=== PATIENT | female | born 1955 | race Caucasian/White ===

== ENCOUNTER 2022-10-01 06:17 | Inpatient (IN) ==
[2022-10-01] MEDS ORDERED: ACETAMINOPHEN 1,000 MG/100 ML VIAL IV STA (07:10)
[2022-10-01] MEDS ORDERED: SODIUM CHLORIDE 0.9% 1000ML 1,000 ML IV ONE (07:10)
--- NOTE | 2022-10-01 07:10 | Emergency Department Note ---
Impression & Plan COVID-19, Lactic acidosis, Hypoxia ED Provider Note Name: MORE CÁRDENAS Age: 66 Sex: F Arrives Via: Walk-In Informant: Patient, Family ED Provider: Chase Lozano MD Chief Complaint: Illness Impression: As per impressions above Medical Decision Makin-year-old female arrives for evaluation of generalized illness with fevers, chills, weakness. Did have a recent gynecologic procedure however does not have any gynecological symptoms at this time. She is however febrile, tachycardic, hypoxic and generally ill-appearing. Mild dyspnea as well. She is placed on a nasal cannula oxygen with improvement. She was given IV fluids and IV Tylenol with improvement. Concern for early sepsis without empiric IV antibiotics were given. Blood cultures were obtained as well prior to these being given. COVID testing did end up returning positive. Chest x-ray shows either pulmonary edema versus viral findings. She was given initial 1 L bolus of fluid but will hold on further as to avoid overload. Blood pressure remained stable. Patient was given IV Decadron for treatment of her COVID with hypoxia. She was made aware of these findings. Given she responds well to nasal cannula and otherwise looks well I do not think this is consistent with PE at this time. Hospitalist consulted for further management. Patient has a soft nontender abdomen. I do not feel that imaging of the abdomen is necessary at this time. Prior Medical Record and Triage/Nursing Notes reviewed by Me External chart reviewed by me. Differentials:Pneumonia, sepsis, COVID, flu, UTI, bacteremia, intra-abdominal infection amongst multiple other pathologies considered Vital Signs: reviewed and remarkable for tachycardia, febrile, hypoxia Interventions: Normal saline bolus IV, Tylenol IV, ertapenem 2 g IV, Decadron 10 mg IV Labs:Reviewed and remarkable for lactate Imagin view chest x-ray interpretation by me. Bilateral inflammatory changes versus pulmonary edema. EKG:Per My Interpretation: Indication illness: Sinus tach 131 bpm, qtc 451. No Ectopy. No Ischemia, there is nonspecific intra ventricular block. Compared to EKG 08/10/22 intraventricular block appears new Cardiac/Tele Monitoring: Cardiac Monitoring: An Order was placed for continuous cardiac monitoring. The monitor shows a rate of 120 with a sinus tach rhythm. Consults:Dr Monet ELIZALDE Hospitalist Plan: Disposition:Hospitalization. Condition: Good History of Present Illness:66-year-old female arrives for evaluation of illness. Patient has been dealing with some vaginal issues including recent biopsy showing she has cancer due to continued pain was started on lidocaine jelly which she started last night. She also notes she has been dealing with UTI for the last 2 weeks having now been on her third antibiotic. This morning increasing fevers, chills, body aches, shortness of breath, fatigue. Notes she is too weak to get up and walk. Denies any falls, trauma, injuries. Notes urinary frequency no significant burning. Denies any flank pain or abdominal pain, nausea, leg swelling, rashes or other concerning signs or symptoms. She h as not been having any runny nose or productive cough. She does have a history of COPD as well as previous pneumonia about 2 months ago. Prior to arrival without improvement. Past History:See Below Home Medications:See Below Allergies:See Below Vitals:Blood Pressure: 176/63, Pulse 128, RR 26, T 37.9C, O2 88% on RA Physical Exam: GENERAL: Patient is tired appearing and in mild distress. EYES: No scleral icterus, unremarkable pupils. ENT: Mucous membranes dry, no nasal congestion. NECK: No masses appreciated, nomeningismus, trachea is midline. RESPIRATORY: Moderate dyspnea. Clear to auscultation and equal bilaterally. No wheeze, no rhonchi. CARDIOVASCULAR: Tachycardic.No murmurs, rubs, gallops appreciated. GASTROINTESTINAL: Abdomen soft, non-tender, no peritonitis.Bowel sounds positive.No masses appreciated. EXTREMITIES: Normal motion all extremities, no cyanosis, no edema. NEUROLOGIC: Alert and oriented, no focal deficits appreciated SKIN: No rash, no jaundice, no diaphoresis. PSYCH: Appropriate GCS: 15 ED Course: Times/Reassessments: Improved with fluids and nasal cannula O2 Chase Lozano MD Past Med/Surg History Medical History Arthritis Asthma Chronic back pain COPD (chronic obstructive pulmonary disease) GERD without esophagitis Hyperlipidemia Insomnia Migraine headache without aura NAFLD (nonalcoholic fatty liver disease) Type 2 diabetes mellitus Surgical History H/O: x3 S/P total abdominal hysterectomy NELIDA-USO S/P tubal ligation Family History Mother Myocardial infarction Diabetes Sister Myocardial infarction x 2 Diabetes Brother Throat cancer Denies family history of Ovarian cancer Prostate cancer Breast cancer Colorectal cancer Uterine cancer Social History Smoking Status: Never smoker Tobacco Type: Cigarettes Second Hand Exposure: No; Do You Dip or Chew Tobacco: No; Hx Alcohol Use: No Hx Substance Use: No Preferred Language: Ethiopian Communication Ability: Effective Visual Impairment: No Limitations Hearing Ability: Normal Dipper And Baker Required: No Beliefs That Will Affect Care: None marital status: / Current Living Situation: Family Current Living Situation Comment: lives with son current occupational status: disabled Other Information That Helps Us Care for You: No Feels Safe at Home: Yes Safety Concerns: Feels Safe At This Time Diet Comment: regular caffeine: Yes during the past year weight has: decreased > 10 lbs Dental Care, Regularly: No Physical Activity Frequency: Other Physical Activity Frequency Comment: limited to physical condition Seatbelt Use: always Sunscreen Use: No Assistive Devices: Glasses and Other Assistive Devices Comment: patient uses scooter for long distance walking Allergies Allergies Allergy/AdvReac Type Severity Reaction Status Date / Time Penicillins Allergy Severe SHORT OF Verified 10/01/22 07:47 BREATH/HIVES shellfish derived Allergy Severe SHORT OF Verified 10/01/22 07:47 BREATH/EYES SWELL/ITCHY sumatriptan [From Imitrex] Allergy Severe SHORT OF Verified 10/01/22 07:47 BREATH/HIVES erythromycin base Allergy Intermediate ITCHY HIVES Verified 10/01/22 07:47 liraglutide [From Victoza] Allergy Intermediate RASH/STOMACH Verified 10/01/22 07:47 PAIN rofecoxib [From Vioxx] Allergy Intermediate ITCHY HIVES Verified 10/01/22 07:47 Tetracyclines Allergy Intermediate ITCHY HIVES Verified 10/01/22 07:47 iodine Allergy Unknown Verified 10/01/22 07:47 topiramate [From Topamax] AdvReac Severe SUICIDAL Verified 10/01/22 07:47 THOUGHTS/DEPRESSION meloxicam AdvReac Intermediate GI Verified 10/01/22 07:47 UPSET/DIARRHEA metformin AdvReac Intermediate STOMACH Verified 10/01/22 07:47 PAIN/DIARRHEA Home Meds Home Medications Medication Instructions Recorded Confirmed ammonium lactate 12 % topical cream 1 applic topical DAILY 08/10/22 10/01/22 aspirin 81 mg tablet,delayed 81 mg PO DAILY 08/10/22 10/01/22 release cyanocobalamin (vitamin B-12) 1,000 mcg PO DAILY 08/10/22 10/01/22 1,000 mcg tablet (Vitamin B-12) epinephrine 0.3 mg/0.3 mL 0.3 mg IM DIRECTED PRN Allergic 08/10/22 10/01/22 injection, auto-injector (EpiPen) Reaction lansoprazole 30 mg capsule,delayed 30 mg PO DAILY 08/10/22 10/01/22 release (Prevacid) simvastatin 20 mg tablet 20 mg PO HS 08/10/22 10/01/22 triamcinolone acetonide 0.1 % 1 applic topical BID PRN Skin 08/10/22 10/01/22 topical cream Irritation Previous Rx's Medication Instructions Recorded benzonatate 100 mg capsule 100 mg PO TID PRN Cough #60 caps 08/27/22 cetirizine 10 mg tablet (Zyrtec) 10 mg PO DAILY #90 tabs 08/27/22 famotidine 40 mg tablet 40 mg PO BID #60 tabs 08/27/22 glucose 4 gram chewable tablet 4 g PO Q15M PRN hypoglycemia #30 08/27/22 tabs montelukast 10 mg tablet 10 mg PO HS #90 tabs 08/27/22 (Singulair) nortriptyline 50 mg capsule 100 mg PO HS #90 caps 08/27/22 insulin glargine 100 unit/mL (3 50 unit (0.5 mL) subcut BID #15 mL 08/30/22 mL) subcutaneous pen (Lantus Solostar U-100 Insulin) albuterol sulfate 90 mcg/actuation 2 puff inhalation DIRECTED PRN 09/18/22 aerosol inhaler Shortness Of Breath Or Wheezing #8.5 grams fluticasone fur. 200 mcg-umeclid 1 inh inhalation DAILY #3 Inhalers 09/18/22 62.5 mcg-vilant 25 mcg inhalat.powder (Trelegy Ellipta) guaifenesin 600 mg tablet, 600 mg PO BID PRN congestion #60 09/18/22 extended release 12 hr (Mucinex) tabs zolpidem 5 mg tablet 5 mg PO ONCE PRN sleep #2 tabs 09/18/22 nitrofurantoin 100 mg PO Q12H 7 days #14 caps 09/20/22 monohydrate/macrocrystals 100 mg capsule (Macrobid) tizanidine 4 mg tablet 4 mg PO TID PRN muscle spasticity 09/20/22 #90 tabs lidocaine HCl 2 % mucosal jelly in 1 applic topical BID PRN pain #125 09/25/22 applicator mL dulaglutide 1.5 mg/0.5 mL 1.5 mg (0.5 mL) subcut WK #2 mL 09/26/22 subcutaneous pen injector (Trulicity) insulin aspart U-100 100 unit/mL 16 unit (0.16 mL) subcut TID #15 mL 09/26/22 (3 mL) subcutaneous pen (Novolog FlexPen U-100 Insulin aspart) Results & Data (ED) Vital Signs Vital Signs - 24 hr 10/01/22 06:24 10/01/22 06:38 10/01/22 06:48 Temperature 37.9 C H Temperature Source Temporal Artery Scan Pulse Rate 127 H 128 H Pulse Rate [Apical] Pulse Rate from SpO2 Sensor Respiratory Rate 22 Respiratory Effort / Characteristics Non-Labored Respiratory Depth Normal Blood Pressure 154/111 H Blood Pressure [Right Arm] Blood Pressure Mean 125 Blood Pressure Mean [Right Arm] Pulse Oximetry 94 Oxygen Delivery Method Room Air Room Air Oxygen Flow Rate Sepsis Recent Fever Within 48 Hours Yes Sepsis New/Unexplained Change in Mental Status N/A Sepsis Action Taken by Nursing Previously Notified 10/01/22 06:50 10/01/22 06:53 10/01/22 06:54 Temperature Temperature Source Pulse Rate Pulse Rate [Apical] 128 H Pulse Rate from SpO2 Sensor Respiratory Rate 26 H Respiratory Effort / Characteristics Non-Labored Spontaneous Respiratory Depth Blood Pressure Blood Pressure [Right Arm] 176/63 H Blood Pressure Mean Blood Pressure Mean [Right Arm] 100 Pulse Oximetry 88 L 93 Oxygen Delivery Method Room Air Nasal Cannula Oxygen Flow Rate 2 Sepsis Recent Fever Within 48 Hours Sepsis New/Unexplained Change in Mental Status Sepsis Action Taken by Nursing 10/01/22 06:38 10/01/22 06:52 10/01/22 06:52 Temperature Temperature Source Pulse Rate 128 H 127 H Pulse Rate [Apical] Pulse Rate from SpO2 Sensor 127 H Respiratory Rate 31 H 26 H Respiratory Effort / Characteristics Respiratory Depth Blood Pressure 176/63 H Blood Pressure [Right Arm] Blood Pressure Mean 100 Blood Pressure Mean [Right Arm] Pulse Oximetry 89 L Oxygen Delivery Method Oxygen Flow Rate Sepsis Recent Fever Within 48 Hours Sepsis New/Unexplained Change in Mental Status Sepsis Action Taken by Nursing 10/01/22 07:00 10/01/22 07:00 10/01/22 07:30 Temperature Temperature Source Pulse Rate 127 H 127 H Pulse Rate [Apical] Pulse Rate from SpO2 Sensor 130 H 128 H Respiratory Rate 17 27 H Respiratory Effort / Characteristics Respiratory Depth Blood Pressure Blood Pressure [Right Arm] Blood Pressure Mean 166 Blood Pressure Mean [Right Arm] Pulse Oximetry 95 93 Oxygen Delivery Method Oxygen Flow Rate Sepsis Recent Fever Within 48 Hours Sepsis New/Unexplained Change in Mental Status Sepsis Action Taken by Nursing 10/01/22 08:00 10/01/22 08:08 10/01/22 08:09 Temperature Temperature Source Pulse Rate 126 H 124 H Pulse Rate [Apical] Pulse Rate from SpO2 Sensor 129 H 124 H Respiratory Rate 25 H 16 Respiratory Effort / Characteristics Respiratory Depth Blood Pressure 147/82 H Blood Pressure [Right Arm] Blood Pressure Mean 103 Blood Pressure Mean [Right Arm] Pulse Oximetry 89 L 93 Oxygen Delivery Method Oxygen Flow Rate Sepsis Recent Fever Within 48 Hours Sepsis New/Unexplained Change in Mental Status Sepsis Action Taken by Nursing 10/01/22 08:09 10/01/22 08:30 Temperature Temperature Source Pulse Rate 124 H 120 H Pulse Rate [Apical] Pulse Rate from SpO2 Sensor 125 H 122 H Respiratory Rate 20 25 H Respiratory Effort / Characteristics Respiratory Depth Blood Pressure Blood Pressure [Right Arm] Blood Pressure Mean Blood Pressure Mean [Right Arm] Pulse Oximetry 93 94 Oxygen Delivery Method Oxygen Flow Rate Sepsis Recent Fever Within 48 Hours Sepsis New/Unexplained Change in Mental Status Sepsis Action Taken by Nursing Laboratory Data 10/01/22 06:42 10/01/22 06:42 Lab Results 10/01/22 10/01/22 10/01/22 Range/Units 06:42 06:42 06:42 WBC 12.84 H (4.8-10.8) K/ul RBC 4.33 (4.20-5.40) M/uL Hgb 12.1 (12.0-16.0) g/dl Hct 37.4 (37.0-47.0) % MCV 86.4 (80.0-100.0) fL MCH 27.9 (25.0-34.0) pg MCHC 32.4 (32.0-36.0) g/dL RDW Std Deviation 46.1 (36.4-46.3) fL RDW Coeff of Brandon 14.5 (11.5-14.5) % Plt Count 324 (130-400) K/uL MPV 10.4 (9.4-12.4) fL Immature Gran % (Auto) 0.3 % Neut % (Auto) 94.1 % Lymph % (Auto) 3.0 % [place] % (Auto) 1.4 % Eos % (Auto) 0.9 % Baso % (Auto) 0.3 % Neut # (Auto) 12.09 H (1.40-6.50) K/uL Lymph # (Auto) 0.38 L (1.2-3.4) K/uL [place] # (Auto) 0.18 (0.11-0.59) K/uL Eos # (Auto) 0.11 (0-0.50) K/uL Baso # (Auto) 0.04 (0-0.2) K/uL Immature Gran # (Auto) 0.04 (0.01-0.20) K/uL Sodium 135 L (136-145) mmol/L Potassium 4.4 (3.5-5.1) mmol/L Chloride 104 (98-107) mmol/L Carbon Dioxide 22 (21-32) mmol/L Anion Gap 9 (3-11) BUN 10 (6-23) mg/dl Creatinine 0.80 (0.6-1.2) mg/dl Est Cr Clr Drug Dosing 81.3 ml/min Est GFR ( Amer) 89.0 ml/min Est GFR (Non-Af Amer) 76.8 ml/min BUN/Creatinine Ratio 12.5 (10-20) Glucose 275 H (70-99(Fasting)) mg/dl Lactate 2.5 H* (0.4-2.0) mmol/L Calcium 8.7 (8.5-10.1) mg/dl Magnesium 1.7 (1.7-2.4) mg/dl Total Bilirubin 0.6 (0.2-1.0) mg/dl Direct Bilirubin 0.2 (0-0.2) mg/dl AST 55 H (13-39) U/L ALT 42 (7-52) U/L Alkaline Phosphatase 283 H (34-104) U/L Troponin I High Sens 9.7 (0-14) pg/ml Total Protein 7.6 (6.0-8.3) gm/dl Albumin 3.6 (3.4-5.0) gm/dl Procalcitonin (0-0.5) ng/ml Urine Color Urine Appearance (Clear) Urine pH (4.5-7.5) Ur Specific [place] (1.000-1.030) Urine Protein (Negative) Urine Glucose (UA) (Negative) Urine Ketones (Negative) Urine Blood (Negative) Urine Nitrite (Negative) Urine Bilirubin (Negative) Urine Urobilinogen (Negative) Ur Leukocyte Esterase (Negative) Urine WBC (Auto) (0-5) /hpf Urine RBC (Auto) (0-4) /hpf U Hyaline Cast (Auto) (0-5) /lpf U Epithel Cells (Auto) (0-5) /lpf Urine Bacteria (Auto) (Negative) SARS-CoV-2 (PCR) (Negative) Influenza Type A (PCR) (Neg) Influenza Type B (PCR) (Neg) RSV (RT-PCR) (Neg) 10/01/22 10/01/22 10/01/22 Range/Units 06:42 06:53 07:57 WBC (4.8-10.8) K/ul RBC (4.20-5.40) M/uL Hgb (12.0-16.0) g/dl Hct (37.0-47.0) % MCV (80.0-100.0) fL MCH (25.0-34.0) pg MCHC (32.0-36.0) g/dL RDW Std Deviation (36.4-46.3) fL RDW Coeff of Brandon (11.5-14.5) % Plt Count (130-400) K/uL MPV (9.4-12.4) fL Immature Gran % (Auto) % Neut % (Auto) % Lymph % (Auto) % [place] % (Auto) % Eos % (Auto) % Baso % (Auto) % Neut # (Auto) (1.40-6.50) K/uL Lymph # (Auto) (1.2-3.4) K/uL [place] # (Auto) (0.11-0.59) K/uL Eos # (Auto) (0-0.50) K/uL Baso # (Auto) (0-0.2) K/uL Immature Gran # (Auto) (0.01-0.20) K/uL Sodium (136-145) mmol/L Potassium (3.5-5.1) mmol/L Chloride (98-107) mmol/L Carbon Dioxide (21-32) mmol/L Anion Gap (3-11) BUN (6-23) mg/dl Creatinine (0.6-1.2) mg/dl Est Cr Clr Drug Dosing ml/min Est GFR ( Amer) ml/min Est GFR (Non-Af Amer) ml/min BUN/Creatinine Ratio (10-20) Glucose (70-99(Fasting)) mg/dl Lactate (0.4-2.0) mmol/L Calcium (8.5-10.1) mg/dl Magnesium (1.7-2.4) mg/dl Total Bilirubin (0.2-1.0) mg/dl Direct Bilirubin (0-0.2) mg/dl AST (13-39) U/L ALT (7-52) U/L Alkaline Phosphatase (34-104) U/L Troponin I High Sens (0-14) pg/ml Total Protein (6.0-8.3) gm/dl Albumin (3.4-5.0) gm/dl Procalcitonin 0.24 (0-0.5) ng/ml Urine Color Yellow Urine Appearance Clear (Clear) Urine pH 8.5 H (4.5-7.5) Ur Specific [place] 1.017 (1.000-1.030) Urine Protein Negative (Negative) Urine Glucose (UA) 2+ H (Negative) Urine Ketones 1+ H (Negative) Urine Blood Negative (Negative) Urine Nitrite Negative (Negative) Urine Bilirubin Negative (Negative) Urine Urobilinogen Negative (Negative) Ur Leukocyte Esterase Trace H (Negative) Urine WBC (Auto) 5-10 H (0-5) /hpf Urine RBC (Auto) 0-4 (0-4) /hpf U Hyaline Cast (Auto) 0 (0-5) /lpf U Epithel Cells (Auto) >30 H (0-5) /lpf Urine Bacteria (Auto) 1+ H (Negative) SARS-CoV-2 (PCR) POSITIVE A* (Negative) Influenza Type A (PCR) Negative (Neg) Influenza Type B (PCR) Negative (Neg) RSV (RT-PCR) Negative (Neg) Administered Medications Albuterol (Albut/Ipratrop 3mg/0.5mg Neb 3 Ml Vial) 3 ml NEB Q4R NATALIA; Protocol Stop: 10/31/22 11:44 Last Admin: 10/01/22 12:31 Dose: 3 ml Documented By: NARINDER Aspirin (Aspirin 81 Mg Ectab) 81 mg PO DAILY [facility] Stop: 10/31/22 11:44 Last Admin: 10/01/22 12:51 Dose: 81 mg Documented By: WILMA Cetirizine HCl (Cetirizine Hcl 10 Mg Tablet) 10 mg PO DAILY [facility] Stop: 10/31/22 11:44 Last Admin: 10/01/22 12:51 Dose: 10 mg Documented By: WILMA Cyanocobalamin (Cyanocobalamin (B-12) 500 Mcg Tablet) 1,000 mcg PO DAILY [facility] Stop: 10/31/22 11:44 Last Admin: 10/01/22 12:51 Dose: 1,000 mcg Documented By: WILMA Famotidine (Famotidine 40 Mg Tablet) 40 mg PO BID [facility] Stop: 10/31/22 11:44 Last Admin: 10/01/22 12:51 Dose: 40 mg Documented By: WILMA Fluticasone Furoate (Fluticasone Furoate 200mcg 14 Puffs/Inhaler) 1 puffs INH DAILY [facility] Stop: 10/31/22 11:59 Last Admin: 10/01/22 12:50 Dose: 1 puffs Documented By: WILMA Guaifenesin (Guaifenesin 600 Mg Tabcr) 600 mg PO BID [facility] Stop: 10/31/22 11:44 Last Admin: 10/01/22 12:51 Dose: 600 mg Documented By: WILMA Magnesium Sulfate/Dextrose (Magnesium Sulfate / D5w) 1 gm in 100 mls @ 50 mls/hr IV ONE ONE Stop: 10/01/22 15:24 Last Admin: 10/01/22 13:43 Dose: 50 mls/hr Documented By: WILMA Insulin Aspart (Insulin Aspart Per Unit) 0 units SC ACHS NATALIA Stop: 10/31/22 12:19 Last Admin: 10/01/22 13:06 Dose: 10 units Documented By: WILMA Co-signed By: DMB Pantoprazole Sodium (Pantoprazole 40 Mg Tab) 40 mg PO DAILY NATALIA Stop: 10/31/22 11:44 Last Admin: 10/01/22 12:51 Dose: 40 mg Documented By: WILMA Umeclidinium/Vilanterol (Umeclidinium/Vilanterol 62.5/25mcg 7 Puffs/Inhaler) 1 puffs INH DAILY NATALIA Stop: 10/31/22 11:59 Last Admin: 10/01/22 12:50 Dose: 1 puffs Documented By: WILMA Discontinued Medications Dexamethasone Sodium Phosphate (DexamethasonePf 10 Mg/Ml Vial) 10 mg IV NOW ONE Stop: 10/01/22 07:56 Last Admin: 10/01/22 08:04 Dose: 10 mg Documented By: HS Sodium Chloride (Nss 1000ml) 1,000 mls @ 999 mls/hr IV .Q1H1M ONE Stop: 10/01/22 08:10 Last Infusion: 10/01/22 08:16 Dose: 0 mls/hr Documented By: Admin: 10/01/22 07:15 Dose: 999 mls/hr Documented By: HS Acetaminophen (Ofirmev) 1,000 mg in 100 mls @ 400 mls/hr IV NOW STA Stop: 10/01/22 07:24 Last Infusion: 10/01/22 07:43 Dose: 0 mls/hr Documented By: Admin: 10/01/22 07:15 Dose: 400 mls/hr Documented By: HS Ertapenem (Invanz) 10 mls @ 2 mls/min IV NOW ONE Stop: 10/01/22 07:47 Last Admin: 10/01/22 08:04 Dose: 2 mls/min Documented By: HS Remdesivir 200 mg/ Sodium (Chloride) 250 mls @ 125 mls/hr IV ONE ONE; Protocol Stop: 10/01/22 14:14 Last Admin: 10/01/22 12:51 Dose: Not Given Documented By: WILMA Sodium Chloride (Nss 1000ml) 250 mls @ 999 mls/hr IV .Q16M ONE Stop: 10/01/22 13:09 Last Infusion: 10/01/22 13:50 Dose: 0 mls/hr Documented By: Admin: 10/01/22 13:26 Dose: 999 mls/hr Documented By: WILMA Insulin Glargine (Lantus Per Unit Charge) 50 units SQ NOW ONE Stop: 10/01/22 12:31 Last Admin: 10/01/22 13:06 Dose: 50 units Documented By: WILMA Co-signed By: ROXANNA Imaging Data Radiologist's Impression: Chest X-Ray 10/01/22 06:39 XR chest 1V portable CLINICAL HISTORY: Sepsis TECHNIQUE: Single frontal radiograph of the chest was obtained. Comparison: Comparison is made to chest radiograph 08/10/2022 FINDINGS: Exam is limited by patient rotation and underpenetration. Cardiomegaly is noted. Prominence and cephalization of the vasculature is seen. No evidence of pleural effusion or pneumothorax. IMPRESSION: Cardiomegaly and mild pulmonary edema. ACT 112: Negative or not required by law. Electronically signed by: Antonio Carranza M.D. 10/01/2022 7:22 AM Discharge Plan Visit Data Chief Complaint: Chest Pain Stated Complaint: FEVER,LIGHTHEADED,SOB,CHEST TIGHTNESS,NEW MEDS ED Provider: Chase Lozano Discharge Problem: COVID-19, Lactic acidosis, Hypoxia Patient Disposition: Admitted As Inpatient Discharge Instructions Interventions: ED Discharge Assessment Last Done: 10/01/22 11:03
[2022-10-01 07:18] LABS: Hematocrit (blood only) 37.4 % (37.0-47.0); Hemoglobin 12.1 g/dl (12.0-16.0); Mean Corpuscular Hemoglobin 27.9 pg (25.0-34.0); Mean Corpuscular Hgb Conc 32.4 g/dL (32.0-36.0); Mean Corpuscular Volume 86.4 fL (80.0-100.0); Mean Platelet Volume 10.4 fL (9.4-12.4); Platelet Count 324 K/uL (130-400); RDW Coefficient of Variation 14.5 % (11.5-14.5); RDW Standard Deviation 46.1 fL (36.4-46.3); Red Blood Count 4.33 M/uL (4.20-5.40); White Blood Count 12.84 K/ul (4.8-10.8)
--- NOTE | 2022-10-01 07:23 | XRay Report ---
XR chest 1V portable CLINICAL HISTORY: Sepsis TECHNIQUE: Single frontal radiograph of the chest was obtained. Comparison: Comparison is made to chest radiograph 08/10/2022 FINDINGS: Exam is limited by patient rotation and underpenetration. Cardiomegaly is noted. Prominence and cepha lization of the vasculature is seen. No evidence of pleural effusion or pneumothorax. IMPRESSION: Cardiomegaly and mild pulmonary edema. ACT 112: Negative or not required by law. Electronically signed by: Antonio Carranza M.D. 10/01/2022 7:22 AM
[2022-10-01 07:27] LABS: Albumin Level 3.6 gm/dl (3.4-5.0); BUN Creatinine Ratio 12.5 (10-20); Bilirubin Direct 0.2 mg/dl (0-0.2); Bilirubin,Total 0.6 mg/dl (0.2-1.0); Calcium 8.7 mg/dl (8.5-10.1); Creatinine Clr Calc Pharmacy 81.3 ml/min; Est GFR (Non-African American) 76.8 ml/min; Magnesium 1.7 mg/dl (1.7-2.4); Potassium 4.4 mmol/L (3.5-5.1); Total Protein 7.6 gm/dl (6.0-8.3)
[2022-10-01 07:33] LABS: Troponin I High Sensitivity 9.7 pg/ml (0-14)
[2022-10-01 07:42] LABS: Basophils # (auto) 0.04 K/uL (0-0.2); Basophils % (auto) 0.3 %; Eosinophils # (auto) 0.11 K/uL (0-0.50); Eosinophils % (auto) 0.9 %; Immature Granulocytes # (auto) 0.04 K/uL (0.01-0.20); Immature Granulocytes % (auto) 0.3 %; Lymphocytes # (auto) 0.38 K/uL (1.2-3.4); Monocytes # (auto) 0.18 K/uL (0.11-0.59); Monocytes % (auto) 1.4 %; Neutrophils # (auto) 12.09 K/uL (1.40-6.50); Neutrophils % (auto) 94.1 %
[2022-10-01] MEDS ORDERED: ERTAPENEM SODIUM 10 ML IV ONE (07:43)
[2022-10-01 07:50] LABS: Influenza A virus by PCR Negative (Neg); Influenza B virus by PCR Negative (Neg); RSV by PCR Negative (Neg)
[2022-10-01 07:55] LABS: SARS CoV2 RNA(COVID-19) Ceph POSITIVE (Negative)
[2022-10-01] MEDS ORDERED: dexAMETHasone**PF** 10 MG/ML VIAL IV ONE (07:55)
[2022-10-01 08:13] LABS: Appearance Urine Clear (Clear); Bacteria Urine Automated 1+ (Negative); Bilirubin Urine Negative (Negative); Blood Urine Negative (Negative); Cast Urine Automated 0 /lpf (0-5); Color Urine Yellow; Epithelial Cell Urine Auto >30 /lpf (0-5); Glucose Urine UA 2+ (Negative); Ketones Urine 1+ (Negative); Leukocyte Esterase Urine Trace (Negative); Nitrite Urine Negative (Negative); Protein Urine Negative (Negative); RBC Urine Automated 0-4 /hpf (0-4); Specific Gravity Urine 1.017 (1.000-1.030); Urobilinogen Urine Negative (Negative); pH Urine 8.5 (4.5-7.5)
--- NOTE | 2022-10-01 08:16 | History & Physical Report ---
Date of Service October 01, 2022 Assessment & Plan (1) COVID-19: Plan: Increased weakness, fevers, shortness of breath and fatigue, positive for COVID (prior + last January, is vaccinated) Hypoxic w/ Spo2 88% on RA on arrival, currently 93% on 2L. Lactic elevation likely 2nd to hypoxia (denied sx of prior UTI, however UA pending and did get dose of Ertapenem) Temp 37.9C Blood cultures pending Already received 1L NSS bolus will hold off further IVF/pending repeat lactic Maintain isolation precautions Decadron 10mg IV x 1 now, continue 6mg IV daily +Remdesivir 1st dose now, continue course while inpatient Duonebs prn Incentive spirometer, flutter valve, mucinex, sputum Supplemental O2 to maintain sats DVT proph: lovenox SQ BID on PPI/H2 for GI proph PT/OT consulted given weakness (has been getting help at home per patient to allow son to be able to take care of her). CM to follow (2) Sepsis: Plan: likely 2nd to above blood cultures/UA/cx pending (3) Recurrent UTI (urinary tract infection): Plan: urine pending, recently completed macrobid for ecoli uti, which was sensitive (4) Shortness of breath: Plan: improved since supplemental O2 and decadron continue inhalers/supplemnetal o2/tx for covid (5) COPD (chronic obstructive pulmonary disease): Plan: continue usual inhalers no cough/sputum production to warrant abx currently but will monitor recently seen by Dr [place], CT chest ordered -- can hold off for now/reach out if patient worsens continue allergy medications as well, mucinex, etc (6) Type 2 diabetes mellitus: Plan: continue usual glargine BID for now, BSG AC/HS, and SSI. Last A1c 9.3. Glu 275 DM diet pharmacy for glycemic management given decadron as above monitor BSGs (7) GERD without esophagitis: Plan: continue PPI/H2 no increased symptoms reported (8) Squamous cell carcinoma: Plan: recent dx by RESPIRATORY TECHNICIAN, awaiting manager video/onc follow up stable Plan DVT prophylaxis-Lovenox SQ History of Present Illness Primary Care Provider: ALFONSO Castro 66yo female presented with recent vaginal issues/UTI and this morning with increasing fevers, chills, body aches, shortness of breath, fatigue. Too weak to get up/walk. 88% RA Patient seen in room with son at bedside. Moved from [place] at end of July, states she had COVID back at the end of last January, is vaccinated. Hx COPD/asthma and has been on her usual inhalers. Denies cough/sputum production but does endorse shortness of breath, which is improved since she got here and received steroids. Initially hypoxic with SpO2 88%, 93% on 2L currently and stable. Recent UTI and sx cloudy/foul smelling urine and since abx (which have been completed) she is asymptomatic from that. She is awaiting f/u manager video/onc for her squamous cell carcinoma just discovered. She has been febrile and weak, poor PO intake/appetite but no abdominal pain or nausea. Little bit of a headache but no migraine (hx of such). No falls/loss of conciousness. Discussed admission for steroids/remdesivir, if breathing worsens can reach out to pulmonary as recently seen. ER Course: Given Decadron 10mg IV x 1 now, Ertapenem, IV Tylenol, 1L NSS bolus. Allergies Allergy/AdvReac Type Severity Reaction Status Date / Time Penicillins Allergy Severe SHORT OF Verified 10/01/22 07:47 BREATH/HIVES shellfish derived Allergy Severe SHORT OF Verified 10/01/22 07:47 BREATH/EYES SWELL/ITCHY sumatriptan [From Imitrex] Allergy Severe SHORT OF Verified 10/01/22 07:47 BREATH/HIVES erythromycin base Allergy Intermediate ITCHY HIVES Verified 10/01/22 07:47 liraglutide [From Victoza] Allergy Intermediate RASH/STOMACH Verified 10/01/22 07:47 PAIN rofecoxib [From Vioxx] Allergy Intermediate ITCHY HIVES Verified 10/01/22 07:47 Tetracyclines Allergy Intermediate ITCHY HIVES Verified 10/01/22 07:47 iodine Allergy Unknown Verified 10/01/22 07:47 topiramate [From Topamax] AdvReac Severe SUICIDAL Verified 10/01/22 07:47 THOUGHTS/DEPRESSION meloxicam AdvReac Intermediate GI Verified 10/01/22 07:47 UPSET/DIARRHEA metformin AdvReac Intermediate STOMACH Verified 10/01/22 07:47 PAIN/DIARRHEA Home Medications Medication Instructions Recorded Confirmed Type ammonium lactate 12 % topical cream 1 applic topical DAILY 08/10/22 10/01/22 History aspirin 81 mg tablet,delayed 81 mg PO DAILY 08/10/22 10/01/22 History release cyanocobalamin (vitamin B-12) 1,000 mcg PO DAILY 08/10/22 10/01/22 History 1,000 mcg tablet (Vitamin B-12) epinephrine 0.3 mg/0.3 mL 0.3 mg IM DIRECTED PRN Allergic 08/10/22 10/01/22 History injection, auto-injector (EpiPen) Reaction lansoprazole 30 mg capsule,delayed 30 mg PO DAILY 08/10/22 10/01/22 History release (Prevacid) simvastatin 20 mg tablet 20 mg PO HS 08/10/22 10/01/22 History triamcinolone acetonide 0.1 % 1 applic topical BID PRN Skin 08/10/22 10/01/22 History topical cream Irritation benzonatate 100 mg capsule 100 mg PO TID PRN Cough #60 caps 08/27/22 10/01/22 Rx cetirizine 10 mg tablet (Zyrtec) 10 mg PO DAILY #90 tabs 08/27/22 10/01/22 Rx famotidine 40 mg tablet 40 mg PO BID #60 tabs 08/27/22 10/01/22 Rx glucose 4 gram chewable tablet 4 g PO Q15M PRN hypoglycemia #30 08/27/22 10/01/22 Rx tabs montelukast 10 mg tablet 10 mg PO HS #90 tabs 08/27/22 10/01/22 Rx (Singulair) nortriptyline 50 mg capsule 100 mg PO HS #90 caps 08/27/22 10/01/22 Rx insulin glargine 100 unit/mL (3 50 unit (0.5 mL) subcut BID #15 mL 08/30/22 10/01/22 Rx mL) subcutaneous pen (Lantus Solostar U-100 Insulin) albuterol sulfate 90 mcg/actuation 2 puff inhalation DIRECTED PRN 09/18/22 10/01/22 Rx aerosol inhaler Shortness Of Breath Or Wheezing #8.5 grams fluticasone fur. 200 mcg-umeclid 1 inh inhalation DAILY #3 Inhalers 09/18/22 10/01/22 Rx 62.5 mcg-vilant 25 mcg inhalat.powder (Trelegy Ellipta) guaifenesin 600 mg tablet, 600 mg PO BID PRN congestion #60 09/18/22 10/01/22 Rx extended release 12 hr (Mucinex) tabs zolpidem 5 mg tablet 5 mg PO ONCE PRN sleep #2 tabs 09/18/22 10/01/22 Rx nitrofurantoin 100 mg PO Q12H 7 days #14 caps 09/20/22 10/01/22 Rx monohydrate/macrocrystals 100 mg capsule (Macrobid) tizanidine 4 mg tablet 4 mg PO TID PRN muscle spasticity 09/20/22 10/01/22 Rx #90 tabs lidocaine HCl 2 % mucosal jelly in 1 applic topical BID PRN pain #125 09/25/22 10/01/22 Rx applicator mL dulaglutide 1.5 mg/0.5 mL 1.5 mg (0.5 mL) subcut WK #2 mL 09/26/22 10/01/22 Rx subcutaneous pen injector (Trulicity) insulin aspart U-100 100 unit/mL 16 unit (0.16 mL) subcut TID #15 mL 09/26/22 10/01/22 Rx (3 mL) subcutaneous pen (Novolog FlexPen U-100 Insulin aspart) Past Med/Surg History Medical History Arthritis Asthma Chronic back pain COPD (chronic obstructive pulmonary disease) GERD without esophagitis Hyperlipidemia Insomnia Migraine headache without aura NAFLD (nonalcoholic fatty liver disease) Type 2 diabetes mellitus Surgical History H/O: x3 S/P total abdominal hysterectomy NELIDA-USO S/P tubal ligation Family History Mother Myocardial infarction Diabetes Sister Myocardial infarction x 2 Diabetes Brother Throat cancer Denies family history of Ovarian cancer Prostate cancer Breast cancer Colorectal cancer Uterine cancer Social History Smoking Status: Never smoker Tobacco Type: Cigarettes Second Hand Exposure: No; Do You Dip or Chew Tobacco: No; Hx Alcohol Use: No Hx Substance Use: No Preferred Language: French Communication Ability: Effective Visual Impairment: No Limitations Hearing Ability: Normal Spot Washer Required: No Beliefs That Will Affect Care: None marital status: / Current Living Situation: Family Current Living Situation Comment: lives with son current occupational status: disabled Other Information That Helps Us Care for You: No Feels Safe at Home: Yes Safety Concerns: Feels Safe At This Time Diet Comment: regular caffeine: Yes during the past year weight has: decreased > 10 lbs Dental Care, Regularly: No Physical Activity Frequency: Other Physical Activity Frequency Comment: limited to physical condition Seatbelt Use: always Sunscreen Use: No Assistive Devices: Glasses and Other Assistive Devices Comment: patient uses scooter for long distance walking Review of Systems Review of Systems: All systems reviewed & are unremarkable except as noted in HPI & below Physical Exam Physical Exam: General: WD female sitting in bed, son at bedside, NAD, but appears fatigued HEENT: head normocephalic, atraumatic, mmm, trachea midline without deviation Resp: bilateral crackles, no wheezing/rales, no cough, no tachypnea, on 2L NC CV: slightly tachycardic (rates 110s),regular, no significant m/r/g, no significant LE edema, calves nontender GI: +BS, soft/NT : no garcia, no CVA tenderness MSK/Neuro: no focal deficits, no slurred speech/facial droop Psych: alert, oriented to person/place/time, pleasant and cooperative Results & Data Results & Data ([facility]) Vital Signs (Past 12 Hours) Vital Signs Temp Pulse Pulse Resp BP BP Pulse Ox 10/01/22 06:53 93 10/01/22 06:50 128 H 26 H 176/63 H 88 L 10/01/22 06:48 10/01/22 06:38 128 H 10/01/22 06:24 37.9 C H 127 H 22 154/111 H 94 O2 Del Method O2 Flow Rate 10/01/22 06:53 Nasal Cannula 2 10/01/22 06:50 Room Air 10/01/22 06:48 Room Air 10/01/22 06:38 10/01/22 06:24 Room Air Laboratory Results 10/01/22 10/01/22 10/01/22 Range/Units 07:57 06:53 06:42 WBC (4.8-10.8) K/ul RBC (4.20-5.40) M/uL Hgb (12.0-16.0) g/dl Hct (37.0-47.0) % MCV (80.0-100.0) fL MCH (25.0-34.0) pg MCHC (32.0-36.0) g/dL RDW Std Deviation (36.4-46.3) fL RDW Coeff of [place] (11.5-14.5) % Plt Count (130-400) K/uL MPV (9.4-12.4) fL Immature Gran % (Auto) % Neut % (Auto) % Lymph % (Auto) % [place] % (Auto) % Eos % (Auto) % Baso % (Auto) % Neut # (Auto) (1.40-6.50) K/uL Lymph # (Auto) (1.2-3.4) K/uL [place] # (Auto) (0.11-0.59) K/uL Eos # (Auto) (0-0.50) K/uL Baso # (Auto) (0-0.2) K/uL Immature Gran # (Auto) (0.01-0.20) K/uL Sodium (136-145) mmol/L Potassium (3.5-5.1) mmol/L Chloride (98-107) mmol/L Carbon Dioxide (21-32) mmol/L Anion Gap (3-11) BUN (6-23) mg/dl Creatinine (0.6-1.2) mg/dl Est Cr Clr Drug Dosing ml/min Est GFR ( Amer) ml/min Est GFR (Non-Af Amer) ml/min BUN/Creatinine Ratio (10-20) Glucose (70-99(Fasting)) mg/dl Lactate (0.4-2.0) mmol/L Calcium (8.5-10.1) mg/dl Magnesium (1.7-2.4) mg/dl Total Bilirubin (0.2-1.0) mg/dl Direct Bilirubin (0-0.2) mg/dl AST (13-39) U/L ALT (7-52) U/L Alkaline Phosphatase (34-104) U/L Troponin I High Sens (0-14) pg/ml Total Protein (6.0-8.3) gm/dl Albumin (3.4-5.0) gm/dl Procalcitonin 0.24 (0-0.5) ng/ml Urine Color Yellow Urine Appearance Clear (Clear) Urine pH 8.5 H (4.5-7.5) Ur Specific [place] 1.017 (1.000-1.030) Urine Protein Negative (Negative) Urine Glucose (UA) 2+ H (Negative) Urine Ketones 1+ H (Negative) Urine Blood Negative (Negative) Urine Nitrite Negative (Negative) Urine Bilirubin Negative (Negative) Urine Urobilinogen Negative (Negative) Ur Leukocyte Esterase Trace H (Negative) Urine WBC (Auto) 5-10 H (0-5) /hpf Urine RBC (Auto) 0-4 (0-4) /hpf U Hyaline Cast (Auto) 0 (0-5) /lpf U Epithel Cells (Auto) >30 H (0-5) /lpf Urine Bacteria (Auto) 1+ H (Negative) SARS-CoV-2 (PCR) POSITIVE A* (Negative) Influenza Type A (PCR) Negative (Neg) Influenza Type B (PCR) Negative (Neg) RSV (RT-PCR) Negative (Neg) 10/01/22 10/01/22 10/01/22 Range/Units 06:42 06:42 06:42 WBC 12.84 H (4.8-10.8) K/ul RBC 4.33 (4.20-5.40) M/uL Hgb 12.1 (12.0-16.0) g/dl Hct 37.4 (37.0-47.0) % MCV 86.4 (80.0-100.0) fL MCH 27.9 (25.0-34.0) pg MCHC 32.4 (32.0-36.0) g/dL RDW Std Deviation 46.1 (36.4-46.3) fL RDW Coeff of [place] 14.5 (11.5-14.5) % Plt Count 324 (130-400) K/uL MPV 10.4 (9.4-12.4) fL Immature Gran % (Auto) 0.3 % Neut % (Auto) 94.1 % Lymph % (Auto) 3.0 % [place] % (Auto) 1.4 % Eos % (Auto) 0.9 % Baso % (Auto) 0.3 % Neut # (Auto) 12.09 H (1.40-6.50) K/uL Lymph # (Auto) 0.38 L (1.2-3.4) K/uL [place] # (Auto) 0.18 (0.11-0.59) K/uL Eos # (Auto) 0.11 (0-0.50) K/uL Baso # (Auto) 0.04 (0-0.2) K/uL Immature Gran # (Auto) 0.04 (0.01-0.20) K/uL Sodium 135 L (136-145) mmol/L Potassium 4.4 (3.5-5.1) mmol/L Chloride 104 (98-107) mmol/L Carbon Dioxide 22 (21-32) mmol/L Anion Gap 9 (3-11) BUN 10 (6-23) mg/dl Creatinine 0.80 (0.6-1.2) mg/dl Est Cr Clr Drug Dosing 81.3 ml/min Est GFR ( Amer) 89.0 ml/min Est GFR (Non-Af Amer) 76.8 ml/min BUN/Creatinine Ratio 12.5 (10-20) Glucose 275 H (70-99(Fasting)) mg/dl Lactate 2.5 H* (0.4-2.0) mmol/L Calcium 8.7 (8.5-10.1) mg/dl Magnesium 1.7 (1.7-2.4) mg/dl Total Bilirubin 0.6 (0.2-1.0) mg/dl Direct Bilirubin 0.2 (0-0.2) mg/dl AST 55 H (13-39) U/L ALT 42 (7-52) U/L Alkaline Phosphatase 283 H (34-104) U/L Troponin I High Sens 9.7 (0-14) pg/ml Total Protein 7.6 (6.0-8.3) gm/dl Albumin 3.6 (3.4-5.0) gm/dl Procalcitonin (0-0.5) ng/ml Urine Color Urine Appearance (Clear) Urine pH (4.5-7.5) Ur Specific [place] (1.000-1.030) Urine Protein (Negative) Urine Glucose (UA) (Negative) Urine Ketones (Negative) Urine Blood (Negative) Urine Nitrite (Negative) Urine Bilirubin (Negative) Urine Urobilinogen (Negative) Ur Leukocyte Esterase (Negative) Urine WBC (Auto) (0-5) /hpf Urine RBC (Auto) (0-4) /hpf U Hyaline Cast (Auto) (0-5) /lpf U Epithel Cells (Auto) (0-5) /lpf Urine Bacteria (Auto) (Negative) SARS-CoV-2 (PCR) (Negative) Influenza Type A (PCR) (Neg) Influenza Type B (PCR) (Neg) RSV (RT-PCR) (Neg) Diagnostic Findings Chest X-Ray 10/01/22 06:39 XR chest 1V portable CLINICAL HISTORY: Sepsis TECHNIQUE: Single frontal radiograph of the chest was obtained. Comparison: Comparison is made to chest radiograph 08/10/2022 FINDINGS: Exam is limited by patient rotation and underpenetration. Cardiomegaly is noted. Prominence and cephalization of the vasculature is seen. No evidence of pleural effusion or pneumothorax. IMPRESSION: Cardiomegaly and mild pulmonary edema. ACT 112: Negative or not required by law. Electronically signed by: Antonio Carranza M.D. 10/01/2022 7:22 AM ECG Additional Comments: EKG w/ sinus tachycardia, rates 131bpm Supervising Physician Co-Signing Physician Notes PA Supervision Note: I personally saw and examined the patient. I verified all young points and agree with MILTON Alfaro with the following exceptions and/or additions: S-patient admitted with fever, hypoxia, found to be positive for COVID-19. Had recent vaginal biopsy. Also finished recent course of Macrobid for E. coli UTI. After fever resolved, hypoxia did improve and she was weaned to room air by the time I saw her in the afternoon of admission. Her blood cultures 4/4 bottles are also now positive for Streptococcus species. History and ROS reviewed otherwise O- Vitals reviewed Gen: AAOx3, NAD HEENT: Anicteric sclerae, EOMI CV: RRR no mgr nl S1S2 Pulm: CTAB no wcr Abd: +BS soft NT ND no masses or hernias Ext: No edema, 2+ DP pulses Skin: No rashes, warm/dry Neuro: Full strength throughout Laboratory values to include CBC, CMP, lactate, blood cultures, urinalysis all reviewed Chest x-ray image personally reviewed by me [id number] female here with sepsis, COVID-19, and now septicemia with Streptococcus species. Already much improved and his fever improved Lactate trending downward and may be in part due to hypoxia rather than sepsis Patient declining to be treated with Remdesivir-discontinued. She is okay with continuing dexamethasone for hypoxia related to COVID-19 Supplemental O2 as needed Start vancomycin for gram-positive bacteremia, Streptococcus species on PCR- source possibly could be from recent vaginal biopsy? Oral source? Repeat blood cultures in the morning, check echocardiogram PG Care Time/CCT Total # of Minutes Spent Total Time Spent with Patient: Total time spent is greater than 50% in coordination of care (as documented) at patient's floor/unit and/or counseling patient: Coding Level of Care Code 06649 INT INP/OBS CARE 3/75MIN Diagnoses COVID-19 U07.1 Sepsis A41.9 Recurrent UTI (urinary tract infection) N39.0 Shortness of breath R06.02 COPD (chronic obstructive pulmonary disease) J44.9 Type 2 diabetes mellitus E11.9 GERD without esophagitis K21.9 Squamous cell carcinoma
--- NOTE | 2022-10-01 10:17 | Electrocardiogram Report ---
Test Reason : Blood Pressure : / mmHG Vent. Rate : 131 BPM Atrial Rate : 131 BPM P-R Int : 128 ms QRS Dur : 090 ms QT Int : 306 ms P-R-T Axes : 000 142 147 degrees QTc Int : 451 ms Sinus tachycardia Left posterior fascicular block Poor R wave progression, consider anterior NM vs. lead placement vs. LVH Abnormal ECG When compared with ECG of 10-AUG-2022 00:45, Left posterior fascicular block is now Present Confirmed by Lorne Toth ([id number]) on 10/01/2022 10:17:32 AM Referred By: REFERRED SELF Confirmed By:Lorne Toth
[2022-10-01] MEDS ORDERED: GLUCOSE 40% GEL 15 GM TUBE PO PRN (11:45)
[2022-10-01] MEDS ORDERED: POLYETHYLENE (MIRALAX) 17 GM PACK PO PRN (11:45)
[2022-10-01] MEDS ORDERED: CARBOHYDRATES FOR HYPOGLYCEMIA PO PRN (11:45)
[2022-10-01] MEDS ORDERED: ACETAMINOPHEN 325 MG TAB PO PRN (11:45)
[2022-10-01] MEDS ORDERED: TRIAMCINOLONE ACET 0.1% CR 15 GM TUBE TOP PRN (11:45)
[2022-10-01] MEDS ORDERED: BENZONATATE 100 MG CAPSULE PO PRN (11:45)
[2022-10-01] MEDS ORDERED: ONDANSETRON INJ 2 MG/ML 2 ML VIAL IV PRN (11:45)
[2022-10-01] MEDS ORDERED: DEXTROSE 50% 50 ML SYRINGE IV PRN (11:45)
[2022-10-01] MEDS ORDERED: GLUCAGON FOR INJ 1 MG VIAL SQ PRN (11:45)
[2022-10-01] MEDS ORDERED: NON-FORMULARY MEDICATION (Fluticasone-Umeclidin-Vilanter [Trelegy Ellipta] 200-62.5-25 mcg INH SCH (11:45)
[2022-10-01] MEDS ORDERED: PHARMACY GLYCEMIC MGMT CONSULT PRN (11:45)
[2022-10-01] MEDS ORDERED: GLUCOSE 10 TAB/TUBE PO PRN (11:45)
[2022-10-01] MEDS ORDERED: LIDOCAINE 2% JELLY 5 ML TUBE EXT PRN (11:54)
[2022-10-01] MEDS ORDERED: REMDESIVIR 200 MG in SODIUM CHLORIDE 0.9% 210 ML IV ONE (12:15)
[2022-10-01] MEDS ORDERED: LANTUS PER UNIT CHARGE SQ ONE ×3 (12:30→21:00)
[2022-10-01] MEDS: ALBUT/IPRATROP 3MG/0.5MG NEB 3 ML VIAL NEB SCH ×4 (12:31→22:58)
[2022-10-01] MEDS: FLUTICASONE FUROATE 200MCG 14 PUFFS/INHALER INH SCH (12:50)
[2022-10-01] MEDS: UMECLIDINIUM/VILANTEROL 62.5/25MCG 7 PUFFS/INHALER INH SCH (12:50)
[2022-10-01] MEDS: CYANOCOBALAMIN (B-12) 500 MCG TABLET PO SCH (12:51)
[2022-10-01] MEDS: guaiFENesin 600 MG TABCR PO SCH ×2 (12:51→20:14)
[2022-10-01] MEDS: CETIRIZINE HCL 10 MG TABLET PO SCH (12:51)
[2022-10-01] MEDS: PANTOprazole 40 MG TAB PO SCH ×2 (12:51→20:14)
[2022-10-01] MEDS: ASPIRIN 81 MG ECTAB PO SCH (12:51)
[2022-10-01] MEDS: FAMOTIDINE 40 MG TABLET PO SCH ×2 (12:51→20:14)
[2022-10-01] MEDS ORDERED: SODIUM CHLORIDE 0.9% 1000ML 250 ML IV ONE (12:54)
[2022-10-01] MEDS: INSULIN ASPART PER UNIT SC SCH ×3 (13:06→20:26)
[2022-10-01] MEDS ORDERED: MAGNESIUM SULFATE / D5W 1 GM/100 ML BAG IV ONE (13:25)
--- NOTE | 2022-10-01 13:58 | Pharmacy Report ---
Pharmacy Glycemic Short Note 2 - Date of Service October 01, 2022 - Glycemic Short BSG Results (Last 24 hours): 10/01/22 10/01/22 06:42 11:57 Glucose 275 H POC Glucose 238 H OUTPATIENT ANTIDIABETIC REGIMEN: * insulin glargine 50 units BID; insulin aspart 16 units TID * A1c 9.3% 08/27/22 ASSESSMENT: * Patient admitted with COVID-19, received 10 mg of dexamethasone this morning in ED, 6 mg IV dexamethasone to continue daily * Lunch BSG mildly elevated at 238 mg/dL- will start with weight based stress of 3 novolog parameters (similar to outpatient dosing rec), as prandial BSGs most affected by steroid * Son reported patient has not taken insulin today- will give AM dose of lantus now 50 units x1; this is equivalent to full dose stress of 3 and set scale for PM up to 30 units (would be overall ~20% reduction from home dose) d/t Unknown compliance and A1c of 9.3%. Will be conservative for now and adjust based on BSG trend PLAN FOR INPATIENT GLYCEMIC CONTROL: * Hold outpatient oral diabetes medications * Basal insulin * Lantus 50 units x 1, scale for 0/20/30 units PM * Bolus insulin * NovoLog per scale ACHS or Q6hrs while NPO * Goal Range: Low 120 mg/dL - High 160 mg/dL * Correction Factor: 15 mg/dL/unit * Nutritional / Prandial insulin per carb ratio of 1 unit per 5 grams CHO consumed
[2022-10-01 16:58] LABS: A calco-baum cmplx NotReported Not Detected (NotDetected); Bact fragilis Not Reported Not Detected (NotDetected); C auris Not Reported Not Detected (NotDetected); Calbicans Not Reported Not Detected (NotDetected); Candida glabrata Not Reported Not Detected (NotDetected); Candida krusei Not Reported Not Detected (NotDetected); Cneoformans/gatti Not Reported Not Detected (NotDetected); Cparapsilosis Not Reported Not Detected (NotDetected); Ctropicalis Not Reported Not Detected (NotDetected); E cloacae compx Not Reported Not Detected (NotDetected); Efaecalis Not Reported Not Detected (NotDetected); Efaecium Not Reported Not Detected (NotDetected); Enterobacterales Not Reported Not Detected (NotDetected); Escherichia coli Not Reported Not Detected (NotDetected); H influenzae Not Reported Not Detected (NotDetected); K aerogenes Not Reported Not Detected (NotDetected); Koxytoca Not Reported Not Detected (NotDetected); Kpneumoniae grp Not Reported Not Detected (NotDetected); Lmonocyt Not Reported Not Detected (NotDetected); N meningitidis Not Reported Not Detected (NotDetected); P aeruginosa Not Reported Not Detected (NotDetected); Proteus spp Not Reported Not Detected (NotDetected); Salmonella spp Not Reported Not Detected (NotDetected); Smarcescens Not Reported Not Detected (NotDetected); Staph lugdunensis Not Reported Not Detected (NotDetected); Staph spp. Not Reported Not Detected (NotDetected); Staphaureus Not Reported Not Detected (NotDetected); Staphepi Not Reported Not Detected (NotDetected); Stenmaltophilia Not Reported Not Detected (NotDetected); Strep agal(GrpB) Not Reported Not Detected (NotDetected); Strep pneum Not Reported Not Detected (NotDetected); Strep pyog (GrpA) Not Reported Not Detected (NotDetected); Strep spp Not Reported DETECTED (NotDetected)
[2022-10-01 17:27] LABS: Streptococcus spp DETECTED (NotDetected)
[2022-10-01] MEDS ORDERED: VANCOMYCIN CONSULT ACTIVE PRN (17:33)
[2022-10-01] MEDS ORDERED: VANCOMYCIN HCL 2,250 MG in SODIUM CHLORIDE 0.9% 500 ML IV ONE (18:00)
[2022-10-01] MEDS: MONTELUKAST SODIUM 10 MG TABLET PO SCH (20:14)
[2022-10-01] MEDS: NORTRIPTYLINE HCL 25 MG CAP PO SCH (20:15)
[2022-10-01] MEDS: ENOXAPARIN INJ 40 MG/0.4 ML SYR SQ SCH (20:16)
[2022-10-02] MEDS: INSULIN ASPART PER UNIT SC SCH ×6 (00:24→21:19)
[2022-10-02] MEDS: ALBUT/IPRATROP 3MG/0.5MG NEB 3 ML VIAL NEB SCH ×2 (04:17→07:10)
[2022-10-02] MEDS: VANCOMYCIN HCL 1,250 MG in SODIUM CHLORIDE 0.9% 250 ML IV SCH ×2 (04:34→17:13)
[2022-10-02 06:50] LABS: Albumin Globulin Ratio 0.9 (0.9-2); Albumin Level 3.4 gm/dl (3.4-5.0); BUN Creatinine Ratio 17.9 (10-20); Bilirubin,Total 0.4 mg/dl (0.2-1.0); Calcium 8.9 mg/dl (8.5-10.1); Creatinine Clr Calc Pharmacy 76.6 ml/min; Est GFR (African American) 83.9 ml/min; Est GFR (Non-African American) 72.4 ml/min; Globulin 3.9 gm/dl (2.5-4.0); Magnesium 2.1 mg/dl (1.7-2.4); Potassium 4.2 mmol/L (3.5-5.1); Total Protein 7.3 gm/dl (6.0-8.3)
[2022-10-02 06:52] LABS: Hematocrit (blood only) 36.2 % (37.0-47.0); Hemoglobin 11.6 g/dl (12.0-16.0); Mean Corpuscular Hemoglobin 28.1 pg (25.0-34.0); Mean Corpuscular Volume 87.7 fL (80.0-100.0); Mean Platelet Volume 10.3 fL (9.4-12.4); Platelet Count 305 K/uL (130-400); RDW Coefficient of Variation 15.1 % (11.5-14.5); RDW Standard Deviation 48.6 fL (36.4-46.3); Red Blood Count 4.13 M/uL (4.20-5.40); White Blood Count 22.12 K/ul (4.8-10.8)
[2022-10-02 07:17] LABS: Basophils # (auto) 0.04 K/uL (0-0.2); Basophils % (auto) 0.2 %; Immature Granulocytes # (auto) 0.19 K/uL (0.01-0.20); Immature Granulocytes % (auto) 0.9 %; Lymphocytes # (auto) 0.68 K/uL (1.2-3.4); Lymphocytes % (auto) 3.1 %; Monocytes # (auto) 0.74 K/uL (0.11-0.59); Monocytes % (auto) 3.3 %; Neutrophils # (auto) 20.47 K/uL (1.40-6.50); Neutrophils % (auto) 92.5 %
[2022-10-02] MEDS ORDERED: LANTUS PER UNIT CHARGE SQ ONE (07:30)
[2022-10-02] MEDS: tiZANidine HCL 4 MG TABLET PO PRN ×2 (07:56→21:20)
[2022-10-02] MEDS: CETIRIZINE HCL 10 MG TABLET PO SCH (08:00)
[2022-10-02] MEDS: ASPIRIN 81 MG ECTAB PO SCH (08:00)
[2022-10-02] MEDS: FAMOTIDINE 40 MG TABLET PO SCH ×2 (08:00→20:59)
[2022-10-02] MEDS: ENOXAPARIN INJ 40 MG/0.4 ML SYR SQ SCH ×2 (08:00→20:57)
[2022-10-02] MEDS: guaiFENesin 600 MG TABCR PO SCH ×2 (08:00→20:58)
[2022-10-02] MEDS: AMMONIUM LACTATE 12% LOTION 225 GM BTL EXT SCH (08:01)
[2022-10-02] MEDS: UMECLIDINIUM/VILANTEROL 62.5/25MCG 7 PUFFS/INHALER INH SCH (08:01)
[2022-10-02] MEDS: FLUTICASONE FUROATE 200MCG 14 PUFFS/INHALER INH SCH (08:01)
[2022-10-02] MEDS: PANTOprazole 40 MG TAB PO SCH (08:01)
[2022-10-02] MEDS: CYANOCOBALAMIN (B-12) 500 MCG TABLET PO SCH (08:01)
[2022-10-02] MEDS ORDERED: dexAMETHasone 6 MG in SYRINGE 0 ML IV SCH (09:00)
[2022-10-02] MEDS ORDERED: ALBUT/IPRATROP 3MG/0.5MG NEB 3 ML VIAL NEB PRN (10:04)
--- NOTE | 2022-10-02 10:27 | Hospitalist Progress Note ---
Date of Service October 02, 2022 Assessment & Plan (1) Streptococcal septicemia: Plan: Presented with generalized weakness, fevers, dyspnea and hypoxia with pulse ox in the mid 80s. Had recent urinary tract infection which was treated appropriately with Macrobid. No urinary symptoms, abdominal pains or CVA tenderness. 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 Pharmacy has developed/research protocol for doing this. Close monitoring of vital signs and treatment of anaphylaxis if ensues with epinephrine, Benadryl. -Ceftriaxone 2000 mg IV daily to be continued for a minimum of 2 weeks -Consult infectious disease-appreciated -Start desmoplast spray to the vaginal lesion which will help with topical anesthesia for pain but also help protect open wound from bacterial invasion -Repeat blood cultures this morning -If blood cultures on repeat remain sterile at 48 hours, could place ultrasound- guided peripheral IV versus PICC line and transition to home with IV antibiotics at the [facility] (2) COVID-19: Plan: Increased weakness, fevers, shortness of breath and fatigue, positive for COVID (prior + last January, is vaccinated) Hypoxic w/ Spo2 88% on RA on arrival, given 1 dose of IV Decadron in the ER and was weaned completely off oxygen within 6 to 7 hours Lactic elevation likely 2nd to hypoxia -Patient declined to have Remdesivir -Received 2 doses of Decadron but given bacteremia and quick improvement in hypoxia-we will now discontinue dexamethasone -Maintain isolation precautions -Duonebs prn -Incentive spirometer, flutter valve, mucinex -Supplemental O2 to maintain sats (3) Recurrent UTI (urinary tract infection): Plan: recently completed macrobid for ecoli uti, which was sensitive Repeat urinalysis here without evidence of infection (4) COPD (chronic obstructive pulmonary disease): Plan: continue usual inhalers no cough/sputum production to warrant abx currently but will monitor recently seen by Dr Mesa, CT chest ordered -- can hold off for now/reach out if patient worsens continue allergy medications as well, mucinex, etc (5) Type 2 diabetes mellitus: Plan: Last A1c 9.3. With significant hyperglycemia due to steroids DM diet pharmacy for glycemic management Continue basal and bolus insulin and tighten down NovoLog (6) GERD without esophagitis: Plan: continue PPI/H2 no increased symptoms reported (7) Squamous cell carcinoma: Plan: recent dx by [facility], awaiting tax senior associate/onc follow up stable with minor bleeding-spray to be used as above (8) NAFLD (nonalcoholic fatty liver disease): Plan: With mild elevations of alkaline phosphatase and AST Follow as an outpatient (9) Hyperlipidemia: Plan: Restart home statin (10) Migraine headache without aura: Plan: Continue nortriptyline at nighttime Plan DVT prophylaxis-Lovenox SQ Disposition-transfer to ICU for ceftriaxone graded challenge Admission and Anticipated Discharge Date Admission Date: October 01, 2022 Subjective Patient reports that she feels fine today. Denies any cough or shortness of breath. No chest pains. No sinus congestion or sinus pain or headache. No sore throat. No abdominal pains or nausea, no diarrhea. No skin rashes or joint pains other than her usual arthritis pains. She does have daily spotting of blood from her vulvar cancer lesion. Telemetry with normal sinus rhythm with rates in the 90s I discussed her care with infectious disease as well as the [employer] 7 deployment lead. I discussed her care with her son at the bedside Review of Systems Review of Systems: All systems reviewed & are unremarkable except as noted in HPI & below Physical Exam Constitutional: WD/WN, vitals as above Eyes: + anicteric sclerae Respiratory: normal respiratory effort; no cough Auscultation: lungs clear to auscultation bilaterally Cardiovascular: RRR, no murmur, no edema Gastrointestinal (Abdomen): normal bowel sounds, soft, nontender, no hepatosplenomegaly Musculoskeletal: Extremities: extremities normal to inspection and strength 5/5 throughout Skin: no rashes, warm and dry Neurologic: PERRL, EOMI, accommodation nl, no face palsy, no dysarthria Psychiatric: A+Ox3, euthymic affect Genitourinary: + abnormal external appearance (Scant oozing of blood from lesion in labia minora) Results & Data Results & Data ([facility]) Vital Signs (Past 12 Hours) Vital Signs Temp Pulse Pulse Pulse Resp BP Pulse Ox 10/02/22 07:52 36.8 C 101 H 19 128/72 95 10/02/22 07:52 10/02/22 07:29 95 H 10/02/22 07:10 93 H 16 94 10/02/22 03:16 36.9 C 93 H 18 108/66 94 10/01/22 23:08 36.5 C 108 H 20 138/73 94 10/01/22 22:58 76 96 H 18 94 O2 Del Method 10/02/22 07:52 Room Air 10/02/22 07:52 Room Air 10/02/22 07:29 10/02/22 07:10 Room Air 10/02/22 03:16 Room Air 10/01/22 23:08 Room Air 10/01/22 22:58 Room Air Laboratory Results CBC, CMP, magnesium level all reviewed Repeat blood cultures-no growth to date Blood cultures from admission-11/05 bottles growing group G beta Streptococcus PG Care Time/CCT Total # of Minutes Spent Total Time Spent with Patient: Total time spent is greater than 50% in coordination of care (as documented) at patient's floor/unit and/or counseling patient: Coding Level of Care Code 15187 SUB INP/OBS CARE 350MIN Diagnoses Streptococcal septicemia A40.9 COVID-19 U07.1 Recurrent UTI (urinary tract infection) N39.0 COPD (chronic obstructive pulmonary disease) J44.9 Type 2 diabetes mellitus E11.9 GERD without esophagitis K21.9 Squamous cell carcinoma NAFLD (nonalcoholic fatty liver disease) K76.0 Hyperlipidemia E78.5 Migraine headache without aura G43.009
[2022-10-02] MEDS ORDERED: REMDESIVIR 100 MG in SODIUM CHLORIDE 0.9% 230 ML IV SCH (12:00)
--- NOTE | 2022-10-02 13:58 | XCELERA ---
[id number]
--- NOTE | 2022-10-02 14:43 | Pharmacy Report ---
Pharmacy Vanc AUC Short Note - Date of Service October 02, 2022 - Assessment & Plan Assessment * Ms De Los Santos is a 66 year old F receiving Vancomycin for treatment of bacteremia. * Pertinent microbiologic data includes: blood cultures growing Group G Beta strep in 4/4 bottles * Pt has a PCN allergy. She recently completed a course of Macrobid for UTI. Other significant PMH includes COPD, DM, squamous cell carcinoma. * ID consult pending Plan Vancomycin * AUC/CIRO is the preferred PK/PD target for vancomycin * AUC guided dosing is effective and associated with decreased risk of nephrotoxicity compared to traditional trough targets * Vancomycin 2250mg IV x1 dose given last evening, then * Vancomycin 1250mg IV q12h * Random level ordered for tomorrow morning. Anticipate that her dose will need to be reduced as we approach steady-state. Pharmacy will continue to follow and will adjust dose/frequency as necessary. Thank you.
--- NOTE | 2022-10-02 15:10 | Infectious Disease Consult ---
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 ID Consulted for bacteremia. Per EMR, Moved from [place] at end of July, states she had COVID back at the end of last January, is vaccinated.Recent UTI and sx cloudy/foul smelling urine and since abx (which have been completed) she is asymptomatic from that. She is awaiting f/u equities analyst/onc for her squamous cell carcinoma just biopsied Review of prior cultures 09/20 and 08/10 Ucx Ecoli (R to levofloxacin, Ampicillin, Unasyn) Initial labs showed WBC 12, UA 5-10 wbcs. Tested positive for COVID and started on Decadron 10mg IV x 1 then continued 6mg IV daily, Remdesivir. CXR no significant findings except for congestion. She was given a dose of Ertapenem 10/01 Blood cultures shos Group G strep MICRO 10/02 Cultures in lab 10/01 Cultures / BHS, Group G Discussion: Patient with group G strep likely secondary to surgical site biopsy infection. She is on Vancomycin, and has PCN allergy during midteens that caused SOB/hives not hospitalized. I spoke with Dr. Healy and ID pharmacy, Tomorrow am will start Ceftriaxone graded challenge. CXR does not show imaging c/w COVID but patient was mildly hypoxic on admission Suspect we need further imaging of vulvar area with CT Pelvis (2) Squamous cell carcinoma: Plan -C/W vancomycin today -Tomorrow am plan on Ceftriaxone -C/W remdesivir and dexamethasone -Consider imaging of pelvis and Gynecology -Repeat blood cx in lab Thank you for the consultation, ID will follow Socorro Bocanegra MD Infectious Diseases [facility] Consultation Information This patient recommendation is based on a telemedicine consult request which was completed asynchronously through chart review and information provided by the primary physician. The patient was not seen or examined today. The evaluation is consultative in nature and all patient care and treatment decisions can either be accepted or rejected by the patient's primary hospital-based treating physician using their own independent medical judgment for their patient. Senior Accounting Analyst contact information: Please call [facility] . 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 ID Consulted for bacteremia. Per EMR, Moved from [place] at end of July, states she had COVID back at the end of last January, is vaccinated.Recent UTI and sx cloudy/foul smelling urine and since abx (which have been completed) she is asymptomatic from that. She is awaiting f/u equities analyst/onc for her squamous cell carcinoma just biopsied Review of prior cultures 09/20 and 08/10 Ucx Ecoli (R to levofloxacin, Ampicillin, Unasyn) Initial labs showed WBC 12, UA 5-10 wbcs. Tested positive for COVID and started on Decadron 10mg IV x 1 then continued 6mg IV daily, Remdesivir. CXR no significant findings except for congestion. She was given a dose of Ertapenem 10/01 Blood cultures shos Group G strep Allergies Allergy/AdvReac Type Severity Reaction Status Date / Time Penicillins Allergy Severe SHORT OF Verified 10/01/22 07:47 BREATH/HIVES shellfish derived Allergy Severe SHORT OF Verified 10/01/22 07:47 BREATH/EYES SWELL/ITCHY sumatriptan [From Imitrex] Allergy Severe SHORT OF Verified 10/01/22 07:47 BREATH/HIVES erythromycin base Allergy Intermediate ITCHY HIVES Verified 10/01/22 07:47 liraglutide [From Victoza] Allergy Intermediate RASH/STOMACH Verified 10/01/22 07:47 PAIN rofecoxib [From Vioxx] Allergy Intermediate ITCHY HIVES Verified 10/01/22 07:47 Tetracyclines Allergy Intermediate ITCHY HIVES Verified 10/01/22 07:47 iodine Allergy Unknown Verified 10/01/22 07:47 topiramate [From Topamax] AdvReac Severe SUICIDAL Verified 10/01/22 07:47 THOUGHTS/DEPRESSION meloxicam AdvReac Intermediate GI Verified 10/01/22 07:47 UPSET/DIARRHEA metformin AdvReac Intermediate STOMACH Verified 10/01/22 07:47 PAIN/DIARRHEA Home Medications Medication Instructions Recorded Confirmed Type ammonium lactate 12 % topical cream 1 applic topical DAILY 08/10/22 10/01/22 History aspirin 81 mg tablet,delayed 81 mg PO DAILY 08/10/22 10/01/22 History release cyanocobalamin (vitamin B-12) 1,000 mcg PO DAILY 08/10/22 10/01/22 History 1,000 mcg tablet (Vitamin B-12) epinephrine 0.3 mg/0.3 mL 0.3 mg IM DIRECTED PRN Allergic 08/10/22 10/01/22 History injection, auto-injector (EpiPen) Reaction lansoprazole 30 mg capsule,delayed 30 mg PO DAILY 08/10/22 10/01/22 History release (Prevacid) simvastatin 20 mg tablet 20 mg PO HS 08/10/22 10/01/22 History triamcinolone acetonide 0.1 % 1 applic topical BID PRN Skin 08/10/22 10/01/22 History topical cream Irritation benzonatate 100 mg capsule 100 mg PO TID PRN Cough #60 caps 08/27/22 10/01/22 Rx cetirizine 10 mg tablet (Zyrtec) 10 mg PO DAILY #90 tabs 08/27/22 10/01/22 Rx famotidine 40 mg tablet 40 mg PO BID #60 tabs 08/27/22 10/01/22 Rx glucose 4 gram chewable tablet 4 g PO Q15M PRN hypoglycemia #30 08/27/22 10/01/22 Rx tabs montelukast 10 mg tablet 10 mg PO HS #90 tabs 08/27/22 10/01/22 Rx (Singulair) nortriptyline 50 mg capsule 100 mg PO HS #90 caps 08/27/22 10/01/22 Rx insulin glargine 100 unit/mL (3 50 unit (0.5 mL) subcut BID #15 mL 08/30/22 10/01/22 Rx mL) subcutaneous pen (Lantus Solostar U-100 Insulin) fluticasone fur. 200 mcg-umeclid 1 inh inhalation DAILY #3 Inhalers 09/18/22 10/01/22 Rx 62.5 mcg-vilant 25 mcg inhalat.powder (Trelegy Ellipta) guaifenesin 600 mg tablet, 600 mg PO BID PRN congestion #60 09/18/22 10/01/22 Rx extended release 12 hr (Mucinex) tabs zolpidem 5 mg tablet 5 mg PO ONCE PRN sleep #2 tabs 09/18/22 10/01/22 Rx nitrofurantoin 100 mg PO Q12H 7 days #14 caps 09/20/22 10/01/22 Rx monohydrate/macrocrystals 100 mg capsule (Macrobid) tizanidine 4 mg tablet 4 mg PO TID PRN muscle spasticity 09/20/22 10/01/22 Rx #90 tabs lidocaine HCl 2 % mucosal jelly in 1 applic topical BID PRN pain #125 09/25/22 10/01/22 Rx applicator mL dulaglutide 1.5 mg/0.5 mL 1.5 mg (0.5 mL) subcut WK #2 mL 09/26/22 10/01/22 Rx subcutaneous pen injector (Trulicity) insulin aspart U-100 100 unit/mL 16 unit (0.16 mL) subcut TID #15 mL 09/26/22 10/01/22 Rx (3 mL) subcutaneous pen (Novolog FlexPen U-100 Insulin aspart) Patient History Medical History Arthritis Asthma Chronic back pain COPD (chronic obstructive pulmonary disease) GERD without esophagitis Hyperlipidemia Insomnia Migraine headache without aura NAFLD (nonalcoholic fatty liver disease) Type 2 diabetes mellitus Surgical History H/O: x3 S/P total abdominal hysterectomy NELIDA-USO S/P tubal ligation Family History Mother Myocardial infarction Diabetes Sister Myocardial infarction x 2 Diabetes Brother Throat cancer Denies family history of Ovarian cancer Prostate cancer Breast cancer Colorectal cancer Uterine cancer Social History Smoking Status: Never smoker Tobacco Type: Cigarettes Second Hand Exposure: No; Do You Dip or Chew Tobacco: No; Hx Alcohol Use: No Hx Substance Use: No Preferred Language: Bulgarian Communication Ability: Effective Visual Impairment: No Limitations Hearing Ability: Normal Obstetrics Technician Required: No Beliefs That Will Affect Care: None marital status: / Current Living Situation: Family Current Living Situation Comment: lives with son current occupational status: disabled Other Information That Helps Us Care for You: No Feels Safe at Home: Yes Safety Concerns: Feels Safe At This Time Diet Comment: regular caffeine: Yes during the past year weight has: decreased > 10 lbs Dental Care, Regularly: No Physical Activity Frequency: Other Physical Activity Frequency Comment: limited to physical condition Seatbelt Use: always Sunscreen Use: No Assistive Devices: Glasses and Other Assistive Devices Comment: patient uses scooter for long distance walking Results & Data ([facility]) Vital Signs (Past 12 Hours) Vital Signs Temp Pulse Pulse Pulse Resp BP Pulse Ox 10/02/22 11:48 36.8 C 98 H 19 136/73 95 10/02/22 07:52 36.8 C 101 H 19 128/72 95 10/02/22 07:52 10/02/22 07:29 95 H 10/02/22 07:10 93 H 16 94 10/02/22 03:16 36.9 C 93 H 18 108/66 94 O2 Del Method 10/02/22 11:48 Room Air 10/02/22 07:52 Room Air 10/02/22 07:52 Room Air 10/02/22 07:29 10/02/22 07:10 Room Air 10/02/22 03:16 Room Air Laboratory Results Laboratory Results - last 48 hr 10/01/22 10/01/22 10/01/22 06:42 06:42 06:42 WBC 12.84 H RBC 4.33 Hgb 12.1 Hct 37.4 MCV 86.4 MCH 27.9 MCHC 32.4 RDW Std Deviation 46.1 RDW Coeff of [place] 14.5 Plt Count 324 MPV 10.4 Immature Gran % (Auto) 0.3 Neut % (Auto) 94.1 Lymph % (Auto) 3.0 [place] % (Auto) 1.4 Eos % (Auto) 0.9 Baso % (Auto) 0.3 Neut # (Auto) 12.09 H Lymph # (Auto) 0.38 L [place] # (Auto) 0.18 Eos # (Auto) 0.11 Baso # (Auto) 0.04 Immature Gran # (Auto) 0.04 Sodium 135 L Potassium 4.4 Chloride 104 Carbon Dioxide 22 Anion Gap 9 BUN 10 Creatinine 0.80 Est Cr Clr Drug Dosing 81.3 Est GFR ( Amer) 89.0 Est GFR (Non-Af Amer) 76.8 BUN/Creatinine Ratio 12.5 Glucose 275 H POC Glucose Lactate 2.5 H* Calcium 8.7 Magnesium 1.7 Total Bilirubin 0.6 Direct Bilirubin 0.2 AST 55 H ALT 42 Alkaline Phosphatase 283 H Troponin I High Sens 9.7 C-Reactive Protein Total Protein 7.6 Albumin 3.6 Globulin Albumin/Globulin Ratio Procalcitonin Urine Color Urine Appearance Urine pH Ur Specific [place] Urine Protein Urine Glucose (UA) Urine Ketones Urine Blood Urine Nitrite Urine Bilirubin Urine Urobilinogen Ur Leukocyte Esterase Urine WBC (Auto) Urine RBC (Auto) U Hyaline Cast (Auto) U Epithel Cells (Auto) Urine Bacteria (Auto) SARS-CoV-2 (PCR) Influenza Type A (PCR) Influenza Type B (PCR) RSV (RT-PCR) Streptococcus sp PCR Bld Cult ID Panel PCR 10/01/22 10/01/22 10/01/22 06:42 06:42 06:53 WBC RBC Hgb Hct MCV MCH MCHC RDW Std Deviation RDW Coeff of [place] Plt Count MPV Immature Gran % (Auto) Neut % (Auto) Lymph % (Auto) [place] % (Auto) Eos % (Auto) Baso % (Auto) Neut # (Auto) Lymph # (Auto) [place] # (Auto) Eos # (Auto) Baso # (Auto) Immature Gran # (Auto) Sodium Potassium Chloride Carbon Dioxide Anion Gap BUN Creatinine Est Cr Clr Drug Dosing Est GFR ( Amer) Est GFR (Non-Af Amer) BUN/Creatinine Ratio Glucose POC Glucose Lactate Calcium Magnesium Total Bilirubin Direct Bilirubin AST ALT Alkaline Phosphatase Troponin I High Sens C-Reactive Protein Total Protein Albumin Globulin Albumin/Globulin Ratio Procalcitonin 0.24 Urine Color Urine Appearance Urine pH Ur Specific [place] Urine Protein Urine Glucose (UA) Urine Ketones Urine Blood Urine Nitrite Urine Bilirubin Urine Urobilinogen Ur Leukocyte Esterase Urine WBC (Auto) Urine RBC (Auto) U Hyaline Cast (Auto) U Epithel Cells (Auto) Urine Bacteria (Auto) SARS-CoV-2 (PCR) POSITIVE A* Influenza Type A (PCR) Negative Influenza Type B (PCR) Negative RSV (RT-PCR) Negative Streptococcus sp PCR DETECTED A Bld Cult ID Panel PCR See PCR Comment 10/01/22 10/01/22 10/01/22 07:57 09:29 09:29 WBC RBC Hgb Hct MCV MCH MCHC RDW Std Deviation RDW Coeff of [place] Plt Count MPV Immature Gran % (Auto) Neut % (Auto) Lymph % (Auto) [place] % (Auto) Eos % (Auto) Baso % (Auto) Neut # (Auto) Lymph # (Auto) [place] # (Auto) Eos # (Auto) Baso # (Auto) Immature Gran # (Auto) Sodium Potassium Chloride Carbon Dioxide Anion Gap BUN Creatinine Est Cr Clr Drug Dosing Est GFR ( Amer) Est GFR (Non-Af Amer) BUN/Creatinine Ratio Glucose POC Glucose Lactate 2.1 H* Calcium Magnesium Total Bilirubin Direct Bilirubin AST ALT Alkaline Phosphatase Troponin I High Sens C-Reactive Protein 2.29 H Total Protein Albumin Globulin Albumin/Globulin Ratio Procalcitonin Urine Color Yellow Urine Appearance Clear Urine pH 8.5 H Ur Specific [place] 1.017 Urine Protein Negative Urine Glucose (UA) 2+ H Urine Ketones 1+ H Urine Blood Negative Urine Nitrite Negative Urine Bilirubin Negative Urine Urobilinogen Negative Ur Leukocyte Esterase Trace H Urine WBC (Auto) 5-10 H Urine RBC (Auto) 0-4 U Hyaline Cast (Auto) 0 U Epithel Cells (Auto) >30 H Urine Bacteria (Auto) 1+ H SARS-CoV-2 (PCR) Influenza Type A (PCR) Influenza Type B (PCR) RSV (RT-PCR) Streptococcus sp PCR Bld Cult ID Panel PCR 10/01/22 10/01/22 10/01/22 11:57 16:40 16:41 WBC RBC Hgb Hct MCV MCH MCHC RDW Std Deviation RDW Coeff of [place] Plt Count MPV Immature Gran % (Auto) Neut % (Auto) Lymph % (Auto) [place] % (Auto) Eos % (Auto) Baso % (Auto) Neut # (Auto) Lymph # (Auto) [place] # (Auto) Eos # (Auto) Baso # (Auto) Immature Gran # (Auto) Sodium Potassium Chloride Carbon Dioxide Anion Gap BUN Creatinine Est Cr Clr Drug Dosing Est GFR ( Amer) Est GFR (Non-Af Amer) BUN/Creatinine Ratio Glucose POC Glucose 238 H 316 H* 311 H* Lactate Calcium Magnesium Total Bilirubin Direct Bilirubin AST ALT Alkaline Phosphatase Troponin I High Sens C-Reactive Protein Total Protein Albumin Globulin Albumin/Globulin Ratio Procalcitonin Urine Color Urine Appearance Urine pH Ur Specific [place] Urine Protein Urine Glucose (UA) Urine Ketones Urine Blood Urine Nitrite Urine Bilirubin Urine Urobilinogen Ur Leukocyte Esterase Urine WBC (Auto) Urine RBC (Auto) U Hyaline Cast (Auto) U Epithel Cells (Auto) Urine Bacteria (Auto) SARS-CoV-2 (PCR) Influenza Type A (PCR) Influenza Type B (PCR) RSV (RT-PCR) Streptococcus sp PCR Bld Cult ID Panel PCR 10/01/22 10/02/22 10/02/22 20:13 00:02 04:35 WBC RBC Hgb Hct MCV MCH MCHC RDW Std Deviation RDW Coeff of [place] Plt Count MPV Immature Gran % (Auto) Neut % (Auto) Lymph % (Auto) [place] % (Auto) Eos % (Auto) Baso % (Auto) Neut # (Auto) Lymph # (Auto) [place] # (Auto) Eos # (Auto) Baso # (Auto) Immature Gran # (Auto) Sodium Potassium Chloride Carbon Dioxide Anion Gap BUN Creatinine Est Cr Clr Drug Dosing Est GFR ( Amer) Est GFR (Non-Af Amer) BUN/Creatinine Ratio Glucose POC Glucose 340 H* 273 H 240 H Lactate Calcium Magnesium Total Bilirubin Direct Bilirubin AST ALT Alkaline Phosphatase Troponin I High Sens C-Reactive Protein Total Protein Albumin Globulin Albumin/Globulin Ratio Procalcitonin Urine Color Urine Appearance Urine pH Ur Specific [place] Urine Protein Urine Glucose (UA) Urine Ketones Urine Blood Urine Nitrite Urine Bilirubin Urine Urobilinogen Ur Leukocyte Esterase Urine WBC (Auto) Urine RBC (Auto) U Hyaline Cast (Auto) U Epithel Cells (Auto) Urine Bacteria (Auto) SARS-CoV-2 (PCR) Influenza Type A (PCR) Influenza Type B (PCR) RSV (RT-PCR) Streptococcus sp PCR Bld Cult ID Panel PCR 10/02/22 10/02/22 10/02/22 05:43 05:43 07:43 WBC 22.12 H D RBC 4.13 L Hgb 11.6 L Hct 36.2 L MCV 87.7 MCH 28.1 MCHC 32.0 RDW Std Deviation 48.6 H RDW Coeff of [place] 15.1 H Plt Count 305 MPV 10.3 Immature Gran % (Auto) 0.9 Neut % (Auto) 92.5 Lymph % (Auto) 3.1 [place] % (Auto) 3.3 Eos % (Auto) 0.0 Baso % (Auto) 0.2 Neut # (Auto) 20.47 H Lymph # (Auto) 0.68 L [place] # (Auto) 0.74 H Eos # (Auto) 0.00 Baso # (Auto) 0.04 Immature Gran # (Auto) 0.19 Sodium 135 L Potassium 4.2 Chloride 107 Carbon Dioxide 23 Anion Gap 5 BUN 15 Creatinine 0.84 Est Cr Clr Drug Dosing 76.6 Est GFR ( Amer) 83.9 Est GFR (Non-Af Amer) 72.4 BUN/Creatinine Ratio 17.9 Glucose 259 H POC Glucose 262 H Lactate Calcium 8.9 Magnesium 2.1 Total Bilirubin 0.4 Direct Bilirubin AST 44 H ALT 40 Alkaline Phosphatase 200 H Troponin I High Sens C-Reactive Protein Total Protein 7.3 Albumin 3.4 Globulin 3.9 Albumin/Globulin Ratio 0.9 Procalcitonin Urine Color Urine Appearance Urine pH Ur Specific [place] Urine Protein Urine Glucose (UA) Urine Ketones Urine Blood Urine Nitrite Urine Bilirubin Urine Urobilinogen Ur Leukocyte Esterase Urine WBC (Auto) Urine RBC (Auto) U Hyaline Cast (Auto) U Epithel Cells (Auto) Urine Bacteria (Auto) SARS-CoV-2 (PCR) Influenza Type A (PCR) Influenza Type B (PCR) RSV (RT-PCR) Streptococcus sp PCR Bld Cult ID Panel PCR 10/02/22 11:05 WBC RBC Hgb Hct MCV MCH MCHC RDW Std Deviation RDW Coeff of [place] Plt Count MPV Immature Gran % (Auto) Neut % (Auto) Lymph % (Auto) [place] % (Auto) Eos % (Auto) Baso % (Auto) Neut # (Auto) Lymph # (Auto) [place] # (Auto) Eos # (Auto) Baso # (Auto) Immature Gran # (Auto) Sodium Potassium Chloride Carbon Dioxide Anion Gap BUN Creatinine Est Cr Clr Drug Dosing Est GFR ( Amer) Est GFR (Non-Af Amer) BUN/Creatinine Ratio Glucose POC Glucose 241 H Lactate Calcium Magnesium Total Bilirubin Direct Bilirubin AST ALT Alkaline Phosphatase Troponin I High Sens C-Reactive Protein Total Protein Albumin Globulin Albumin/Globulin Ratio Procalcitonin Urine Color Urine Appearance Urine pH Ur Specific [place] Urine Protein Urine Glucose (UA) Urine Ketones Urine Blood Urine Nitrite Urine Bilirubin Urine Urobilinogen Ur Leukocyte Esterase Urine WBC (Auto) Urine RBC (Auto) U Hyaline Cast (Auto) U Epithel Cells (Auto) Urine Bacteria (Auto) SARS-CoV-2 (PCR) Influenza Type A (PCR) Influenza Type B (PCR) RSV (RT-PCR) Streptococcus sp PCR Bld Cult ID Panel PCR Microbiology 10/01/22 06:42 Blood Aerobic Blood Culture - Final Group G Beta Strep 10/01/22 06:42 Blood Anaerobic Blood Culture - Final Group G Beta Strep 10/01/22 06:42 Blood Aerobic Blood Culture - Preliminary Group G Beta Strep 10/01/22 06:42 Blood Anaerobic Blood Culture - Preliminary Group G Beta Strep 10/01/22 07:57 Urine,Clean Catch Urine Culture - Final Three types of organisms present, all high counts. Repeat collection recommended. No further identifications or sensitivities to follow.
[2022-10-02] MEDS ORDERED: EPINEPHrine ADULT AUTO-INJECT 0.3 MG SYR IM PRN (18:54)
[2022-10-02] MEDS: BENZOCAINE 20% AER SPR 82.5 GM CAN EXT SCH (19:00)
[2022-10-02] MEDS: SIMVASTATIN 20 MG TAB PO SCH (20:41)
--- NOTE | 2022-10-02 20:44 | Critical Care Consultation ---
Date of Consultation October 02, 2022 Assessment & Plan (1) Sepsis: 66-year-old female with recurrent UTIs and recent diagnosis of vulvar SCC admitted with fevers and body aches and found to have blood cultures positive for group G strep. -WBC now 22 up from 12, lactate initially elevated but now cleared. Pro-Constantine unremarkable. Mild elevation in CRP -Currently undergoing treatment with vancomycin -ID consulted, recommended addition of ceftriaxone. -Admitted to ICU for ceftriaxone graded challenge given penicillin allergy -Repeat blood cultures pending -Echo without vegetation -Urine culture negative, suspected source likely surgical site biopsy infection? -Consider CT pelvis (2) Recurrent UTI (urinary tract infection): See sepsis above (3) Squamous cell carcinoma: Recently diagnosed with outpatient gynecology for new vulvar mass. Has not started treatment. Patient does have history of hysterectomy. Continue with benzocaine cream. Follow-up outpatient (4) Hypoxia: Resolved. Patient now on room air. We will continue to monitor with pulse ox and continue treatment for COVID-19 and COPD. Chest x-ray did appear to be more in line with cardiopulmonary picture versus pneumonia. Continue with pulmonary toileting. Of note, patient did have mild left ventricular hypertrophy and mild mitral regurg on echo. (5) COVID-19: Improved. Continue remdesivir, dexamethasone. (6) Lactic acidosis: Resolved. Was likely due to hypoxia/sepsis. (7) COPD (chronic obstructive pulmonary disease): Currently asymptomatic. Continue with Zyrtec. Nebs as needed. (8) Type 2 diabetes mellitus: Uncontrolled with last hemoglobin A1c 9.3. Continue with sliding scale. ICU hyperglycemic protocol (9) Hyperlipidemia: Continue with ASA, statin (10) GERD without esophagitis: Continue PPI History of Present Illness Attending Physician: Bernice Healy MD History of Present Illness Patient is a 66-year-old female with past medical history GERD, HLD, COPD, DM type II who was admitted to the hospital and undergoing treatment for COVID-19 pneumonia, and sepsis from recurrent UTIs. Patient was also recently diagnosed with squamous cell carcinoma by her care director rn for which she was supposed to have an appointment on Friday. She has a recurrent UTI for which she has been treated for the past 2 weeks and currently on her third antibiotic prior to admission. Blood cultures now positive for group B strep and she is currently undergoing treatment with vancomycin. She had an echo without vegetation. ID consulted as she has multiple drug allergies and recommended desensitization with ceftriaxone in the ICU for which she is now transferred and plan to undergo in the morning. On arrival to the ICU the patient is alert and oriented and hemodynamically stable. She was initially hypoxic on her admission and diagnosed with COVID-19 for which she has taken remdesivir and dexamethasone. She is currently on room air and asymptomatic. She is still short of breath with activity but this has significantly improved. She does report some fevers at home. She reports a nonproductive cough without hemoptysis. She denies any headache, dizziness, syncopal episodes, chest pain or palpitations, abdominal pain, general pain, nausea vomiting or diarrhea. She did report mild bilateral lower extremity teena a recently when she was moving but says this resolved with elevating her feet. Allergies Allergy/AdvReac Type Severity Reaction Status Date / Time Penicillins Allergy Severe SHORT OF Verified 10/01/22 07:47 BREATH/HIVES shellfish derived Allergy Severe SHORT OF Verified 10/01/22 07:47 BREATH/EYES SWELL/ITCHY sumatriptan [From Imitrex] Allergy Severe SHORT OF Verified 10/01/22 07:47 BREATH/HIVES erythromycin base Allergy Intermediate ITCHY HIVES Verified 10/01/22 07:47 liraglutide [From Victoza] Allergy Intermediate RASH/STOMACH Verified 10/01/22 07:47 PAIN rofecoxib [From Vioxx] Allergy Intermediate ITCHY HIVES Verified 10/01/22 07:47 Tetracyclines Allergy Intermediate ITCHY HIVES Verified 10/01/22 07:47 iodine Allergy Unknown Verified 10/01/22 07:47 topiramate [From Topamax] AdvReac Severe SUICIDAL Verified 10/01/22 07:47 THOUGHTS/DEPRESSION meloxicam AdvReac Intermediate GI Verified 10/01/22 07:47 UPSET/DIARRHEA metformin AdvReac Intermediate STOMACH Verified 10/01/22 07:47 PAIN/DIARRHEA Home Medications Medication Instructions Recorded Confirmed Type ammonium lactate 12 % topical cream 1 applic topical DAILY 08/10/22 10/01/22 History aspirin 81 mg tablet,delayed 81 mg PO DAILY 08/10/22 10/01/22 History release cyanocobalamin (vitamin B-12) 1,000 mcg PO DAILY 08/10/22 10/01/22 History 1,000 mcg tablet (Vitamin B-12) epinephrine 0.3 mg/0.3 mL 0.3 mg IM DIRECTED PRN Allergic 08/10/22 10/01/22 History injection, auto-injector (EpiPen) Reaction lansoprazole 30 mg capsule,delayed 30 mg PO DAILY 08/10/22 10/01/22 History release (Prevacid) simvastatin 20 mg tablet 20 mg PO HS 08/10/22 10/01/22 History triamcinolone acetonide 0.1 % 1 applic topical BID PRN Skin 08/10/22 10/01/22 History topical cream Irritation benzonatate 100 mg capsule 100 mg PO TID PRN Cough #60 caps 08/27/22 10/01/22 Rx cetirizine 10 mg tablet (Zyrtec) 10 mg PO DAILY #90 tabs 08/27/22 10/01/22 Rx famotidine 40 mg tablet 40 mg PO BID #60 tabs 08/27/22 10/01/22 Rx glucose 4 gram chewable tablet 4 g PO Q15M PRN hypoglycemia #30 08/27/22 10/01/22 Rx tabs montelukast 10 mg tablet 10 mg PO HS #90 tabs 08/27/22 10/01/22 Rx (Singulair) nortriptyline 50 mg capsule 100 mg PO HS #90 caps 08/27/22 10/01/22 Rx insulin glargine 100 unit/mL (3 50 unit (0.5 mL) subcut BID #15 mL 08/30/22 10/01/22 Rx mL) subcutaneous pen (Lantus Solostar U-100 Insulin) fluticasone fur. 200 mcg-umeclid 1 inh inhalation DAILY #3 Inhalers 09/18/22 10/01/22 Rx 62.5 mcg-vilant 25 mcg inhalat.powder (Trelegy Ellipta) guaifenesin 600 mg tablet, 600 mg PO BID PRN congestion #60 09/18/22 10/01/22 Rx extended release 12 hr (Mucinex) tabs zolpidem 5 mg tablet 5 mg PO ONCE PRN sleep #2 tabs 09/18/22 10/01/22 Rx nitrofurantoin 100 mg PO Q12H 7 days #14 caps 09/20/22 10/01/22 Rx monohydrate/macrocrystals 100 mg capsule (Macrobid) tizanidine 4 mg tablet 4 mg PO TID PRN muscle spasticity 09/20/22 10/01/22 Rx #90 tabs lidocaine HCl 2 % mucosal jelly in 1 applic topical BID PRN pain #125 09/25/22 10/01/22 Rx applicator mL dulaglutide 1.5 mg/0.5 mL 1.5 mg (0.5 mL) subcut WK #2 mL 09/26/22 10/01/22 Rx subcutaneous pen injector (Trulicity) insulin aspart U-100 100 unit/mL 16 unit (0.16 mL) subcut TID #15 mL 09/26/22 10/01/22 Rx (3 mL) subcutaneous pen (Novolog FlexPen U-100 Insulin aspart) albuterol 90 mcg/actuation aerosol 180 mcg inhalation Q6H PRN 10/02/22 10/02/22 History inhaler wheezing or cough Patient History Medical History Arthritis Asthma Chronic back pain COPD (chronic obstructive pulmonary disease) GERD without esophagitis Hyperlipidemia Insomnia Migraine headache without aura NAFLD (nonalcoholic fatty liver disease) Type 2 diabetes mellitus Surgical History H/O: x3 S/P total abdominal hysterectomy NELIDA-USO S/P tubal ligation Family History Mother Myocardial infarction Diabetes Sister Myocardial infarction x 2 Diabetes Brother Throat cancer Denies family history of Ovarian cancer Prostate cancer Breast cancer Colorectal cancer Uterine cancer Social History Smoking Status: Never smoker Tobacco Type: Cigarettes Second Hand Exposure: No; Do You Dip or Chew Tobacco: No; Hx Alcohol Use: No Hx Substance Use: No Preferred Language: Danish Communication Ability: Effective Visual Impairment: No Limitations Hearing Ability: Normal 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 Beliefs That Will Affect Care: None marital status: / Current Living Situation: Family Current Living Situation Comment: lives with son current occupational status: disabled Other Information That Helps Us Care for You: No Feels Safe at Home: Yes Safety Concerns: Feels Safe At This Time Diet Comment: regular caffeine: Yes during the past year weight has: decreased > 10 lbs Dental Care, Regularly: No Physical Activity Frequency: Other Physical Activity Frequency Comment: limited to physical condition Seatbelt Use: always Sunscreen Use: No Assistive Devices: Glasses and Other Assistive Devices Comment: patient uses scooter for long distance walking Review of Systems Review of Systems: All systems reviewed & are unremarkable except as noted in HPI & below Physical Exam Constitutional: WD/WN, vitals as above cooperative and comfortable Eyes: PERRL, conjunctivae normal, anicteric sclerae ENMT: external ear and nose normal, oropharynx normal Neck: trachea midline, no thyromegaly Respiratory: normal respiratory effort, lungs clear to auscultation Cardiovascular: RRR, no murmur, no edema Heart Sounds: normal S1 and normal S2 Vessels: no JVD Extremities: no edema Gastrointestinal (Abdomen): normal bowel sounds, soft, nontender, no hepa tosplenomegaly Musculoskeletal: no cyanosis or clubbing, extremities motor strength 5/5 Skin: no rashes, warm and dry Neurologic: PERRL, EOMI, accommodation nl, no face palsy, no dysarthria Psychiatric: A+Ox3, euthymic affect Results & Data Results & Data ([facility]) Vital Signs (Past 12 Hours) Vital Signs Temp Pulse Pulse Resp BP BP Pulse Ox 10/02/22 20:00 10/02/22 18:45 98 H 10/02/22 18:49 36.9 C 101 H 24 173/87 H 96 10/02/22 16:00 94 H 10/02/22 11:48 36.8 C 98 H 19 136/73 95 O2 Del Method 10/02/22 20:00 Room Air 10/02/22 18:45 10/02/22 18:49 Room Air 10/02/22 16:00 10/02/22 11:48 Room Air Coding Level of Care Code 60235 IN/OBS CONSULT LVL 2,35M Diagnoses Sepsis A41.9 Recurrent UTI (urinary tract infection) N39.0 Squamous cell carcinoma Hypoxia R09.02 COVID-19 U07.1 Lactic acidosis E87.20 COPD (chronic obstructive pulmonary disease) J44.9 Type 2 diabetes mellitus E11.9 Hyperlipidemia E78.5 GERD without esophagitis K21.9 Time Spent (min) 35
[2022-10-02] MEDS: MONTELUKAST SODIUM 10 MG TABLET PO SCH (20:58)
[2022-10-02] MEDS: NORTRIPTYLINE HCL 25 MG CAP PO SCH (20:58)
[2022-10-03] MEDS: VANCOMYCIN HCL 1,250 MG in SODIUM CHLORIDE 0.9% 250 ML IV SCH ×2 (04:31→16:49)
[2022-10-03 06:19] LABS: Basophils # (auto) 0.02 K/uL (0-0.2); Basophils % (auto) 0.1 %; Hematocrit (blood only) 32.7 % (37.0-47.0); Hemoglobin 10.7 g/dl (12.0-16.0); Immature Granulocytes # (auto) 0.14 K/uL (0.01-0.20); Immature Granulocytes % (auto) 0.7 %; Lymphocytes # (auto) 1.65 K/uL (1.2-3.4); Lymphocytes % (auto) 7.8 %; Mean Corpuscular Hemoglobin 28.1 pg (25.0-34.0); Mean Corpuscular Hgb Conc 32.7 g/dL (32.0-36.0); Mean Corpuscular Volume 85.8 fL (80.0-100.0); Mean Platelet Volume 10.2 fL (9.4-12.4); Monocytes # (auto) 1.35 K/uL (0.11-0.59); Monocytes % (auto) 6.4 %; Neutrophils # (auto) 17.86 K/uL (1.40-6.50); Platelet Count 296 K/uL (130-400); RDW Coefficient of Variation 15.3 % (11.5-14.5); RDW Standard Deviation 48.2 fL (36.4-46.3); Red Blood Count 3.81 M/uL (4.20-5.40); White Blood Count 21.02 K/ul (4.8-10.8)
[2022-10-03 06:37] LABS: BUN Creatinine Ratio 28.4 (10-20); Calcium 8.1 mg/dl (8.5-10.1); Est GFR (African American) 106.2 ml/min; Est GFR (Non-African American) 91.6 ml/min; Magnesium 1.9 mg/dl (1.7-2.4); Phosphorus 2.6 mg/dl (2.5-4.9); Potassium 4.3 mmol/L (3.5-5.1)
[2022-10-03] MEDS ORDERED: diphenhydrAMINE 50 MG/ML VIAL IV PRN (07:00)
[2022-10-03] MEDS ORDERED: EPINEPHrine INJ 1 MG/ML AMP IM PRN (07:00)
[2022-10-03] MEDS ORDERED: CEFTRIAXONE SODIUM IV SCH ×2 (07:00→07:30)
[2022-10-03] MEDS ORDERED: diphenhydrAMINE Capsule 25 MG CAP PO PRN (07:00)
[2022-10-03] MEDS ORDERED: ALBUTEROL HFA 8 GM INHALER INH PRN (07:00)
[2022-10-03] MEDS ORDERED: HYDROCORTISONE SOD SUCCINATE 100 MG/2 ML VIAL IV PRN (07:00)
[2022-10-03] MEDS: cefTRIAXone SODIUM 2,000 MG in DEXTROSE 5% 50 ML IV SCH (08:05)
--- NOTE | 2022-10-03 08:36 | Infectious Disease Progress Nt ---
Date of Service October 03, 2022 Assessment & Plan (1) COVID-19: Plan: #Strep bacteremia, [facility] Group G, 10/01 #COVID-19 on mild hypoxia, improved #Vulvar biopsy, pathology SCC #Penicillin allergy 66 yo F with h/o frequent UTIs, COPD/asthma h/o penicillin allergy, recent diagnosis of vulvar SCC diagnosed on biopsy, admitted with increasing fevers and body aches. ID Consulted for bacteremia. Per EMR, Moved from [place] at end of July, states she had COVID back at the end of last January, is vaccinated.Recent UTI and sx cloudy/foul smelling urine and since abx (which have been completed) she is asymptomatic from that. She is awaiting f/u radiopharmacist/onc for her squamous cell carcinoma just biopsied Review of prior cultures 09/20 and 08/10 Ucx Ecoli (R to levofloxacin, Ampicillin, Unasyn) Initial labs showed WBC 12, UA 5-10 wbcs. Tested positive for COVID and started on Decadron 10mg IV x 1 then continued 6mg IV daily, Remdesivir. CXR no significant findings except for congestion. She was given a dose of Ertapenem 10/01 Blood cultures shos Group G strep MICRO 10/02 Cultures in lab 10/01 Cultures 11/05 [facility], Group G Discussion: Patient with group G strep likely secondary to surgical site biopsy infection. She is on Vancomycin, and has PCN allergy during midteens that caused SOB/hives not hospitalized. I spoke with Dr. Healy and ID pharmacy,She is starting her Ceftriaxone graded challenge in the ICU. CXR does not show imaging c/w COVID but patient was mildly hypoxic on admission, this has resolved. Suspect we need further imaging of vulvar area with CT Pelvis. I am concerned about her WBC which may be secondary to corticosteroids vs vulvar infection (possible abscess) (2) Squamous cell carcinoma: Plan -C/W vancomycin today, if she tolerates Ceftriaxone will plan to dc Vancomycin -This am Ceftriaxone challenge -WBC still elevated to 21, steroids vs pelvic infection source -Consider imaging of pelvis with CT -Repeat blood cx in lab from 10/02 ID Following with you I discussed with Dr. Monet Bocanegra MD Infectious Diseases [facility] Admission and Anticipated Discharge Date Admission Date: October 01, 2022 Subjective This patient recommendation is based on a telemedicine consult request which was completed asynchronously through chart review and information provided by the primary physician. The patient was not seen or examined today. The evaluation is consultative in nature and all patient care and treatment decisions can either be accepted or rejected by the patient's primary hospital-based treating physician using their own independent medical judgment for their patient. Time Spent Reviewing Chart: 31+ minutes 24 hours: TF to ICU to start Ceftriaxone WBC 21 Vitals stable, on Room air and afebrile overnight Results & Data ([facility]) Vital Signs (Past 12 Hours) Vital Signs Temp Pulse Pulse Resp BP Pulse Ox O2 Del Method 10/03/22 02:51 105/56 L 10/03/22 02:51 90 18 94 10/03/22 02:00 87 17 93 10/03/22 02:00 129/58 L 10/03/22 00:00 37.0 C 10/03/22 02:59 87 18 95 Room Air 10/03/22 01:00 92 H 27 H 94 10/03/22 01:00 143/68 H 10/03/22 00:00 95 H 16 94 10/03/22 00:00 138/66 10/02/22 23:01 97 H 23 95 10/02/22 23:01 143/66 H 10/02/22 23:00 97 H 20 95 10/02/22 22:00 97 H 20 95 10/02/22 22:00 169/71 H 10/02/22 23:23 96 H 10/02/22 21:05 100 H 19 92 10/02/22 21:05 161/76 H 10/02/22 21:00 102 H 32 H 95 Laboratory Results Short CBC 10/03/22 Range/Units 05:46 WBC 21.02 H (4.8-10.8) K/ul Hgb 10.7 L (12.0-16.0) g/dl Hct 32.7 L (37.0-47.0) % Plt Count 296 (130-400) K/uL BMP 10/03/22 05:46 Sodium 135 L Potassium 4.3 Chloride 107 Carbon Dioxide 24 BUN 19 Creatinine 0.67 Glucose 153 H Calcium 8.1 L Microbiology 10/01/22 06:42 Blood Aerobic Blood Culture - Final Group G Beta Strep 10/01/22 06:42 Blood Anaerobic Blood Culture - Final Group G Beta Strep 10/02/22 05:45 Blood Aerobic Blood Culture - Preliminary No growth in Aerobic bottle after 24 hours. 10/02/22 05:45 Blood Anaerobic Blood Culture - Preliminary No growth in Anaerobic bottle after 24 hours. 10/02/22 05:43 Blood Aerobic Blood Culture - Preliminary No growth in Aerobic bottle after 24 hours. 10/02/22 05:43 Blood Anaerobic Blood Culture - Preliminary No growth in Anaerobic bottle after 24 hours. 10/01/22 06:42 Blood Aerobic Blood Culture - Final Group G Beta Strep 10/01/22 06:42 Blood Anaerobic Blood Culture - Final Group G Beta Strep 10/01/22 07:57 Urine,Clean Catch Urine Culture - Final Three types of organisms present, all high counts. Repeat collection recommended. No further identifications or sensitivities to follow. Medications Administered Current Inpatient Medications Acetaminophen (Acetaminophen 325 Mg Tab) 650 mg PO Q4H PRN PRN Reason: Pain or Fever Stop: 10/31/22 11:44 Albuterol (Albut/Ipratrop 3mg/0.5mg Neb 3 Ml Vial) 3 ml NEB Q4R PRN; Protocol PRN Reason: Wheezing Stop: 10/31/22 11:44 Last Admin: 10/03/22 02:55 Dose: 3 ml Albuterol (Albuterol Hfa 8 Gm Inhaler) 2 puffs INH Q20M PRN PRN Reason: Wheezing/SOB Stop: 10/03/22 18:00 Aspirin (Aspirin 81 Mg Ectab) 81 mg PO DAILY [facility] Stop: 10/31/22 11:44 Last Admin: 10/02/22 08:00 Dose: 81 mg Benzocaine (Benzocaine 20% Aer Spr 82.5 Gm Can) 1 appln EXT BID [facility] Stop: 11/01/22 18:53 Last Admin: 10/02/22 19:00 Dose: 1 appln Benzonatate (Benzonatate 100 Mg Capsule) 100 mg PO TID PRN PRN Reason: Cough Stop: 10/31/22 11:44 Cetirizine HCl (Cetirizine Hcl 10 Mg Tablet) 10 mg PO DAILY [facility] Stop: 10/31/22 11:44 Last Admin: 10/02/22 08:00 Dose: 10 mg Cyanocobalamin (Cyanocobalamin (B-12) 500 Mcg Tablet) 1,000 mcg PO DAILY [facility] Stop: 10/31/22 11:44 Last Admin: 10/02/22 08:01 Dose: 1,000 mcg Dextrose (Dextrose 50% 50 Ml Syringe) 25 - 50 ml IV UD PRN; Protocol PRN Reason: Hypoglycemia Protocol Stop: 10/31/22 11:44 Diphenhydramine HCl (Diphenhydramine Capsule 25 Mg Cap) 50 mg PO Q2H PRN PRN Reason: Mild Allergic Reaction Stop: 10/03/22 18:00 Diphenhydramine HCl (Diphenhydramine 50 Mg/Ml Vial) 50 mg IV Q2H PRN PRN Reason: Mod-Severe Allergic Reaction Stop: 10/03/22 18:00 Enoxaparin Sodium (Enoxaparin Inj 40 Mg/0.4 Ml Syr) 40 mg SQ Q12H [facility]ALIA Stop: 10/31/22 20:59 Last Admin: 10/02/22 20:57 Dose: 40 mg Epinephrine HCl (Epinephrine Inj 1 Mg/Ml Amp) 0.3 mg IM Q10M PRN PRN Reason: Severe Allergic Reaction Stop: 10/03/22 18:00 Famotidine (Famotidine 40 Mg Tablet) 40 mg PO BID [facility] Stop: 10/31/22 11:44 Last Admin: 10/02/22 20:59 Dose: 40 mg Fluticasone Furoate (Fluticasone Furoate 200mcg 14 Puffs/Inhaler) 1 puffs INH DAILY [facility] Stop: 10/31/22 11:59 Last Admin: 10/02/22 08:01 Dose: 1 puffs Glucagon (Glucagon For Inj 1 Mg Vial) 1 mg SQ UD PRN; Protocol PRN Reason: Hypoglycemia Protocol Stop: 10/31/22 11:44 Glucose (Glucose 10 Tab/Tube) 4 - 8 tab PO UD PRN; Protocol PRN Reason: Hypoglycemia Treatment Stop: 10/31/22 11:44 Glucose (Glucose 40% Gel 15 Gm Tube) 15 - 30 gm PO UD PRN; Protocol PRN Reason: Hypoglycemia Protocol Stop: 10/31/22 11:44 Guaifenesin (Guaifenesin 600 Mg Tabcr) 600 mg PO BID NATALIA Stop: 10/31/22 11:44 Last Admin: 10/02/22 20:58 Dose: 600 mg Hydrocortisone Sodium Succinate (Hydrocortisone Sod Succinate 100 Mg/2 Ml Vial) 100 mg IV DAILY PRN PRN Reason: Severe Allergic Reaction Stop: 10/03/22 18:00 Vancomycin HCl 1,250 mg/ (Sodium Chloride) 275 mls @ 200 mls/hr IV Q12H [facility]; Protocol Stop: 10/16/22 03:59 Last Infusion: 10/03/22 05:54 Dose: Infused Ceftriaxone Sodium 2,000 mg/ (Dextrose) 70 mls @ 140 mls/hr IV Q24H [facility] Stop: 10/17/22 07:59 Last Admin: 10/03/22 08:05 Dose: 140 mls/hr Ceftriaxone Sodium 20 mg/ (Syringe) 10 mls @ 120 mls/hr IV Q24H [facility] Stop: 10/03/22 18:00 Last Infusion: 10/03/22 07:43 Dose: Infused Ceftriaxone Sodium 200 mg/ (Syringe) 10 mls @ 120 mls/hr IV Q24H [facility] [place] Stop: 10/03/22 18:00 Last Infusion: 10/03/22 07:53 Dose: Infused Insulin Aspart (Insulin Aspart Per Unit) 0 units SC ACHS [facility] [place] Stop: 10/31/22 12:19 Last Admin: 10/02/22 21:19 Dose: 10 units Insulin Glargine (Lantus Per Unit Charge) 50 units SQ QAM [facility] Stop: 11/02/22 08:59 Lactic Acid (Ammonium Lactate 12% Lotion 225 Gm Btl) 1 gm EXT DAILY [facility] Stop: 11/01/22 08:59 Last Admin: 10/02/22 08:01 Dose: 1 gm Miscellaneous (Carbohydrates For Hypoglycemia ) 15 - 30 gm PO UD PRN PRN Reason: Hypoglycemia Protocol Stop: 10/31/22 11:44 Miscellaneous Information (Pharmacy Glycemic Mgmt Consult) 1 each N/A UD PRN; Protocol PRN Reason: Consult Stop: 10/31/22 11:44 Miscellaneous Information (Vancomycin Consult Active) 1 each N/A UD PRN PRN Reason: Consult Stop: 10/31/22 17:32 Montelukast Sodium (Montelukast Sodium 10 Mg Tablet) 10 mg PO HS [facility] Stop: 10/31/22 20:59 Last Admin: 10/02/22 20:58 Dose: 10 mg Nortriptyline HCl (Nortriptyline Hcl 25 Mg Cap) 100 mg PO HS [facility] [place] Stop: 10/31/22 20:59 Last Admin: 10/02/22 20:58 Dose: 100 mg Ondansetron HCl (Ondansetron Inj 2 Mg/Ml 2 Ml Vial) 4 mg IV Q6H PRN PRN Reason: Nausea Stop: 10/31/22 11:44 Pantoprazole Sodium (Pantoprazole 40 Mg Tab) 40 mg PO DAILY [facility] Stop: 10/31/22 11:44 Last Admin: 10/02/22 08:01 Dose: 40 mg Polyethylene Glycol (Polyethylene (Miralax) 17 Gm Pack) 17 gm PO DAILY PRN PRN Reason: Constipation Stop: 10/31/22 11:44 Simvastatin (Simvastatin 20 Mg Tab) 20 mg PO HS [facility] [place] Stop: 11/01/22 20:59 Last Admin: 10/02/22 20:41 Dose: 20 mg Tizanidine HCl (Tizanidine Hcl 4 Mg Tablet) 4 mg PO TID PRN PRN Reason: muscle spasticity Stop: 10/31/22 11:44 Last Admin: 10/02/22 21:20 Dose: 4 mg Triamcinolone Acetonide (Triamcinolone Acet 0.1% Cr 15 Gm Tube) 1 appln TOP BID PRN PRN Reason: Skin Irritation Stop: 10/31/22 11:44 Umeclidinium/Vilanterol (Umeclidinium/Vilanterol 62.5/25mcg 7 Puffs/Inhaler) 1 puffs INH DAILY [facility] Stop: 10/31/22 11:59 Last Admin: 10/02/22 08:01 Dose: 1 puffs
[2022-10-03] MEDS ORDERED: LANTUS PER UNIT CHARGE SQ SCH ×2 (09:00→21:00)
[2022-10-03] MEDS: INSULIN ASPART PER UNIT SC SCH ×4 (09:01→20:11)
[2022-10-03] MEDS: FAMOTIDINE 40 MG TABLET PO SCH ×2 (09:02→20:26)
[2022-10-03] MEDS: CETIRIZINE HCL 10 MG TABLET PO SCH (09:02)
[2022-10-03] MEDS: PANTOprazole 40 MG TAB PO SCH (09:02)
[2022-10-03] MEDS: guaiFENesin 600 MG TABCR PO SCH ×2 (09:02→20:17)
[2022-10-03] MEDS: CYANOCOBALAMIN (B-12) 500 MCG TABLET PO SCH (09:02)
[2022-10-03] MEDS: AMMONIUM LACTATE 12% LOTION 225 GM BTL EXT SCH (09:03)
[2022-10-03] MEDS: UMECLIDINIUM/VILANTEROL 62.5/25MCG 7 PUFFS/INHALER INH SCH (09:03)
[2022-10-03] MEDS: FLUTICASONE FUROATE 200MCG 14 PUFFS/INHALER INH SCH (09:03)
[2022-10-03] MEDS: ENOXAPARIN INJ 40 MG/0.4 ML SYR SQ SCH ×2 (09:03→20:12)
[2022-10-03] MEDS: BENZOCAINE 20% AER SPR 82.5 GM CAN EXT SCH ×2 (09:03→20:12)
--- NOTE | 2022-10-03 09:20 | Critical Care Progress Note ---
Date of Service October 03, 2022 Assessment & Plan (1) Sepsis: Plan: 66-year-old female with recurrent UTIs and recent diagnosis of vulvar SCC admitted with fevers and body aches and found to have blood cultures positive for group G strep. -WBC now 22 up from 12, lactate initially elevated but now cleared. Pro-Constantine unremarkable. Mild elevation in CRP -Currently undergoing treatment with vancomycin -ID consulted, recommended addition of ceftriaxone. -Admitted to ICU for ceftriaxone graded challenge given penicillin allergy -Repeat blood cultures pending -Echo without vegetation -Urine culture negative, suspected source likely surgical site biopsy infection? -Consider CT pelvis (2) Recurrent UTI (urinary tract infection): Plan: See sepsis above (3) Squamous cell carcinoma: Plan: Recently diagnosed with outpatient gynecology for new vulvar mass. Has not started treatment. Patient does have history of hysterectomy. Continue with benzocaine cream. Follow-up outpatient (4) Hypoxia: Plan: Resolved. Patient now on room air. We will continue to monitor with pulse ox and continue treatment for COVID-19 and COPD. Chest x-ray did appear to be more in line with cardiopulmonary picture versus pneumonia. Continue with pulmonary toileting. Of note, patient did have mild left ventricular hypertrophy and mild mitral regurg on echo. (5) COVID-19: Plan: Improved. Continue remdesivir, dexamethasone. (6) Lactic acidosis: Plan: Resolved. Was likely due to hypoxia/sepsis. (7) COPD (chronic obstructive pulmonary disease): Plan: Currently asymptomatic. Continue with Zyrtec. Nebs as needed. (8) Type 2 diabetes mellitus: Plan: Uncontrolled with last hemoglobin A1c 9.3. Continue with sliding scale. ICU hyperglycemic protocol (9) Hyperlipidemia: Plan: Continue with ASA, statin (10) GERD without esophagitis: Plan: Continue PPI Admission and Anticipated Discharge Date Admission Date: October 01, 2022 Results & Data Results & Data ([facility]) Vital Signs (Past 12 Hours) Vital Signs Temp Pulse Pulse Resp BP Pulse Ox O2 Del Method 10/03/22 02:51 105/56 L 10/03/22 02:51 90 18 94 10/03/22 02:00 87 17 93 10/03/22 02:00 129/58 L 10/03/22 00:00 37.0 C 10/03/22 02:59 87 18 95 Room Air 03/02/23 01:00 92 H 27 H 94 03/02/23 01:00 143/68 H 10/03/22 00:00 95 H 16 94 10/03/22 00:00 138/66 10/02/22 23:01 97 H 23 95 10/02/22 23:01 143/66 H 10/02/22 23:00 97 H 20 95 10/02/22 22:00 97 H 20 95 10/02/22 22:00 169/71 H 10/02/22 23:23 96 H Coding Diagnoses Sepsis A41.9 Recurrent UTI (urinary tract infection) N39.0 Squamous cell carcinoma Hypoxia R09.02 COVID-19 U07.1 Lactic acidosis E87.20 COPD (chronic obstructive pulmonary disease) J44.9 Type 2 diabetes mellitus E11.9 Hyperlipidemia E78.5 GERD without esophagitis K21.9
[2022-10-03] MEDS: ASPIRIN 81 MG ECTAB PO SCH (11:50)
--- NOTE | 2022-10-03 12:09 | CT Scan Report ---
CT pelvis wo con HISTORY: 66 years-old Female Strep bacteremia,vulvar cancer,look for abscess acute pelvic pain in a patient with history of vulvar carcinoma COMPARISON: None TECHNIQUE: Multiple axial CT images of the bony pelvis were obtained without the use of IV contrast. A dose lowering technique was used consistent with the principals of SAMIRA. FINDINGS: Atherosclerosis of the aorta and iliac arteries. The imaged inferior portions of the kidneys and righ t hepatic lobe appear unremarkable. Mild urinary bladder wall thickening with partial distention. Air within the bladder lumen. Hysterectomy. No adnexal mass lesion. No discrete vaginal or cervical mass identified. No lymphadenopathy identified. No bowel obstruction or bowel wall thickening. Colonic diverticulosis. Moderate colonic fecal retenti on. Normal appendix. No significant inflammatory changes or fluid collection to suggest abscess. No a cute fracture identified. No suspicious bone lesions. IMPRESSION: 1. No acute intrapelvic abnormality. 2. No acute inflammatory changes or fluid collection to suggest abscess. 3. Air within the urinary bladder may be secondary to instrumentation versus infection. Correlate wit h urinalysis. ACT 112: Negative or not required by law. The above report was generated using voice recognition software. It may contain grammatical, syntax o r spelling errors. Electronically signed by: Richardson Gray M.D. 10/03/2022 12:08 PM
--- NOTE | 2022-10-03 12:55 | Pharmacy Report ---
Pharmacy PK ABX Note - Date of Service October 03, 2022 - Assessment and Plan Assessment 66 year old F receiving vancomycin for treatment of grp C strep bacteremia. Pertinent microbiologic data includes: 11/05 BC from 10/01 w/ grp C strep. Repeat cultures from 10/02 currently negative. Urine culture 3+ organisms. Patient undergoing ceftriaxone trial d/t allergy. Plan on continuing vancomycin today and stopping tomorrow if tolerating ceftriaxone. Day # 3 of antimicrobial therapy. Plan Vancomycin * Loading dose: 2250 mg IV x 1 * Maintenance dose: 1250 mg IV every 12 hours * Regimen is predicted to achieve target AUC/CIRO of 400-600 mg/L.hr * Random level 18.3 today- continue current regimen * Anticipate d/c, will order additional levels in 2-3 days if continued Pharmacy will continue to follow and will adjust dose/frequency as necessary. Thank you. Pharmacy has transitioned to AUC monitoring for vancomycin. AUC/CIRO is the preferred PK/PD target and is associated with decreased risk of nephrotoxicity compared to traditional trough targets.
--- NOTE | 2022-10-03 13:03 | Pharmacy Report ---
Pharmacy Glycemic Short Note 2 - Date of Service October 03, 2022 - Glycemic Short BSG Results (Last 24 hours): 10/02/22 10/02/22 10/02/22 16:33 16:34 21:12 Glucose POC Glucose 349 H* 374 H* 239 H 10/03/22 10/03/22 10/03/22 05:46 07:18 10:56 Glucose 153 H POC Glucose 147 H 225 H OUTPATIENT ANTIDIABETIC REGIMEN: * insulin glargine 50 units BID; insulin aspart 16 units TID * A1c 9.3% 08/27/22 ASSESSMENT: 10/03 * Patient transferred to ICU for graded ceftriaxone challenge. Patient bacteremic currently on vancomycin. * Dexamethasone 6 mg IV was discontinued, last dose 10/02. Will keep novolog parameters the same to day in anticipation of this wearing off * Fasting improved this AM- 147 mg/dL with 70 units of lantus on board, will split 50 units this morning and scale up to 40 units this PM 10/01 * Patient admitted with COVID-19, received 10 mg of dexamethasone this morning in ED, 6 mg IV dexamethasone to continue daily * Lunch BSG mildly elevated at 238 mg/dL- will start with weight based stress of 3 novolog parameters (similar to outpatient dosing rec), as prandial BSGs most affected by steroid * Son reported patient has not taken insulin today- will give AM dose of lantus now 50 units x1; this is equivalent to full dose stress of 3 and set scale for PM up to 30 units (would be overall ~20% reduction from home dose) d/t Unknown compliance and A1c of 9.3%. Will be conservative for now and adjust based on BSG trend PLAN FOR INPATIENT GLYCEMIC CONTROL: * Hold outpatient oral diabetes medications * Basal insulin * Lantus 50 units x 1, scale for 20/30/40 units PM * Bolus insulin * NovoLog per scale ACHS or Q6hrs while NPO * Goal Range: Low 120 mg/dL - High 160 mg/dL * Correction Factor: 10 mg/dL/unit * Nutritional / Prandial insulin per carb ratio of 1 unit per 3 grams CHO consumed
--- NOTE | 2022-10-03 17:34 | Hospitalist Progress Note ---
Date of Service October 03, 2022 Assessment & Plan (1) Streptococcal septicemia: Plan: Presented with generalized weakness, fevers, dyspnea and hypoxia with pulse ox in the mid 80s. Had recent urinary tract infection which was treated appropriately with Macrobid. No urinary symptoms, abdominal pains or CVA tenderness. Was COVID-positive on arrival, however blood cultures all turned positive for group G beta Streptococcus within 12 hours of admission Most likely fevers and sepsis are from the bacteremia rather than COVID-19 Source of group G beta Streptococcus likely Genitourinary growing open wound from vulvar mass/squamous cell carcinoma with bleeding Does not seem to have sinusitis, pharyngitis, pneumonia, or joint infections otherwise Checked CT pelvis on 10/03-no evidence of abscess or infection Echocardiogram-no valvular vegetation-discussed with ID-no need for DIMPLE if repeat blood cultures remain negative Leukocytosis persists but is most likely secondary to previous corticosteroid use which has now been stopped -Tolerated ceftriaxone challenge-continue ceftriaxone 2 g IV every 24 hours x2- week course -Discontinue vancomycin now -Consult infectious disease-appreciated -Started desmoplast spray to the vaginal lesion which will help with topical anesthesia for pain but also help protect open wound from bacterial invasion -Repeat blood cultures -remain no growth to date -If blood cultures on repeat remain sterile at 48 hours, could place ultrasound- guided peripheral IV and transition to home with IV antibiotics at the [facility] -Follow CBC, CMP in the morning (2) COVID-19: Plan: Increased weakness, fevers, shortness of breath and fatigue, positive for COVID (prior + last January, is vaccinated) Hypoxic w/ Spo2 88% on RA on arrival, given 1 dose of IV Decadron in the ER and was weaned completely off oxygen within 6 to 7 hours-remains off supplemental oxygen No respiratory symptoms at all now Lactic elevation likely 2nd to hypoxia and sepsis -Patient declined to have Remdesivir -Received 2 doses of Decadron but given bacteremia and quick improvement in hypoxia- discontinued dexamethasone -Maintain isolation precautions -Duonebs prn -Incentive spirometer, flutter valve, mucinex (3) Recurrent UTI (urinary tract infection): Plan: recently completed macrobid for ecoli uti, which was sensitive Repeat urinalysis here without evidence of infection (4) COPD (chronic obstructive pulmonary disease): Plan: continue usual inhalers no cough/sputum production to warrant abx currently but will monitor recently seen by Dr Mesa, CT chest ordered as an outpatient--can have as an outpatient after he recovers from COVID continue allergy medications as well, mucinex, etc (5) Type 2 diabetes mellitus: Plan: Last A1c 9.3. With significant hyperglycemia due to steroids now improving DM diet pharmacy for glycemic management Continue basal and bolus insulin and NovoLog (6) GERD without esophagitis: Plan: continue PPI/H2 no increased symptoms reported (7) Squamous cell carcinoma: Plan: recent dx by TRANSLATION DIRECTOR, awaiting hadoop admin/onc follow up next week stable with minor bleeding-spray to be used as above (8) NAFLD (nonalcoholic fatty liver disease): Plan: With mild elevations of alkaline phosphatase and AST Follow as an outpatient (9) Hyperlipidemia: Plan: Continue home statin (10) Migraine headache without aura: Plan: Continue nortriptyline at nighttime Plan DVT prophylaxis-Lovenox SQ Disposition-downgrade out of ICU to med-telemetry. Plan for discharge to home tomorrow if continues to be doing well. Will need MTU set up for IV ceftriaxone Admission and Anticipated Discharge Date Admission Date: October 01, 2022 Subjective Patient feels great. Reports she has not felt this good in a long time. Denies chest pains or shortness of breath, no cough. No abdominal pains or diarrhea. No fevers. I discussed her care with infectious disease. Telemetry with normal sinus rhythm and normal rates Review of Systems Review of Systems: All systems reviewed & are unremarkable except as noted in HPI & below Physical Exam Constitutional: WD/WN, vitals as above Eyes: + anicteric sclerae Respiratory: normal respiratory effort; no cough Auscultation: lungs clear to auscultation bilaterally Cardiovascular: RRR, no murmur, no edema Gastrointestinal (Abdomen): normal bowel sounds, soft, nontender, no hepatosplenomegaly Musculoskeletal: Extremities: extremities normal to inspection Skin: no rashes, warm and dry Psychiatric: A+Ox3, euthymic affect Results & Data Results & Data ([facility]) Vital Signs (Past 12 Hours) Vital Signs Temp Pulse Pulse Resp BP BP Pulse Ox 10/03/22 12:00 102 H 20 93 10/03/22 11:47 104 H 20 92 10/03/22 11:47 165/74 H 10/03/22 11:01 98 H 22 95 10/03/22 11:01 163/102 H 10/03/22 11:00 99 H 20 94 10/03/22 10:30 138/67 10/03/22 10:30 104 H 25 H 94 10/03/22 10:01 112/56 L 10/03/22 10:01 106 H 18 42 L 10/03/22 10:00 102 H 20 93 10/03/22 09:30 148/68 H 10/03/22 09:30 100 H 24 91 10/03/22 09:16 170/101 H 10/03/22 09:16 100 H 22 96 10/03/22 09:15 99 H 21 92 10/03/22 09:00 98 H 22 92 10/03/22 09:00 147/81 H 10/03/22 08:45 98 H 18 94 10/03/22 08:45 143/65 H 10/03/22 08:30 99 H 23 94 10/03/22 08:30 136/75 10/03/22 08:15 95 H 14 92 10/03/22 08:15 145/64 H 10/03/22 08:00 94 H 17 93 10/03/22 08:00 141/77 H 10/03/22 07:45 92 H 18 93 10/03/22 07:45 145/66 H 10/03/22 07:39 151/75 H 10/03/22 07:39 92 H 22 93 10/03/22 07:30 94 H 18 93 10/03/22 07:15 90 22 94 10/03/22 07:00 95 H 19 93 10/03/22 07:00 136/77 10/03/22 09:00 36.8 C 10/03/22 08:00 37.0 C 10/03/22 07:00 10/03/22 07:00 37.0 C 98 H 20 136/77 96 10/03/22 07:00 98 H O2 Del Method 10/03/22 12:00 10/03/22 11:47 10/03/22 11:47 10/03/22 11:01 10/03/22 11:01 10/03/22 11:00 10/03/22 10:30 10/03/22 10:30 10/03/22 10:01 10/03/22 10:01 10/03/22 10:00 10/03/22 09:30 10/03/22 09:30 10/03/22 09:16 10/03/22 09:16 10/03/22 09:15 10/03/22 09:00 10/03/22 09:00 10/03/22 08:45 10/03/22 08:45 10/03/22 08:30 10/03/22 08:30 10/03/22 08:15 10/03/22 08:15 10/03/22 08:00 10/03/22 08:00 10/03/22 07:45 10/03/22 07:45 10/03/22 07:39 10/03/22 07:39 10/03/22 07:30 10/03/22 07:15 10/03/22 07:00 10/03/22 07:00 10/03/22 09:00 10/03/22 08:00 10/03/22 07:00 Room Air 10/03/22 07:00 Room Air 10/03/22 07:00 Laboratory Results CBC, BMP reviewed, blood cultures from 10/02 remain no growth to date PG Care Time/CCT Total # of Minutes Spent Total Time Spent with Patient: Total time spent is greater than 50% in coordination of care (as documented) at patient's floor/unit and/or counseling patient: Coding Level of Care Code 34072 SUB INP/OBS CARE 2MIN Diagnoses Streptococcal septicemia A40.9 COVID-19 U07.1 Recurrent UTI (urinary tract infection) N39.0 COPD (chronic obstructive pulmonary disease) J44.9 Type 2 diabetes mellitus E11.9 GERD without esophagitis K21.9 Squamous cell carcinoma NAFLD (nonalcoholic fatty liver disease) K76.0 Hyperlipidemia E78.5 Migraine headache without aura G43.009
[2022-10-03] MEDS: MONTELUKAST SODIUM 10 MG TABLET PO SCH (20:14)
[2022-10-03] MEDS: NORTRIPTYLINE HCL 25 MG CAP PO SCH (20:14)
[2022-10-03] MEDS: SIMVASTATIN 20 MG TAB PO SCH (20:14)
[2022-10-03] MEDS: tiZANidine HCL 4 MG TABLET PO PRN (20:26)
[2022-10-04 06:36] LABS: Basophils # (auto) 0.02 K/uL (0-0.2); Basophils % (auto) 0.2 %; Eosinophils # (auto) 0.08 K/uL (0-0.50); Eosinophils % (auto) 0.7 %; Hematocrit (blood only) 33.9 % (37.0-47.0); Immature Granulocytes # (auto) 0.07 K/uL (0.01-0.20); Immature Granulocytes % (auto) 0.6 %; Lymphocytes # (auto) 3.01 K/uL (1.2-3.4); Lymphocytes % (auto) 24.8 %; Mean Corpuscular Hemoglobin 28.3 pg (25.0-34.0); Mean Corpuscular Hgb Conc 32.4 g/dL (32.0-36.0); Mean Corpuscular Volume 87.1 fL (80.0-100.0); Monocytes # (auto) 1.04 K/uL (0.11-0.59); Monocytes % (auto) 8.6 %; Neutrophils # (auto) 7.92 K/uL (1.40-6.50); Neutrophils % (auto) 65.1 %; Platelet Count 307 K/uL (130-400); RDW Coefficient of Variation 15.1 % (11.5-14.5); RDW Standard Deviation 48.2 fL (36.4-46.3); Red Blood Count 3.89 M/uL (4.20-5.40); White Blood Count 12.14 K/ul (4.8-10.8)
[2022-10-04 07:12] LABS: Albumin Globulin Ratio 0.9 (0.9-2); Albumin Level 3.1 gm/dl (3.4-5.0); BUN Creatinine Ratio 23.8 (10-20); Bilirubin,Total 0.4 mg/dl (0.2-1.0); Calcium 8.1 mg/dl (8.5-10.1); Creatinine Clr Calc Pharmacy 80.4 ml/min; Est GFR (Non-African American) 76.8 ml/min; Globulin 3.5 gm/dl (2.5-4.0); Potassium 3.6 mmol/L (3.5-5.1); Total Protein 6.6 gm/dl (6.0-8.3)
[2022-10-04] MEDS: FAMOTIDINE 40 MG TABLET PO SCH (08:16)
[2022-10-04] MEDS: ASPIRIN 81 MG ECTAB PO SCH (08:16)
[2022-10-04] MEDS: CYANOCOBALAMIN (B-12) 500 MCG TABLET PO SCH (08:16)
[2022-10-04] MEDS: PANTOprazole 40 MG TAB PO SCH (08:16)
[2022-10-04] MEDS: BENZOCAINE 20% AER SPR 82.5 GM CAN EXT SCH (08:16)
[2022-10-04] MEDS: guaiFENesin 600 MG TABCR PO SCH (08:16)
[2022-10-04] MEDS: FLUTICASONE FUROATE 200MCG 14 PUFFS/INHALER INH SCH (08:16)
[2022-10-04] MEDS: CETIRIZINE HCL 10 MG TABLET PO SCH (08:16)
[2022-10-04] MEDS: UMECLIDINIUM/VILANTEROL 62.5/25MCG 7 PUFFS/INHALER INH SCH (08:17)
[2022-10-04] MEDS: INSULIN ASPART PER UNIT SC SCH ×2 (08:17→11:47)
[2022-10-04] MEDS: AMMONIUM LACTATE 12% LOTION 225 GM BTL EXT SCH (08:22)
--- NOTE | 2022-10-04 08:24 | Infectious Disease Progress Nt ---
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 ID Consulted for bacteremia. Per EMR, Moved from [place] at end of July, states she had COVID back at the end of last January, is vaccinated.Recent UTI and sx cloudy/foul smelling urine and since abx (which have been completed) she is asymptomatic from that. She is awaiting f/u photograph developer/onc for her squamous cell carcinoma just biopsied Review of prior cultures 09/20 and 08/10 Ucx Ecoli (R to levofloxacin, Ampicillin, Unasyn) Initial labs showed WBC 12, UA 5-10 wbcs. Tested positive for COVID and started on Decadron 10mg IV x 1 then continued 6mg IV daily, Remdesivir. CXR no significant findings except for congestion. She was given a dose of Ertapenem 10/01 Blood cultures shos Group G strep. Patient TF to ICU for Ceftriaxone graded challenge which she tolerated well. CT Pelvis on 10/03 no significant findings (this is non-contrast) Dexamethasone discontinued. MICRO 10/02 Blood Cultures NGTD 10/01 Cultures / BHS, Group G Discussion: Patient with group G strep likely secondary to surgical site biopsy infection in setting of h/o PCN. Now s/p Ceftriaxone challenge tolerated well. 2DE negative for vegatation and she cleared cultures relatively quickly. I suspect her source was her prior biopsy site and would have her follow up with Gynecology. CXR does not show imaging c/w COVID but patient was mildly hypoxic on admission, this has resolved. (2) Squamous cell carcinoma: Plan -Ceftriaxone 2G IV daily -Repeat blood cx in lab from 10/02 are no growth at 48 hours -Recommend Midline placement and plan for home Ceftriaxone 2G IV daily through 10/15/22. I recommend she needs IV because the source is not entirely clear likely her wound. -Weekly CBCD, CMP to her primary physician -Follow up with Gynecology for SCC and wound site Discussed wtih Dr. Healy Please call with any questions ro concerns. Socorro Bocanegra MD Infectious Diseases [facility] Admission and Anticipated Discharge Date Admission Date: October 01, 2022 Subjective This patient recommendation is based on a telemedicine consult request which was completed asynchronously through chart review and information provided by the primary physician. The patient was not seen or examined today. The evaluation is consultative in nature and all patient care and treatment decisions can either be accepted or rejected by the patient's primary hospital-based treating physician using their own independent medical judgment for their patient. Time Spent Reviewing Chart: 21 - 30 minutes 24 hours: JODY CT Pelvis n/c no sig findings Marked improvement in WBC to 12 Tolerating Ceftriaxone 10/02 Blood cultures NGTD Results & Data ([facility]) Vital Signs (Past 12 Hours) Vital Signs Pulse Resp 10/03/22 22:30 96 H 19 10/03/22 22:00 97 H 16 10/03/22 21:30 96 H 18 10/03/22 21:00 97 H 24 10/03/22 20:30 105 H 21 Laboratory Results Short CBC 10/04/22 Range/Units 05:30 WBC 12.14 H (4.8-10.8) K/ul Hgb 11.0 L (12.0-16.0) g/dl Hct 33.9 L (37.0-47.0) % Plt Count 307 (130-400) K/uL BMP 10/04/22 05:30 Sodium 138 Potassium 3.6 Chloride 106 Carbon Dioxide 27 BUN 19 Creatinine 0.80 Glucose 102 H Calcium 8.1 L Liver Function 10/04/22 Range/Units 05:30 Total Bilirubin 0.4 (0.2-1.0) mg/dl AST 23 (13-39) U/L ALT 24 (7-52) U/L Alkaline Phosphatase 154 H (34-104) U/L Albumin 3.1 L (3.4-5.0) gm/dl Microbiology 10/02/22 05:45 Blood Aerobic Blood Culture - Preliminary No growth in Aerobic bottle after 48 hours. 10/02/22 05:45 Blood Anaerobic Blood Culture - Preliminary No growth in Anaerobic bottle after 48 hours. 10/02/22 05:43 Blood Aerobic Blood Culture - Preliminary No growth in Aerobic bottle after 48 hours. 10/02/22 05:43 Blood Anaerobic Blood Culture - Preliminary No growth in Anaerobic bottle after 48 hours. 10/01/22 06:42 Blood Aerobic Blood Culture - Final Group G Beta Strep 10/01/22 06:42 Blood Anaerobic Blood Culture - Final Group G Beta Strep 10/01/22 06:42 Blood Aerobic Blood Culture - Final Group G Beta Strep 10/01/22 06:42 Blood Anaerobic Blood Culture - Final Group G Beta Strep 10/01/22 07:57 Urine,Clean Catch Urine Culture - Final Three types of organisms present, all high counts. Repeat collection recommended. No further identifications or sensitivities to follow. Medications Administered Current Inpatient Medications Acetaminophen (Acetaminophen 325 Mg Tab) 650 mg PO Q4H PRN PRN Reason: Pain or Fever Stop: 10/31/22 11:44 Albuterol (Albut/Ipratrop 3mg/0.5mg Neb 3 Ml Vial) 3 ml NEB Q4R PRN; Protocol PRN Reason: Wheezing Stop: 10/31/22 11:44 Last Admin: 10/03/22 02:55 Dose: 3 ml Aspirin (Aspirin 81 Mg Ectab) 81 mg PO DAILY NATALIA Stop: 10/31/22 11:44 Last Admin: 10/04/22 08:16 Dose: 81 mg Benzocaine (Benzocaine 20% Aer Spr 82.5 Gm Can) 1 appln EXT BID NATALIA Stop: 11/01/22 18:53 Last Admin: 10/04/22 08:16 Dose: 1 appln Benzonatate (Benzonatate 100 Mg Capsule) 100 mg PO TID PRN PRN Reason: Cough Stop: 10/31/22 11:44 Cetirizine HCl (Cetirizine Hcl 10 Mg Tablet) 10 mg PO DAILY NATALIA Stop: 10/31/22 11:44 Last Admin: 10/04/22 08:16 Dose: 10 mg Cyanocobalamin (Cyanocobalamin (B-12) 500 Mcg Tablet) 1,000 mcg PO DAILY NATALIA Stop: 10/31/22 11:44 Last Admin: 10/04/22 08:16 Dose: 1,000 mcg Dextrose (Dextrose 50% 50 Ml Syringe) 25 - 50 ml IV UD PRN; Protocol PRN Reason: Hypoglycemia Protocol Stop: 10/31/22 11:44 Enoxaparin Sodium (Enoxaparin Inj 40 Mg/0.4 Ml Syr) 40 mg SQ Q12H NATALIA Stop: 10/31/22 20:59 Last Admin: 10/03/22 20:12 Dose: 40 mg Famotidine (Famotidine 40 Mg Tablet) 40 mg PO BID NATALIA Stop: 10/31/22 11:44 Last Admin: 10/04/22 08:16 Dose: 40 mg Fluticasone Furoate (Fluticasone Furoate 200mcg 14 Puffs/Inhaler) 1 puffs INH DAILY NATALIA Stop: 10/31/22 11:59 Last Admin: 10/04/22 08:16 Dose: 1 puffs Glucagon (Glucagon For Inj 1 Mg Vial) 1 mg SQ UD PRN; Protocol PRN Reason: Hypoglycemia Protocol Stop: 10/31/22 11:44 Glucose (Glucose 10 Tab/Tube) 4 - 8 tab PO UD PRN; Protocol PRN Reason: Hypoglycemia Treatment Stop: 10/31/22 11:44 Glucose (Glucose 40% Gel 15 Gm Tube) 15 - 30 gm PO UD PRN; Protocol PRN Reason: Hypoglycemia Protocol Stop: 10/31/22 11:44 Guaifenesin (Guaifenesin 600 Mg Tabcr) 600 mg PO BID NATALIA Stop: 10/31/22 11:44 Last Admin: 10/04/22 08:16 Dose: Not Given Ceftriaxone Sodium 2,000 mg/ (Dextrose) 70 mls @ 140 mls/hr IV Q24H NATALIA Stop: 10/17/22 07:59 Last Infusion: 10/03/22 08:44 Dose: Infused Insulin Aspart (Insulin Aspart Per Unit) 0 units SC ACHS NATALIA Stop: 10/31/22 12:19 Last Admin: 10/04/22 08:17 Dose: Not Given Lactic Acid (Ammonium Lactate 12% Lotion 225 Gm Btl) 1 gm EXT DAILY NATALIA Stop: 11/01/22 08:59 Last Admin: 10/04/22 08:22 Dose: 1 gm Miscellaneous (Carbohydrates For Hypoglycemia ) 15 - 30 gm PO UD PRN PRN Reason: Hypoglycemia Protocol Stop: 10/31/22 11:44 Miscellaneous Information (Pharmacy Glycemic Mgmt Consult) 1 each N/A UD PRN; Protocol PRN Reason: Consult Stop: 10/31/22 11:44 Montelukast Sodium (Montelukast Sodium 10 Mg Tablet) 10 mg PO HS NATALIA Stop: 10/31/22 20:59 Last Admin: 10/03/22 20:14 Dose: 10 mg Nortriptyline HCl (Nortriptyline Hcl 25 Mg Cap) 100 mg PO HS NATALIA Stop: 10/31/22 20:59 Last Admin: 10/03/22 20:14 Dose: 100 mg Ondansetron HCl (Ondansetron Inj 2 Mg/Ml 2 Ml Vial) 4 mg IV Q6H PRN PRN Reason: Nausea Stop: 10/31/22 11:44 Pantoprazole Sodium (Pantoprazole 40 Mg Tab) 40 mg PO DAILY NATALIA Stop: 10/31/22 11:44 Last Admin: 10/04/22 08:16 Dose: 40 mg Polyethylene Glycol (Polyethylene (Miralax) 17 Gm Pack) 17 gm PO DAILY PRN PRN Reason: Constipation Stop: 10/31/22 11:44 Simvastatin (Simvastatin 20 Mg Tab) 20 mg PO HS [facility] Stop: 11/01/22 20:59 Last Admin: 10/03/22 20:14 Dose: 20 mg Tizanidine HCl (Tizanidine Hcl 4 Mg Tablet) 4 mg PO TID PRN PRN Reason: muscle spasticity Stop: 10/31/22 11:44 Last Admin: 10/03/22 20:26 Dose: 4 mg Triamcinolone Acetonide (Triamcinolone Acet 0.1% Cr 15 Gm Tube) 1 appln TOP BID PRN PRN Reason: Skin Irritation Stop: 10/31/22 11:44 Umeclidinium/Vilanterol (Umeclidinium/Vilanterol 62.5/25mcg 7 Puffs/Inhaler) 1 puffs INH DAILY NATALIA Stop: 10/31/22 11:59 Last Admin: 10/04/22 08:17 Dose: 1 puffs
[2022-10-04] MEDS: cefTRIAXone SODIUM 2,000 MG in DEXTROSE 5% 50 ML IV SCH (11:31)
[2022-10-04] MEDS: ENOXAPARIN INJ 40 MG/0.4 ML SYR SQ SCH (11:31)
--- NOTE | 2022-10-04 12:38 | Pharmacy Report ---
Pharmacy Glycemic Short Note 2 - Date of Service October 04, 2022 - Glycemic Short BSG Results (Last 24 hours): 10/03/22 10/03/22 10/04/22 16:17 19:57 05:30 Glucose 102 H POC Glucose 98 96 10/04/22 10/04/22 07:34 10:39 Glucose POC Glucose 97 85 OUTPATIENT ANTIDIABETIC REGIMEN: * insulin glargine 50 units BID; insulin aspart 16 units TID * A1c 9.3% 08/27/22 ASSESSMENT: 10/04: * BSGs have been below goal, 38-78-50-85mg/dL the last 24h. Patient received 50 units of basal and 37 units of bolus insulin yesterday. * Patient transitioned to NPO at midnight last night, and diet resumed at lunch today. Continues on ceftriaxone. * Lantus dose was not administered last night and AM dose today was held due to BSG trending down. Novolog parameters loosened. Will add on an HS Lantus scale for tonight depending on how BSGs trend. 10/03 * Patient transferred to ICU for graded ceftriaxone challenge. Patient bacteremic currently on vancomycin. * Dexamethasone 6 mg IV was discontinued, last dose 10/02. Will keep novolog parameters the same to day in anticipation of this wearing off * Fasting improved this AM- 147 mg/dL with 70 units of lantus on board, will split 50 units this morning and scale up to 40 units this PM 10/01 * Patient admitted with COVID-19, received 10 mg of dexamethasone this morning in ED, 6 mg IV dexamethasone to continue daily * Lunch BSG mildly elevated at 238 mg/dL- will start with weight based stress of 3 novolog parameters (similar to outpatient dosing rec), as prandial BSGs most affected by steroid * Son reported patient has not taken insulin today- will give AM dose of lantus now 50 units x1; this is equivalent to full dose stress of 3 and set scale for PM up to 30 units (would be overall ~20% reduction from home dose) d/t Unknown compliance and A1c of 9.3%. Will be conservative for now and adjust based on BSG trend PLAN FOR INPATIENT GLYCEMIC CONTROL: * Hold outpatient oral diabetes medications * Basal insulin * Lantus HS scale * Bolus insulin * NovoLog per scale ACHS or Q6hrs while NPO * Goal Range: Low 110 mg/dL - High 140 mg/dL * Correction Factor: 15 mg/dL/unit * Nutritional / Prandial insulin per carb ratio of 1 unit per 5 grams CHO consumed
--- NOTE | 2022-10-04 13:16 | Discharge Summary ---
Date of Service October 04, 2022 Admission HPI Per Admitting Provider 66yo female presented with recent vaginal issues/UTI and this morning with increasing fevers, chills, body aches, shortness of breath, fatigue. Too weak to get up/walk. 88% RA Patient seen in room with son at bedside. Moved from [place] at end of July, states she had COVID back at the end of last January, is vaccinated. Hx COPD/asthma and has been on her usual inhalers. Denies cough/sputum production but does endorse shortness of breath, which is improved since she got here and received steroids. Initially hypoxic with SpO2 88%, 93% on 2L currently and stable. Recent UTI and sx cloudy/foul smelling urine and since abx (which have been completed) she is asymptomatic from that. She is awaiting f/u jump iron machine presser/onc for her squamous cell carcinoma just discovered. She has been febrile and weak, poor PO intake/appetite but no abdominal pain or nausea. Little bit of a headache but no migraine (hx of such). No falls/loss of conciousness. Discussed admission for steroids/remdesivir, if breathing worsens can reach out to pulmonary as recently seen. ER Course: Given Decadron 10mg IV x 1 now, Ertapenem, IV Tylenol, 1L NSS bolus. Principal Diagnosis Group G beta Streptococcal septicemia COVID-19 Acute respiratory failure with hypoxia Discharge Exam Constitutional WD/WN, vitals as above Eyes + anicteric sclerae Respiratory normal respiratory effort; no cough Auscultation: lungs clear to auscultation bilaterally Cardiovascular RRR, no murmur, no edema Gastrointestinal (Abdomen) normal bowel sounds, soft, nontender, no hepatosplenomegaly Musculoskeletal Extremities: extremities normal to inspection Skin no rashes, warm and dry Psychiatric A+Ox3, euthymic affect Discharge Data Allergies Allergy/AdvReac Type Severity Reaction Status Date / Time Penicillins Allergy Severe SHORT OF Verified 10/01/22 07:47 BREATH/HIVES shellfish derived Allergy Severe SHORT OF Verified 10/01/22 07:47 BREATH/EYES SWELL/ITCHY sumatriptan [From Imitrex] Allergy Severe SHORT OF Verified 10/01/22 07:47 BREATH/HIVES erythromycin base Allergy Intermediate ITCHY HIVES Verified 10/01/22 07:47 liraglutide [From Victoza] Allergy Intermediate RASH/STOMACH Verified 02/28/23 07:47 PAIN rofecoxib [From Vioxx] Allergy Intermediate ITCHY HIVES Verified 10/01/22 07:47 Tetracyclines Allergy Intermediate ITCHY HIVES Verified 10/01/22 07:47 iodine Allergy Unknown Verified 10/01/22 07:47 topiramate [From Topamax] AdvReac Severe SUICIDAL Verified 10/01/22 07:47 THOUGHTS/DEPRESSION meloxicam AdvReac Intermediate GI Verified 10/01/22 07:47 UPSET/DIARRHEA metformin AdvReac Intermediate STOMACH Verified 10/01/22 07:47 PAIN/DIARRHEA Consultations 10/01/22 08:14 ED Decision to Admit Stat 10/02/22 10:03 Consult Infectious Diseases Routine 10/02/22 18:54 Consult 2 Year Olds Preschool Teacher Routine Ordered Studies 10/03/22 10:13 CT pelvis wo con Routine Hospital Course (1) Streptococcal septicemia: Presented with generalized weakness, fevers, dyspnea and hypoxia with pulse ox in the mid 80s. Had recent urinary tract infection which was treated appropriately with Macrobid. No urinary symptoms, abdominal pains or CVA tenderness. Was COVID-positive on arrival, however blood cultures all turned positive for group G beta Streptococcus within 12 hours of admission Most likely fevers and sepsis are from the bacteremia rather than COVID-19 Source of group G beta Streptococcus likely Genitourinary growing open wound from vulvar mass/squamous cell carcinoma with bleeding Does not seem to have sinusitis, pharyngitis, pneumonia, or joint infections otherwise Checked CT pelvis on 10/03-no evidence of abscess or infection Echocardiogram-no valvular vegetation-discussed with ID-no need for DIMPLE as repeat blood cultures remained negative > 48 hours Leukocytosis persists but is much improved and is most likely secondary to previous corticosteroid use (which has now been stopped) Initially received IV Vancomycin, then discontinued in favor of ceftriaxone -Tolerated ceftriaxone challenge-continue ceftriaxone 2 g IV every 24 hours x2- week course-last day of therapy 10/15/22. -check weekly CBC, CMP while on abx -Consult infectious disease-appreciated -Started desmoplast spray to the vaginal lesion which will help with topical anesthesia for pain but also help protect open wound from bacterial invasion -Repeat blood cultures -remain no growth to date -placed ultrasound-guided peripheral IV in RUE and transition to home with IV antibiotics at the [facility] Doing very well at time of discharge (2) COVID-19: Increased weakness, fevers, shortness of breath and fatigue, positive for COVID (prior + last January, is vaccinated) Hypoxic w/ Spo2 88% on RA on arrival, given 1 dose of IV Decadron in the ER and was weaned completely off oxygen within 6 to 7 hours-remains off supplemental oxygen No respiratory symptoms at all now Lactic elevation likely 2nd to hypoxia and sepsis -Patient declined to have Remdesivir administered -Received 2 doses of Decadron but given bacteremia and quick improvement in hypoxia- discontinued dexamethasone -Maintain isolation precautions -Duonebs prn -Incentive spirometer, flutter valve, mucinex (3) Recurrent UTI (urinary tract infection): recently completed macrobid for ecoli uti, which was sensitive Repeat urinalysis here without evidence of infection (4) COPD (chronic obstructive pulmonary disease): continue usual inhalers no cough/sputum production to warrant abx currently but will monitor recently seen by Dr Mesa, CT chest ordered as an outpatient--can have as an outpatient after he recovers from COVID continue allergy medications as well, mucinex, etc (5) Type 2 diabetes mellitus: Last A1c 9.3. With significant hyperglycemia due to steroids now improving DM diet pharmacy for glycemic management Continue basal and bolus insulin at home (6) GERD without esophagitis: continue PPI/H2 no increased symptoms reported (7) Squamous cell carcinoma: recent dx by FACILITY MAINTENANCE SUPERVISOR, awaiting jump iron machine presser/onc follow up in 2 weeks stable with minor bleeding-spray to be used as above (8) NAFLD (nonalcoholic fatty liver disease): With mild elevations of alkaline phosphatase and AST Follow as an outpatient (9) Hyperlipidemia: Continue home statin (10) Migraine headache without aura: Continue nortriptyline at nighttime Plan DVT prophylaxis-Lovenox SQ Disposition-stable for dc to home with IV antibiotics daily at [facility] Discussed care with son at bedside on day of discharge Total Time Total Time Spent Total Time Spent (In Minutes): 40 min Discharge Plan Discharge Items Patient Disposition: Home - Self-Care Reason For Visit: COVID Discharge Diagnosis: COVID-19, Streptococcus septicemia Condition on Discharge: Good Activity: Resume your previous activity Non-emergency contact: Primary Care Provider Call non-emergency contact if: you have any medication questions Follow-up/Referrals: Jean Pierre Dumas CRNP [Primary Care Provider] - 03/08/23 8:20 am (Follow up within 1-2 weeks.) Diet: Carb Consistent or DM2 Addtl Attending Provider Instructions: Please continue on the IV antibiotics through last dose on 10/15/22 at the [facility]. Please check a CBC and CMP in 1 week at [facility]. Keep your follow up appointment with the Alarm Signaler next week as scheduled. Pending Studies at Discharge: Yes Studies:: Blood cultures-no growth to date Stand-Alone Forms: My [facility] Emailage, Smoking Cessation Medications and DC Order Prescriptions: New Dermoplast (with menthol) 20-0.5 % Aerosol 1 spray EXT BID Qty: 56 0RF Rx Instructions: Apply to vaginal lesion Continued insulin glargine [Lantus Solostar U-100 Insulin] 100 unit/mL (3 mL) insulin pen 50 unit subcut BID Qty: 15 2RF tizanidine 4 mg tablet 4 mg PO TID PRN (Reason: muscle spasticity) Qty: 90 0RF Trulicity 1.5 mg/0.5 mL pen injector 1.5 mg SUBCUT WK Qty: 2 0RF Rx Instructions: TAKES ON SATURDAYS. E11.9 insulin aspart U-100 [Novolog FlexPen U-100 Insulin] 100 unit/mL (3 mL) insulin pen 16 unit subcut TID Qty: 15 1RF Rx Instructions: E11.9 guaifenesin [Mucinex] 600 mg tablet extended release 12hr 600 mg PO BID PRN (Reason: congestion) Qty: 60 1RF Rx Instructions: Take 1 tab p.o. twice a day for 7 days and then as needed Trelegy Ellipta 200-62.5-25 mcg blister with device 1 inh inhalation DAILY Qty: 3 1RF zolpidem 5 mg tablet 5 mg PO ONCE PRN (Reason: sleep) Qty: 2 0RF Rx Instructions: Take 1 tab on the night of sleep study lidocaine HCl 2 % jelly in applicator 1 applic topical BID PRN (Reason: pain) Qty: 125 0RF famotidine 40 mg tablet 40 mg PO BID Qty: 60 2RF montelukast [Singulair] 10 mg tablet 10 mg PO HS Qty: 90 1RF cetirizine [Zyrtec] 10 mg tablet 10 mg PO DAILY Qty: 90 1RF benzonatate 100 mg capsule 100 mg PO TID PRN (Reason: Cough) Qty: 60 0RF nortriptyline 50 mg capsule 100 mg PO HS Qty: 90 1RF glucose 4 gram tablet,chewable 4 g PO Q15M PRN (Reason: hypoglycemia) Qty: 30 1RF Rx Instructions: until symptoms of low blood sugar are controlled cyanocobalamin (vitamin B-12) [Vitamin B-12] 1,000 mcg Tablet 1,000 mcg PO DAILY aspirin 81 mg Tablet,Delayed Release (Dr/Ec) 81 mg PO DAILY triamcinolone acetonide 0.1 % Cream 1 applic TOPICAL BID PRN (Reason: Skin Irritation) simvastatin 20 mg Tablet 20 mg PO HS lansoprazole [Prevacid] 30 mg Capsule,Delayed Release(Dr/Ec) 30 mg PO DAILY ammonium lactate 12 % Cream 1 applic TOPICAL DAILY epinephrine [EpiPen] 0.3 mg/0.3 mL Auto-Injector 0.3 mg IM DIRECTED PRN (Reason: Allergic Reaction) albuterol 90 mcg/actuation Aerosol 180 mcg INHALATION Q6H PRN (Reason: wheezing or cough) Discontinued nitrofurantoin monohyd/m-cryst [Macrobid] 100 mg capsule 100 mg PO Q12H 7 Days Qty: 14 0RF Rx Instructions: must administer with a meal/food Discharge Orders: Discharge Order (Routine); Ordered 10/04/22 Ordered By: Bernice Ross/Other Patient Handouts: Midline Catheter Dc Dressing Change, Understanding a Midline Catheter, Urinary Tract Infections in Women, Sepsis, Understanding Sepsis Admission Data Admit Date/Time: 10/01/22 08:56 Attending Provider: Bernice Healy Admit Provider: Benrice Healy Primary Care Provider: Jean Pierre Dumas Other Providers: Bernice Healy ; Socorro Bocanegra ; Jonnie Shaw Coding Level of Care Code 14599 INP/OBS DISCH >30 MIN Diagnoses Streptococcal septicemia A40.9 COVID-19 U07.1 Recurrent UTI (urinary tract infection) N39.0 COPD (chronic obstructive pulmonary disease) J44.9 Type 2 diabetes mellitus E11.9 GERD without esophagitis K21.9 Squamous cell carcinoma NAFLD (nonalcoholic fatty liver disease) K76.0 Hyperlipidemia E78.5 Migraine headache without aura G43.009
[2022-10-04] MEDS ORDERED: LANTUS PER UNIT CHARGE SQ SCH (21:00)
[2022-10-05] MEDS ORDERED: INSULIN ASPART PER UNIT SC SCH
--- NOTE | 2022-10-09 13:17 | Coding Query ---
CODING QUERY To promote full compliance with coding requirements relating to patient care, provider participation is requested in all cases of scooper uncertainty. Please assist us with the question(s) below: Coding Question(s): Sepsis is documented in the record with Streptococcal Septicemia and the source is needing clarified, as the H&P Supervising Physician documents, "Streptococcus species on PCR-source possibly could be from recent vaginal biopsy? Oral source? Repeat blood cultures in the morning, check echocardiogram", and the 10/02 Infectious Disease Consultation documents, "Patient with group G strep likely secondary to surgical site biopsy infection", and the 10/02 Critical Care Consultation documents, "suspected source likely surgical site biopsy infection?", however, the Discharge Summary documents, "Source of group G beta Streptococcus likely Genitourinary growing open wound from vulvar mass/squamous cell carcinoma with bleeding". Please specify below, in your clinical opinion, the most likely source of Sepsis with Streptococcal Septicemia: ( ) most likely due to possible surgical site biopsy infection - a postprocedural complication of the biopsy procedure ( x ) most likely due to open wound due to vulvar mass/squamous cell cancer with bleeding - infection of the wound - NOT due to biopsy procedure ( ) most likely due to Other: Please Specify Physician's Response(s): Thank you Abeba Stahl Principal Diagnosis: "that condition established after study, to be chiefly responsible for occasioning the admission of the patient to the hospital for care." Co-Existing Principal Diagnosis: "when two or more diagnoses equally meet the criteria for principal diagnosis as determined by the circumstances of admission, diagnostic work up, and/or therapy provided, and the Alphabetic Index, Tabular List, or another coding guideline does not provide sequencing direction, any one of the diagnoses may be sequenced first." "When the physician has documented what appears to be a current diagnosis in the body of the record, but has not included the diagnosis in the final diagnostic statement, the physician should be asked whether the diagnosis should be added." (Source Coding [facility] 2 QTR90. p3-4) SANDRA
--- NOTE | 2022-10-09 13:25 | Coding Query ---
PRESENT ON ADMISSION QUERY To promote full compliance with coding requirements relating to pateint care, physician participation is requested in all cases of business process specialist uncertainty. Please assist us with the question(s) below: Please place an X within the parenthesis (x). The following diagnosis listed in this patient's medical record require physician assistance to determine if they were present on admission (POA) or not. Please advise for each diagnosis whether it was present on admission, not present on admission, or if it was clinically undetermined. 1. ACUTE RESPIRATORY FAILURE WITH HYPOXIA - (regarding the Acute Respiratory Failure that is documented on Discharge Summary) (x ) Present On Admission ( ) Not Present On Admission ( ) Clinically Undetermined Thank you Abeba Stahl *Definition of the present on admission (POA)-Present on admission is defined as present at the time the order for inpatient admission occurs. Conditions that develop during an outpatient encounter prior to a written order for inpatient admission (including emergency department, observation, or outpatient surgery) are considered present on admission. SANDRA
== END 2022-10-04 14:51 | disposition home or self-care (01) | DRG 871 ==
LOC: ED 06:17 → 2S 08:56 → 1E 10-02 18:50

== ENCOUNTER 2022-12-01 01:26 | Inpatient (IN) ==
[2022-12-01] MEDS ORDERED: methylPREDNISolone 125 MG/2 ML VIAL IV STA (02:01)
[2022-12-01] MEDS ORDERED: ALBUT/IPRATROP 3MG/0.5MG NEB 3 ML VIAL NEB ONE (02:01)
[2022-12-01] MEDS: SODIUM CHLORIDE 0.9% 1000ML 1,000 ML IV SCH ×3 (02:15→15:21)
[2022-12-01 02:50] LABS: Basophils # (auto) 0.05 K/uL (0-0.2); Basophils % (auto) 0.5 %; Eosinophils # (auto) 0.32 K/uL (0-0.50); Eosinophils % (auto) 2.9 %; Hematocrit (blood only) 31.9 % (37.0-47.0); Hemoglobin 10.1 g/dl (12.0-16.0); Immature Granulocytes # (auto) 0.05 K/uL (0.01-0.20); Immature Granulocytes % (auto) 0.5 %; Lymphocytes # (auto) 2.23 K/uL (1.2-3.4); Lymphocytes % (auto) 20.3 %; Mean Corpuscular Hemoglobin 28.2 pg (25.0-34.0); Mean Corpuscular Hgb Conc 31.7 g/dL (32.0-36.0); Mean Corpuscular Volume 89.1 fL (80.0-100.0); Mean Platelet Volume 9.2 fL (9.4-12.4); Monocytes # (auto) 0.79 K/uL (0.11-0.59); Monocytes % (auto) 7.2 %; Neutrophils # (auto) 7.55 K/uL (1.40-6.50); Neutrophils % (auto) 68.6 %; Platelet Count 375 K/uL (130-400); RDW Standard Deviation 49.1 fL (36.4-46.3); Red Blood Count 3.58 M/uL (4.20-5.40); White Blood Count 10.99 K/ul (4.8-10.8)
[2022-12-01 03:04] LABS: Alanine Aminotransferase 32 U/L (7-52); Albumin Level 3.1 gm/dl (3.4-5.0); Alkaline Phosphatase 221 U/L (34-104); Anion Gap 6 (3-11); Aspartate Aminotransferase 45 U/L (13-39); BUN Creatinine Ratio 24.3 (10-20); Bilirubin,Total 0.3 mg/dl (0.2-1.0); Blood Urea Nitrogen 18 mg/dl (6-23); Calcium 8.1 mg/dl (8.6-10.3); Carbon Dioxide 26 mmol/L (21-32); Chloride 105 mmol/L (98-107); Est GFR (African American) 97.8 ml/min; Est GFR (Non-African American) 84.4 ml/min; Globulin 3.2 gm/dl (2.5-4.0); Glucose 235 mg/dl (70-99(Fasting)); Potassium 3.7 mmol/L (3.5-5.1); Sodium 137 mmol/L (136-145); Total Protein 6.3 gm/dl (6.0-8.3)
[2022-12-01 03:10] LABS: Troponin I High Sensitivity 3.5 pg/ml (0-14)
[2022-12-01] MEDS ORDERED: MAGNESIUM SULFATE / D5W 1 GM/100 ML BAG IV STA (04:15)
--- NOTE | 2022-12-01 05:02 | History & Physical Report ---
Date of Service December 01, 2022 Assessment & Plan (1) Dyspnea on exertion: Plan: 66 y/o F w/ PmHx COPD, asthma, arthritis, GERD, HLD, insomnia, migraine w/o aura, T2DM, recurrent UTI, NAFLD admitted for possible COPD exacerbation. [place], COPD: -Recent COPD exacerbation treated outpatient with Levaquin+prednisone. -CXR w/ diffuse worsening interstitial opacities compared to CXR from 11/19. -WBC 10.99, hgb 10.99. Biofire pending. -COPD exacerbation from allergy, virus, or secondary bacterial infection vs other etiology. -HR WNL, patient declined the use of IV contrast due to SCC, will obtain CT chest w/o contrast, if suspicion for PE increases can order V/Q scan. -Given methylprednisone, MgSulfate, albuterol neb in ED. -Will treat as COPD exacerbation, duoneb q6R, Pulmicort 0.5mg BID, Azithromycin 500mg followed by 250mg x4, prednisone 40mg qAM. -Continue home cetirizine, monteleukast, benzonatate. -Incentive spirometry and flutter valve ordered. -Continue to monitor, wean off O2 as tolerated. T2DM: -Glucose 235 on admission. Per patient as low as 40's at home while on steroid and insulin. -Ordered SSI, goal 120-150. Long acting 17U BID. GERD: -Continue home famotidine and lansoprazole. SCC: -Noted NAFLD: -AST 45, ALT 32, T bili 0.3. Noted. Migraine: -Continue home nortriptyline. HLD: -Continue home statin. F/E/N/GI: Carb consistent T2DM diet. DVT Prophylaxis: Lovenox 40mg q12h Code status: Full code. Dispo: Med/tele. (2) COPD (chronic obstructive pulmonary disease): (3) Type 2 diabetes mellitus: (4) Asthma: (5) Migraine headache without aura: (6) Hyperlipidemia: (7) NAFLD (nonalcoholic fatty liver disease): (8) Insomnia: (9) GERD without esophagitis: (10) Squamous cell carcinoma: History of Present Illness Chief Complaint: Shortness of breath. Primary Care Provider: ALFONSO Castro is a 66 year old female w/ PmHx of COPD, arthritis, GERD, HLD, insomnia, migraine w/o aura, T2DM, recurrent UTI, NAFLD coming to the ED for worsening SoB since early Friday. Patient with son at bedside, states that 9 days prior she was having a COPD exacerbation with worsening shortness of breath and wheezing over the prior week. She went to her PCP office and was treated with nebulizer, sent with levaquin and prednisone taper. She was feeling well until Friday whe n she had been getting short of breath again with any sort of movement. She thought it may be another COPD exacerbation and came to the hospital. She was previously hospitalized late September/early October for sepsis from [facility] She denies any chest pain, diarrhea, urinary symptoms, however does endorse feeling palpitations and fast heart rate during this episode. She has had about 4 COPD exacerbations per year. She no longer smokes, quit 20 years ago and before that had smoked half a pack per day. At home she does not wear any oxygen. Patient also says that while on the steroid it was very difficult to maintain adequate control of her glucose. Her glucose would fluctuate, sometimes dramatically to the low 40's from the insulin she's on and she would have to take glucose tablets. In the ED she was hypoxic to 88% on arrival on , WBC 10.99, Hgb 10.1, glucose 235. Respiratory biofire was ordered and is still pending. CXR showed increased opacities when compared to prior XR on the . She was given 1L NSS, albuterol nebulizer, Mg sulfate, and methylpred 60mg in the ED. Allergies Allergy/AdvReac Type Severity Reaction Status Date / Time Penicillins Allergy Severe SHORT OF Verified 11/22/22 11:28 BREATH/HIVES shellfish derived Allergy Severe SHORT OF Verified 11/22/22 11:28 BREATH/EYES SWELL/ITCHY sumatriptan [From Imitrex] Allergy Severe SHORT OF Verified 11/22/22 11:28 BREATH/HIVES erythromycin base Allergy Intermediate ITCHY HIVES Verified 11/22/22 11:28 liraglutide [From Victoza] Allergy Intermediate RASH/STOMACH Verified 11/22/22 11:28 PAIN rofecoxib [From Vioxx] Allergy Intermediate ITCHY HIVES Verified 11/22/22 11:28 Tetracyclines Allergy Intermediate ITCHY HIVES Verified 11/22/22 11:28 iodine Allergy Unknown Verified 11/22/22 11:28 topiramate [From Topamax] AdvReac Severe SUICIDAL Verified 11/22/22 11:28 THOUGHTS/DEPRESSION meloxicam AdvReac Intermediate GI Verified 11/22/22 11:28 UPSET/DIARRHEA metformin AdvReac Intermediate STOMACH Verified 11/22/22 11:28 PAIN/DIARRHEA Home Medications Medication Instructions Recorded Confirmed Type ammonium lactate 12 % topical cream 1 applic topical DAILY 08/10/22 11/22/22 History aspirin 81 mg tablet,delayed 81 mg PO DAILY 08/10/22 11/22/22 History release cyanocobalamin (vitamin B-12) 1,000 mcg PO DAILY 08/10/22 11/22/22 History 1,000 mcg tablet (Vitamin B-12) epinephrine 0.3 mg/0.3 mL 0.3 mg IM DIRECTED PRN Allergic 08/10/22 11/22/22 History injection, auto-injector (EpiPen) Reaction lansoprazole 30 mg capsule,delayed 30 mg PO DAILY 08/10/22 11/22/22 History release (Prevacid) simvastatin 20 mg tablet 20 mg PO HS 08/10/22 11/22/22 History triamcinolone acetonide 0.1 % 1 applic topical BID PRN Skin 08/10/22 11/22/22 History topical cream Irritation benzonatate 100 mg capsule 100 mg PO TID PRN Cough #60 caps 08/27/22 11/22/22 Rx cetirizine 10 mg tablet (Zyrtec) 10 mg PO DAILY #90 tabs 08/27/22 11/22/22 Rx glucose 4 gram chewable tablet 4 g PO Q15M PRN hypoglycemia #30 08/27/22 11/22/22 Rx tabs montelukast 10 mg tablet 10 mg PO HS #90 tabs 08/27/22 11/22/22 Rx (Singulair) nortriptyline 50 mg capsule 100 mg PO HS #90 caps 08/27/22 11/22/22 Rx fluticasone fur. 200 mcg-umeclid 1 inh inhalation DAILY #3 Inhalers 09/18/22 11/22/22 Rx 62.5 mcg-vilant 25 mcg inhalat.powder (Trelegy Ellipta) tizanidine 4 mg tablet 4 mg PO TID PRN muscle spasticity 09/20/22 11/22/22 Rx #90 tabs albuterol 90 mcg/actuation aerosol 180 mcg inhalation Q6H PRN 10/02/22 11/22/22 History inhaler wheezing or cough alcohol swabs 1 pad topical TID #500 ea 11/04/22 11/22/22 Rx lancets #100 ea 11/04/22 11/22/22 Rx pen needle, diabetic 31 gauge x #100 ea 11/04/22 11/22/22 Rx 5/16" (Lite Touch Insulin Pen [place]) dulaglutide 1.5 mg/0.5 mL 1.5 mg (0.5 mL) subcut WK #2 mL 11/05/22 11/22/22 Rx subcutaneous pen injector (Trulicity) famotidine 40 mg tablet 40 mg PO BID #60 tabs 11/19/22 11/22/22 Rx insulin aspart U-100 100 unit/mL 25 unit subcut TID 11/22/22 History (3 mL) subcutaneous pen (Novolog FlexPen U-100 Insulin aspart) levofloxacin 500 mg tablet 500 mg PO DAILY 5 days #5 tabs 11/22/22 11/22/22 Rx prednisone 10 mg tablet See Rx Instructions PO DAILY #20 11/22/22 11/22/22 Rx tabs Past Med/Surg History Medical History Arthritis Asthma Chronic back pain COPD (chronic obstructive pulmonary disease) GERD without esophagitis Hyperlipidemia Insomnia Migraine headache without aura NAFLD (nonalcoholic fatty liver disease) Recurrent UTI (urinary tract infection) Type 2 diabetes mellitus Surgical History H/O: S/P total abdominal hysterectomy S/P tubal ligation Family History Mother Myocardial infarction Diabetes Sister Myocardial infarction Diabetes Brother Throat cancer Denies family history of Ovarian cancer Prostate cancer Breast cancer Colorectal cancer Uterine cancer Social History Smoking Status: Former smoker Tobacco Type: Cigarettes Smoking End Date: 20 years ago; Second Hand Exposure: No; Do You Dip or Chew Tobacco: No; Hx Alcohol Use: No Hx Substance Use: No Preferred Language: Malian Communication Ability: Effective Visual Impairment: No Limitations Hearing Ability: Normal [place] Required: No Beliefs That Will Affect Care: None marital status: / Current Living Situation: Boarding Home Current Living Situation Comment: Gian current occupational status: disabled Other Information That Helps Us Care for You: No Feels Safe at Home: Yes Safety Concerns: Feels Safe At This Time Diet: regular Diet Comment: regular caffeine: Yes during the past year weight has: decreased > 10 lbs Dental Care, Regularly: No Physical Activity Frequency: Other Physical Activity Frequency Comment: limited to physical condition Seatbelt Use: always Sunscreen Use: No Assistive Devices: Glasses and Scooter/Electric Scooter Review of Systems Review of Systems: As per HPI. Physical Exam Constitutional: WD/WN, vitals as above Eyes: PERRL, conjunctivae normal, anicteric sclerae Respiratory: End expiratory wheeze bilaterally, slightly diminished, otherwise clear to auscultation. No rales or rhonchi. Cardiovascular: RRR, no murmur, no edema Gastrointestinal (Abdomen): normal bowel sounds, soft, nontender, no hepatosplenomegaly Skin: no rashes, warm and dry Psychiatric: A+Ox3, euthymic affect Results & Data Results & Data Vital Signs (Past 12 Hours) Vital Signs Temp Pulse Pulse Resp BP BP Pulse Ox 12/01/22 01:50 85 12/01/22 02:17 80 22 131/70 100 12/01/22 01:30 36.8 C 83 22 107/65 93 O2 Del Method 12/01/22 01:50 12/01/22 02:17 Nebulizer 12/01/22 01:30 Room Air Code Status & VTE Plan VTE Prophylaxis Plan VTE Prophylaxis will be ordered: Yes Supervising Physician Co-Signing Physician Notes Attending addendum: I have physically seen this patient, have supervised the medical residents activities, and agree with the H&P unless as otherwise noted. Assessment and Plan: Dyspnea on exertion- COPD vs CHF exacerbation COPD exacerbation- Recently completed a course of prednisone and Levaquin, that she reports she felt better with for a short while, and then got significantly worse a few days later Place on Pulmicort Respules 0.5mg inhaled BID Duonebs every 4 hours while awake and every 2 hours when necessary. Continue cetirizine, montelukast and benzonatate DM- Adjustments to glargine 17 units subcu twice daily Placed on Accu-Cheks before meals and at bedtime with NovoLog SSI GERD- Continue famotidine and lansoprazole conversion to pantoprazole Remaining orders and notations as noted Resident Activity Tracking Resident Involvement: Resident Care Provided Care Provided: Adult Hospital Medicine
[2022-12-01 05:34] LABS: Adenovirus PCR Not Detected (NotDetected); Bordetella parapertussis PCR Not Detected (NotDetected); Bordetella pertussis PCR Not Detected (NotDetected); Chlamydia pneumoniae PCR Not Detected (NotDetected); Coronavirus 229E PCR Not Detected (NotDetected); Coronavirus CoV-2 (COVID19)PCR Not Detected (NotDetected); Coronavirus HKU1 PCR Not Detected (NotDetected); Coronavirus NL63 PCR Not Detected (NotDetected); Coronavirus OC43PCR Not Detected (NotDetected); Human Metapneumovirus PCR Not Detected (NotDetected); Influenza A PCR Not Detected (NotDetected); Influenza B PCR Not Detected (NotDetected); Mycoplasma pneumoniae PCR Not Detected (NotDetected); Parainfluenza Virus 1 PCR Not Detected (NotDetected); Parainfluenza Virus 2 PCR Not Detected (NotDetected); Parainfluenza Virus 3 PCR Not Detected (NotDetected); Parainfluenza Virus 4 PCR Not Detected (NotDetected); Respiratory Syncytial VirusPCR Not Detected (NotDetected); Rhinovirus/Enterovirus PCR Not Detected (NotDetected)
[2022-12-01] MEDS ORDERED: ALBUT/IPRATROP 3MG/0.5MG NEB 3 ML VIAL NEB STA (05:42)
--- NOTE | 2022-12-01 06:17 | Emergency Department Note ---
Impression & Plan Dyspnea, Acute exacerbation of chronic obstructive pulmonary disease (COPD), Hypoxia, Failure of outpatient treatment ED Provider Note ED Provider Note NAME: MORE CÁRDENAS AGE:66 SEX: Female : 1955 ARRIVES VIA: Private vehicle INFORMANT: Patient ED PROVIDER(s): Taty Nava DO CHIEF COMPLAINT: Increased shortness of breath HPI: This is a 66-year-old female who presents emergency department due to increased shortness of breath. Patient states she has a history of COPD but does not wear home oxygen. She has been using nebulizer and inhaler treatments at home. She states she felt the breathing today became markedly worse. She states she first began feeling ill and having increased difficulty breathing last week. She went and saw her PCP and was prescribed prednisone and antibiotics. She states she had finished those entire courses and felt improved for about a day and then started to feel worse again. She does have a history of seasonal allergies and does take medications for those additionally. She denies fevers, chills, or any known sick contacts. She denies any history of heart problems. No recent leg swelling. She states she does have a sense of tightness and difficulty getting a deep breath. No change in her sputum. PAST MEDICAL HISTORY:See Below PAST SURGICAL HISTORY:See Below FAMILY HISTORY:See Below SOCIAL HISTORY:See Below HOME MEDICATIONS:See Below ALLERGIES:See Below VITALS:See Below PHYSICAL EXAMINATION: GENERAL: alert, well appearing, well nourished, no distress, non-toxic EYE EXAM: normal conjunctiva, PERRL and EOM's grossly intact OROPHARYNX: no exudate, no erythema, lips, buccal mucosa, and tongue normal and mucous membranes are moist NECK: supple, no nuchal rigidity, no adenopathy, non-tender LUNGS: Decreased b/l to auscultation. Normal chest wall mechanics, no w/r/r, no retractions, increased pursed lip breathing, hypoxic at 88% when I first entered the room patient was placed on 2 L via nasal HEART: no murmurs, S1 normal and S2 normal ABDOMEN: abdomen soft, non-tender, normo-active bowel sounds, no masses, no rebound or guarding. BACK: Back is symmetrical on inspection and there is no deformity, no midline tenderness, no CVA tenderness. SKIN: no rashes, petechiae, orbruising UPPER EXTREMITIES: upper extremities are grossly normal. FROM, nml pulses b/l. LOWER EXTREMITIES: No pitting edema. FROM, nml pulses b/l. NEURO EXAM: Normal sensorium, cranial nerves II-XII grossly intact, normal speech, no facial droop,nogross weakness of arms, no gross weakness of legs. Gross sensation intact. No ataxia. Vital Signs: reviewed and remarkable Differential Diagnosis: Pneumonia, PE, CHF, ACS, COPD exacerbation, bronchitis, acute viral syndrome, bronchospasm, foreign body, aspiration, as well as others were considered MEDICAL DECISION MAKING: This is a 66-year-old female with a history of COPD who presents to the increased difficulty breathing despite recent outpatient antibiotics and steroids. Patient noted to be hypoxic by myself and was placed on oxygen via nasal cannula. She does not wear home oxygen. Labs drawn and sent, IV established, EKG and chest x-ray performed at bedside and interpreted by me, patient monitored on telemetry throughout. Patient given continuous nebulizer treatment with improvement although was still mildly hypoxic and felt increased difficulty breathing. She had no other overt respiratory distress. Patient was awake and oriented throughout. Labs otherwise reassuring. Initial plan to p erform CT angiography of the chest, however patient with significant allergy and she refused. Chest x-ray then performed at bedside prior to discussion with the hospitalist. Due to recent outpatient antibiotics and steroids and apparent failure of that outpatient treatment and persistent requirement for oxygen despite continuous nebulizer treatment here, I feel patient should be monitored as an inpatient. I did not initially start antibiotics additionally as patient did not have a fever elevated white count and did recently have antibiotics. Bio fire nasal swab sent and was pending at the time of my discussion with the hospitalist. Mild anemia noted although similar compared to prior. I have a low suspicion for PE at this time. Troponin negative, BNP negative, I do not suspect ACS or CHF contributing to symptoms at this time. Consultation(s): [] ER Treatment Provided: See below Diagnostics Interpreted By Me: -ECG: Normal sinus at 84, normal axis, normal intervals, nonspecific ST/T wave changes -Cardiac Monitoring: An order was placed for continuous cardiac monitoring. The monitor shows a rate of 102 with sinus tachycardia rhythm. -Laboratory studies: As stated above and show below. -Imaging studies: X-ray Chest: A single view study of the chest was reviewed and was negative for cardiomegaly, focal infiltrate, effusion, or wide mediastinum. Appearance of increased interstitial markings bilaterally that are new compared to prior. Triage Nursing Note Reviewed Prior/Outside Records Reviewed -recent office visit note reviewed Critical Care: Critical care of 39 min performed to assess and manage high likelihood of life- threatening dyspnea and hypoxia, involving labs and imaging performed with assessment to evaluate dyspnea and hypoxia diagnosis with frequent reassessment. This time includes bedside time, treatment discussions with patient/family/consultants, documentation time and excludes procedure time. Past Med/Surg History Medical History Arthritis Asthma Chronic back pain COPD (chronic obstructive pulmonary disease) GERD without esophagitis Hyperlipidemia Insomnia Migraine headache without aura NAFLD (nonalcoholic fatty liver disease) Recurrent UTI (urinary tract infection) Type 2 diabetes mellitus Surgical History H/O: x3 S/P total abdominal hysterectomy NELIDA-USO S/P tubal ligation Family History Mother Myocardial infarction Diabetes Sister Myocardial infarction x 2 Diabetes Brother Throat cancer Denies family history of Ovarian cancer Prostate cancer Breast cancer Colorectal cancer Uterine cancer Social History Smoking Status: Former smoker Tobacco Type: Cigarettes Smoking End Date: 20 years ago; Second Hand Exposure: No; Do You Dip or Chew Tobacco: No; Hx Alcohol Use: No Hx Substance Use: No Preferred Language: Ukrainian Communication Ability: Effective Visual Impairment: No Limitations Hearing Ability: Normal Expedition Supervisor Required: No Beliefs That Will Affect Care: None marital status: / Current Living Situation: Boarding Home Current Living Situation Comment: Sons current occupational status: disabled Other Information That Helps Us Care for You: No Feels Safe at Home: Yes Safety Concerns: Feels Safe At This Time Diet: regular Diet Comment: regular caffeine: Yes during the past year weight has: decreased > 10 lbs Dental Care, Regularly: No Physical Activity Frequency: Other Physical Activity Frequency Comment: limited to physical condition Seatbelt Use: always Sunscreen Use: No Assistive Devices: Glasses and Scooter/Electric Scooter Allergies Allergies Allergy/AdvReac Type Severity Reaction Status Date / Time Penicillins Allergy Severe SHORT OF Verified 11/22/22 11:28 BREATH/HIVES shellfish derived Allergy Severe SHORT OF Verified 11/22/22 11:28 BREATH/EYES SWELL/ITCHY sumatriptan [From Imitrex] Allergy Severe SHORT OF Verified 11/22/22 11:28 BREATH/HIVES erythromycin base Allergy Intermediate ITCHY HIVES Verified 11/22/22 11:28 liraglutide [From Victoza] Allergy Intermediate RASH/STOMACH Verified 11/22/22 11:28 PAIN rofecoxib [From Vioxx] Allergy Intermediate ITCHY HIVES Verified 11/22/22 11:28 Tetracyclines Allergy Intermediate ITCHY HIVES Verified 11/22/22 11:28 iodine Allergy Unknown Verified 11/22/22 11:28 topiramate [From Topamax] AdvReac Severe SUICIDAL Verified 11/22/22 11:28 THOUGHTS/DEPRESSION meloxicam AdvReac Intermediate GI Verified 11/22/22 11:28 UPSET/DIARRHEA metformin AdvReac Intermediate STOMACH Verified 11/22/22 11:28 PAIN/DIARRHEA Home Meds Home Medications Medication Instructions Recorded Confirmed ammonium lactate 12 % topical cream 1 applic topical DAILY 08/10/22 11/22/22 aspirin 81 mg tablet,delayed 81 mg PO DAILY 08/10/22 11/22/22 release cyanocobalamin (vitamin B-12) 1,000 mcg PO DAILY 08/10/22 11/22/22 1,000 mcg tablet (Vitamin B-12) epinephrine 0.3 mg/0.3 mL 0.3 mg IM DIRECTED PRN Allergic 08/10/22 11/22/22 injection, auto-injector (EpiPen) Reaction lansoprazole 30 mg capsule,delayed 30 mg PO DAILY 08/10/22 11/22/22 release (Prevacid) simvastatin 20 mg tablet 20 mg PO HS 08/10/22 11/22/22 triamcinolone acetonide 0.1 % 1 applic topical BID PRN Skin 08/10/22 11/22/22 topical cream Irritation albuterol 90 mcg/actuation aerosol 180 mcg inhalation Q6H PRN 10/02/22 11/22/22 inhaler wheezing or cough insulin aspart U-100 100 unit/mL 25 unit subcut TID 11/22/22 (3 mL) subcutaneous pen (Novolog FlexPen U-100 Insulin aspart) Previous Rx's Medication Instructions Recorded benzonatate 100 mg capsule 100 mg PO TID PRN Cough #60 caps 08/27/22 cetirizine 10 mg tablet (Zyrtec) 10 mg PO DAILY #90 tabs 08/27/22 glucose 4 gram chewable tablet 4 g PO Q15M PRN hypoglycemia #30 08/27/22 tabs montelukast 10 mg tablet 10 mg PO HS #90 tabs 08/27/22 (Singulair) nortriptyline 50 mg capsule 100 mg PO HS #90 caps 08/27/22 fluticasone fur. 200 mcg-umeclid 1 inh inhalation DAILY #3 Inhalers 09/18/22 62.5 mcg-vilant 25 mcg inhalat.powder (Trelegy Ellipta) tizanidine 4 mg tablet 4 mg PO TID PRN muscle spasticity 09/20/22 #90 tabs alcohol swabs 1 pad topical TID #500 ea 11/04/22 lancets #100 ea 11/04/22 pen needle, diabetic 31 gauge x #100 ea 11/04/22 5/16" (Lite Touch Insulin Pen [place]) dulaglutide 1.5 mg/0.5 mL 1.5 mg (0.5 mL) subcut WK #2 mL 11/05/22 subcutaneous pen [facility] famotidine 40 mg tablet 40 mg PO BID #60 tabs 11/19/22 levofloxacin 500 mg tablet 500 mg PO DAILY 5 days #5 tabs 11/22/22 prednisone 10 mg tablet See Rx Instructions PO DAILY #20 11/22/22 tabs Results & Data (ED) Vital Signs Vital Signs - 24 hr 12/01/22 01:30 12/01/22 02:17 12/01/22 02:17 Temperature 36.8 C Temperature Source Temporal Artery Scan Pulse Rate 83 Pulse Rate [Apical] 80 Pulse Rhythm [Apical] Regular Respiratory Rate 22 22 Respiratory Effort / Characteristics Non-Labored Spontaneous Non-Labored Spontaneous Respiratory Depth Normal Normal Respiratory Pattern Regular Regular Blood Pressure 107/65 Blood Pressure [Right Arm] 131/70 Blood Pressure Mean 79 Blood Pressure Mean [Right Arm] 90 Blood Pressure Position [Right Arm] Lying Pulse Oximetry 93 100 Oxygen Delivery Method Room Air Nebulizer Sepsis Recent Fever Within 48 Hours No Sepsis New/Unexplained Change in Mental Status N/A Sepsis Action Taken by Nursing No Action Required 12/01/22 01:50 Temperature Temperature Source Pulse Rate 85 Pulse Rate [Apical] Pulse Rhythm [Apical] Respiratory Rate Respiratory Effort / Characteristics Respiratory Depth Respiratory Pattern Blood Pressure Blood Pressure [Right Arm] Blood Pressure Mean Blood Pressure Mean [Right Arm] Blood Pressure Position [Right Arm] Pulse Oximetry Oxygen Delivery Method Sepsis Recent Fever Within 48 Hours Sepsis New/Unexplained Change in Mental Status Sepsis Action Taken by Nursing Laboratory Data 12/01/22 02:15 12/01/22 02:15 Lab Results 12/01/22 12/01/22 12/01/22 Range/Units 02:15 02:15 02:15 WBC 10.99 H (4.8-10.8) K/ul RBC 3.58 L (4.20-5.40) M/uL Hgb 10.1 L (12.0-16.0) g/dl Hct 31.9 L (37.0-47.0) % MCV 89.1 (80.0-100.0) fL MCH 28.2 (25.0-34.0) pg MCHC 31.7 L (32.0-36.0) g/dL RDW Std Deviation 49.1 H (36.4-46.3) fL RDW Coeff of Brandon 15.0 H (11.5-14.5) % Plt Count 375 (130-400) K/uL MPV 9.2 L (9.4-12.4) fL Immature Gran % (Auto) 0.5 % Neut % (Auto) 68.6 % Lymph % (Auto) 20.3 % Burnett % (Auto) 7.2 % Eos % (Auto) 2.9 % Baso % (Auto) 0.5 % Neut # (Auto) 7.55 H (1.40-6.50) K/uL Lymph # (Auto) 2.23 (1.2-3.4) K/uL Burnett # (Auto) 0.79 H (0.11-0.59) K/uL Eos # (Auto) 0.32 (0-0.50) K/uL Baso # (Auto) 0.05 (0-0.2) K/uL Immature Gran # (Auto) 0.05 (0.01-0.20) K/uL Sodium 137 (136-145) mmol/L Potassium 3.7 (3.5-5.1) mmol/L Chloride 105 (98-107) mmol/L Carbon Dioxide 26 (21-32) mmol/L Anion Gap 6 (3-11) BUN 18 (6-23) mg/dl Creatinine 0.74 (0.6-1.2) mg/dl Est Cr Clr Drug Dosing Not Reportable Est GFR ( Amer) 97.8 ml/min Est GFR (Non-Af Amer) 84.4 ml/min BUN/Creatinine Ratio 24.3 H (10-20) Glucose 235 H (70-99(Fasting)) mg/dl Calcium 8.1 L (8.6-10.3) mg/dl Magnesium 2.0 (1.7-2.4) mg/dl Total Bilirubin 0.3 (0.2-1.0) mg/dl AST 45 H (13-39) U/L ALT 32 (7-52) U/L Alkaline Phosphatase 221 H (34-104) U/L Troponin I High Sens 3.5 (0-14) pg/ml B-Natriuretic Peptide 78 (0-100) pg/ml Total Protein 6.3 (6.0-8.3) gm/dl Albumin 3.1 L (3.4-5.0) gm/dl Globulin 3.2 (2.5-4.0) gm/dl Albumin/Globulin Ratio 1.0 (0.9-2) TSH (0.300-4.500) uIu/ml 12/01/22 Range/Units 02:15 WBC (4.8-10.8) K/ul RBC (4.20-5.40) M/uL Hgb (12.0-16.0) g/dl Hct (37.0-47.0) % MCV (80.0-100.0) fL MCH (25.0-34.0) pg MCHC (32.0-36.0) g/dL RDW Std Deviation (36.4-46.3) fL RDW Coeff of Brandon (11.5-14.5) % Plt Count (130-400) K/uL MPV (9.4-12.4) fL Immature Gran % (Auto) % Neut % (Auto) % Lymph % (Auto) % Burnett % (Auto) % Eos % (Auto) % Baso % (Auto) % Neut # (Auto) (1.40-6.50) K/uL Lymph # (Auto) (1.2-3.4) K/uL Burnett # (Auto) (0.11-0.59) K/uL Eos # (Auto) (0-0.50) K/uL Baso # (Auto) (0-0.2) K/uL Immature Gran # (Auto) (0.01-0.20) K/uL Sodium (136-145) mmol/L Potassium (3.5-5.1) mmol/L Chloride (98-107) mmol/L Carbon Dioxide (21-32) mmol/L Anion Gap (3-11) BUN (6-23) mg/dl Creatinine (0.6-1.2) mg/dl Est Cr Clr Drug Dosing Est GFR ( Amer) ml/min Est GFR (Non-Af Amer) ml/min BUN/Creatinine Ratio (10-20) Glucose (70-99(Fasting)) mg/dl Calcium (8.6-10.3) mg/dl Magnesium (1.7-2.4) mg/dl Total Bilirubin (0.2-1.0) mg/dl AST (13-39) U/L ALT (7-52) U/L Alkaline Phosphatase (34-104) U/L Troponin I High Sens (0-14) pg/ml B-Natriuretic Peptide (0-100) pg/ml Total Protein (6.0-8.3) gm/dl Albumin (3.4-5.0) gm/dl Globulin (2.5-4.0) gm/dl Albumin/Globulin Ratio (0.9-2) TSH 1.515 (0.300-4.500) uIu/ml Administered Medications Albuterol (Albut/Ipratrop 3mg/0.5mg Neb 3 Ml Vial) 3 ml INH Q6R NATALIA Stop: 12/31/22 06:59 Last Admin: 12/01/22 20:03 Dose: 3 ml Documented By: Admin: 12/01/22 12:59 Dose: 3 ml Documented By: Admin: 12/01/22 07:32 Dose: 3 ml Documented By: MAYO Aspirin (Aspirin 81 Mg Ectab) 81 mg PO DAILY NATALIA Stop: 12/31/22 08:59 Last Admin: 12/01/22 07:57 Dose: 81 mg Documented By: AZALIA Budesonide (Budesonide 0.5 Mg/2 Ml Vial (Pulmicort)) 0.5 mg NEB BIDR NATALIA Stop: 12/31/22 06:59 Last Admin: 12/01/22 20:03 Dose: 0.5 mg Documented By: Admin: 12/01/22 07:32 Dose: 0.5 mg Documented By: MAYO Cetirizine HCl (Cetirizine Hcl 10 Mg Tablet) 10 mg PO DAILY NATALIA Stop: 12/31/22 08:59 Last Admin: 12/01/22 07:57 Dose: 10 mg Documented By: AZALIA Enoxaparin Sodium (Enoxaparin Inj 40 Mg/0.4 Ml Syr) 40 mg SQ Q12H NATALIA Stop: 12/31/22 07:29 Last Admin: 12/01/22 19:21 Dose: 40 mg Documented By: Admin: 12/01/22 07:58 Dose: 40 mg Documented By: AZALIA Famotidine (Famotidine 40 Mg Tablet) 40 mg PO BID NATALIA Stop: 12/31/22 08:59 Last Admin: 12/01/22 21:40 Dose: 40 mg Documented By: Admin: 12/01/22 07:57 Dose: 40 mg Documented By: AZALIA Guaifenesin (Guaifenesin 600 Mg Tabcr) 1,200 mg PO BID NATALIA Stop: 12/31/22 08:59 Last Admin: 12/01/22 21:44 Dose: Not Given Documented By: Admin: 12/01/22 07:57 Dose: 1,200 mg Documented By: AZALIA Sodium Chloride (Nss 1000ml) 1,000 mls @ 125 mls/hr IV .Q8H NATALIA Stop: 12/31/22 02:14 Last Admin: 12/01/22 15:21 Dose: 125 mls/hr Documented By: Infusion: 12/01/22 15:21 Dose: 125 mls/hr Documented By: Admin: 12/01/22 07:58 Dose: 125 mls/hr Documented By: Infusion: 12/01/22 07:58 Dose: 125 mls/hr Documented By: Admin: 12/01/22 02:15 Dose: 125 mls/hr Documented By: MIRANDA Insulin Aspart (Insulin Aspart Per Unit Charge) 0 units SC ACHS [facility] Stop: 12/31/22 07:29 Last Admin: 12/01/22 21:42 Dose: 3 units Documented By: IVY Co-signed By: LENY Admin: 12/01/22 17:20 Dose: 9 units Documented By: AZALIA Co-signed By: JIE Admin: 12/01/22 13:08 Dose: 12 units Documented By: AZALIA Co-signed By: LALO Admin: 12/01/22 09:14 Dose: 11 units Documented By: AZALIA Co-signed By: JIE Insulin Glargine (Lantus Per Unit Charge) 25 units SQ BID NATALIA Stop: 12/31/22 20:59 Last Admin: 12/01/22 21:42 Dose: 25 units Documented By: IVY Co-signed By: LENY Montelukast Sodium (Montelukast Sodium 10 Mg Tablet) 10 mg PO HS [facility] Stop: 12/31/22 20:59 Last Admin: 12/01/22 21:41 Dose: 10 mg Documented By: IVY Nortriptyline HCl (Nortriptyline Hcl 25 Mg Cap) 100 mg PO HS [facility] Stop: 12/31/22 20:59 Last Admin: 12/01/22 21:41 Dose: 100 mg Documented By: IVY Oxycodone HCl (Oxycodone Hcl Ir 5 Mg Tab (Immediate Release)) 5 mg PO TID PRN PRN Reason: Severe Pain (Scale 7, 8, 9,10) Stop: 12/15/22 19:55 Last Admin: 12/01/22 21:45 Dose: 5 mg Documented By: IVY Pantoprazole Sodium (Pantoprazole 40 Mg Tab) 40 mg PO DAILY NATALIA Stop: 12/31/22 08:59 Last Admin: 12/01/22 07:57 Dose: 40 mg Documented By: AZALIA Simvastatin (Simvastatin 20 Mg Tab) 20 mg PO HS [facility] Stop: 12/31/22 20:59 Last Admin: 12/01/22 21:40 Dose: 20 mg Documented By: IVY Tizanidine HCl (Tizanidine Hcl 4 Mg Tablet) 4 mg PO TID PRN PRN Reason: muscle spasticity Stop: 12/31/22 06:54 Last Admin: 12/01/22 21:51 Dose: 4 mg Documented By: IVY Discontinued Medications Albuterol (Albut/Ipratrop 3mg/0.5mg Neb 3 Ml Vial) 12 ml NEB ONE ONE; Protocol Stop: 12/01/22 02:02 Last Admin: 12/01/22 02:08 Dose: 12 ml Documented By: MIRANDA Albuterol (Albut/Ipratrop 3mg/0.5mg Neb 3 Ml Vial) 3 ml NEB NOW STA; Protocol Stop: 12/01/22 05:43 Last Admin: 12/01/22 05:46 Dose: 3 ml Documented By: MOHIT Azithromycin (Azithromycin 250 Mg Tab) 500 mg PO NOW ONE Stop: 12/01/22 06:56 Last Admin: 12/01/22 07:57 Dose: 500 mg Documented By: AZALIA Furosemide (Furosemide 40 Mg/4 Ml Vial) 40 mg IV ONE ONE Stop: 12/01/22 07:16 Last Admin: 12/01/22 07:57 Dose: 40 mg Documented By: AZALIA Magnesium Sulfate/Dextrose (Magnesium Sulfate / D5w) 1 gm in 100 mls @ 100 mls/hr IV NOW STA Stop: 12/01/22 05:14 Last Infusion: 12/01/22 06:09 Dose: 0 mls/hr Documented By: Admin: 12/01/22 04:32 Dose: 100 mls/hr Documented By: ARTEMIO Parenteral Electrolytes (Plasma-Lyte A Ph 7.4) 1,000 mls @ 100 mls/hr IV .Q10H NATALIA Stop: 12/31/22 06:54 Last Admin: 12/01/22 07:44 Dose: Not Given Documented By: AZALIA Insulin Glargine (Lantus Per Unit Charge) 17 units SQ BID NATALIA Stop: 12/31/22 08:59 Last Admin: 12/01/22 09:14 Dose: 17 units Documented By: AZALIA Co-signed By: JIE Insulin Human NPH (Novolin-N (Nph) Per Unit Charge) 10 units SC ONE ONE Stop: 12/01/22 12:46 Last Admin: 12/01/22 13:08 Dose: 10 units Documented By: AZALIA Co-signed By: LALO Methylprednisolone (Methylprednisolone 125 Mg/2 Ml Vial) 60 mg IV NOW STA Stop: 12/01/22 02:02 Last Admin: 12/01/22 02:08 Dose: 60 mg Documented By: MIRANDA Discharge Plan Visit Data Chief Complaint: Respiratory Problems Stated Complaint: HARD TO BREATHE ED Provider: Taty Nava Discharge Problem: Dyspnea, Acute exacerbation of chronic obstructive pulmonary disease (COPD), Hypoxia, Failure of outpatient treatment Patient Disposition: Admitted As Inpatient Discharge Instructions Interventions: ED Discharge Assessment Last Done: 12/01/22 06:28
--- NOTE | 2022-12-01 06:37 | CT Scan Report ---
Exam(s): CT CHEST Without Contrast EXAM: CT Chest Without Intravenous Contrast CLINICAL HISTORY: Reason for exam: shortness of breath. TECHNIQUE: Axial computed tomography images of the chest without intravenous contrast. CTDI is 30.43 mGy and DLP is 1129.33 mGy-cm. Automated exposure control was utilized for the study. A dose lowering technique was utilized adhering to the principles of ALARA. COMPARISON: No relevant prior studies available. FINDINGS: Lungs: There is bilateral interlobular septal prominence along with scattered groundglass density seen in the lungs. Pleural space: Trace right pleural effusion with. No pneumothorax. Heart: Unremarkable. No cardiomegaly. No significant pericardial effusion. No significant coronary artery calcifications. Mediastinum: Multiple mediastinal lymph nodes are seen measuring up to 1.1 cm in short axis diameter. Bones/joints: Unremarkable. No acute fracture. No dislocation. Soft tissues: Unremarkable. Vasculature: Unremarkable. No thoracic aortic aneurysm. Lymph nodes: Unremarkable. No enlarged lymph nodes. IMPRESSION: Bilateral interstitial pulmonary edema Electronically signed by: Viet Monterroso MD 12/01/22 06:36 AM
[2022-12-01] MEDS ORDERED: DEXTROSE 50% 50 ML SYRINGE IV PRN (06:55)
[2022-12-01] MEDS ORDERED: PLASMA-LYTE A 1,000 ML IV SCH (06:55)
[2022-12-01] MEDS ORDERED: CARBOHYDRATES FOR HYPOGLYCEMIA PO PRN (06:55)
[2022-12-01] MEDS ORDERED: ACETAMINOPHEN 325 MG TAB PO PRN (06:55)
[2022-12-01] MEDS ORDERED: GLUCOSE 40% GEL 15 GM TUBE PO PRN (06:55)
[2022-12-01] MEDS ORDERED: ONDANSETRON INJ 2 MG/ML 2 ML VIAL IV PRN (06:55)
[2022-12-01] MEDS ORDERED: GLUCOSE 10 TAB/TUBE PO PRN (06:55)
[2022-12-01] MEDS ORDERED: AZITHROMYCIN 250 MG TAB PO ONE (06:55)
[2022-12-01] MEDS ORDERED: GLUCAGON FOR INJ 1 MG VIAL SQ PRN (06:55)
[2022-12-01] MEDS ORDERED: BENZONATATE 100 MG CAPSULE PO PRN (06:55)
[2022-12-01] MEDS ORDERED: POLYETHYLENE (MIRALAX) 17 GM PACK PO PRN (06:55)
[2022-12-01] MEDS ORDERED: FUROSEMIDE 40 MG/4 ML VIAL IV ONE (07:15)
[2022-12-01] MEDS: BUDESONIDE 0.5 MG/2 ML VIAL (PULMICORT) NEB SCH ×2 (07:32→20:03)
[2022-12-01] MEDS: ALBUT/IPRATROP 3MG/0.5MG NEB 3 ML VIAL INH SCH ×3 (07:32→20:03)
--- NOTE | 2022-12-01 07:48 | Hospitalist Progress Note ---
Date of Service December 01, 2022 Assessment & Plan (1) Dyspnea on exertion: Plan: 66 y/o F w/ PmHx COPD, asthma, arthritis, GERD, HLD, insomnia, migraine w/o aura, T2DM, recurrent UTI, NAFLD admitted for possible COPD exacerbation. Acute respiratory failure, history of chronic respiratory failure, -Recent COPD exacerbation treated outpatient with Levaquin+prednisone. -CXR w/ diffuse worsening interstitial opacities compared to CXR from 11/19. given a dose of lasix . 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 -Continue home cetirizine, monteleukast, benzonatate. -Incentive spirometry and flutter valve ordered. -Continue to monitor, wean off O2 as tolerated. Chronic type 2 diabetes, -Glucose 235 on admission. Per patient as low as 40's at home while on steroid and insulin. -Ordered SSI, goal 120-150. Long acting 17U BID. Chronic GERD -Continue home famotidine and lansoprazole. Chronic migraine, prophylaxis will continue with nortriptyline -Continue home nortriptyline. DVT Prophylaxis: Lovenox 40mg q12h Code status: Full code. (2) COPD (chronic obstructive pulmonary disease): (3) Type 2 diabetes mellitus: (4) Migraine headache without aura: Admission and Anticipated Discharge Date Admission Date: December 01, 2022 Subjective Patient was seen in her room she said her respiratory distress was much improved she had no other complaints or problem Physical Exam Physical Exam: Card exam is regular I do not hear any overt murmurs or C peripheral stigmata of endocarditis Lungs were clear with basilar crackles Results & Data Results & Data Vital Signs (Past 12 Hours) Vital Signs Temp Pulse Pulse Resp BP BP Pulse Ox 12/01/22 07:33 105 H 20 96 12/01/22 07:05 97.9 F 113 H 20 173/75 H 93 12/01/22 06:28 111 H 24 94 12/01/22 05:56 106 H 12/01/22 01:50 85 12/01/22 02:17 80 22 131/70 100 12/01/22 01:30 98.2 F 83 22 107/65 93 O2 Del Method O2 Flow Rate 12/01/22 07:33 Nasal Cannula 2 12/01/22 07:05 Nasal Cannula 2 12/01/22 06:28 Nasal Cannula 2 12/01/22 05:56 12/01/22 01:50 12/01/22 02:17 Nebulizer 12/01/22 01:30 Room Air PG Care Time/CCT Total # of Minutes Spent Total Time Spent with Patient: Total time spent is greater than 50% in coordination of care (as documented) at patient's floor/unit and/or counseling patient: Coding Level of Care Code None Diagnoses Dyspnea on exertion R06.09 COPD (chronic obstructive pulmonary disease) J44.9 Type 2 diabetes mellitus E11.9 Migraine headache without aura G43.009
[2022-12-01] MEDS: CETIRIZINE HCL 10 MG TABLET PO SCH (07:57)
[2022-12-01] MEDS: PANTOprazole 40 MG TAB PO SCH (07:57)
[2022-12-01] MEDS: FAMOTIDINE 40 MG TABLET PO SCH ×2 (07:57→21:40)
[2022-12-01] MEDS: ASPIRIN 81 MG ECTAB PO SCH (07:57)
[2022-12-01] MEDS: guaiFENesin 600 MG TABCR PO SCH ×2 (07:57→21:44)
[2022-12-01] MEDS: ENOXAPARIN INJ 40 MG/0.4 ML SYR SQ SCH ×2 (07:58→19:21)
--- NOTE | 2022-12-01 07:58 | XRay Report ---
XR chest 1V portable HISTORY: Shortness of breath. COMPARISON: Chest 11/19/2022. FINDINGS: No pneumothorax. No pleural effusions. The cardiac silhouette remains mildly enlarged. Ther e is progressive interstitial/vascular thickening consistent with mild pulmonary edema. IMPRESSION: Interval development of mild interstitial pulmonary edema. ACT 112: Negative or not required by law. Electronically signed by: Lito Prabhakar M.D. 12/01/2022 7:57 AM
[2022-12-01] MEDS ORDERED: LANTUS PER UNIT CHARGE SQ SCH ×2 (09:00→21:00)
[2022-12-01] MEDS: INSULIN ASPART PER UNIT CHARGE SC SCH ×4 (09:14→21:42)
[2022-12-01] MEDS ORDERED: NovoLIN-N (NPH) PER UNIT CHARGE SC ONE (12:45)
--- NOTE | 2022-12-01 15:14 | XCELERA ---
[id number] \\[facility]\ISCV_PDF_Reports\[id number]}___[id number]
[2022-12-01] MEDS: SIMVASTATIN 20 MG TAB PO SCH (21:40)
[2022-12-01] MEDS: MONTELUKAST SODIUM 10 MG TABLET PO SCH (21:41)
[2022-12-01] MEDS: NORTRIPTYLINE HCL 25 MG CAP PO SCH (21:41)
[2022-12-01] MEDS: LANTUS PER UNIT CHARGE SQ SCH (21:42)
[2022-12-01] MEDS: oxyCODONE HCL IR 5 MG TAB (IMMEDIATE RELEASE) PO PRN (21:45)
[2022-12-01] MEDS: tiZANidine HCL 4 MG TABLET PO PRN (21:51)
[2022-12-02] MEDS: ALBUT/IPRATROP 3MG/0.5MG NEB 3 ML VIAL INH SCH ×4 (01:01→19:03)
[2022-12-02] MEDS: SODIUM CHLORIDE 0.9% 1000ML 1,000 ML IV SCH (02:42)
[2022-12-02] MEDS: BUDESONIDE 0.5 MG/2 ML VIAL (PULMICORT) NEB SCH ×2 (07:31→19:03)
[2022-12-02 08:08] LABS: Basophils # (auto) 0.04 K/uL (0-0.2); Basophils % (auto) 0.2 %; Eosinophils # (auto) 0.07 K/uL (0-0.50); Eosinophils % (auto) 0.4 %; Hematocrit (blood only) 31.3 % (37.0-47.0); Immature Granulocytes % (auto) 0.6 %; Lymphocytes % (auto) 16.9 %; Mean Corpuscular Hemoglobin 28.6 pg (25.0-34.0); Mean Corpuscular Hgb Conc 31.9 g/dL (32.0-36.0); Mean Corpuscular Volume 89.4 fL (80.0-100.0); Mean Platelet Volume 9.4 fL (9.4-12.4); Monocytes # (auto) 1.25 K/uL (0.11-0.59); Monocytes % (auto) 7.3 %; Neutrophils # (auto) 12.79 K/uL (1.40-6.50); Neutrophils % (auto) 74.6 %; Platelet Count 381 K/uL (130-400); RDW Coefficient of Variation 15.1 % (11.5-14.5); White Blood Count 17.15 K/ul (4.8-10.8)
[2022-12-02 08:27] LABS: BUN Creatinine Ratio 20.9 (10-20); Calcium 7.9 mg/dl (8.6-10.3); Creatinine Clr Calc Pharmacy 91.1 ml/min; Est GFR (African American) 106.2 ml/min; Est GFR (Non-African American) 91.6 ml/min; Magnesium 2.3 mg/dl (1.7-2.4); Potassium 4.2 mmol/L (3.5-5.1)
[2022-12-02] MEDS: oxyCODONE HCL IR 5 MG TAB (IMMEDIATE RELEASE) PO PRN ×2 (08:51→15:56)
[2022-12-02] MEDS: guaiFENesin 600 MG TABCR PO SCH ×2 (08:51→21:57)
[2022-12-02] MEDS: IBUPROFEN 600 MG TAB PO PRN (08:51)
[2022-12-02] MEDS: FAMOTIDINE 40 MG TABLET PO SCH ×2 (08:52→21:57)
[2022-12-02] MEDS: ASPIRIN 81 MG ECTAB PO SCH (08:52)
[2022-12-02] MEDS: PANTOprazole 40 MG TAB PO SCH (08:52)
[2022-12-02] MEDS: CETIRIZINE HCL 10 MG TABLET PO SCH (08:52)
[2022-12-02] MEDS: AZITHROMYCIN 250 MG TAB PO SCH (08:52)
[2022-12-02] MEDS: ENOXAPARIN INJ 40 MG/0.4 ML SYR SQ SCH ×2 (08:53→19:09)
[2022-12-02] MEDS: LANTUS PER UNIT CHARGE SQ SCH ×2 (08:53→21:56)
[2022-12-02] MEDS: INSULIN ASPART PER UNIT CHARGE SC SCH ×4 (08:53→21:56)
[2022-12-02] MEDS ORDERED: predniSONE 20 MG TAB PO SCH (09:00)
[2022-12-02] MEDS ORDERED: FUROSEMIDE INJ 20 MG/2 ML VIAL IV ONE ×2 (09:50→17:56)
--- NOTE | 2022-12-02 12:36 | Electrocardiogram Report ---
Test Reason : Blood Pressure : / mmHG Vent. Rate : 084 BPM Atrial Rate : 084 BPM P-R Int : 154 ms QRS Dur : 092 ms QT Int : 410 ms P-R-T Axes : 043 044 076 degrees QTc Int : 484 ms Poor data quality, interpretation may be adversely affected Normal sinus rhythm Normal ECG When compared with ECG of 19-NOV-2022 13:22, No significant change was found Confirmed by Laz Vaz ([id number]) on 12/02/2022 12:36:12 PM Referred By: Jean Pierre Dumas Confirmed By:Laz Vaz
--- NOTE | 2022-12-02 17:55 | Hospitalist Progress Note ---
Date of Service December 02, 2022 Assessment & Plan (1) Dyspnea on exertion: Plan: 66 y/o F w/ PmHx COPD, asthma, arthritis, GERD, HLD, insomnia, migraine w/o aura, T2DM, recurrent UTI, NAFLD admitted for possible COPD exacerbation. Acute respiratory failure, history of chronic respiratory failure, -Recent COPD exacerbation treated outpatient with Levaquin+prednisone. -CXR w/ diffuse worsening interstitial opacities compared to CXR from 11/19. given a dose of lasix . Biofire negative Pending CT angiogram with steroid prevention for dye allergy given history of malignancy -Given methylprednisone, MgSulfate, albuterol neb in ED echo nl EF, no valvular issues given pulmonary edema a HF PEF will start daily legs assesses history of lower extremity swelling also -Will treat as COPD exacerbation, duoneb q6R, Pulmicort 0.5mg BID, Azithromycin 500mg followed by 250mg x4, prednisone 40mg qAM. Restart Trelegy inhaler -Continue home cetirizine, monteleukast, benzonatate. -Incentive spirometry and flutter valve ordered. -Continue to monitor, wean off O2 as tolerated. T2DM: Chronic unstable glucose is up with steroids. Increase long-acting insulin to 25 twice daily we will continue to increase with steroid-induced hyperglycemia GERD: Chronic and stable-Continue home famotidine and lansoprazole. SCC: Chronic unstable-Noted likely risk for thromboembolic phenomena Migraine: Chronic and stable-Continue home nortriptyline. DVT Prophylaxis: Lovenox 40mg q12h Code status: Full code. (2) COPD (chronic obstructive pulmonary disease): (3) Type 2 diabetes mellitus: (4) Asthma: (5) Migraine headache without aura: (6) Hyperlipidemia: (7) NAFLD (nonalcoholic fatty liver disease): (8) Insomnia: (9) GERD without esophagitis: (10) Squamous cell carcinoma: Admission and Anticipated Discharge Date Admission Date: December 01, 2022 Subjective pts biggest complaints is TOMAS, restarting Trelegy inhaler, pending CTA but needs dye prophylaxis, concern with dyspnea and cancer to rule out PE will start daily lasix Physical Exam Physical Exam: Card exam is regular I do not hear any overt murmurs or C peripheral stigmata of endocarditis Lungs were clear with basilar crackles Results & Data Results & Data Vital Signs (Past 12 Hours) Vital Signs Temp Pulse Pulse Pulse Resp BP BP 12/02/22 15:21 98.1 F 106 H 20 154/76 H 12/02/22 15:00 99 H 12/02/22 13:46 82 18 12/02/22 11:59 97.9 F 88 18 160/63 H 12/02/22 09:00 12/02/22 08:20 98.1 F 96 H 18 117/68 12/02/22 07:31 90 16 12/02/22 07:00 85 Pulse Ox O2 Del Method O2 Flow Rate 12/02/22 15:21 91 Room Air 12/02/22 15:00 12/02/22 13:46 91 Room Air 12/02/22 11:59 96 Nasal Cannula 2 12/02/22 09:00 Room Air 12/02/22 08:20 96 Nasal Cannula 2 12/02/22 07:31 95 Room Air 12/02/22 07:00 Laboratory Results Reviewed CBC Reviewed PRP PG Care Time/CCT Total # of Minutes Spent Total Time Spent with Patient: Total time spent is greater than 50% in coordination of care (as documented) at patient's floor/unit and/or counseling patient: Coding Level of Care Code 58085 SUB INP/OBS CARE 2/35MIN Diagnoses Dyspnea on exertion R06.09 COPD (chronic obstructive pulmonary disease) J44.9 Type 2 diabetes mellitus E11.9 Asthma J45.909 Migraine headache without aura G43.009 Hyperlipidemia E78.5 NAFLD (nonalcoholic fatty liver disease) K76.0 Insomnia G47.00 GERD without esophagitis K21.9 Squamous cell carcinoma
[2022-12-02] MEDS ORDERED: methylPREDNISolone 40 MG in SYRINGE 0 ML IV STA (18:00)
[2022-12-02] MEDS: UMECLIDINIUM/VILANTEROL 62.5/25MCG 7 PUFFS/INHALER INH SCH (18:15)
[2022-12-02] MEDS: FLUTICASONE FUROATE 200MCG 14 PUFFS/INHALER INH SCH (18:15)
[2022-12-02] MEDS: tiZANidine HCL 4 MG TABLET PO PRN (21:57)
[2022-12-02] MEDS: SIMVASTATIN 20 MG TAB PO SCH (21:57)
[2022-12-02] MEDS: MONTELUKAST SODIUM 10 MG TABLET PO SCH (21:57)
[2022-12-02] MEDS: NORTRIPTYLINE HCL 25 MG CAP PO SCH (21:58)
[2022-12-02] MEDS ORDERED: diphenhydrAMINE 50 MG/ML VIAL IV SCH (23:00)
[2022-12-02] MEDS ORDERED: methylPREDNISolone 40 MG in SYRINGE 0 ML IV SCH (23:00)
[2022-12-03] MEDS: ALBUT/IPRATROP 3MG/0.5MG NEB 3 ML VIAL INH SCH ×3 (00:17→13:41)
[2022-12-03] MEDS: BUDESONIDE 0.5 MG/2 ML VIAL (PULMICORT) NEB SCH (07:30)
[2022-12-03 07:48] LABS: Basophils # (auto) 0.04 K/uL (0-0.2); Basophils % (auto) 0.3 %; Eosinophils # (auto) 0.07 K/uL (0-0.50); Eosinophils % (auto) 0.5 %; Hematocrit (blood only) 32.5 % (37.0-47.0); Hemoglobin 10.2 g/dl (12.0-16.0); Immature Granulocytes # (auto) 0.06 K/uL (0.01-0.20); Immature Granulocytes % (auto) 0.4 %; Lymphocytes % (auto) 22.7 %; Mean Corpuscular Hemoglobin 28.4 pg (25.0-34.0); Mean Corpuscular Hgb Conc 31.4 g/dL (32.0-36.0); Mean Corpuscular Volume 90.5 fL (80.0-100.0); Mean Platelet Volume 9.1 fL (9.4-12.4); Monocytes # (auto) 1.24 K/uL (0.11-0.59); Neutrophils # (auto) 10.51 K/uL (1.40-6.50); Neutrophils % (auto) 68.1 %; Platelet Count 365 K/uL (130-400); RDW Standard Deviation 49.3 fL (36.4-46.3); Red Blood Count 3.59 M/uL (4.20-5.40); White Blood Count 15.42 K/ul (4.8-10.8)
[2022-12-03 08:24] LABS: BUN Creatinine Ratio 20.5 (10-20); Calcium 8.2 mg/dl (8.6-10.3); Creatinine Clr Calc Pharmacy 82.3 ml/min; Est GFR (African American) 99.5 ml/min; Est GFR (Non-African American) 85.8 ml/min; Potassium 3.9 mmol/L (3.5-5.1)
[2022-12-03] MEDS ORDERED: predniSONE 20 MG TAB PO SCH (09:00)
[2022-12-03] MEDS ORDERED: FUROSEMIDE 20 MG TAB PO SCH (09:00)
[2022-12-03] MEDS: INSULIN ASPART PER UNIT CHARGE SC SCH ×2 (09:10→12:20)
[2022-12-03] MEDS: oxyCODONE HCL IR 5 MG TAB (IMMEDIATE RELEASE) PO PRN (09:11)
[2022-12-03] MEDS: IBUPROFEN 600 MG TAB PO PRN (09:11)
[2022-12-03] MEDS: FAMOTIDINE 40 MG TABLET PO SCH (09:12)
[2022-12-03] MEDS: guaiFENesin 600 MG TABCR PO SCH (09:12)
[2022-12-03] MEDS: PANTOprazole 40 MG TAB PO SCH (09:12)
[2022-12-03] MEDS: ENOXAPARIN INJ 40 MG/0.4 ML SYR SQ SCH (09:13)
[2022-12-03] MEDS: ASPIRIN 81 MG ECTAB PO SCH (09:13)
[2022-12-03] MEDS: AZITHROMYCIN 250 MG TAB PO SCH (09:13)
[2022-12-03] MEDS: CETIRIZINE HCL 10 MG TABLET PO SCH (09:13)
[2022-12-03] MEDS: LANTUS PER UNIT CHARGE SQ SCH (09:16)
[2022-12-03] MEDS: FLUTICASONE FUROATE 200MCG 14 PUFFS/INHALER INH SCH (09:17)
[2022-12-03] MEDS: UMECLIDINIUM/VILANTEROL 62.5/25MCG 7 PUFFS/INHALER INH SCH (09:17)
[2022-12-03] MEDS ORDERED: HYDROmorphone INJ 1 MG/ML SYRINGE IV PRN (12:41)
[2022-12-03] MEDS ORDERED: HYDROmorphone INJ 0.5 MG/0.5 ML SYR IV PRN (12:41)
[2022-12-03] MEDS ORDERED: oxyCODONE HCL IR 5 MG TAB (IMMEDIATE RELEASE) PO PRN (12:42)
--- NOTE | 2022-12-03 16:24 | Hospitalist Progress Note ---
Date of Service December 03, 2022 Assessment & Plan (1) Dyspnea on exertion: Plan: 66 y/o F w/ PmHx COPD, asthma, arthritis, GERD, HLD, insomnia, migraine w/o aura, T2DM, recurrent UTI, NAFLD admitted for possible COPD exacerbation. Acute respiratory failure, history of chronic respiratory failure, -Recent COPD exacerbation treated outpatient with Levaquin+prednisone. -CXR w/ diffuse worsening interstitial opacities compared to CXR from 11/19. given a dose of lasix . Biofire negative Pending CT angiogram with steroid prevention for dye allergy given history of malignancy -Given methylprednisone, MgSulfate, albuterol neb in ED echo nl EF, no valvular issues given pulmonary edema a HF PEF will start daily legs assesses history of lower extremity swelling also -Will treat as COPD exacerbation, duoneb q6R, Pulmicort 0.5mg BID, Azithromycin 500mg followed by 250mg x4, prednisone 40mg qAM. Restart Trelegy inhaler -Continue home cetirizine, monteleukast, benzonatate. -Incentive spirometry and flutter valve ordered. -Continue to monitor, wean off O2 as tolerated. T2DM: Chronic unstable glucose is up with steroids. Increase long-acting insulin to 25 twice daily we will continue to increase with steroid-induced hyperglycemia GERD: Chronic and stable-Continue home famotidine and lansoprazole. SCC: Chronic unstable-Noted likely risk for thromboembolic phenomena Migraine: Chronic and stable-Continue home nortriptyline. DVT Prophylaxis: Lovenox 40mg q12h Code status: Full code. (2) COPD (chronic obstructive pulmonary disease): (3) Type 2 diabetes mellitus: (4) Asthma: (5) Migraine headache without aura: (6) Hyperlipidemia: (7) NAFLD (nonalcoholic fatty liver disease): (8) Insomnia: (9) GERD without esophagitis: (10) Squamous cell carcinoma: Admission and Anticipated Discharge Date Admission Date: December 01, 2022 Subjective ppt has much less TOMAS after restarting Trelegy inhaler, pt refused CTA did start daily lasix Pt also has increased cancer related pain and d/c on oxycodone Physical Exam Physical Exam: Card exam is regular I do not hear any overt murmurs or see peripheral stigmata of endocarditis Lungs were clear with basilar crackles, better airm movement trace peripheral edema Results & Data Results & Data Vital Signs (Past 12 Hours) Vital Signs Temp Pulse Pulse Pulse Resp BP BP 12/03/22 15:03 98.1 F 90 91 H 18 144/64 H 158/67 H 12/03/22 15:00 90 12/03/22 13:42 91 H 18 12/03/22 10:54 98.1 F 89 18 144/64 H 12/03/22 10:00 12/03/22 07:53 98.2 F 99 H 18 134/68 12/03/22 07:30 99 H 16 12/03/22 07:05 88 Pulse Ox O2 Del Method 12/03/22 15:03 95 12/03/22 15:00 12/03/22 13:42 95 Room Air 12/03/22 10:54 96 Room Air 12/03/22 10:00 Room Air 12/03/22 07:53 93 Room Air 12/03/22 07:30 93 Room Air 12/03/22 07:05 PG Care Time/CCT Total # of Minutes Spent Total Time Spent with Patient: Total time spent is greater than 50% in coordination of care (as documented) at patient's floor/unit and/or counseling patient: Coding Level of Care Code None Diagnoses Dyspnea on exertion R06.09 COPD (chronic obstructive pulmonary disease) J44.9 Type 2 diabetes mellitus E11.9 Asthma J45.909 Migraine headache without aura G43.009 Hyperlipidemia E78.5 NAFLD (nonalcoholic fatty liver disease) K76.0 Insomnia G47.00 GERD without esophagitis K21.9 Squamous cell carcinoma
--- NOTE | 2022-12-03 16:29 | Discharge Summary ---
Date of Service December 03, 2022 Admission HPI Per Admitting Provider Melissa is a 66 year old female w/ PmHx of COPD, arthritis, GERD, HLD, insomnia, migraine w/o aura, T2DM, recurrent UTI, NAFLD coming to the ED for worsening SoB since early Friday. Patient with son at bedside, states that 9 days prior she was having a COPD exacerbation with worsening shortness of breath and wheezing over the prior week. She went to her PCP office and was treated with nebulizer, sent with levaquin and prednisone taper. She was feeling well until Friday when she had been getting short of breath again with any sort of movement. She thought it may be another COPD exacerbation and came to the hospital. She was previously hospitalized late September/early October for sepsis from [place] [id number]. She denies any chest pain, diarrhea, urinary symptoms, however does endorse feeling palpitations and fast heart rate during this episode. She has had about 4 COPD exacerbations per year. She no longer smokes, quit 20 years ago and before that had smoked half a pack per day. At home she does not wear any oxygen. Patient also says that while on the steroid it was very difficult to maintain adequate control of her glucose. Her glucose would fluctuate, sometimes dramatically to the low 40's from the insulin she's on and she would have to take glucose tablets. In the ED she was hypoxic to 88% on arrival on , WBC 10.99, Hgb 10.1, glucose 235. Respiratory biofire was ordered and is still pending. CXR showed increased opacities when compared to prior XR on the . She was given 1L NSS, albuterol nebulizer, Mg sulfate, and methylpred 60mg in the ED. Principal Diagnosis copd exacerbation le edema cancer related pain Discharge Data Allergies Allergy/AdvReac Type Severity Reaction Status Date / Time Penicillins Allergy Severe SHORT OF Verified 11/22/22 11:28 BREATH/HIVES shellfish derived Allergy Severe SHORT OF Verified 11/22/22 11:28 BREATH/EYES SWELL/ITCHY sumatriptan [From Imitrex] Allergy Severe SHORT OF Verified 11/22/22 11:28 BREATH/HIVES erythromycin base Allergy Intermediate ITCHY HIVES Verified 11/22/22 11:28 liraglutide [From Victoza] Allergy Intermediate RASH/STOMACH Verified 11/22/22 11:28 PAIN rofecoxib [From Vioxx] Allergy Intermediate ITCHY HIVES Verified 11/22/22 11:28 Tetracyclines Allergy Intermediate ITCHY HIVES Verified 11/22/22 11:28 iodine Allergy Unknown Verified 11/22/22 11:28 topiramate [From Topamax] AdvReac Severe SUICIDAL Verified 11/22/22 11:28 THOUGHTS/DEPRESSION meloxicam AdvReac Intermediate GI Verified 11/22/22 11:28 UPSET/DIARRHEA metformin AdvReac Intermediate STOMACH Verified 11/22/22 11:28 PAIN/DIARRHEA Consultations 12/01/22 04:39 ED Decision to Admit Stat Ordered Studies 12/01/22 04:49 CT chest diagnostic wo con Routine Hospital Course (1) Dyspnea on exertion: 66 y/o F w/ PmHx COPD, asthma, arthritis, GERD, HLD, insomnia, migraine w/o aura, T2DM, recurrent UTI, NAFLD admitted for possible COPD exacerbation. Acute respiratory failure, history of chronic respiratory failure, -Recent COPD exacerbation treated outpatient with Levaquin+prednisone. -CXR w/ diffuse worsening interstitial opacities compared to CXR from 11/19. given a dose of lasix . Biofire negative PT refused CT angiogram with steroid prevention for dye allergy given history o f malignancy -Given methylprednisone, MgSulfate, albuterol neb in ED will be home on tapering dose of prednisone continue trelegy inhaled meds echo nl EF, no valvular issues given pulmonary edema a HF PEF will start daily legs assesses history of lower extremity swelling also -Will treat as COPD exacerbation, trelegy inhalers, Azithromycin 500mg followed by 250mg x3 more days, -Continue home cetirizine, monteleukast, benzonatate. -Incentive spirometry and flutter valve ordered. -Continue to monitor, wean off O2 as tolerated. T2DM: Chronic unstable glucose is up with steroids. return to home diabetic care regiment GERD: Chronic and stable-Continue home famotidine and lansoprazole. SCC: Chronic unstable-does have cancer related pain, pt will be home on oxycodone for pain Migraine: Chronic and stable-Continue home nortriptyline. Code status: Full code. (2) COPD (chronic obstructive pulmonary disease): (3) Type 2 diabetes mellitus: (4) Asthma: (5) Migraine headache without aura: (6) Hyperlipidemia: (7) NAFLD (nonalcoholic fatty liver disease): (8) Insomnia: (9) GERD without esophagitis: (10) Squamous cell carcinoma: Total Time Total Time Spent Total Time Spent (In Minutes): It required greater than 30 minutes to prepare this patient for discharge Discharge Plan Discharge Items Patient Disposition: Home - Self-Care Reason For Visit: SHORTNESS OF BREATH Discharge Diagnosis: shortness of breath, mild copd exacerbation, fluid exacerbation pain related to cancer Activity: Per Instructions section Activity Comment: slowly increase activity Non-emergency contact: Primary Care Provider, Specialist and Oncologist Call non-emergency contact if: your symptoms worsen Follow-up/Referrals: Jean Pierre Dumas CRNP [Primary Care Provider] - 12/10/22 8:20 am Diet: Regular Addtl Attending Provider Instructions: please have follow up with your oncologist and take your pain medicines carefully Pending Studies at Discharge: No Stand-Alone Forms: [employer], Smoking Cessation Medications and DC Order Prescriptions: New azithromycin 250 mg Tablet 250 mg PO QAM Qty: 3 0RF furosemide [Lasix] 20 mg tablet 20 mg PO DAILY Qty: 30 3RF oxycodone 5 mg Tablet 10 mg PO TID PRN (Reason: pain) Qty: 30 0RF Continued tizanidine 4 mg tablet 4 mg PO TID PRN (Reason: muscle spasticity) Qty: 90 0RF alcohol swabs Pads, Medicated 1 pad topical TID Qty: 500 3RF (DME) lancets Misc See Rx Instructions .Route Qty: 100 5RF Rx Instructions: As directed (DME) pen needle, diabetic [Lite Touch Insulin Pen [place]] 31 gauge x 5/16" needle See Rx Instructions .Route Qty: 100 6RF Rx Instructions: As directed Trulicity 1.5 mg/0.5 mL pen injector 1.5 mg SUBCUT WK Qty: 2 0RF Rx Instructions: TAKES ON SATURDAYS. E11.9 famotidine 40 mg tablet 40 mg PO BID Qty: 60 2RF Trelegy Ellipta 200-62.5-25 mcg blister with device 1 inh inhalation DAILY Qty: 3 1RF insulin aspart U-100 [Novolog FlexPen U-100 Insulin] 100 unit/mL (3 mL) insulin pen 25 unit subcut TID Rx Instructions: E11.9 montelukast [Singulair] 10 mg tablet 10 mg PO HS Qty: 90 1RF cetirizine [Zyrtec] 10 mg tablet 10 mg PO DAILY Qty: 90 1RF benzonatate 100 mg capsule 100 mg PO TID PRN (Reason: Cough) Qty: 60 0RF nortriptyline 50 mg capsule 100 mg PO HS Qty: 90 1RF glucose 4 gram tablet,chewable 4 g PO Q15M PRN (Reason: hypoglycemia) Qty: 30 1RF Rx Instructions: until symptoms of low blood sugar are controlled cyanocobalamin (vitamin B-12) [Vitamin B-12] 1,000 mcg Tablet 1,000 mcg PO DAILY aspirin 81 mg Tablet,Delayed Release (Dr/Ec) 81 mg PO DAILY triamcinolone acetonide 0.1 % Cream 1 applic TOPICAL BID PRN (Reason: Skin Irritation) simvastatin 20 mg Tablet 20 mg PO HS lansoprazole [Prevacid] 30 mg Capsule,Delayed Release(Dr/Ec) 30 mg PO DAILY ammonium lactate 12 % Cream 1 applic TOPICAL DAILY epinephrine [EpiPen] 0.3 mg/0.3 mL Auto-Injector 0.3 mg IM DIRECTED PRN (Reason: Allergic Reaction) albuterol 90 mcg/actuation Aerosol 180 mcg INHALATION Q6H PRN (Reason: wheezing or cough) Changed prednisone 10 mg tablet 10 mg PO DIRECTED Qty: 40 0RF Rx Instructions: 4 a day x 4 d>3 a day x 4 d>2 a day x 4 d>1 a day Discontinued levofloxacin 500 mg tablet 500 mg PO DAILY 5 Days Qty: 5 0RF Discharge Orders: Discharge Order (Routine); Ordered 12/03/22 Ordered By: Thomas Loja Admission Data Admit Date/Time: 12/01/22 05:01 Attending Provider: Thomas Loja Admit Provider: Ted Peter Primary Care Provider: Jean Pierre Dumas Other Providers: Modesto Martin Other Interventions: Discharge Summary Assessment (RN) Last Done: 12/03/22 15:03 Coding Level of Care Code 42696 INP/OBS DISCH >30 MIN Diagnoses Dyspnea on exertion R06.09 COPD (chronic obstructive pulmonary disease) J44.9 Type 2 diabetes mellitus E11.9 Asthma J45.909 Migraine headache without aura G43.009 Hyperlipidemia E78.5 NAFLD (nonalcoholic fatty liver disease) K76.0 Insomnia G47.00 GERD without esophagitis K21.9 Squamous cell carcinoma
== END 2022-12-03 15:35 | disposition home or self-care (01) | DRG 190 ==
LOC: ED 01:26 → 2W 05:01 → SUATTDRO 05:01 → 2W 06:28

== ENCOUNTER 2023-01-15 12:14 | Observation (INO) ==
--- NOTE | 2023-01-15 12:43 | Emergency Department Note ---
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 She reports that she feels chest tightness and some pain with inspiration. She does have a history of COPD and has been admitted for flares in the past. She denies any fevers or productive sputum. She is not on anticoagulation. She reports she had been on a "water pill" but had to discontinue this due to frequent urination causing irritation of her surgical site. However she reports that her breathing feels better when lying flat and agrees that this does not feel as though she is retaining fluid. She denies nausea, vomiting, diarrhea or urinary symptoms. On arrival the patient is in no acute distress, afebrile with stable vital signs. She appears euvolemic. She has wheezes of bilateral lung corbett with normal respiratory effort. EKG without overt acute ischemia. Chest x-ray negative for acute cardiopulmonary process with chronic interstitial coarsening better characterized on CT of the chest without contrast given the patient has a severe contrast allergy per her report. Note is made of mild interlobular septal thickening which may reflect mild interstitial pulmonary edema though clinically does not correlate given improvement in breathing when lying supine. Suspect may reflect chronic lung disease in the setting of patient's history of COPD. There is no evidence of pneumonia. WBC within normal limits. H/H similar to prior. Platelets 420k nonspecific. Chemistry without metabolic acidosis. Potassium 3.2 and phosphorus 2.0 and electrolytes otherwise unremarkable. High-sensitivity troponins 2.5, within normal limits. BNP 194, nonspecific. TSH within normal limits. We did discuss that the only way we would be able to sufficiently exclude a pulmonary embolism given her recent surgery and cancer history would be with a VQ scan which would require admission due to the time of day. She however did express strong preference to not be admitted if possible. We agreed that we would proceed with a D-dimer which given the sensitivity elevated nonetheless however if normal then it would be reasonable to exclude pulmonary embolism at this time. Upon reevaluation patient did feel improved following Solu-Medrol and DuoNeb. However this does not exclude PE necessarily given her malignancy and recent surgery. Patient does agree with plan for admission for further management and consideration of VQ scan. Case was d/w Dr. Zafar [facility] hospitalist who will evaluate the patient for admission. Triage Nursing notes reviewed and agree them. Prior/outside medical records reviewed Vital Signs: reviewed Differential diagnosis: Reactive airway disease, pneumonia, pneumothorax, COPD, CHF, infections, cardiac ischemia, pulmonary embolism, musculoskeletal, gastrointestinal, as well as other pathologies. ER treatment provided: See below. Diagnostics interpreted by me: ECG: Normal sinus rhythm, 90 bpm, no ectopy, no overt ST elevation or depression, QTc 477, QRS 92. Cardiac Monitoring: An order for continuous cardiac monitoring was placed and demonstrated normal sinus rhythm, 90 bpm, no ectopy. Laboratory studies: See below Imaging studies: See below Consultation(s): Case was d/w Dr. Zafar [facility] hospitalist who will evaluate the patient for admission. 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 She reports that she feels chest tightness and some pain with inspiration. She does have a history of COPD and has been admitted for flares in the past. She denies any fevers or productive sputum. She is not on anticoagulation. She reports she had been on a "water pill" but had to discontinue this due to frequent urination causing irritation of her surgical site. However she reports that her breathing feels better when lying flat and agrees that this does not feel as though she is retaining fluid. She denies nausea, vomiting, diarrhea or urinary symptoms. ROS: See above HPI for pertinent positives & negatives. A total of 10 systems reviewed and were otherwise negative. VITALS:See Below PHYSICAL EXAMINATION: GENERAL: Awake, alert, fatigued but well-appearing, in no distress, BMI 37.8. HENT: Normocephalic, atraumatic. Oropharynx with dry mucous membranes and otherwise unremarkable. EYES: Normal conjunctiva. Sclera non-icteric. NECK: Supple. No nuchal rigidity. FROM. No JVD. RESPIRATORY: Wheezes of bilateral lung corbett with normal respiratory effort. CARDIAC: Regular rate, normal rhythm. Extremities warm and well perfused. Pulses equal. ABDOMEN: Soft, non-distended. No tenderness to palpation. No rebound or guarding. No masses. RECTAL: Deferred. MUSCULOSKELETAL: Chest examination reveals no tenderness. The back is symmetrical on inspection without obvious abnormality. There is no CVA tenderness to palpation. No joint edema. LOWER EXTREMITIES: Calves are equal size bilaterally and non-tender. No edema. No discoloration. NEURO: Normal sensorium. No sensory or motor deficits noted. SKIN: No rash or jaundice noted. Julio César Dunaway MD Past Med/Surg History Medical History Arthritis Asthma Chronic back pain COPD (chronic obstructive pulmonary disease) GERD without esophagitis Hyperlipidemia Insomnia Migraine headache without aura NAFLD (nonalcoholic fatty liver disease) Recurrent UTI (urinary tract infection) Type 2 diabetes mellitus Surgical History H/O: x3 S/P total abdominal hysterectomy NELIDA-USO S/P tubal ligation Family History Mother Myocardial infarction Diabetes Sister Myocardial infarction x 2 Diabetes Brother Throat cancer Denies family history of Ovarian cancer Prostate cancer Breast cancer Colorectal cancer Uterine cancer Social History Smoking Status: Former smoker Tobacco Type: Cigarettes Second Hand Exposure: No; Do You Dip or Chew Tobacco: No; Tobacco Cessation Education Requested by Patient: No Hx Alcohol Use: No Hx Substance Use: No Preferred Language: Lebanese Communication Ability: Effective Visual Impairment: No Limitations Hearing Ability: Normal B2B Appointment Setter Required: No Beliefs That Will Affect Care: None marital status: / Current Living Situation: Family Current Living Situation Comment: lives with two adult sons current occupational status: disabled Other Information That Helps Us Care for You: No Feels Safe at Home: Yes Safety Concerns: Feels Safe At This Time Diet: regular Diet Comment: regular caffeine: Yes during the past year weight has: decreased > 10 lbs Dental Care, Regularly: No Physical Activity Frequency: Other Physical Activity Frequency Comment: limited to physical condition Seatbelt Use: always Sunscreen Use: No Assistive Devices: Glasses and Scooter/Electric Scooter Allergies Allergies Allergy/AdvReac Type Severity Reaction Status Date / Time Penicillins Allergy Severe SHORT OF Verified 12/10/22 13:17 BREATH/HIVES shellfish derived Allergy Severe SHORT OF Verified 12/10/22 13:17 BREATH/EYES SWELL/ITCHY sumatriptan [From Imitrex] Allergy Severe SHORT OF Verified 12/10/22 13:17 BREATH/HIVES erythromycin base Allergy Intermediate ITCHY HIVES Verified 12/10/22 13:17 liraglutide [From Victoza] Allergy Intermediate RASH/STOMACH Verified 12/10/22 13:17 PAIN rofecoxib [From Vioxx] Allergy Intermediate ITCHY HIVES Verified 12/10/22 13:17 Tetracyclines Allergy Intermediate ITCHY HIVES Verified 12/10/22 13:17 iodine Allergy Unknown Verified 12/10/22 13:17 topiramate [From Topamax] AdvReac Severe SUICIDAL Verified 12/10/22 13:17 THOUGHTS/DEPRESSION meloxicam AdvReac Intermediate GI Verified 12/10/22 13:17 UPSET/DIARRHEA metformin AdvReac Intermediate STOMACH Verified 12/10/22 13:17 PAIN/DIARRHEA Home Meds Home Medications Medication Instructions Recorded Confirmed aspirin 81 mg tablet,delayed 81 mg PO DAILY 08/10/22 01/15/23 release cyanocobalamin (vitamin B-12) 1,000 mcg PO DAILY 08/10/22 01/15/23 1,000 mcg tablet (Vitamin B-12) epinephrine 0.3 mg/0.3 mL 0.3 mg IM DIRECTED PRN Allergic 08/10/22 01/15/23 injection, auto-injector (EpiPen) Reaction insulin aspart U-100 100 unit/mL 25 unit subcut TID 11/22/22 01/15/23 (3 mL) subcutaneous pen (Novolog FlexPen U-100 Insulin aspart) albuterol sulfate 90 mcg/actuation 2 puff inhalation Q6 PRN Wheezing 01/15/23 01/15/23 aerosol inhaler (Ventolin HFA) oxycodone-acetaminophen 5 mg-325 1 tab PO TID PRN Pain 01/15/23 01/15/23 mg tablet silver sulfadiazine 1 % topical 1 applic topical UD 01/15/23 01/15/23 cream Previous Rx's Medication Instructions Recorded cetirizine 10 mg tablet (Zyrtec) 10 mg PO DAILY #90 tabs 08/27/22 glucose 4 gram chewable tablet 4 g PO Q15M PRN hypoglycemia #30 08/27/22 tabs nortriptyline 50 mg capsule 100 mg PO HS #90 caps 08/27/22 fluticasone fur. 200 mcg-umeclid 1 inh inhalation DAILY #3 Inhalers 09/18/22 62.5 mcg-vilant 25 mcg inhalat.powder (Trelegy Ellipta) lancets #100 ea 11/04/22 pen needle, diabetic 31 gauge x #100 ea 11/04/22 5/16" (Lite Touch Insulin Pen [place]) famotidine 40 mg tablet 40 mg PO BID #60 tabs 11/19/22 furosemide 20 mg tablet (Lasix) 20 mg PO DAILY #30 tabs 12/03/22 blood-glucose meter,continuous #1 ea 12/05/22 (Dexcom G6 Health And Safety Advisor) blood-glucose sensor (Dexcom G6 #3 ea 12/05/22 Sensor device) blood-glucose transmitter (Dexcom #1 ea 12/05/22 G6 Transmitter device) montelukast 10 mg tablet 10 mg PO HS #90 tabs 12/05/22 (Singulair) dulaglutide 1.5 mg/0.5 mL 1.5 mg (0.5 mL) subcut WK #2 mL 01/01/23 subcutaneous pen injector (TrulicBrass Monkey) insulin glargine 100 unit/mL (3 44 unit (0.44 mL) subcut BID #45 mL 01/01/23 mL) subcutaneous pen (Lantus Solostar U-100 Insulin) tizanidine 4 mg tablet 4 mg PO TID PRN muscle spasticity 01/06/23 #90 tabs Results & Data (ED) Vital Signs Vital Signs - 24 hr 01/15/23 12:17 01/15/23 12:36 01/15/23 12:38 Temperature 36.7 C Temperature Source Temporal Artery Scan Pulse Rate 88 Pulse Rate [Finger] 90 Respiratory Rate 24 20 Respiratory Effort / Characteristics Non-Labored Spontaneous Respiratory Depth Normal Respiratory Pattern Regular Blood Pressure 137/71 Blood Pressure [Right Arm] 154/80 H Blood Pressure Mean 93 Blood Pressure Mean [Right Arm] 104 Blood Pressure Position [Right Arm] Semi-fowlers Pulse Oximetry 99 99 98 Oxygen Delivery Method Room Air Room Air Room Air Sepsis Recent Fever Within 48 Hours No Sepsis New/Unexplained Change in Mental Status No Sepsis Action Taken by Nursing No Action Required 01/15/23 12:38 01/15/23 15:02 01/15/23 12:52 Temperature Temperature Source Pulse Rate 91 H Pulse Rate [Finger] 97 H Respiratory Rate 20 Respiratory Effort / Characteristics Spontaneous Respiratory Depth Normal Respiratory Pattern Regular Blood Pressure Blood Pressure [Right Arm] 157/82 H Blood Pressure Mean Blood Pressure Mean [Right Arm] 107 Blood Pressure Position [Right Arm] Pulse Oximetry 97 Oxygen Delivery Method Room Air Room Air Sepsis Recent Fever Within 48 Hours Sepsis New/Unexplained Change in Mental Status Sepsis Action Taken by Nursing 01/15/23 13:28 01/15/23 16:49 01/15/23 18:00 Temperature Temperature Source Pulse Rate 90 97 H Pulse Rate [Finger] 98 H Respiratory Rate 18 15 Respiratory Effort / Characteristics Respiratory Depth Respiratory Pattern Blood Pressure Blood Pressure [Right Arm] 175/91 H Blood Pressure Mean Blood Pressure Mean [Right Arm] 119 Blood Pressure Position [Right Arm] Semi-fowlers Pulse Oximetry 99 94 Oxygen Delivery Method Room Air Room Air Sepsis Recent Fever Within 48 Hours Sepsis New/Unexplained Change in Mental Status Sepsis Action Taken by Nursing Laboratory Data Attestation: I reviewed the patient's lab results. 01/15/23 12:49 01/15/23 12:49 Lab Results 01/15/23 01/15/23 01/15/23 Range/Units 12:49 12:49 12:49 WBC 9.07 (4.8-10.8) K/ul RBC 4.23 (4.20-5.40) M/uL Hgb 11.9 L (12.0-16.0) g/dl Hct 37.5 (37.0-47.0) % MCV 88.7 (80.0-100.0) fL MCH 28.1 (25.0-34.0) pg MCHC 31.7 L (32.0-36.0) g/dL RDW Std Deviation 46.2 (36.4-46.3) fL RDW Coeff of Brandon 14.4 (11.5-14.5) % Plt Count 420 H (130-400) K/uL MPV 9.4 (9.4-12.4) fL Immature Gran % (Auto) 1.5 % Neut % (Auto) 62.3 % Lymph % (Auto) 26.2 % [place] % (Auto) 7.6 % Eos % (Auto) 2.0 % Baso % (Auto) 0.4 % Neut # (Auto) 5.64 (1.40-6.50) K/uL Lymph # (Auto) 2.38 (1.2-3.4) K/uL [place] # (Auto) 0.69 H (0.11-0.59) K/uL Eos # (Auto) 0.18 (0-0.50) K/uL Baso # (Auto) 0.04 (0-0.2) K/uL Immature Gran # (Auto) 0.14 (0.01-0.20) K/uL D-Dimer (0-500) ug/L FEU Sodium 138 (136-145) mmol/L Potassium 3.2 L (3.5-5.1) mmol/L Chloride 106 (98-107) mmol/L Carbon Dioxide 25 (21-32) mmol/L Anion Gap 7 (3-11) BUN 9 (6-23) mg/dl Creatinine 0.70 (0.6-1.2) mg/dl Est Cr Clr Drug Dosing 83.2 ml/min Est GFR ( Amer) 103.9 ml/min Est GFR (Non-Af Amer) 89.7 ml/min BUN/Creatinine Ratio 12.9 (10-20) Glucose 137 H (70-99(Fasting)) mg/dl Calcium 8.9 (8.6-10.3) mg/dl Phosphorus 2.0 L (2.5-4.9) mg/dl Magnesium 2.0 (1.7-2.4) mg/dl Total Bilirubin 0.4 (0.2-1.0) mg/dl AST 24 (13-39) U/L ALT 17 (7-52) U/L Alkaline Phosphatase 180 H (34-104) U/L Troponin I High Sens 2.5 (0-14) pg/ml B-Natriuretic Peptide 194 H (0-100) pg/ml Total Protein 7.6 (6.0-8.3) gm/dl Albumin 3.7 (3.4-5.0) gm/dl Globulin 3.9 (2.5-4.0) gm/dl Albumin/Globulin Ratio 0.9 (0.9-2) Lipase 8 L (11-82) U/L TSH (0.300-4.500) uIu/ml SARS-CoV-2, RNA, NAAT (NEGATIVE) 01/15/23 01/15/23 01/15/23 Range/Units 12:49 15:53 17:59 WBC (4.8-10.8) K/ul RBC (4.20-5.40) M/uL Hgb (12.0-16.0) g/dl Hct (37.0-47.0) % MCV (80.0-100.0) fL MCH (25.0-34.0) pg MCHC (32.0-36.0) g/dL RDW Std Deviation (36.4-46.3) fL RDW Coeff of Brandon (11.5-14.5) % Plt Count (130-400) K/uL MPV (9.4-12.4) fL Immature Gran % (Auto) % Neut % (Auto) % Lymph % (Auto) % [place] % (Auto) % Eos % (Auto) % Baso % (Auto) % Neut # (Auto) (1.40-6.50) K/uL Lymph # (Auto) (1.2-3.4) K/uL [place] # (Auto) (0.11-0.59) K/uL Eos # (Auto) (0-0.50) K/uL Baso # (Auto) (0-0.2) K/uL Immature Gran # (Auto) (0.01-0.20) K/uL D-Dimer 1960 H* (0-500) ug/L FEU Sodium (136-145) mmol/L Potassium (3.5-5.1) mmol/L Chloride (98-107) mmol/L Carbon Dioxide (21-32) mmol/L Anion Gap (3-11) BUN (6-23) mg/dl Creatinine (0.6-1.2) mg/dl Est Cr Clr Drug Dosing ml/min Est GFR ( Amer) ml/min Est GFR (Non-Af Amer) ml/min BUN/Creatinine Ratio (10-20) Glucose (70-99(Fasting)) mg/dl Calcium (8.6-10.3) mg/dl Phosphorus (2.5-4.9) mg/dl Magnesium (1.7-2.4) mg/dl Total Bilirubin (0.2-1.0) mg/dl AST (13-39) U/L ALT (7-52) U/L Alkaline Phosphatase (34-104) U/L Troponin I High Sens (0-14) pg/ml B-Natriuretic Peptide (0-100) pg/ml Total Protein (6.0-8.3) gm/dl Albumin (3.4-5.0) gm/dl Globulin (2.5-4.0) gm/dl Albumin/Globulin Ratio (0.9-2) Lipase (11-82) U/L TSH 0.822 (0.300-4.500) uIu/ml SARS-CoV-2, RNA, NAAT NEGATIVE (NEGATIVE) Administered Medications Albuterol (Albut/Ipratrop 3mg/0.5mg Neb 3 Ml Vial) 3 ml NEB QIDR NATALIA; Protocol Stop: 02/14/23 20:42 Last Admin: 01/15/23 21:20 Dose: 3 ml Documented By: NDC Azithromycin (Azithromycin 250 Mg Tab) 500 mg PO Q24H NATALIA Stop: 01/18/23 20:59 Last Admin: 01/15/23 22:22 Dose: 500 mg Documented By: LAT Enoxaparin Sodium (Enoxaparin Inj 40 Mg/0.4 Ml Syr) 40 mg SQ QPM NATALIA Stop: 02/14/23 20:59 Last Admin: 01/15/23 22:22 Dose: 40 mg Documented By: LAT Famotidine (Famotidine 40 Mg Tablet) 40 mg PO BID NATALIA Stop: 02/14/23 20:59 Last Admin: 01/15/23 22:21 Dose: 40 mg Documented By: LAT Insulin Aspart (Insulin Aspart Per Unit Charge) 0 units SC ACHS NATALIA Stop: 02/14/23 21:14 Last Admin: 01/15/23 22:18 Dose: 8 units Documented By: RHONDA Co-signed By: LEIDY Montelukast Sodium (Montelukast Sodium 10 Mg Tablet) 10 mg PO HS [facility] Stop: 02/14/23 20:59 Last Admin: 01/15/23 22:21 Dose: 10 mg Documented By: LAT Nortriptyline HCl (Nortriptyline Hcl 25 Mg Cap) 100 mg PO HS [facility] Stop: 02/14/23 20:59 Last Admin: 01/15/23 22:20 Dose: 100 mg Documented By: LAT Discontinued Medications Albuterol (Albut/Ipratrop 3mg/0.5mg Neb 3 Ml Vial) 3 ml NEB NOW STA; Protocol Stop: 01/15/23 13:43 Last Admin: 01/15/23 13:55 Dose: 3 ml Documented By: Insulin Glargine (Lantus Per Unit Charge) 50 units SC NOW STA Stop: 01/15/23 22:13 Last Admin: 01/15/23 22:17 Dose: 50 units Documented By: RHONDA Co-signed By: LEIDY Methylprednisolone (Methylprednisolone 125 Mg/2 Ml Vial) 125 mg IV NOW STA Stop: 01/15/23 13:43 Last Admin: 01/15/23 13:55 Dose: 125 mg Documented By: Oxycodone/Acetaminophen (Oxycodone/Acetaminophen 5mg/325mg Tab) 1 tab PO NOW STA Stop: 01/15/23 18:41 Last Admin: 01/15/23 18:47 Dose: 1 tab Documented By: Imaging Data Radiologist's Impression: Chest X-Ray 01/15/23 12:39 XR chest 1V portable HISTORY: 67 years-old Female Chest pain, nonspecific COMPARISON: 12/19/2022 TECHNIQUE: AP view of the chest FINDINGS: Cardiomediastinal and hilar silhouettes are unchanged. Chronic interstitial coarsening. No pneumothorax, pleural effusion, airspace consolidation or overt pulmonary edema. Degenerative changes of the shoulders and spine. IMPRESSION: No acute process. ACT 112: Negative or not required by law. The above report was generated using voice recognition software. It may contain grammatical, syntax or spelling errors. Electronically signed by: Richardson Gray M.D. 01/15/2023 1:[address] 01/15/23 13:43 CT OF THE CHEST WITHOUT IV CONTRAST CLINICAL HISTORY: Shortness of breath after surgery, copd, vulvovag CA. COMPARISON STUDY: Chest radiograph performed earlier today. Chest CT December 01, 2022. PET/CT December 10, 2022. CT DOSE: 874.50 mGy.cm TECHNIQUE: Axial images of the chest were obtained without IV contrast. Images were reviewed in the axial, sagittal, and coronal planes. IV contrast was not administered for this examination. Automated exposure control was utilized for the study. A dose lowering technique was utilized adhering to the principles of ALARA. FINDINGS: There is no pericardial effusion. Size of the heart is at the upper limits of normal. A mildly enlarged prevascular lymph node on axial image 72 of 225 measures 1.6 x 1.1 cm. This is unchanged since prior PET/CT of December 10, 2022. This node was not FDG avid on that examination. No pneumothorax or pleural effusion is present. Mild interlobular septal thickening is noted. Multiple pulmonary nodules measuring up to 6 mm are unchanged since PET/CT of December 20, 2022. There are no new nodules. There is no consolidation to suggest pneumonia. No suspicious lesions within the bony thorax are noted. Low-attenuation right adrenal nodule measures 1.2 cm. This favors an adenoma. This is unchanged since prior PET/CT. This was not FDG avid. There is nodularity of the liver surface. Mildly enlarged portacaval lymph node remains unchanged as well. IMPRESSION: 1. Mild interlobular septal thickening consistent with mild interstitial pulmona ry edema. 2. No consolidation to suggest pneumonia. 3. Mildly enlarged prevascular lymph node, unchanged since prior PET/CT. This is likely benign but can be assessed on follow-up exams. 4. No change in multiple pulmonary nodules. These remain indeterminate and can be assessed on follow-up CTs. ACT 112: Negative or not required by law. Electronically signed by: Kavon Hartman M.D. 01/15/2023 3:34 PM Discharge Plan Visit Data Chief Complaint: Shortness of Breath/Dyspnea Stated Complaint: SOB,HAD SURGERY NOT TOO LONG AGO ED Provider: Julio César Dunaway Discharge Problem: Pleurisy, Squamous cell carcinoma, COPD (chronic obstructive pulmonary disease), Post-operative state Patient Disposition: Admitted As Inpatient Discharge Instructions Interventions: ED Discharge Assessment Last Done: 01/15/23 20:15
[2023-01-15 13:36] LABS: Albumin Globulin Ratio 0.9 (0.9-2); Albumin Level 3.7 gm/dl (3.4-5.0); BUN Creatinine Ratio 12.9 (10-20); Bilirubin,Total 0.4 mg/dl (0.2-1.0); Calcium 8.9 mg/dl (8.6-10.3); Creatinine Clr Calc Pharmacy 83.2 ml/min; Est GFR (African American) 103.9 ml/min; Est GFR (Non-African American) 89.7 ml/min; Globulin 3.9 gm/dl (2.5-4.0); Potassium 3.2 mmol/L (3.5-5.1); Total Protein 7.6 gm/dl (6.0-8.3)
[2023-01-15 13:41] LABS: Troponin I High Sensitivity 2.5 pg/ml (0-14)
--- NOTE | 2023-01-15 13:41 | XRay Report ---
XR chest 1V portable HISTORY: 67 years-old Female Chest pain, nonspecific COMPARISON: 12/19/2022 TECHNIQUE: AP view of the chest FINDINGS: Cardiomediastinal and hilar silhouettes are unchanged. Chronic interstitial coarsening. No pneumothor ax, pleural effusion, airspace consolidation or overt pulmonary edema. Degenerative changes of the sh oulders and spine. IMPRESSION: No acute process. ACT 112: Negative or not required by law. The above report was generated using voice recognition software. It may contain grammatical, syntax o r spelling errors. Electronically signed by: Richardson Gray M.D. 01/15/2023 1:39 PM
[2023-01-15] MEDS ORDERED: ALBUT/IPRATROP 3MG/0.5MG NEB 3 ML VIAL NEB STA (13:42)
[2023-01-15] MEDS ORDERED: methylPREDNISolone 125 MG/2 ML VIAL IV STA (13:42)
[2023-01-15 13:53] LABS: Basophils # (auto) 0.04 K/uL (0-0.2); Basophils % (auto) 0.4 %; Eosinophils # (auto) 0.18 K/uL (0-0.50); Hematocrit (blood only) 37.5 % (37.0-47.0); Hemoglobin 11.9 g/dl (12.0-16.0); Immature Granulocytes # (auto) 0.14 K/uL (0.01-0.20); Immature Granulocytes % (auto) 1.5 %; Lymphocytes # (auto) 2.38 K/uL (1.2-3.4); Lymphocytes % (auto) 26.2 %; Mean Corpuscular Hemoglobin 28.1 pg (25.0-34.0); Mean Corpuscular Hgb Conc 31.7 g/dL (32.0-36.0); Mean Corpuscular Volume 88.7 fL (80.0-100.0); Mean Platelet Volume 9.4 fL (9.4-12.4); Monocytes # (auto) 0.69 K/uL (0.11-0.59); Monocytes % (auto) 7.6 %; Neutrophils # (auto) 5.64 K/uL (1.40-6.50); Neutrophils % (auto) 62.3 %; Platelet Count 420 K/uL (130-400); RDW Coefficient of Variation 14.4 % (11.5-14.5); RDW Standard Deviation 46.2 fL (36.4-46.3); Red Blood Count 4.23 M/uL (4.20-5.40); White Blood Count 9.07 K/ul (4.8-10.8)
--- NOTE | 2023-01-15 15:03 | Electrocardiogram Report ---
Test Reason : Blood Pressure : / mmHG Vent. Rate : 090 BPM Atrial Rate : 090 BPM P-R Int : 160 ms QRS Dur : 092 ms QT Int : 390 ms P-R-T Axes : 040 037 069 degrees QTc Int : 477 ms Normal sinus rhythm Possible Left atrial enlargement Borderline ECG When compared with ECG of 19-DEC-2022 11:06, Premature ventricular complexes are no longer Present Minimal criteria for Anterior infarct are no longer Present Confirmed by Sukhwinder German ([id number]) on 01/15/2023 3:02:50 PM Referred By: REFERRED SELF Confirmed By:Breezy German
--- NOTE | 2023-01-15 15:35 | CT Scan Report ---
CT OF THE CHEST WITHOUT IV CONTRAST CLINICAL HISTORY: Shortness of breath after surgery, copd, vulvovag CA. COMPARISON STUDY: Chest radiograph performed earlier today. Chest CT December 01, 2022. PET/CT December [address] DOSE: 874.50 mGy.cm TECHNIQUE: Axial images of the chest were obtained without IV contrast. Images were reviewed in the axial, sagittal, and coronal planes. IV contrast was not administered for this examination. Automat ed exposure control was utilized for the study. A dose lowering technique was utilized adhering to t he principles of ALARA. FINDINGS: There is no pericardial effusion. Size of the heart is at the upper limits of normal. A mi ldly enlarged prevascular lymph node on axial image 72 of 225 measures 1.6 x 1.1 cm. This is unchange d since prior PET/CT of December 10, 2022. This node was not FDG avid on that examination. No pneumothorax or pleural effusion is present. Mild interlobular septal thickening is noted. Multiple pulmonary nodu les measuring up to 6 mm are unchanged since PET/CT of December 20, 2022. There are no new nodules. There is no consolidation to suggest pneumonia. No suspicious lesions within the bony thorax are noted. Low -attenuation right adrenal nodule measures 1.2 cm. This favors an adenoma. This is unchanged since pr ior PET/CT. This was not FDG avid. There is nodularity of the liver surface. Mildly enlarged portacav al lymph node remains unchanged as well. IMPRESSION: 1. Mild interlobular septal thickening consistent with mild interstitial pulmonary edema. 2. No consolidation to suggest pneumonia. 3. Mildly enlarged prevascular lymph node, unchanged since prior PET/CT. This is likely benign but ca n be assessed on follow-up exams. 4. No change in multiple pulmonary nodules. These remain indeterminate and can be assessed on follow- up CTs. ACT 112: Negative or not required by law. Electronically signed by: Kavon Hartman M.D. 01/15/2023 3:34 PM
[2023-01-15 17:17] LABS: D Dimer 1960 ug/L FEU (0-500)
--- NOTE | 2023-01-15 18:35 | History & Physical Report ---
Date of Service January 15, 2023 Assessment & Plan (1) Acute exacerbation of chronic obstructive pulmonary disease (COPD): Plan: Azithromycin 500mg PO daily for 3 days Solu-medrol 125mg IV given in ER, continue 60mg IV daily Duonebs QID Continue her routine maintenance inhaler or hospital formulary equivalent (2) Shortness of breath: Plan: Suspect mostly COPD exacerbation +/- pulmonary edema Patient wishes to see how she does with steroids and duonebs initially as lasix causing irritation around her surgical site so currently not taking this as outpatient - last admission required Lasix with normal TTE at that time, will get urine protein/Cr ratio to assess for proteinuria causing this. BNP increased from 78 -> 194 from last admission. Unable to rule out pulmonary emboli as she has a severe allergy to contrast - will obtain US venous dopplers and NM V/Q scan to better assess for this however patient currently stable and low suspicion of this from history/exam therefore will start on prophylaxis dosing Lovenox on admission (3) Type 2 diabetes mellitus: Plan: Hemoglobin A1C 9.4 in October, will repeat with AM labs Continue Lantus 44 units BID Novolog: --Goal BSG Range: Low 110 mg/dL, High 140 mg/dL --Correction Factor: 10 mg/dL/unit --Carbohydrate ratio = 3 g/unit --BSGs ACHS if eating, q6h if npo Consult pharmacy for ongoing glycemic control in setting of steroids (4) 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 She reports progressive worsening shortness of breath over the last 3 days without chest pain. Feels similar to her prior COPD exacerbations and has been using her nebulizer at home without steroids without much improvement therefore on calling her PCP recommended to go to the emergency room. She was recently hospitalized from December 01 to December 03 for similar symptoms treated as COPD exacerbation and she was started on Lasix at that time. 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 TTE at that time showed preserved ejection fraction with no significant valve abnormalities. She reports no worsening leg edema or weight gain. In the ER d-dimer was elevated at 1960 ug/ml however she reports being unable to get a IV iodinated contrast due to hives and difficulty breathing with this previously and was recommended never to have again. Given concern for PE and recent admission for similar symptoms she was referred to medicine for admission and ongoing management. Allergies Allergy/AdvReac Type Severity Reaction Status Date / Time Penicillins Allergy Severe SHORT OF Verified 12/10/22 13:17 BREATH/HIVES shellfish derived Allergy Severe SHORT OF Verified 12/10/22 13:17 BREATH/EYES SWELL/ITCHY sumatriptan [From Imitrex] Allergy Severe SHORT OF Verified 12/10/22 13:17 BREATH/HIVES erythromycin base Allergy Intermediate ITCHY HIVES Verified 12/10/22 13:17 liraglutide [From Victoza] Allergy Intermediate RASH/STOMACH Verified 12/10/22 13:17 PAIN rofecoxib [From Vioxx] Allergy Intermediate ITCHY HIVES Verified 12/10/22 13:17 Tetracyclines Allergy Intermediate ITCHY HIVES Verified 12/10/22 13:17 iodine Allergy Unknown Verified 12/10/22 13:17 topiramate [From Topamax] AdvReac Severe SUICIDAL Verified 12/10/22 13:17 THOUGHTS/DEPRESSION meloxicam AdvReac Intermediate GI Verified 12/10/22 13:17 UPSET/DIARRHEA metformin AdvReac Intermediate STOMACH Verified 12/10/22 13:17 PAIN/DIARRHEA Home Medications Medication Instructions Recorded Confirmed Type aspirin 81 mg tablet,delayed 81 mg PO DAILY 08/10/22 01/15/23 History release cyanocobalamin (vitamin B-12) 1,000 mcg PO DAILY 08/10/22 01/15/23 History 1,000 mcg tablet (Vitamin B-12) epinephrine 0.3 mg/0.3 mL 0.3 mg IM DIRECTED PRN Allergic 08/10/22 01/15/23 History injection, auto-injector (EpiPen) Reaction cetirizine 10 mg tablet (Zyrtec) 10 mg PO DAILY #90 tabs 08/27/22 01/15/23 Rx glucose 4 gram chewable tablet 4 g PO Q15M PRN hypoglycemia #30 08/27/22 01/15/23 Rx tabs nortriptyline 50 mg capsule 100 mg PO HS #90 caps 08/27/22 01/15/23 Rx fluticasone fur. 200 mcg-umeclid 1 inh inhalation DAILY #3 Inhalers 09/18/22 01/15/23 Rx 62.5 mcg-vilant 25 mcg inhalat.powder (Trelegy Ellipta) lancets #100 ea 11/04/22 01/15/23 Rx pen needle, diabetic 31 gauge x #100 ea 11/04/22 01/15/23 Rx 5/16" (Lite Touch Insulin Pen Clever) famotidine 40 mg tablet 40 mg PO BID #60 tabs 11/19/22 01/15/23 Rx insulin aspart U-100 100 unit/mL 25 unit subcut TID 11/22/22 01/15/23 History (3 mL) subcutaneous pen (Novolog FlexPen U-100 Insulin aspart) furosemide 20 mg tablet (Lasix) 20 mg PO DAILY #30 tabs 12/03/22 01/15/23 Rx blood-glucose meter,continuous #1 ea 12/05/22 01/15/23 Rx (Dexcom G6 [employer] Person) blood-glucose sensor (Dexcom G6 #3 ea 12/05/22 01/15/23 Rx Sensor device) blood-glucose transmitter (Dexcom #1 ea 12/05/22 01/15/23 Rx G6 Transmitter device) montelukast 10 mg tablet 10 mg PO HS #90 tabs 12/05/22 01/15/23 Rx (Singulair) dulaglutide 1.5 mg/0.5 mL 1.5 mg (0.5 mL) subcut WK #2 mL 01/01/23 01/15/23 Rx subcutaneous pen injector (Trulicity) insulin glargine 100 unit/mL (3 44 unit (0.44 mL) subcut BID #45 mL 01/01/23 01/15/23 Rx mL) subcutaneous pen (Lantus Solostar U-100 Insulin) tizanidine 4 mg tablet 4 mg PO TID PRN muscle spasticity 01/06/23 01/15/23 Rx #90 tabs albuterol sulfate 90 mcg/actuation 2 puff inhalation Q6 PRN Wheezing 01/15/23 01/15/23 History aerosol inhaler (Ventolin HFA) oxycodone-acetaminophen 5 mg-325 1 tab PO TID PRN Pain 01/15/23 01/15/23 History mg tablet silver sulfadiazine 1 % topical 1 applic topical UD 01/15/23 01/15/23 History cream Past Med/Surg History Medical History Arthritis Asthma Chronic back pain COPD (chronic obstructive pulmonary disease) GERD without esophagitis Hyperlipidemia Insomnia Migraine headache without aura NAFLD (nonalcoholic fatty liver disease) Recurrent UTI (urinary tract infection) Type 2 diabetes mellitus Surgical History H/O: x3 S/P total abdominal hysterectomy NELIDA-USO S/P tubal ligation Family History Mother Myocardial infarction Diabetes Sister Myocardial infarction x 2 Diabetes Brother Throat cancer Denies family history of Ovarian cancer Prostate cancer Breast cancer Colorectal cancer Uterine cancer Social History Smoking Status: Former smoker Tobacco Type: Cigarettes Second Hand Exposure: No; Do You Dip or Chew Tobacco: No; Tobacco Cessation Education Requested by Patient: No Hx Alcohol Use: No Hx Substance Use: No Preferred Language: Togolese Communication Ability: Effective Visual Impairment: No Limitations Hearing Ability: Normal Log Buncher Required: No Beliefs That Will Affect Care: None marital status: / Current Living Situation: Family Current Living Situation Comment: lives with two adult sons current occupational status: disabled Other Information That Helps Us Care for You: No Feels Safe at Home: Yes Safety Concerns: Feels Safe At This Time Diet: regular Diet Comment: regular caffeine: Yes during the past year weight has: decreased > 10 lbs Dental Care, Regularly: No Physical Activity Frequency: Other Physical Activity Frequency Comment: limited to physical condition Seatbelt Use: always Sunscreen Use: No Assistive Devices: Glasses and Scooter/Electric Scooter Review of Systems Review of Systems: All systems reviewed & are unremarkable except as noted in HPI & below Physical Exam Constitutional: WD/WN, vitals as above Eyes: + anicteric sclerae; normal pupil size Respiratory: normal respiratory effort; no respiratory distress Auscultation: + wheezes (end expiratory); breath sounds present, no diminished lung sounds, no crackles, no rales and no rhonchi Cardiovascular: Rate/Rhythm: regular rate and regular rhythm Heart Sounds: no murmur Extremities: normal capillary refill and + pedal edema (trace ankle pitting); no calf tenderness Gastrointestinal (Abdomen): normal bowel sounds, soft, nontender, no hepatosplenomegaly Musculoskeletal: no cyanosis or clubbing, extremities motor strength 5/5 Skin: no rashes, warm and dry Neurologic: moves all extremities and awake; not confused Psychiatric: A+Ox3, euthymic affect Results & Data Results & Data Vital Signs (Past 12 Hours) Vital Signs Temp Pulse Pulse Resp BP BP Pulse Ox 01/15/23 18:00 98 H 15 175/91 H 94 01/15/23 16:49 97 H 01/15/23 13:28 90 18 99 01/15/23 12:52 91 H 01/15/23 15:02 97 H 20 157/82 H 97 01/15/23 12:38 01/15/23 12:38 98 01/15/23 12:36 90 20 154/80 H 99 01/15/23 12:17 36.7 C 88 24 137/71 99 O2 Del Method 01/15/23 18:00 Room Air 01/15/23 16:49 01/15/23 13:28 Room Air 01/15/23 12:52 01/15/23 15:02 Room Air 01/15/23 12:38 Room Air 01/15/23 12:38 Room Air 01/15/23 12:36 Room Air 01/15/23 12:17 Room Air Laboratory Results Abnormal lab results 01/15/23 01/15/23 01/15/23 Range/Units 12:49 12:49 12:49 Hgb 11.9 L (12.0-16.0) g/dl MCHC 31.7 L (32.0-36.0) g/dL Plt Count 420 H (130-400) K/uL Dane # (Auto) 0.69 H (0.11-0.59) K/uL D-Dimer (0-500) ug/L FEU Potassium 3.2 L (3.5-5.1) mmol/L Glucose 137 H (70-99(Fasting)) mg/dl POC Glucose (70-99) mg/dl Phosphorus 2.0 L (2.5-4.9) mg/dl Alkaline Phosphatase 180 H (34-104) U/L B-Natriuretic Peptide 194 H (0-100) pg/ml Lipase 8 L (11-82) U/L 01/15/23 01/15/23 Range/Units 15:53 22:06 Hgb (12.0-16.0) g/dl MCHC (32.0-36.0) g/dL Plt Count (130-400) K/uL Dane # (Auto) (0.11-0.59) K/uL D-Dimer 1960 H* (0-500) ug/L FEU Potassium (3.5-5.1) mmol/L Glucose (70-99(Fasting)) mg/dl POC Glucose 259 H (70-99) mg/dl Phosphorus (2.5-4.9) mg/dl Alkaline Phosphatase (34-104) U/L B-Natriuretic Peptide (0-100) pg/ml Lipase (11-82) U/L Diagnostic Findings XR chest 1V portable HISTORY: 67 years-old Female Chest pain, nonspecific COMPARISON: 12/19/2022 TECHNIQUE: AP view of the chest FINDINGS: Cardiomediastinal and hilar silhouettes are unchanged. Chronic interstitial coarsening. No pneumothorax, pleural effusion, airspace consolidation or overt pulmonary edema. Degenerative changes of the shoulders and spine. IMPRESSION: No acute process. CT OF THE CHEST WITHOUT IV CONTRAST CLINICAL HISTORY: Shortness of breath after surgery, copd, vulvovag CA. COMPARISON STUDY: Chest radiograph performed earlier today. Chest CT December 01, 2022. PET/CT December 10, 2022. CT DOSE: 874.50 mGy.cm TECHNIQUE: Axial images of the chest were obtained without IV contrast. Images were reviewed in the axial, sagittal, and coronal planes. IV contrast was not administered for this examination. Automated exposure control was utilized for the study. A dose lowering technique was utilized adhering to the principles of ALARA. FINDINGS: There is no pericardial effusion. Size of the heart is at the upper limits of normal. A mildly enlarged prevascular lymph node on axial image 72 of 225 measures 1.6 x 1.1 cm. This is unchanged since prior PET/CT of December 10, 2022. This node was not FDG avid on that examination. No pneumothorax or pleural effusion is present. Mild interlobular septal thickening is noted. Multiple pulmonary nodules measuring up to 6 mm are unchanged since PET/CT of December 20, 2022. There are no new nodules. There is no consolidation to suggest pneumonia. No suspicious lesions within the bony thorax are noted. Low-attenuation right adrenal nodule measures 1.2 cm. This favors an adenoma. This is unchanged since prior PET/CT. This was not FDG avid. There is nodularity of the liver surface. Mildly enlarged portacaval lymph node remains unchanged as well. IMPRESSION: 1. Mild interlobular septal thickening consistent with mild interstitial pulmonary edema. 2. No consolidation to suggest pneumonia. 3. Mildly enlarged prevascular lymph node, unchanged since prior PET/CT. This is likely benign but can be assessed on follow-up exams. 4. No change in multiple pulmonary nodules. These remain indeterminate and can be assessed on follow-up CTs. Medications Administered ER Medications Given: Solu-Medrol 125mg IV Duoneb 3ml NEB ECG Rate (beats per minute): 90 Rhythm: normal sinus Findings: no acute ischemic change Comparison ECG Date: from (December 19, 2022) Change: the following changes noted (PVCs no longer present) Code Status & VTE Plan Code Status Full VTE Prophylaxis Plan VTE Prophylaxis will be ordered: Yes PG Care Time/CCT Total # of Minutes Spent Total Time Spent with Patient: Total time spent is greater than 50% in coordination of care (as documented) at patient's floor/unit and/or counseling patient: Coding Level of Care Code 95930 INT INP/OBS CARE 3/75MIN Diagnoses Acute exacerbation of chronic obstructive pulmonary disease (COPD) J44.1 Shortness of breath R06.02 Type 2 diabetes mellitus E11.9 Squamous cell carcinoma
[2023-01-15] MEDS ORDERED: oxyCODONE/ACETAMINOPHEN 5mg/325mg TAB PO STA (18:40)
[2023-01-15] MEDS ORDERED: GLUCAGON FOR INJ 1 MG VIAL SQ PRN (20:43)
[2023-01-15] MEDS ORDERED: PHARMACY GLYCEMIC MGMT CONSULT PRN (20:43)
[2023-01-15] MEDS ORDERED: DEXTROSE 50% 50 ML SYRINGE IV PRN (20:43)
[2023-01-15] MEDS ORDERED: tiZANidine HCL 4 MG TABLET PO PRN (20:43)
[2023-01-15] MEDS ORDERED: CARBOHYDRATES FOR HYPOGLYCEMIA PO PRN (20:43)
[2023-01-15] MEDS ORDERED: GLUCOSE 10 TAB/TUBE PO PRN (20:43)
[2023-01-15] MEDS ORDERED: GLUCOSE 40% GEL 15 GM TUBE PO PRN (20:43)
[2023-01-15] MEDS ORDERED: ENOXAPARIN INJ 40 MG/0.4 ML SYR SQ SCH (21:00)
[2023-01-15] MEDS ORDERED: MONTELUKAST SODIUM 10 MG TABLET PO SCH (21:00)
[2023-01-15] MEDS ORDERED: NORTRIPTYLINE HCL 25 MG CAP PO SCH (21:00)
[2023-01-15] MEDS ORDERED: AZITHROMYCIN 250 MG TAB PO SCH (21:00)
[2023-01-15] MEDS ORDERED: ALBUT/IPRATROP 3MG/0.5MG NEB 3 ML VIAL NEB PRN (21:04)
[2023-01-15] MEDS ORDERED: LANTUS PER UNIT CHARGE SC SCH (21:15)
[2023-01-15] MEDS: ALBUT/IPRATROP 3MG/0.5MG NEB 3 ML VIAL NEB SCH (21:20)
[2023-01-15] MEDS ORDERED: LANTUS PER UNIT CHARGE SC STA (22:12)
[2023-01-15] MEDS: INSULIN ASPART PER UNIT CHARGE SC SCH (22:18)
[2023-01-15] MEDS: FAMOTIDINE 40 MG TABLET PO SCH (22:21)
[2023-01-15] MEDS ORDERED: POTASSIUM CHLORIDE CRTAB 20 MEQ TABCR PO STA (23:45)
[2023-01-16] MEDS: oxyCODONE/ACETAMINOPHEN 5mg/325mg TAB PO PRN ×2 (00:28→08:58)
[2023-01-16] MEDS ORDERED: INSULIN ASPART PER UNIT CHARGE SC ONE (02:00)
[2023-01-16] MEDS: ALBUT/IPRATROP 3MG/0.5MG NEB 3 ML VIAL NEB SCH ×2 (07:27→10:46)
[2023-01-16 08:31] LABS: Estimated Average Glucose 203 mg/dl; Hemoglobin A1C 8.7 % (4.5-5.6)
[2023-01-16 08:32] LABS: Basophils # (auto) 0.01 K/uL (0-0.2); Basophils % (auto) 0.1 %; Hematocrit (blood only) 35.6 % (37.0-47.0); Hemoglobin 11.2 g/dl (12.0-16.0); Immature Granulocytes # (auto) 0.03 K/uL (0.01-0.20); Immature Granulocytes % (auto) 0.4 %; Lymphocytes # (auto) 1.07 K/uL (1.2-3.4); Mean Corpuscular Hemoglobin 27.5 pg (25.0-34.0); Mean Corpuscular Hgb Conc 31.5 g/dL (32.0-36.0); Mean Corpuscular Volume 87.5 fL (80.0-100.0); Mean Platelet Volume 9.8 fL (9.4-12.4); Monocytes # (auto) 0.62 K/uL (0.11-0.59); Monocytes % (auto) 7.5 %; Neutrophils # (auto) 6.49 K/uL (1.40-6.50); Platelet Count 414 K/uL (130-400); RDW Coefficient of Variation 14.3 % (11.5-14.5); Red Blood Count 4.07 M/uL (4.20-5.40); White Blood Count 8.22 K/ul (4.8-10.8)
[2023-01-16 08:46] LABS: BUN Creatinine Ratio 16.7 (10-20); Calcium 8.8 mg/dl (8.6-10.3); Creatinine Clr Calc Pharmacy 87.3 ml/min; Est GFR (African American) 105.9 ml/min; Est GFR (Non-African American) 91.4 ml/min; Potassium 4.3 mmol/L (3.5-5.1)
--- NOTE | 2023-01-16 08:53 | Ultrasound Report ---
US venous doppler LE BI CLINICAL HISTORY: unable to CT for PE ?DVT TECHNIQUE: Bilateral lower extremity real-time compression venous ultrasound with Color Doppler imagi ng. Utilizing real-time ultrasonic imaging multiple real time high-resolution ultrasonic images with compression and noncompression maneuvers of the deep venous system in addition to color doppler imagi ng were performed from the common femoral vein through the proximal calf veins. COMPARISON: None available at the time of this dictation. FINDINGS/IMPRESSION: Currently there is normal compressibility of the deep venous system from the common femoral vein thro ugh the proximal calf veins. No superficial venous thrombosis is identified. ACT 112: Negative or not required by law. Electronically signed by: Antonio Carranza M.D. 01/16/2023 8:52 AM
[2023-01-16] MEDS: INSULIN ASPART PER UNIT CHARGE SC SCH ×2 (08:57→11:44)
[2023-01-16] MEDS ORDERED: CETIRIZINE HCL 10 MG TABLET PO SCH (09:00)
[2023-01-16] MEDS ORDERED: methylPREDNISolone 60 MG in SYRINGE 0 ML IV SCH (09:00)
[2023-01-16] MEDS ORDERED: LANTUS PER UNIT CHARGE SC SCH (09:00)
[2023-01-16] MEDS: FAMOTIDINE 40 MG TABLET PO SCH (09:00)
[2023-01-16] MEDS ORDERED: NON-FORMULARY MEDICATION (Fluticasone-Umeclidin-Vilanter [Trelegy Ellipta] 200-62.5-25 mcg INH SCH (09:00)
[2023-01-16] MEDS ORDERED: ASPIRIN 81 MG ECTAB PO SCH (09:00)
[2023-01-16] MEDS ORDERED: methylPREDNISolone 125 MG/2 ML VIAL IV SCH (09:00)
[2023-01-16] MEDS ORDERED: FLUTICASONE FUROATE 200MCG 14 PUFFS/INHALER INH SCH (09:00)
[2023-01-16] MEDS ORDERED: UMECLIDINIUM/VILANTEROL 62.5/25MCG 7 PUFFS/INHALER INH SCH (09:00)
--- NOTE | 2023-01-16 10:41 | Nuclear Medicine Report ---
NM pul perfusion CLINICAL HISTORY: shortness of breath, cancer ?pulmonary embolism Technique: Perfusion imaging was performed in multiple projections after the intravenous injection of 5.4 mCi of Tc-99m labeled macroaggregated albumin (MAA). Comparison: None available at the time of this dictation. FINDINGS/IMPRESSION: Homogeneous perfusion was seen bilaterally. Low probability of pulmonary emboli sm. ACT 112: Negative or not required by law. Electronically signed by: Antonio Carranza M.D. 01/16/2023 10:39 AM
--- NOTE | 2023-01-16 13:00 | Pharmacy Report ---
Pharmacy Glycemic Short Note 2 - Date of Service January 16, 2023 - Glycemic Short BSG Results (Last 24 hours): 01/15/23 01/15/23 01/16/23 12:49 22:06 02:16 Glucose 137 H POC Glucose 259 H 297 H 01/16/23 01/16/23 01/16/23 07:17 07:47 11:38 Glucose 160 H POC Glucose 161 H 250 H OUTPATIENT ANTIDIABETIC REGIMEN: * Trulicity 1.5mg Qweekly * NovoLog 25 units TID with meals * Lantus 44 units BID * A1c 8.7% 01/16/23 ASSESSMENT: * 67 yo female admitted with COPD exacerbation, received 125mg IV Solu-Medrol yesterday, then 60mg daily, azithromycin PO. * Continue basal bolus insulin for inpatient glycemic control with tight prandial coverage to cover steroid effects on blood sugar. PLAN FOR INPATIENT GLYCEMIC CONTROL: * Hold outpatient diabetes medications * Basal insulin * Lantus 44-60 units SQ BID based on blood sugar * Bolus insulin * NovoLog per scale ACHS or Q6hrs while NPO * Goal Range: Low 110 mg/dL - High 140 mg/dL * Correction Factor: 10 mg/dL/unit * Nutritional / Prandial insulin per carb ratio of 1 unit per 2.5 grams CHO consumed
--- NOTE | 2023-01-16 13:18 | Communication Note ---
Date of Service: January 16, 2023 By CMS guidelines, a determination that the admission or continued stay is not medically necessary has been made by a member of the UR committee and a phys ician for this hospital stay, therefore a Code 44 will be completed and the Inpatient admission will be changed to outpatient.
[2023-01-16 13:23] LABS: Total Protein Urine Random 32.5 mg/dl (0-11.9)
[2023-01-16 13:29] LABS: Creatinine Urine Random 213.1 mg/dl; Protein Creatinine Ratio Urine 0.2 (0-0.2)
--- NOTE | 2023-01-16 13:49 | Discharge Summary ---
Date of Service January 16, 2023 Admission HPI Per Admitting Provider Melissa De Los Santos is a 67 year old female who presents to the ER with shortness of breath. She reports progressive worsening shortness of breath over the last 3 days without chest pain. Feels similar to her prior COPD exacerbations and has been using her nebulizer at home without steroids without much improvement therefore on calling her PCP recommended to go to the emergency room. She was recently hospitalized from December 01 to December 03 for similar symptoms treated as COPD exacerbation and she was started on Lasix at that time. 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 TTE at that time showed preserved ejection fraction with no significant valve abnormalities. She reports no worsening leg edema or weight gain. In the ER d-dimer was elevated at 1960 ug/ml however she reports being unable to get a IV iodinated contrast due to hives and difficulty breathing with this previously and was recommended never to have again. Given concern for PE and recent admission for similar symptoms she was referred to medicine for admission and ongoing management. Principal Diagnosis Acute COPD exacerbation Discharge Exam Constitutional: WD/WN, vitals as above Eyes: + anicteric sclerae; normal pupil size Respiratory: normal respiratory effort; no respiratory distress Auscultation: improved breath sounds present, no diminished lung sounds, no crackles, no rales and no rhonchi Cardiovascular: Rate/Rhythm: regular rate and regular rhythm Heart Sounds: no murmur Extremities: normal capillary refill and + pedal edema (trace ankle pitting); no calf tenderness Gastrointestinal (Abdomen): normal bowel sounds, soft, nontender, no hepatosplenomegaly Musculoskeletal: no cyanosis or clubbing, extremities motor strength 5/5 Skin: no rashes, warm and dry Neurologic: moves all extremities and awake; not confused Psychiatric: A+Ox3, euthymic affect Discharge Data Allergies Allergy/AdvReac Type Severity Reaction Status Date / Time Penicillins Allergy Severe SHORT OF Verified 12/10/22 13:17 BREATH/HIVES shellfish derived Allergy Severe SHORT OF Verified 12/10/22 13:17 BREATH/EYES SWELL/ITCHY sumatriptan [From Imitrex] Allergy Severe SHORT OF Verified 12/10/22 13:17 BREATH/HIVES erythromycin base Allergy Intermediate ITCHY HIVES Verified 12/10/22 13:17 liraglutide [From Victoza] Allergy Intermediate RASH/STOMACH Verified 12/10/22 13:17 PAIN rofecoxib [From Vioxx] Allergy Intermediate ITCHY HIVES Verified 12/10/22 13:17 Tetracyclines Allergy Intermediate ITCHY HIVES Verified 12/10/22 13:17 iodine Allergy Unknown Verified 12/10/22 13:17 topiramate [From Topamax] AdvReac Severe SUICIDAL Verified 12/10/22 13:17 THOUGHTS/DEPRESSION meloxicam AdvReac Intermediate GI Verified 12/10/22 13:17 UPSET/DIARRHEA metformin AdvReac Intermediate STOMACH Verified 12/10/22 13:17 PAIN/DIARRHEA Consultations 01/15/23 17:41 ED Decision to Admit Stat Ordered Studies 01/15/23 13:43 CT chest diagnostic wo con Stat 01/16/23 US venous doppler LE Routine Hospital Course (1) Acute exacerbation of chronic obstructive pulmonary disease (COPD): On admission: Azithromycin 500mg PO daily for 3 days Solu-medrol 125mg IV given in ER, continue 60mg IV daily Duonebs QID Continue her routine maintenance inhaler or hospital formulary equivalent On the following day of discharge: Patient improved and was able to walk the halls, patient felt a little SOB but reports that this is level of fatigue would not bring her to the hospital. She was asking to be discharged. Patient will finish azitromycin dose as above and will be on prednsione taper. (2) Shortness of breath: Suspect mostly COPD exacerbation +/- pulmonary edema Patient wishes to see how she does with steroids and duonebs initially as lasix causing irritation around her surgical site so currently not taking this as outpatient - last admission required Lasix with normal TTE at that time, will get urine protein/Cr ratio to assess for proteinuria causing this. BNP increased from 78 -> 194 from last admission. Unable to rule out pulmonary emboli as she has a severe allergy to contrast - will obtain US venous dopplers and NM V/Q scan to better assess for this however patient currently stable and low suspicion of this from history/exam therefore will start on prophylaxis dosing Lovenox on admission (3) Type 2 diabetes mellitus: Hemoglobin A1C 9.4 in October, will repeat with AM labs Continue Lantus 44 units BID Novolog: --Goal BSG Range: Low 110 mg/dL, High 140 mg/dL --Correction Factor: 10 mg/dL/unit --Carbohydrate ratio = 3 g/unit --BSGs ACHS if eating, q6h if npo Consult pharmacy for ongoing glycemic control in setting of steroids (4) Squamous cell carcinoma: Recent operated vulval cancer Continue her usual pain medication for this Plan VTE Prophylaxis - Lovenox 40mg SQ daily Diet - T2DM Disposition - admit to med/tele Total Time Total Time Spent Total Time Spent (In Minutes): 32 Discharge Plan Discharge Items Patient Disposition: Home - Self-Care Reason For Visit: COPD EXACERBATION, DYSPNEA Discharge Diagnosis: COPD exacerbation Activity: Resume your previous activity Non-emergency contact: Primary Care Provider Call non-emergency contact if: you have any medication questions Follow-up/Referrals: Jean Pierre Dumas CRNP [Primary Care Provider] - 01/28/23 8:20 am (If unable to keep your scheduled follow up appt please call the office to reschedule. ) Diet: Carb Consistent or DM2 Addtl Attending Provider Instructions: will continue your current antibiotics for 2 more doses. Pending Studies at Discharge: No Stand-Alone Forms: My [facility] [employer], Smoking Cessation Medications and DC Order Prescriptions: New azithromycin 250 mg Tablet 500 mg PO 2100 Qty: 2 0RF prednisone 5 mg tablet See Rx Instructions .ROUTE .COMPLEX Qty: 36 0RF Rx Instructions: prednisone 5 mg: take 8 tablets (40 mg) on Day 1; 7 tablets (35 mg) on Day 2; then decrease by 1 tablet every day until finished Continued (DME) lancets Misc See Rx Instructions .Route Qty: 100 5RF Rx Instructions: As directed (DME) pen needle, diabetic [Lite Touch Insulin Pen [place]] 31 gauge x 5/16" needle See Rx Instructions .Route Qty: 100 6RF Rx Instructions: As directed famotidine 40 mg tablet 40 mg PO BID Qty: 60 2RF insulin glargine [Lantus Solostar U-100 Insulin] 100 unit/mL (3 mL) insulin pen 44 unit subcut BID Qty: 45 2RF Trulicity 1.5 mg/0.5 mL pen injector 1.5 mg SUBCUT WK Qty: 2 3RF Rx Instructions: TAKES ON SATURDAYS. E11.9 tizanidine 4 mg tablet 4 mg PO TID PRN (Reason: muscle spasticity) Qty: 90 0RF Trelegy Ellipta 200-62.5-25 mcg blister with device 1 inh inhalation DAILY Qty: 3 1RF montelukast [Singulair] 10 mg tablet 10 mg PO HS Qty: 90 1RF (DME) Dexcom G6 Stain Remover Misc See Rx Instructions .Route Qty: 1 0RF Rx Instructions: As directed (DME) Dexcom G6 Sensor Device See Rx Instructions .Route Qty: 3 3RF Rx Instructions: As directed (DME) Dexcom G6 Transmitter Device See Rx Instructions .Route Qty: 1 1RF Rx Instructions: As directed insulin aspart U-100 [Novolog FlexPen U-100 Insulin] 100 unit/mL (3 mL) insulin pen 25 unit subcut TID Rx Instructions: E11.9 cetirizine [Zyrtec] 10 mg tablet 10 mg PO DAILY Qty: 90 1RF nortriptyline 50 mg capsule 100 mg PO HS Qty: 90 1RF glucose 4 gram tablet,chewable 4 g PO Q15M PRN (Reason: hypoglycemia) Qty: 30 1RF Rx Instructions: until symptoms of low blood sugar are controlled cyanocobalamin (vitamin B-12) [Vitamin B-12] 1,000 mcg Tablet 1,000 mcg PO DAILY aspirin 81 mg Tablet,Delayed Release (Dr/Ec) 81 mg PO DAILY epinephrine [EpiPen] 0.3 mg/0.3 mL Auto-Injector 0.3 mg IM DIRECTED PRN (Reason: Allergic Reaction) furosemide [Lasix] 20 mg tablet 20 mg PO DAILY Qty: 30 3RF silver sulfadiazine 1 % cream 1 applic TOPICAL UD oxycodone-acetaminophen 5-325 mg tablet 1 tab PO TID PRN (Reason: Pain) albuterol sulfate [Ventolin HFA] 90 mcg/actuation HFA aerosol inhaler 2 puff INHALATION Q6 PRN (Reason: Wheezing) Discharge Orders: Discharge Order (Routine); Ordered 01/16/23 Ordered By: Maxi Ross/Other Patient Handouts: A1C, Managing Type 2 Diabetes Admission Data Admit Date/Time: 01/15/23 18:57 Attending Provider: Maxi Espana Admit Provider: Braydon Zafar Primary Care Provider: Jean Pierre Dumas Other Providers: Braydon Zafar Other Interventions: Discharge Summary Assessment (RN) Last Done: 01/16/23 13:38 Coding Level of Care Code 26667 INP/OBS DISCH >30 MIN Diagnoses Acute exacerbation of chronic obstructive pulmonary disease (COPD) J44.1 Shortness of breath R06.02 Type 2 diabetes mellitus E11.9 Squamous cell carcinoma
--- NOTE | 2023-01-17 13:53 | Coding Query ---
To promote full compliance with coding requirements relating to patient care, provider participation is requested in all cases of administrative intern uncertainty. Please assist us with the question(s) below: Coding Question(s): The diagnosis below was documented in the H&P, and the same documentation from the H&P is on the Discharge Summary and it's not clear if the possible Pulmonary Emboli was still to be ruled out or was ruled out after the venous dopplers and NM V/Q scan. Please indicate if it is still a possible diagnosis or ruled out. Physician's Response(s): POSSIBLE PULMONARY EMBOLI ( ) Diagnosed and POA ( ) Diagnosed and not POA ( x) Ruled out ( ) Other (please specify) MTDD
== END 2023-01-16 14:15 | disposition home or self-care (01) | DRG 192 ==
LOC: ED 12:14 → 2N 18:57 → INTOOBSV 18:57 → SUATTDRO 18:57 → 2N 20:15

== ENCOUNTER 2023-09-09 03:59 | Inpatient (IN) ==
[2023-09-09] MEDS: ALBUT/IPRATROP 3MG/0.5MG NEB 3 ML VIAL NEB STA (05:04)
[2023-09-09] MEDS: DEXAMETHASONE SOD INJ 4 MG/ML VIAL IV STA (05:05)
--- NOTE | 2023-09-09 05:07 | Emergency Department Note ---
Impression & Plan Acute exacerbation of chronic obstructive pulmonary disease, Hypoxia, Elevated troponin Admit to the [facility] ED Provider Note NAME: MORE CÁRDENAS AGE: 67 SEX: Female INFORMANT: [Patient] and her son ED PROVIDER(S): Kenyetta Rivera DO CHIEF COMPLAINT: Chest discomfort and shortness of breath PLAN: Disposition: Admit to the [facility] MEDICAL DECISION MAKING: This is a 67-year-old female patient who presents to the emergency department with increasing shortness of breath, chest discomfort and weakness. Patient originally had influenza which seemed to get better over the past couple of days after taking Tamiflu but now has worsening shortness of breath that she believes is an flare of her COPD. Patient describes chest tightness and weakness to the point that she fell today. Patient had to be placed on supplemental oxygen for hypoxia. She was noted to have an elevated troponin. Chest x-ray was unremarkable here in the emergency department. EKG was normal. Laboratory studies did show an elevated glucose as well . Patient was given a dose of IV Decadron for her wheezing along with a DuoNeb treatment. I discussed the case with the [facility] and they will evaluate for further inpatient care. Care/management discussed with: adult basic education manager and the [facility] Triage Nursing notes: [reviewed and agree with them]. Vital Signs: reviewed and unremarkable Additional History obtained from: Patient's son is at bedside Chronic Medical/Social Conditions affecting care: COPD Prior/ Outside/ External records reviewed: Primary care office note from September 02 with the patient was positive for influenza A Differential Diagnosis: Respiratory failure, hypoxia, pneumonia, bronchitis, COPD exacerbation, CHF Diagnostics, independently interpreted by me: ECG: Normal sinus rhythm at a rate of 83. There is no ST segment elevation or signs of ischemia. There is no ectopy. Cardiac Monitoring: Normal sinus rhythm at a rate of 77 Imaging studies: Portable chest x-ray: No acute pulmonary infiltrates or consolidation as per my independent interpretation HPI: 67 year old Female arrives for evaluation of chest tightness and shortness of breath. Patient was diagnosed with influenza last week and took a course of Tamiflu. She was feeling better over the weekend and had a decreased temperature. Over the past couple of hours, she has had increasing weakness, chest tightness and has become more difficult to breathe. PAST MEDICAL HISTORY: [See Below], [] PAST SURGICAL HISTORY: [See Below], [] SOCIAL HISTORY: [See Below], [] HOME MEDICATIONS: See list ALLERGIES: See list VITALS: [See Below] PHYSICAL EXAMINATION: HEENT: Head - normocephalic and atraumatic Pupils are equal, round, and reactive to light. Extraocular eye muscles are intact, and sclera are anicteric. Nose - moist nasal mucosa without discharge. Mouth - moist buccal mucosa. Oropharynx is nonerythematous and there is no tonsillar exudate or edema noted. Neck: Supple; no JVD, nuchal rigidity, cervical lymphadenopathy, or auscultated bruits. Heart: Regular rate and rhythm. There is a normal S1 and S2 with no murmurs, clicks, or gallops appreciated. Lungs: Expiratory wheezes in all lung corb[place] Abdomen: Soft, completely nontender, nondistended, with good bowel sounds. There are no palpable pulsatile masses or hepatosplenomegaly. There is no guarding, rigidity, or rebound noted. Extremities: No evidence of cyanosis, clubbing, or edema. There are easily palpable peripheral pulses. Skin: warm and dry with good turgor and no rashes. Emergency department treatment: shelter monitor, supplemental oxygen by nasal cannula, IV Decadron, DuoNeb Emergency department course: The patient was evaluated in room B-8. A complete history and physical was performed. An IV lock was initiated and labs were drawn as above. Patient was noted to be hypoxic and was placed on supplemental oxygen a twelve-lead EKG was obtained as described above. An order was placed for continuous cardiac monitoring. The patient was in a normal sinus rhythm at a rate of 77. Patient was given a dose of IV Decadron and started on a DuoNeb treatment. Portable chest x-ray was performed. I reviewed some of the results with the patient and her son. I have discussed the case with the [facility] Hospitalist and they will evaluate for further inpatient care. I have personally spent greater than 40 minutes of critical care time in the direct management of this patient. This includes bedside care, interpretation of diagnostic studies, and testing, discussion with consultants, patient, and family members, and other required patient management activities. This 40 minutes is in excess of all separately billable procedures. 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) Recurrent UTI (urinary tract infection) Arthritis GERD without esophagitis Insomnia NAFLD (nonalcoholic fatty liver disease) Chronic back pain Hyperlipidemia Migraine headache without aura Asthma COPD (chronic obstructive pulmonary disease) Type 2 diabetes mellitus Surgical History History of removal of Port-a-Cath (08/18/23) Status post chemotherapy Port-A-Cath in place (02/14/23) History of esophagogastroduodenoscopy (EGD) Hx of colonoscopy History of genitourinary surgical procedure History of biopsy S/P tubal ligation S/P total abdominal hysterectomy H/O: Family History Mother Myocardial infarction Diabetes Kidney disease Heart disease Stroke Sister Myocardial infarction Diabetes Brother Throat cancer, Onset Age: 45 Father Liver cancer, Onset Age: 45 Cancer Sister Hypertension Diabetes Sister Heart disease Diabetes Ovarian cancer Sister Diabetes Brother Cancer Denies family history of Prostate cancer Breast cancer Colorectal cancer Uterine cancer Social History Smoking Status: Former smoker Tobacco Type: Cigarettes Age Started Using Tobacco: 16; Age Quit Using Tobacco: 44; packs per day: 0.5; Second Hand Exposure: Yes; Do You Dip or Chew Tobacco: No; Tobacco Cessation Education Requested by Patient: No Hx Alcohol Use: No Hx Substance Use: No Preferred Language: Citizen Of [place] Communication Ability: Effective Visual Impairment: No Limitations Hearing Ability: Normal Packaging Operator Required: No Beliefs That Will Affect Care: None marital status: / Current Living Situation: Family Current Living Situation Comment: lives with two adult sons current occupational status: disabled How many Children do You have: 3 Other Information That Helps Us Care for You: No Feels Safe at Home: Yes Diet: regular Diet Comment: regular caffeine: Yes during the past year weight has: decreased > 10 lbs Dental Care, Regularly: No Physical Activity Frequency: Other Physical Activity Frequency Comment: limited to physical condition Seatbelt Use: always Sunscreen Use: No Assistive Devices: Scooter/Electric Scooter Allergies Allergies Allergy/AdvReac Type Severity Reaction Status Date / Time iodine Allergy Severe SOB/HIVES Verified 09/02/23 14:53 Penicillins Allergy Severe SHORT OF Verified 09/02/23 14:53 BREATH/HIVES shellfish derived Allergy Severe SHORT OF Verified 09/02/23 14:53 BREATH/EYES SWELL/ITCHY sumatriptan [From Imitrex] Allergy Severe SHORT OF Verified 09/02/23 14:53 BREATH/HIVES erythromycin base Allergy Intermediate ITCHY HIVES Verified 09/02/23 14:53 liraglutide [From Victoza] Allergy Intermediate RASH/STOMACH Verified 09/02/23 14:53 PAIN rofecoxib [From Vioxx] Allergy Intermediate ITCHY HIVES Verified 09/02/23 14:53 Tetracyclines Allergy Intermediate ITCHY HIVES Verified 09/02/23 14:53 topiramate [From Topamax] AdvReac Severe SUICIDAL Verified 09/02/23 14:53 THOUGHTS/DEPRESSION meloxicam AdvReac Intermediate GI Verified 09/02/23 14:53 UPSET/DIARRHEA metformin AdvReac Intermediate STOMACH Verified 09/02/23 14:53 PAIN/DIARRHEA Home Meds Home Medications Medication Instructions Recorded Confirmed aspirin 81 mg tablet,delayed 81 mg PO QPM 08/10/22 09/09/23 release cyanocobalamin (vitamin B-12) 1,000 mcg PO DAILY 08/10/22 09/09/23 1,000 mcg tablet (Vitamin B-12) epinephrine 0.3 mg/0.3 mL 0.3 mg IM UD PRN Allergic Reaction 08/10/22 09/09/23 injection, auto-injector (EpiPen) albuterol sulfate 90 mcg/actuation 2 puff inhalation Q6H PRN Wheezing 01/15/23 09/09/23 aerosol inhaler (Ventolin HFA) lansoprazole 30 mg capsule,delayed 30 mg PO QPM 02/06/23 09/09/23 release (Prevacid) Previous Rx's Medication Instructions Recorded glucose 4 gram chewable tablet 4 g PO Q15M PRN hypoglycemia #30 08/27/22 tabs lancets #100 ea 11/04/22 pen needle, diabetic 31 gauge x #100 ea 11/04/22 5/16" (Lite Touch Insulin Pen [place]) blood-glucose meter,continuous #1 ea 12/05/22 (Dexcom G6 Econometrician) blood-glucose sensor (Dexcom G6 #3 ea 12/05/22 Sensor device) blood-glucose transmitter (Dexcom #1 ea 12/05/22 G6 Transmitter device) nortriptyline 50 mg capsule 100 mg (2 x 50 mg) PO HS #180 caps 03/13/23 (Pamelor) oxycodone 10 mg tablet 10 mg PO Q4H PRN very severe 05/22/23 vulvar cancer [place] #120 tabs oxycodone 20 mg tablet,crush 20 mg PO Q8H severe vulvar cancer 05/22/23 resistant,extended release 12 hr pain 2 weeks #42 tabs (OxyContin) cetirizine 10 mg tablet (Zyrtec) 10 mg PO QPM #90 tabs 07/01/23 insulin glargine 100 unit/mL (3 46 unit (0.46 mL) subcut BID #45 mL 07/01/23 mL) subcutaneous pen (Lantus Solostar U-100 Insulin) insulin aspart U-100 100 unit/mL 28 unit (0.28 mL) subcut TID #15 mL 07/11/23 (3 mL) subcutaneous pen (Novolog FlexPen U-100 Insulin aspart) dulaglutide 1.5 mg/0.5 mL 1.5 mg (0.5 mL) subcut Q7D #2 mL 07/29/23 subcutaneous pen injector (Trulicity) benzonatate 200 mg capsule 200 mg PO TID PRN cough #30 caps 07/31/23 montelukast 10 mg tablet 10 mg PO HS #90 tabs 07/31/23 (Singulair) fluticasone fur. 200 mcg-umeclid 1 inh inhalation QAM #28 ea 08/11/23 62.5 mcg-vilant 25 mcg inhalat.powder (Trelegy Ellipta) tizanidine 4 mg tablet (Zanaflex) 4 mg PO TID PRN muscle spasticity 08/21/23 #90 tabs Results & Data (ED) Vital Signs Vital Signs - 24 hr 09/09/23 04:04 09/09/23 04:23 09/09/23 04:41 Temperature 36.7 C Temperature Source Temporal Artery Scan Pulse Rate 83 77 Pulse Rate [Apical] Pulse Rhythm Regular Pulse Strength Normal Respiratory Rate 20 Respiratory Effort / Characteristics Non-Labored Spontaneous Respiratory Depth Normal Respiratory Pattern Regular Blood Pressure 106/68 Blood Pressure [Left Arm] Blood Pressure Mean 80 Blood Pressure Mean [Left Arm] Blood Pressure Position Sitting Pulse Oximetry 91 87 L Oxygen Delivery Method Room Air Oxygen Flow Rate 0 Sepsis Recent Fever Within 48 Hours No Sepsis New/Unexplained Change in Mental Status N/A Sepsis Action Taken by Nursing No Action Required Oxygen Flow Rate - Titration 2 Pulse Oximetry Post Tiitration 94 09/09/23 05:15 09/09/23 06:00 Temperature Temperature Source Pulse Rate Pulse Rate [Apical] 82 82 Pulse Rhythm Pulse Strength Respiratory Rate 16 16 Respiratory Effort / Characteristics Respiratory Depth Respiratory Pattern Blood Pressure Blood Pressure [Left Arm] 102/74 139/70 Blood Pressure Mean Blood Pressure Mean [Left Arm] 83 93 Blood Pressure Position Pulse Oximetry 96 92 Oxygen Delivery Method Nasal Cannula Nasal Cannula Oxygen Flow Rate 2 2 Sepsis Recent Fever Within 48 Hours Sepsis New/Unexplained Change in Mental Status Sepsis Action Taken by Nursing Oxygen Flow Rate - Titration Pulse Oximetry Post Tiitration Laboratory Data 09/09/23 06:05 09/09/23 04:20 Lab Results 09/09/23 09/09/23 Range/Units 04:20 06:05 WBC Cancelled 8.43 RBC Cancelled 4.21 Hgb Cancelled 12.8 Hct Cancelled 38.3 MCV Cancelled 91.0 MCH Cancelled 30.4 MCHC Cancelled 33.4 RDW Std Deviation Cancelled 40.8 RDW Coeff of [place] Cancelled 12.4 Plt Count Cancelled 239 MPV Cancelled 9.4 Immature Gran % (Auto) Cancelled 0.5 Neut % (Auto) Cancelled 68.1 Lymph % (Auto) Cancelled 21.9 [place] % (Auto) Cancelled 7.9 Eos % (Auto) Cancelled 1.2 Baso % (Auto) Cancelled 0.4 Neut # (Auto) Cancelled 5.74 Lymph # (Auto) Cancelled 1.85 [place] # (Auto) Cancelled 0.67 H Eos # (Auto) Cancelled 0.10 Baso # (Auto) Cancelled 0.03 Immature Gran # (Auto) Cancelled 0.04 Absolute Nucleated RBC Cancelled Nucleated RBC % (auto) Cancelled Neutrophils % (Manual) Cancelled Band Neutrophils % Cancelled Lymphocytes % (Manual) Cancelled Prolymphocyte % Cancelled Reactive Lymphs % (Man) Cancelled Monocytes % (Manual) Cancelled Eosinophils % (Manual) Cancelled Basophils % (Manual) Cancelled Metamyelocytes % (Man) Cancelled Myelocytes % (Man) Cancelled Promyelocytes % (Man) Cancelled Blast Cells % (Manual) Cancelled Plasma Cell % (Manual) Cancelled Other Cells % Cancelled Nucleated RBC % Cancelled Neutrophils # (Manual) Cancelled Band Neutrophils # Cancelled Total Absolute Neuts Cancelled Lymphocytes # (Manual) Cancelled Prolymphocyte # Cancelled Reactive Lymphs # Cancelled Total Abs Lymphocytes Cancelled Monocytes # (Manual) Cancelled Eosinophils # (Manual) Cancelled Basophils # (Manual) Cancelled Metamyelocytes # (Man) Cancelled Myelocytes # (Manual) Cancelled Promyelocytes # (Man) Cancelled Blast Cells # (Man) Cancelled Plasma Cell # (Manual) Cancelled Other Cells # Cancelled Nucleated RBCs # (Man) Cancelled Hypersegmented Neuts Cancelled Hyposegmented Neuts Cancelled Hypogranular Neuts Cancelled Large Granular Lymphs Cancelled # Lrg Granular Lymphs Cancelled Hairy Cells Cancelled Smudge Cells Cancelled Toxic Granulation Cancelled Toxic Vacuolation Cancelled Dohle Bodies Cancelled [place]ino Rods Cancelled Platelet Estimate Cancelled Hypogranular Platelets Cancelled Giant Platelets Cancelled Platelet Satelliting Cancelled RBC Morphology Cancelled Polychromasia Cancelled Hypochromasia Cancelled Poikilocytosis Cancelled Basophilic Stippling Cancelled Anisocytosis Cancelled Microcytosis Cancelled Macrocytosis Cancelled Spherocytes Cancelled Pappenheimer Bodies Cancelled Sickle Cells Cancelled Target Cells Cancelled Tear Drop Cells Cancelled Ovalocytes Cancelled Stomatocytes Cancelled [place] Bodies Cancelled Echinocytes Cancelled Acanthocytes (Spur) Cancelled Rouleaux Cancelled RBC Agglutinates Cancelled Schistocytes Cancelled Sezary Cell Cancelled Sodium 135 L (136-145) mmol/L Potassium 4.0 (3.5-5.1) mmol/L Chloride 102 (98-107) mmol/L Carbon Dioxide 25 (21-32) mmol/L Anion Gap 8 (3-11) BUN 12 (6-23) mg/dl Creatinine 0.85 (0.6-1.2) mg/dl Est Cr Clr Drug Dosing 65.2 ml/min Est GFR ( Amer) 82.2 ml/min Est GFR (Non-Af Amer) 70.9 ml/min BUN/Creatinine Ratio 14.1 (10-20) Glucose 166 H (70-99(Fasting)) mg/dl Calcium 8.8 (8.6-10.3) mg/dl Total Bilirubin 0.4 (0.2-1.0) mg/dl AST 25 (13-39) U/L ALT 22 (7-52) U/L Alkaline Phosphatase 180 H (34-104) U/L Troponin I High Sens 18.8 H (0-14) pg/ml Total Protein 7.2 (6.0-8.3) gm/dl Albumin 3.5 (3.4-5.0) gm/dl Globulin 3.7 (2.5-4.0) gm/dl Albumin/Globulin Ratio 0.9 (0.9-2) Blood Parasites ID Cancelled Administered Medications Albuterol (Albut/Ipratrop 3mg/0.5mg Neb 3 Ml Vial) 3 ml NEB QIDR [facility]; Protocol Stop: 10/09/23 08:59 Last Admin: 09/09/23 19:43 Dose: Not Given Documented By: Admin: 09/09/23 19:22 Dose: 3 ml Documented By: Admin: 09/09/23 14:37 Dose: 3 ml Documented By: Admin: 09/09/23 10:57 Dose: 3 ml Documented By: MALIK Aspirin (Aspirin 81 Mg Ectab) 81 mg PO QPM NATALIA Stop: 10/09/23 20:59 Last Admin: 09/09/23 20:19 Dose: 81 mg Documented By: JAYSHREE Cetirizine HCl (Cetirizine Hcl 10 Mg Tablet) 10 mg PO QPM NATALIA Stop: 10/09/23 20:59 Last Admin: 09/09/23 20:19 Dose: 10 mg Documented By: JAYSHREE Cyanocobalamin (Cyanocobalamin (B-12) 500 Mcg Tablet) 1,000 mcg PO DAILY [facility] Stop: 10/09/23 08:59 Last Admin: 09/09/23 10:28 Dose: 1,000 mcg Documented By: ERICA Fluticasone Furoate (Fluticasone Furoate 200mcg 14 Puffs/Inhaler) 1 puffs INH DAILY NATALIA Stop: 10/09/23 08:59 Last Admin: 09/09/23 10:27 Dose: 1 puffs Documented By: ERICA Guaifenesin (Guaifenesin 600 Mg Tabcr) 1,200 mg PO Q12 NATALIA Stop: 10/09/23 08:59 Last Admin: 09/09/23 20:18 Dose: 1,200 mg Documented By: Admin: 09/09/23 09:19 Dose: 1,200 mg Documented By: ERICA Heparin Sodium (Porcine) (Heparin Sod 5,000 Unit/0.5 Ml Vial) 5,000 units SQ Q8 NATALIA Stop: 10/09/23 13:59 Last Admin: 09/09/23 21:41 Dose: 5,000 units Documented By: Admin: 09/09/23 14:30 Dose: 5,000 units Documented By: AKIN Azithromycin 500 mg/ Dextrose 255 mls @ 125 mls/hr IV Q24H [facility] Stop: 09/16/23 08:59 Last Infusion: 09/09/23 11:52 Dose: Infused Documented By: Admin: 09/09/23 09:18 Dose: 125 mls/hr Documented By: ERICA Ceftriaxone Sodium 2,000 mg/ (Dextrose) 50 mls @ 100 mls/hr IV Q24H [facility]; Protocol Stop: 09/16/23 08:59 Last Infusion: 09/09/23 10:31 Dose: Infused Documented By: Admin: 09/09/23 09:18 Dose: 100 mls/hr Documented By: ERICA Insulin Aspart (Insulin Aspart Per Unit Charge) 0 units SC ACHS NATALIA Stop: 10/09/23 08:59 Last Admin: 09/09/23 20:16 Dose: 7 units Documented By: JAYSHREE Co-signed By: QUIN Admin: 09/09/23 17:19 Dose: 10 units Documented By: ADITYA Co-signed By: WILMA Admin: 09/09/23 13:13 Dose: 9 units Documented By: AKIN Co-signed By: MARCI Admin: 09/09/23 09:42 Dose: 8 units Documented By: ERICA Co-signed By: SYED Montelukast Sodium (Montelukast Sodium 10 Mg Tablet) 10 mg PO HS [facility] Stop: 10/09/23 20:59 Last Admin: 02/06/24 20:18 Dose: 10 mg Documented By: JAYSHREE Nortriptyline HCl (Nortriptyline Hcl 25 Mg Cap) 100 mg PO HS [facility] Stop: 10/09/23 20:59 Last Admin: 09/09/23 20:18 Dose: 100 mg Documented By: JAYSHREE Oxycodone HCl (Oxycodone Hcl 20 Mg Tabcr (Oxycontin)) 20 mg PO Q8H NATALIA Stop: 09/23/23 08:59 Last Admin: 09/10/23 01:08 Dose: 20 mg Documented By: Admin: 09/09/23 19:43 Dose: 20 mg Documented By: Admin: 09/09/23 10:34 Dose: 20 mg Documented By: ERICA Pantoprazole Sodium (Pantoprazole 40 Mg Tab) 40 mg PO QPM NATALIA Stop: 10/09/23 20:59 Last Admin: 09/09/23 20:19 Dose: 40 mg Documented By: JAYSHREE Tizanidine HCl (Tizanidine Hcl 4 Mg Tablet) 4 mg PO TID PRN PRN Reason: muscle spasticity Stop: 10/09/23 08:48 Last Admin: 09/09/23 20:17 Dose: 4 mg Documented By: JAYSHREE Umeclidinium/Vilanterol (Umeclidinium/Vilanterol 62.5/25mcg 7 Puffs/Inhaler) 1 puffs INH DAILY NATALIA Stop: 10/09/23 08:59 Last Admin: 09/09/23 10:27 Dose: 1 puffs Documented By: ERICA Discontinued Medications Albuterol (Albut/Ipratrop 3mg/0.5mg Neb 3 Ml Vial) 3 ml NEB NOW STA; Protocol Stop: 09/09/23 05:00 Last Admin: 09/09/23 05:04 Dose: 3 ml Documented By: GABRIELLA Dexamethasone (Dexamethasone Sod Inj 4 Mg/Ml Vial) 10 mg IV NOW STA Stop: 09/09/23 05:00 Last Admin: 09/09/23 05:05 Dose: 10 mg Documented By: GABRIELLA Gabapentin (Gabapentin 300 Mg Cap) 300 mg PO BID NATALIA Stop: 10/09/23 08:59 Last Admin: 09/09/23 09:19 Dose: 300 mg Documented By: ERICA Methylprednisolone 40 mg/ (Syringe) 0.64 mls @ 1.5 mls/min IV Q8H NATALIA Stop: 10/09/23 08:59 Last Admin: 09/09/23 19:43 Dose: 1.5 mls/min Documented By: Admin: 09/09/23 09:19 Dose: 1.5 mls/min Documented By: ERICA Insulin Glargine (Lantus Per Unit Charge) 46 units SQ BID [facility] Stop: 10/09/23 08:59 Last Admin: 09/09/23 20:17 Dose: 46 units Documented By: JAYSHREE Co-signed By: QUIN Admin: 09/09/23 09:42 Dose: 46 units Documented By: ERICA Co-signed By: SYED Discharge Plan Visit Data Chief Complaint: Respiratory Problems Stated Complaint: ASTHMA,COPD ACTING UP,TROUBLE BREATHING ED Provider: Kenyetta Rivera Discharge Problem: Acute exacerbation of chronic obstructive pulmonary disease, Hypoxia, Elevated troponin Patient Disposition: Admitted As Inpatient Discharge Instructions Interventions: ED Discharge Assessment Last Done: 09/09/23 08:49
[2023-09-09 05:13] LABS: Albumin Level 3.5 gm/dl (3.4-5.0); Bilirubin,Total 0.4 mg/dl (0.2-1.0); Calcium 8.8 mg/dl (8.6-10.3)
[2023-09-09 05:19] LABS: Albumin Globulin Ratio 0.9 (0.9-2); BUN Creatinine Ratio 14.1 (10-20); Creatinine Clr Calc Pharmacy 65.2 ml/min; Est GFR (African American) 82.2 ml/min; Est GFR (Non-African American) 70.9 ml/min; Globulin 3.7 gm/dl (2.5-4.0); Total Protein 7.2 gm/dl (6.0-8.3)
[2023-09-09 05:24] LABS: Troponin I High Sensitivity 18.8 pg/ml (0-14)
[2023-09-09 06:30] LABS: Basophils # (auto) 0.03 K/uL (0.00-0.20); Basophils % (auto) 0.4 %; Eosinophils % (auto) 1.2 %; Hematocrit (blood only) 38.3 % (37.0-47.0); Hemoglobin 12.8 g/dl (12.0-16.0); Immature Granulocytes # (auto) 0.04 K/uL (0.01-0.20); Immature Granulocytes % (auto) 0.5 %; Lymphocytes # (auto) 1.85 K/uL (1.20-3.40); Lymphocytes % (auto) 21.9 %; Mean Corpuscular Hemoglobin 30.4 pg (25.0-34.0); Mean Corpuscular Hgb Conc 33.4 g/dL (32.0-36.0); Mean Platelet Volume 9.4 fL (9.4-12.4); Monocytes # (auto) 0.67 K/uL (0.11-0.59); Monocytes % (auto) 7.9 %; Neutrophils # (auto) 5.74 K/uL (1.40-6.50); Neutrophils % (auto) 68.1 %; Platelet Count 239 K/uL (130-400); RDW Coefficient of Variation 12.4 % (11.5-14.5); RDW Standard Deviation 40.8 fL (36.4-46.3); Red Blood Count 4.21 M/uL (4.20-5.40); White Blood Count 8.43 K/ul (4.8-10.8)
--- NOTE | 2023-09-09 06:37 | History & Physical Report ---
Date of Service September 09, 2023 Assessment & Plan (1) Acute on chronic respiratory failure with hypoxia: (2) Secondary bacterial pneumonia: (3) Acute exacerbation of chronic obstructive pulmonary disease (COPD): (4) Type 2 diabetes mellitus: (5) Fatigue: (6) Cancer related pain: (7) GERD without esophagitis: (8) Squamous cell carcinoma of vulva: Plan Acute on chronic respiratory failure with hypoxia/secondary bacterial pneumonia/COPD exacerbation- Patient had been diagnosed with influenza A on 09/02/2023, started Tamiflu on 09/03, and finished 5 days later. To briefly been better for about 3 days, and since that time over the past 3 days has developed a cough productive of green-yellow sputum and progressive shortness of breath. From the ED she received the following: DuoNeb x 1, and dexamethasone 10 mg IV Methylprednisolone 40 mg IV every 8 hours Ceftriaxone 2 g IV every 24 hours Azithromycin 500 mg IV every 24 hours Duonebs every 4 hours while awake and every 2 hours when necessary. Guaifenesin extended release 1200 mg p.o. twice daily Tessalon Perles 100 mg p.o. 3 times daily as needed Zofran 4 mg IV every 6 hours as needed Continue Trelegy Ellipta, montelukast Elevated troponin- Troponin 18.8 upon admission, follow-up ordered Continue aspirin 81 mg daily Likely supply demand mismatch type II Diabetes mellitus- Glucose 166 on admission Check hemoglobin A1c Continue insulin glargine 46 units subcu twice daily Placed on Accu-Cheks with NovoLog SSI Expect increase in Accu-Cheks while on steroids Hold dulaglutide Chronic cancer pain of vulva- Continue acetaminophen, oxycodone extended release, oxycodone as needed as noted. History of Present Illness Chief Complaint: The patient presents to the emergency department with complaints of worsening cough productive of green-yellow sputum, shortness of breath, dyspnea on exertion, generalized fatigue and weakness. Primary Care Provider: ALFONSO Castro The patient is a 67-year-old female with a past medical history including COPD, streptococcal septicemia, ex smoker, cirrhosis, vulvar cancer related pain, diabetes mellitus type 2, migraine headache without aura, hyperlipidemia, insomnia and GERD without esophagitis. Patient was initially diagnosed with flu a on 09/02/2023, after being exposed to her son returned from a trip with known influenza A. She was started on Tamiflu on 09/03/2023 and completed the full 5- day course. She did have some improvement in generalized symptoms, however, about 3 days ago symptoms started to worsen, this time with cough productive of green-yellow sputum, and worsening shortness of breath and dyspnea on exertion. She has continued to use her home nebulizer unit every 4 hours while awake, and has still had progression of symptoms Allergies Allergy/AdvReac Type Severity Reaction Status Date / Time iodine Allergy Severe SOB/HIVES Verified 09/02/23 14:53 Penicillins Allergy Severe SHORT OF Verified 09/02/23 14:53 BREATH/HIVES shellfish derived Allergy Severe SHORT OF Verified 09/02/23 14:53 BREATH/EYES SWELL/ITCHY sumatriptan [From Imitrex] Allergy Severe SHORT OF Verified 09/02/23 14:53 BREATH/HIVES erythromycin base Allergy Intermediate ITCHY HIVES Verified 09/02/23 14:53 liraglutide [From Victoza] Allergy Intermediate RASH/STOMACH Verified 09/02/23 14:53 PAIN rofecoxib [From Vioxx] Allergy Intermediate ITCHY HIVES Verified 09/02/23 14:53 Tetracyclines Allergy Intermediate ITCHY HIVES Verified 09/02/23 14:53 topiramate [From Topamax] AdvReac Severe SUICIDAL Verified 09/02/23 14:53 THOUGHTS/DEPRESSION meloxicam AdvReac Intermediate GI Verified 09/02/23 14:53 UPSET/DIARRHEA metformin AdvReac Intermediate STOMACH Verified 09/02/23 14:53 PAIN/DIARRHEA Home Medications Medication Instructions Recorded Confirmed Type aspirin 81 mg tablet,delayed 81 mg PO QPM 08/10/22 09/02/23 History release cyanocobalamin (vitamin B-12) 1,000 mcg PO DAILY 08/10/22 09/02/23 History 1,000 mcg tablet (Vitamin B-12) epinephrine 0.3 mg/0.3 mL 0.3 mg IM UD PRN Allergic Reaction 08/10/22 09/02/23 History injection, auto-injector (EpiPen) glucose 4 gram chewable tablet 4 g PO Q15M PRN hypoglycemia #30 08/27/22 09/02/23 Rx tabs lancets #100 ea 11/04/22 09/02/23 Rx pen needle, diabetic 31 gauge x #100 ea 11/04/22 09/02/23 Rx 5/16" (Lite Touch Insulin Pen [place]) blood-glucose meter,continuous #1 ea 12/05/22 09/02/23 Rx (Dexcom G6 Emergency Medicine Nurse Practitioner) blood-glucose sensor (Dexcom G6 #3 ea 12/05/22 09/02/23 Rx Sensor device) blood-glucose transmitter (Dexcom #1 ea 12/05/22 09/02/23 Rx G6 Transmitter device) albuterol sulfate 90 mcg/actuation 2 puff inhalation Q6H PRN Wheezing 01/15/23 09/02/23 History aerosol inhaler (Ventolin HFA) lansoprazole 30 mg capsule,delayed 30 mg PO QPM 02/06/23 09/02/23 History release (Prevacid) nortriptyline 50 mg capsule 100 mg (2 x 50 mg) PO HS #180 caps 03/13/23 09/02/23 Rx (Pamelor) oxycodone 10 mg tablet 10 mg PO Q4H PRN very severe 05/22/23 09/02/23 Rx vulvar cancer [place] #120 tabs oxycodone 20 mg tablet,crush 20 mg PO Q8H severe vulvar cancer 05/22/23 09/02/23 Rx resistant,extended release 12 hr pain 2 weeks #42 tabs (OxyContin) cetirizine 10 mg tablet (Zyrtec) 10 mg PO QPM #90 tabs 07/01/23 09/02/23 Rx insulin glargine 100 unit/mL (3 46 unit (0.46 mL) subcut BID #45 mL 07/01/23 09/02/23 Rx mL) subcutaneous pen (Lantus Solostar U-100 Insulin) insulin aspart U-100 100 unit/mL 28 unit (0.28 mL) subcut TID #15 mL 07/11/23 09/02/23 Rx (3 mL) subcutaneous pen (Novolog FlexPen U-100 Insulin aspart) dulaglutide 1.5 mg/0.5 mL 1.5 mg (0.5 mL) subcut Q7D #2 mL 07/29/23 09/02/23 Rx subcutaneous pen injector (Trulicity) benzonatate 200 mg capsule 200 mg PO TID PRN cough #30 caps 07/31/23 09/02/23 Rx montelukast 10 mg tablet 10 mg PO HS #90 tabs 07/31/23 09/02/23 Rx (Singulair) fluticasone fur. 200 mcg-umeclid 1 inh inhalation QAM #28 ea 08/11/23 09/02/23 Rx 62.5 mcg-vilant 25 mcg inhalat.powder (Trelegy Ellipta) gabapentin 300 mg capsule 300 mg PO BID 08/15/23 09/02/23 History tizanidine 4 mg tablet (Zanaflex) 4 mg PO TID PRN muscle spasticity 08/21/23 09/02/23 Rx #90 tabs oseltamivir 75 mg capsule (Tamiflu) 75 mg PO BID 5 days #10 caps 09/03/23 09/03/23 Rx 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) Recurrent UTI (urinary tract infection) Arthritis GERD without esophagitis Insomnia NAFLD (nonalcoholic fatty liver disease) Chronic back pain Hyperlipidemia Migraine headache without aura Asthma COPD (chronic obstructive pulmonary disease) Type 2 diabetes mellitus Surgical History History of removal of Port-a-Cath (08/18/23) Status post chemotherapy Port-A-Cath in place (02/14/23) History of esophagogastroduodenoscopy (EGD) Hx of colonoscopy History of genitourinary surgical procedure History of biopsy S/P tubal ligation S/P total abdominal hysterectomy H/O: Family History Mother Myocardial infarction Diabetes Kidney disease Heart disease Stroke Sister Myocardial infarction Diabetes Brother Throat cancer, Onset Age: 45 Father Liver cancer, Onset Age: 45 Cancer Sister Hypertension Diabetes Sister Heart disease Diabetes Ovarian cancer Sister Diabetes Brother Cancer Denies family history of Prostate cancer Breast cancer Colorectal cancer Uterine cancer Social History Smoking Status: Former smoker Tobacco Type: Cigarettes Age Started Using Tobacco: 16; Age Quit Using Tobacco: 44; packs per day: 0.5; Second Hand Exposure: No; Do You Dip or Chew Tobacco: No; Hx Alcohol Use: No Hx Substance Use: No Preferred Language: Polish Communication Ability: Effective Visual Impairment: No Limitations Hearing Ability: Normal Construction Tech Required: No Beliefs That Will Affect Care: None marital status: / Current Living Situation: Family Current Living Situation Comment: lives with two adult sons current occupational status: disabled How many Children do You have: 3 Feels Safe at Home: Yes Diet: regular Diet Comment: regular caffeine: Yes during the past year weight has: decreased > 10 lbs Dental Care, Regularly: No Physical Activity Frequency: Other Physical Activity Frequency Comment: limited to physical condition Seatbelt Use: always Sunscreen Use: No Assistive Devices: Glasses and Scooter/Electric Scooter Review of Systems Review of Systems: The patient denies chest pain, palpitations, lower extremity swelling, sore throat, fevers, chills, sweats, nausea, vomiting, diarrhea , constipation, abdominal pain, pelvic pain, blood in urine or stool, dysuria, urinary frequency or urgency, lightheadedness, dizziness, headache, memory loss, loss of consciousness, rash, abnormal bruising or bleeding, imbalance, focal weakness, numbness or tingling in arms or legs, generalized arthralgias or myalgias, back or neck pain, or night sweats. The review of systems is otherwise negative other than for that already noted above, and at least 10 systems have been reviewed. Physical Exam Physical Exam: The patient is awake, alert and oriented 3, well developed and well nourished, normocephalic and atraumatic, lying in bed and in no acute distress. HEENT--PERRL, EOMI, mucous membranes and oropharynx normal Neck--supple. No JVD. No bruits. Thyroid normal, trachea midline, no adenopathy. Heart--normal S1 and S2. No murmurs, rubs or gallops. Lungs--coarse breath sounds with wheezes throughout bilaterally. No respiratory distress, no accessory muscle use. Abdomen--normal bowel sounds and soft. Nontender. Nondistended. Extremities--no cyanosis or clubbing. No edema. Dermatologic--normal skin turgor, normal color, no abnormal lymph nodes, no rash. Neurologic--cranial nerves II through XII grossly intact. Rheumatologic--normal range of motion. Psychiatric--normal affect. Results & Data Results & Data Vital Signs (Past 12 Hours) Vital Signs Temp Pulse Pulse Resp BP BP Pulse Ox 09/09/23 05:15 82 16 102/74 96 09/09/23 04:41 87 L 09/09/23 04:23 77 09/09/23 04:04 36.7 C 83 20 106/68 91 O2 Del Method O2 Flow Rate 09/09/23 05:15 Nasal Cannula 2 09/09/23 04:41 0 09/09/23 04:23 09/09/23 04:04 Room Air Laboratory Results Laboratory Results WBC 8.43 K/ul (4.8-10.8) 09/09/23 06:05 RBC 4.21 M/uL (4.20-5.40) 09/09/23 06:05 Hgb 12.8 g/dl (12.0-16.0) 09/09/23 06:05 Hct 38.3 % (37.0-47.0) 09/09/23 06:05 MCV 91.0 fL (80.0-100.0) 09/09/23 06:05 MCH 30.4 pg (25.0-34.0) 09/09/23 06:05 MCHC 33.4 g/dL (32.0-36.0) 09/09/23 06:05 RDW Std Deviation 40.8 fL (36.4-46.3) 09/09/23 06:05 RDW Coeff of [place] 12.4 % (11.5-14.5) 09/09/23 06:05 Plt Count 239 K/uL (130-400) 09/09/23 06:05 MPV 9.4 fL (9.4-12.4) 09/09/23 06:05 Immature Gran % (Auto) 0.5 % 09/09/23 06:05 Neut % (Auto) 68.1 % 09/09/23 06:05 Lymph % (Auto) 21.9 % 09/09/23 06:05 Elliott % (Auto) 7.9 % 09/09/23 06:05 Eos % (Auto) 1.2 % 09/09/23 06:05 Baso % (Auto) 0.4 % 09/09/23 06:05 Neut # (Auto) 5.74 K/uL (1.40-6.50) 09/09/23 06:05 Lymph # (Auto) 1.85 K/uL (1.20-3.40) 09/09/23 06:05 Elliott # (Auto) 0.67 K/uL (0.11-0.59) H 09/09/23 06:05 Eos # (Auto) 0.10 K/uL (0.00-0.50) 09/09/23 06:05 Baso # (Auto) 0.03 K/uL (0.00-0.20) 09/09/23 06:05 Immature Gran # (Auto) 0.04 K/uL (0.01-0.20) 09/09/23 06:05 Absolute Nucleated RBC Cancelled 09/09/23 04:20 Nucleated RBC % (auto) Cancelled 09/09/23 04:20 Neutrophils % (Manual) Cancelled 09/09/23 04:20 Band Neutrophils % Cancelled 09/09/23 04:20 Lymphocytes % (Manual) Cancelled 09/09/23 04:20 Prolymphocyte % Cancelled 09/09/23 04:20 Reactive Lymphs % (Man) Cancelled 09/09/23 04:20 Monocytes % (Manual) Cancelled 09/09/23 04:20 Eosinophils % (Manual) Cancelled 09/09/23 04:20 Basophils % (Manual) Cancelled 09/09/23 04:20 Metamyelocytes % (Man) Cancelled 09/09/23 04:20 Myelocytes % (Man) Cancelled 09/09/23 04:20 Promyelocytes % (Man) Cancelled 09/09/23 04:20 Blast Cells % (Manual) Cancelled 09/09/23 04:20 Plasma Cell % (Manual) Cancelled 09/09/23 04:20 Other Cells % Cancelled 09/09/23 04:20 Nucleated RBC % Cancelled 09/09/23 04:20 Neutrophils # (Manual) Cancelled 09/09/23 04:20 Band Neutrophils # Cancelled 09/09/23 04:20 Total Absolute Neuts Cancelled 09/09/23 04:20 Lymphocytes # (Manual) Cancelled 09/09/23 04:20 Prolymphocyte # Cancelled 09/09/23 04:20 Reactive Lymphs # Cancelled 09/09/23 04:20 Total Abs Lymphocytes Cancelled 09/09/23 04:20 Monocytes # (Manual) Cancelled 09/09/23 04:20 Eosinophils # (Manual) Cancelled 09/09/23 04:20 Basophils # (Manual) Cancelled 09/09/23 04:20 Metamyelocytes # (Man) Cancelled 09/09/23 04:20 Myelocytes # (Manual) Cancelled 09/09/23 04:20 Promyelocytes # (Man) Cancelled 09/09/23 04:20 Blast Cells # (Man) Cancelled 09/09/23 04:20 Plasma Cell # (Manual) Cancelled 09/09/23 04:20 Other Cells # Cancelled 09/09/23 04:20 Nucleated RBCs # (Man) Cancelled 09/09/23 04:20 Hypersegmented Neuts Cancelled 09/09/23 04:20 Hyposegmented Neuts Cancelled 09/09/23 04:20 Hypogranular Neuts Cancelled 09/09/23 04:20 Large Granular Lymphs Cancelled 09/09/23 04:20 # Lrg Granular Lymphs Cancelled 09/09/23 04:20 Hairy Cells Cancelled 09/09/23 04:20 Smudge Cells Cancelled 09/09/23 04:20 Toxic Granulation Cancelled 09/09/23 04:20 Toxic Vacuolation Cancelled 09/09/23 04:20 Dohle Bodies Cancelled 09/09/23 04:20 [place] Rods Cancelled 09/09/23 04:20 Platelet Estimate Cancelled 09/09/23 04:20 Hypogranular Platelets Cancelled 09/09/23 04:20 Giant Platelets Cancelled 09/09/23 04:20 Platelet Satelliting Cancelled 09/09/23 04:20 RBC Morphology Cancelled 09/09/23 04:20 Polychromasia Cancelled 09/09/23 04:20 Hypochromasia Cancelled 09/09/23 04:20 Poikilocytosis Cancelled 09/09/23 04:20 Basophilic Stippling Cancelled 09/09/23 04:20 Anisocytosis Cancelled 09/09/23 04:20 Microcytosis Cancelled 09/09/23 04:20 Macrocytosis Cancelled 09/09/23 04:20 Spherocytes Cancelled 09/09/23 04:20 Pappenheimer Bodies Cancelled 09/09/23 04:20 Sickle Cells Cancelled 09/09/23 04:20 Target Cells Cancelled 09/09/23 04:20 Tear Drop Cells Cancelled 09/09/23 04:20 Ovalocytes Cancelled 09/09/23 04:20 Stomatocytes Cancelled 09/09/23 04:20 [place] Bodies Cancelled 09/09/23 04:20 Echinocytes Cancelled 09/09/23 04:20 Acanthocytes (Spur) Cancelled 09/09/23 04:20 Rouleaux Cancelled 09/09/23 04:20 RBC Agglutinates Cancelled 09/09/23 04:20 Schistocytes Cancelled 09/09/23 04:20 Sezary Cell Cancelled 09/09/23 04:20 Sodium 135 mmol/L (136-145) L 09/09/23 04:20 Potassium 4.0 mmol/L (3.5-5.1) 09/09/23 04:20 Chloride 102 mmol/L (98-107) 09/09/23 04:20 Carbon Dioxide 25 mmol/L (21-32) 09/09/23 04:20 Anion Gap 8 (3-11) 09/09/23 04:20 BUN 12 mg/dl (6-23) 09/09/23 04:20 Creatinine 0.85 mg/dl (0.6-1.2) 09/09/23 04:20 Est Cr Clr Drug Dosing 65.2 ml/min 09/09/23 04:20 Est GFR ( Amer) 82.2 ml/min 09/09/23 04:20 Est GFR (Non-Af Amer) 70.9 ml/min 09/09/23 04:20 BUN/Creatinine Ratio 14.1 (10-20) 09/09/23 04:20 Glucose 166 mg/dl (70-99(Fasting)) H 09/09/23 04:20 Calcium 8.8 mg/dl (8.6-10.3) 09/09/23 04:20 Total Bilirubin 0.4 mg/dl (0.2-1.0) 09/09/23 04:20 AST 25 U/L (13-39) 09/09/23 04:20 ALT 22 U/L (7-52) 09/09/23 04:20 Alkaline Phosphatase 180 U/L (34-104) H 09/09/23 04:20 Troponin I High Sens 18.8 pg/ml (0-14) H 09/09/23 04:20 Total Protein 7.2 gm/dl (6.0-8.3) 09/09/23 04:20 Albumin 3.5 gm/dl (3.4-5.0) 09/09/23 04:20 Globulin 3.7 gm/dl (2.5-4.0) 09/09/23 04:20 Albumin/Globulin Ratio 0.9 (0.9-2) 09/09/23 04:20 Blood Parasites ID Cancelled 09/09/23 04:20 Code Status & VTE Plan Code Status Full code VTE Prophylaxis Plan VTE Prophylaxis will be ordered: Yes PG Care Time/CCT Total # of Minutes Spent Total Time Spent with Patient: Total time spent is greater than 50% in coordination of care (as documented) at patient's floor/unit and/or counseling patient: Coding Level of Care Code 82889 INT INP/OBS CARE 3/75MIN Diagnoses Acute on chronic respiratory failure with hypoxia J96.21 Secondary bacterial pneumonia J15.9 Acute exacerbation of chronic obstructive pulmonary disease (COPD) J44.1 Type 2 diabetes mellitus E11.9 Fatigue R53.83 Cancer related pain G89.3 GERD without esophagitis K21.9 Squamous cell carcinoma of vulva C51.9
--- NOTE | 2023-09-09 06:44 | XRay Report ---
XR chest 1V portable HISTORY: 67 years-old Female Dyspnea acute shortness of breath COMPARISON: 07/01/2023 TECHNIQUE: AP view of the chest FINDINGS: Status post removal of the Bvzmci-z-[id number] catheter. Cardiomediastinal and hilar silhouettes are within normal limits. No pneumothorax, pleural effusion or airspace consolidation. Mild chronic interstitia l coarsening. The bones appear grossly intact. IMPRESSION: No acute process of the chest. ACT 112: Negative or not required by law. The above report was generated using voice recognition software. It may contain grammatical, syntax o r spelling errors. Electronically signed by: Richardson Gray M.D. 09/09/2023 6:42 AM
--- OUTSIDE RECORDS SUMMARY | 2023-09-09 06:57 | External Medical Summary | Summary of Care ---
Author Name Unknown Organization [facility] Address [address] [place] [address] Phone [phone] Care Team Providers Care Embedded Developer Name Role Phone Unavailable Primary Care Provider Unavailabl e Reason for Referral * Precert (Within 10 days (routine)) - Pending Review Specialty Diagnoses / Procedures Referred By Sarah Beth t Referred To Contact Radiology Diagnoses Primary malignant neoplasm of vulva (HCC) Malignant neoplasm of vagina (HCC) Procedures PET CT SKULL BASE TO MID-THIGH Chela Vega MD [address] [place] [address] Referral ID Status Reason Start Date Expiration Date V isits Requested Visits Authorized [id number] Pending Review 10/07/[phone] Encounter Details Date Type Department Care Team (Late st Contact Info) Description 09/08/2023 Orders Only Access Center, [address] Ext *DO NOT REMOVE THIS DEPARTMENT* [place] [id number] Requisition, External Radiology [address] [place] [address] Primary malignant neoplasm of vulva (HCC)*; Malignant neoplasm of vagina (HCC) Social History Tobacco Use Types Packs/Day Years Used Date Smoking Tobacco: Never Assessed Hunger Vital Sign Answer Date Recorded Within the past 12 months, y ou worried that your food would run out before you got the money to buy more. Never true 08/29/19 24 Within the past 12 months, t he food you bought just didn't last and you didn't have money to get more. Never true 08/29/2023 Sex and Gender Information Value Date Recorded Sex Assigned at Female 08/29/2023 1:12 PM EST Gender Identity Female 08/29/2023 1:12 PM EST Sexual Orientation Straight 08/29/2023 1: 12 PM EST Job Start Date Occupation Industry Not on file Not on file Not on file documented as of this encounter Plan of Treatment Upcoming Encounters Date Type Department Care Team (Late st Contact Info) Description 09/12/2023 10:00 AM EST [facility] [place] [phone] Bobby Talley MD [address] [place] [address] [place] [id number] Scheduled Orders Name Type Priority Associated Diagnoses Orde r Schedule PET CT SKULL BASE TO MID-THIGH Medical Imaging Routine Primary malignant neoplasm of vulva (HCC) Malignant neoplasm of vagina (HCC) Expected: 10/07/2023, Expires: 10/06/2024 Health Maintenance Due Date Last Done Comments Lipid Panel 1955 COVID-19 Vaccine (#1) 06/27/1956 Depression Screening 1967 Hepatitis C Screening 12/25/1973 DTaP,Tdap,and Td Vaccines (1 - Tdap) 12/25/1974 Mammogram 1995 Cologuard 12/25/2000 Colonoscopy 12/25/2000 Colorectal Cancer Screening 12/25/2000 Fecal Occult Blood Test 12/25/2000 Sigmoidoscopy 12/25/2000 Zoster Vaccines (1 of 2) 12/25/2005 DXA Scan 12/25/2020 Pneumococcal Vaccine: 65+ Years (1 - PCV) 12/25/2020 Influenza Vaccine (FLU shot) (#1) 2023 04/04/2022 Diabetes Screening 07/02/2026 07/02/2023, 12/10/2022 GARDASIL-HPV IMMUNIZATION SERIES Aged Out No longer eligible b ased on patient's age to complete this topic Hepatitis B Aged Out No longer eligi ble based on patient's age to complete this topic MENINGOCOCCAL (MENACTRA/MENVEO) Aged Out No longer eligible b ased on patient's age to complete this topic documented as of this encounter Medical Devices Not on filedocumented as of this encounter Visit Diagnoses Diagnosis Primary malignant neoplasm of vulva (HCC)- Primary Malignant neoplasm of vulva, unspecified site Malignant neoplasm of vagina (HCC) Malignant neoplasm of vagina documented in this encounter
--- NOTE | 2023-09-09 08:16 | Electrocardiogram Report ---
Test Reason : Blood Pressure : / mmHG Vent. Rate : 083 BPM Atrial Rate : 083 BPM P-R Int : 158 ms QRS Dur : 094 ms QT Int : 396 ms P-R-T Axes : 056 052 074 degrees QTc Int : 465 ms Normal sinus rhythm with sinus arrhythmia Left atrial enlargement Possible Old Anterior infarct (cited on or before 09-SEP-2023) Nonspecific T wave abnormality Lateral leads Abnormal ECG When compared with ECG of 01-JUL-2023 13:32, No significant change was found Confirmed by Abdulkadir Chong ([id number]) on 09/09/2023 8:16:10 AM Referred By: REFERRED SELF Confirmed By:Abdulkadir Chong
[2023-09-09] MEDS ORDERED: GLUCOSE 10 TAB/TUBE PO PRN (08:49)
[2023-09-09] MEDS ORDERED: GLUCAGON FOR INJ 1 MG VIAL SQ PRN (08:49)
[2023-09-09] MEDS ORDERED: DEXTROSE 50% 50 ML SYRINGE IV PRN (08:49)
[2023-09-09] MEDS ORDERED: oxyCODONE HCL IR 5 MG TAB (IMMEDIATE RELEASE) PO PRN (08:49)
[2023-09-09] MEDS ORDERED: ONDANSETRON INJ 2 MG/ML 2 ML VIAL IV PRN (08:49)
[2023-09-09] MEDS ORDERED: ACETAMINOPHEN 325 MG TAB PO PRN (08:49)
[2023-09-09] MEDS ORDERED: GLUCOSE 40% GEL 15 GM TUBE PO PRN (08:49)
[2023-09-09] MEDS ORDERED: CARBOHYDRATES FOR HYPOGLYCEMIA PO PRN (08:49)
[2023-09-09] MEDS ORDERED: NON-FORMULARY MEDICATION (Fluticasone-Umeclidin-Vilanter [Trelegy Ellipta] 200-62.5-25 mcg INH SCH (09:00)
[2023-09-09] MEDS: cefTRIAXone SODIUM 2,000 MG in DEXTROSE 5 % MINI-B 50 ML IV SCH (09:18)
[2023-09-09] MEDS: AZITHROMYCIN 500 MG in DEXTROSE 5% 250 ML IV SCH (09:18)
[2023-09-09] MEDS: methylPREDNISolone 40 MG in SYRINGE 0 ML IV SCH (09:19)
[2023-09-09] MEDS: guaiFENesin 600 MG TABCR PO SCH (09:19)
[2023-09-09] MEDS: GABAPENTIN 300 MG CAP PO SCH (09:19)
[2023-09-09] MEDS: LANTUS PER UNIT CHARGE SQ SCH (09:42)
[2023-09-09] MEDS: INSULIN ASPART PER UNIT CHARGE SC SCH (09:42)
[2023-09-09] MEDS: UMECLIDINIUM/VILANTEROL 62.5/25MCG 7 PUFFS/INHALER INH SCH (10:27)
[2023-09-09] MEDS: FLUTICASONE FUROATE 200MCG 14 PUFFS/INHALER INH SCH (10:27)
[2023-09-09] MEDS: CYANOCOBALAMIN (B-12) 500 MCG TABLET PO SCH (10:28)
[2023-09-09] MEDS: oxyCODONE HCL 20 MG TABCR (OxyCONTIN) PO SCH (10:34)
[2023-09-09] MEDS: ALBUT/IPRATROP 3MG/0.5MG NEB 3 ML VIAL NEB SCH (10:57)
[2023-09-09] MEDS: HEPARIN SOD 5,000 UNIT/0.5 ML VIAL SQ SCH (14:30)
[2023-09-09] MEDS: tiZANidine HCL 4 MG TABLET PO PRN (20:17)
[2023-09-09] MEDS: NORTRIPTYLINE HCL 25 MG CAP PO SCH (20:18)
[2023-09-09] MEDS: MONTELUKAST SODIUM 10 MG TABLET PO SCH (20:18)
[2023-09-09] MEDS: PANTOprazole 40 MG TAB PO SCH (20:19)
[2023-09-09] MEDS: CETIRIZINE HCL 10 MG TABLET PO SCH (20:19)
[2023-09-09] MEDS: ASPIRIN 81 MG ECTAB PO SCH (20:19)
--- NOTE | 2023-09-09 23:15 | History & Physical Bridge Note ---
Date of Service September 09, 2023 History & Physical Bridge Note I have examined the patient, reviewed the History & Physical and in the interval since the performance of the History & Physical I have noted the following changes of clinical significance: Pt reports feeling so much better already with her cough and SOB. Her son at the bedside reports she felt almost instantly better as soon as she was placed on supplemental O2 on arrival. Pt also reports that she was no longer taking the gabapentin at home as it was making her very drowsy. She was given gabapentin this AM and reports feeling very drowsy from it all day-I stopped this. Has low appetite but otherwise overall much improved. No Chest pain Vitals reviewed NAD, AAOx3 RRR no mgr Lungs with bilateral rhonchi, wheezes, no crackles Abd +BS soft NT ND Ext no edema 67 yo female here with COPD exacerbation, Flu A, and acute respiratory failure with hypoxia Improving-continue steroids but decrease to Solu Medrol 40mg IV q12h. Continue nebs, ceftriaxone and azithro in case of secondary bacterial PNA. Wean off O2 as tolerated. Needs 2 step walk test prior to discharge Stop gabapentin as is causing drowsiness. Removed from home med rec Mildly elevated troponin--> repeat trop trended downward to 3. No acute ischemia on ECG, no chest pain-demand ischemia from hypoxia and COPD exacerbation. Hyperglycemia 2/2 steroids, DMII--> increase Lantus to 50 units bid and tighten down Novolog SSI
[2023-09-10 07:43] LABS: Basophils # (auto) 0.02 K/uL (0.00-0.20); Basophils % (auto) 0.2 %; Hematocrit (blood only) 38.4 % (37.0-47.0); Hemoglobin 12.8 g/dl (12.0-16.0); Immature Granulocytes # (auto) 0.04 K/uL (0.01-0.20); Immature Granulocytes % (auto) 0.4 %; Lymphocytes # (auto) 1.12 K/uL (1.20-3.40); Lymphocytes % (auto) 10.4 %; Mean Corpuscular Hemoglobin 29.8 pg (25.0-34.0); Mean Corpuscular Hgb Conc 33.3 g/dL (32.0-36.0); Mean Corpuscular Volume 89.3 fL (80.0-100.0); Mean Platelet Volume 9.5 fL (9.4-12.4); Monocytes # (auto) 0.48 K/uL (0.11-0.59); Monocytes % (auto) 4.5 %; Neutrophils # (auto) 9.08 K/uL (1.40-6.50); Neutrophils % (auto) 84.5 %; Platelet Count 250 K/uL (130-400); RDW Coefficient of Variation 12.1 % (11.5-14.5); RDW Standard Deviation 39.4 fL (36.4-46.3); White Blood Count 10.74 K/ul (4.8-10.8)
[2023-09-10] MEDS: BENZONATATE 100 MG CAPSULE PO PRN (07:45)
[2023-09-10 07:59] LABS: Estimated Average Glucose 197 mg/dl; Hemoglobin A1C 8.5 % (4.5-5.6)
[2023-09-10 08:12] LABS: Albumin Level 3.5 gm/dl (3.4-5.0); BUN Creatinine Ratio 24.1 (10-20); Calcium 8.9 mg/dl (8.6-10.3); Creatinine Clr Calc Pharmacy 67.4 ml/min; Est GFR (African American) 84.6 ml/min; Magnesium 1.9 mg/dl (1.7-2.4); Phosphorus 2.9 mg/dl (2.5-4.9); Potassium 4.3 mmol/L (3.5-5.1)
[2023-09-10] MEDS: LANTUS PER UNIT CHARGE SQ SCH (08:41)
[2023-09-10] MEDS: methylPREDNISolone 40 MG in SYRINGE 0 ML IV SCH (08:43)
[2023-09-10] MEDS: predniSONE 10 MG TABLET PO SCH (14:34)
--- NOTE | 2023-09-10 14:48 | Hospitalist Progress Note ---
Date of Service September 10, 2023 Assessment & Plan (1) Acute on chronic respiratory failure with hypoxia: Plan: Actually this is acute hypoxic respiratory failure. She states she has not needed home oxygen before. Two-step has been completed and she will require 2 L/min per nasal cannula with activity. Hopefully this can be weaned off as an outpatient by her PCP (2) Secondary bacterial pneumonia: Plan: Ruled out. No evidence of pneumonia on chest x-ray. I suspect her current symptoms are due to her recent influenza A. Antibiotics have been discontinued. (3) Acute exacerbation of chronic obstructive pulmonary disease (COPD): Plan: Much improved. Parenteral steroid therapy switched to oral prednisone today, September 10. (4) Type 2 diabetes mellitus: Plan: Glucose aggravated by parenteral steroid therapy. This will eventually resolve now that steroids have been switched to oral formulation and will gradually be weaned off. Continue sliding scale coverage. (5) Fatigue: Plan: Improved. Continue OT and PT while hospitalized (6) Cancer related pain: Plan: Continue pain control med (7) GERD without esophagitis: Plan: Stable. Continue PPI therapy (8) Squamous cell carcinoma of vulva: Plan: Stable. Continue pain control measures Plan Hopeful discharge to home tomorrow, September 11 Admission and Anticipated Discharge Date Admission Date: September 09, 2023 Subjective Alert and oriented. No distress. She is much improved. Parenteral steroid therapy has been switched to oral prednisone. Two-step evaluation has been completed and she will require 2 L/min oxygen per nasal cannula with any activity. Anticipate discharge to home tomorrow, September 11 Review of Systems 2 Review of Systems: Constitutional-no fever or chills ENT-no blurred vision, no double vision, no epistaxis, no sore throat Respiratory-no cough, no wheezing, no shortness of breath at rest. She does have dyspnea on exertion Cardiac-no palpitations, no chest pain, no syncope GI-no nausea, vomiting, diarrhea, melena, hematochezia -no urinary retention, no urinary incontinence, no dysuria, no hematuria Musculoskeletal-no joint pain, no muscle tenderness Skin-no bruising, no rashes, no pruritus Neuro-no isolated weakness, no paresthesia, no weakness Psych-no depression, no anxiety Physical Exam 2 Physical Exam: General-alert and oriented x3, no fever, no chills HEENT-head atraumatic and normocephalic, pupils equal and reactive to light, extraocular muscles intact Neck-no lymphadenopathy or thyromegaly, trachea midline Chest-diminished breath sounds bilaterally. Faint bilateral end expiratory wheezes. Scattered rhonchi. No dullness to percussion. Cardiac-regular rate and rhythm, normal S1 and S2 Abdomen-normal bowel sounds, nontender, no hepatosplenomegaly Extremities-no cyanosis, clubbing, or edema Neuro-cranial nerves II through XII intact, motor and sensory function within normal limits, strength symmetrical, no focal deficits Psych-normal affect, normal mood Results & Data Results & Data Vital Signs (Past 12 Hours) Vital Signs Temp Pulse Pulse Pulse Pulse Pulse Resp 09/10/23 11:27 36.7 C 108 H 18 09/10/23 11:23 112 H 22 09/10/23 10:00 09/10/23 09:17 108 H 110 H 105 H 09/10/23 07:53 83 09/10/23 07:47 09/10/23 07:31 36.7 C 91 H 18 09/10/23 06:54 87 17 09/10/23 04:00 36.6 C 85 16 Resp Resp Resp BP Pulse Ox Pulse Ox Pulse Ox 09/10/23 11:27 127/55 L 90 09/10/23 11:23 90 09/10/23 10:00 09/10/23 09:17 20 20 18 90 86 L 09/10/23 07:53 09/10/23 07:47 09/10/23 07:31 133/71 91 09/10/23 06:54 95 09/10/23 04:00 147/78 H 93 Pulse Ox Pulse Ox O2 Del Method O2 Del Method O2 Flow Rate O2 Flow Rate 09/10/23 11:27 Room Air 09/10/23 11:23 Room Air 09/10/23 10:00 97 Room Air 09/10/23 09:17 92 2 09/10/23 07:53 09/10/23 07:47 Nasal Cannula 2 09/10/23 07:31 Nasal Cannula 1 09/10/23 06:54 Room Air 09/10/23 04:00 Nasal Cannula 2 Laboratory Results 09/10/23 07:11 09/10/23 07:11 PG Care Time/CCT Total # of Minutes Spent Total Time Spent with Patient: Total time spent is greater than 50% in coordination of care (as documented) at patient's floor/unit and/or counseling patient: Coding Level of Care Code 90249 SUB INP/OBS CARE 3/50MIN Diagnoses Acute on chronic respiratory failure with hypoxia J96.21 Secondary bacterial pneumonia J15.9 Acute exacerbation of chronic obstructive pulmonary disease (COPD) J44.1 Type 2 diabetes mellitus E11.9 Fatigue R53.83 Cancer related pain G89.3 GERD without esophagitis K21.9 Squamous cell carcinoma of vulva C51.9
[2023-09-11 07:21] LABS: Basophils # (auto) 0.02 K/uL (0.00-0.20); Basophils % (auto) 0.1 %; Immature Granulocytes # (auto) 0.09 K/uL (0.01-0.20); Immature Granulocytes % (auto) 0.6 %; Lymphocytes # (auto) 1.17 K/uL (1.20-3.40); Lymphocytes % (auto) 8.4 %; Mean Corpuscular Hemoglobin 30.2 pg (25.0-34.0); Mean Corpuscular Hgb Conc 33.3 g/dL (32.0-36.0); Mean Corpuscular Volume 90.5 fL (80.0-100.0); Mean Platelet Volume 9.3 fL (9.4-12.4); Monocytes # (auto) 0.91 K/uL (0.11-0.59); Monocytes % (auto) 6.5 %; Neutrophils # (auto) 11.73 K/uL (1.40-6.50); Neutrophils % (auto) 84.4 %; Platelet Count 278 K/uL (130-400); RDW Coefficient of Variation 12.3 % (11.5-14.5); RDW Standard Deviation 41.1 fL (36.4-46.3); Red Blood Count 3.98 M/uL (4.20-5.40); White Blood Count 13.92 K/ul (4.8-10.8)
[2023-09-11 07:38] LABS: Albumin Level 3.4 gm/dl (3.4-5.0); BUN Creatinine Ratio 27.6 (10-20); Calcium 8.7 mg/dl (8.6-10.3); Creatinine Clr Calc Pharmacy 64.6 ml/min; Est GFR (African American) 79.9 ml/min; Est GFR (Non-African American) 68.9 ml/min; Phosphorus 2.7 mg/dl (2.5-4.9); Potassium 4.3 mmol/L (3.5-5.1)
[2023-09-11 11:51] VITALS: BP 152/67; TEMP 98.1
--- NOTE | 2023-09-11 13:26 | Discharge Summary ---
Date of Service September 11, 2023 Admission HPI Per Admitting Provider The patient is a 67-year-old female with a past medical history including COPD, streptococcal septicemia, ex smoker, cirrhosis, vulvar cancer related pain, diabetes mellitus type 2, migraine headache without aura, hyperlipidemia, insomnia and GERD without esophagitis. Patient was initially diagnosed with flu a on 09/02/2023, after being exposed to her son returned from a trip with known influenza A. She was started on Tamiflu on 09/03/2023 and completed the full 5- day course. She did have some improvement in generalized symptoms, however, about 3 days ago symptoms started to worsen, this time with cough productive of green-yellow sputum, and worsening shortness of breath and dyspnea on exertion. She has continued to use her home nebulizer unit every 4 hours while awake, and has still had progression of symptoms Principal Diagnosis Acute hypoxic respiratory failure, acute exacerbation COPD, recent influenza A Discharge Exam General-alert and oriented x3, no fever, no chills HEENT-head atraumatic and normocephalic, pupils equal and reactive to light, extraocular muscles intact Neck-no lymphadenopathy or thyromegaly, trachea midline Chest-diminished breath sounds bilaterally. Faint bilateral end expiratory wheezes have nearly resolved. Scattered rhonchi. No dullness to percussion. Cardiac-regular rate and rhythm, normal S1 and S2 Abdomen-normal bowel sounds, nontender, no hepatosplenomegaly Extremities-no cyanosis, clubbing, or edema Neuro-cranial nerves II through XII intact, motor and sensory function within normal limits, strength symmetrical, no focal deficits Psych-normal affect, normal mood Discharge Data Allergies Allergy/AdvReac Type Severity Reaction Status Date / Time iodine Allergy Severe SOB/HIVES Verified 09/02/23 14:53 Penicillins Allergy Severe SHORT OF Verified 09/02/23 14:53 BREATH/HIVES shellfish derived Allergy Severe SHORT OF Verified 09/02/23 14:53 BREATH/EYES SWELL/ITCHY sumatriptan [From Imitrex] Allergy Severe SHORT OF Verified 09/02/23 14:53 BREATH/HIVES erythromycin base Allergy Intermediate ITCHY HIVES Verified 09/02/23 14:53 liraglutide [From Victoza] Allergy Intermediate RASH/STOMACH Verified 09/02/23 14:53 PAIN rofecoxib [From Vioxx] Allergy Intermediate ITCHY HIVES Verified 09/02/23 14:53 Tetracyclines Allergy Intermediate ITCHY HIVES Verified 09/02/23 14:53 topiramate [From Topamax] AdvReac Severe SUICIDAL Verified 09/02/23 14:53 THOUGHTS/DEPRESSION meloxicam AdvReac Intermediate GI Verified 09/02/23 14:53 UPSET/DIARRHEA metformin AdvReac Intermediate STOMACH Verified 09/02/23 14:53 PAIN/DIARRHEA Consultations 09/09/23 05:43 ED Decision to Admit Stat Hospital Course (1) Acute on chronic respiratory failure with hypoxia: Actually this is acute hypoxic respiratory failure. She states she has not needed home oxygen before. Two-step has been completed and she will require 2 L/min per nasal cannula with activity. Hopefully this can be weaned off as an outpatient by her PCP (2) Secondary bacterial pneumonia: Ruled out. No evidence of pneumonia on chest x-ray. I suspect her current symptoms are due to her recent influenza A. Antibiotics have been discontinued. (3) Acute exacerbation of chronic obstructive pulmonary disease (COPD): Much improved. Parenteral steroid therapy switched to oral prednisone on September 10. Prednisone will be tapered off over the next week (4) Type 2 diabetes mellitus: Glucose aggravated by parenteral steroid therapy. This will eventually resolve now that steroids have been switched to oral formulation and will gradually be weaned off. Continue sliding scale coverage. (5) Fatigue: Improved. Continue OT and PT while hospitalized (6) Cancer related pain: Continue pain control med (7) GERD without esophagitis: Stable. Continue PPI therapy (8) Squamous cell carcinoma of vulva: Stable. Continue pain control measures Plan Medically stable for discharge to home today, September 11 Total Time Total Time Spent Total Time Spent (In Minutes): 45 minutes Discharge Plan Discharge Items Patient Disposition: Home - Self-Care Reason For Visit: ACUTE RESP FAILURE WITH HYPOXIA, COPD EX Discharge Diagnosis: Acute exacerbation COPD, acute hypoxic respiratory failure, recent influenza A Activity: Resume your previous activity Non-emergency contact: Primary Care Provider Call non-emergency contact if: your symptoms worsen Follow-up/Referrals: Jean Pierre Dumas CRNP [Primary Care Provider] - Diet: Carb Consistent or DM2 and Heart Healthy Addtl Attending Provider Instructions: Take prednisone in a tapering dose fashion as directed. Wear oxygen at 2 L/min per nasal cannula with activity Pending Studies at Discharge: No Stand-Alone Forms: My [facility], Smoking Cessation Medications and DC Order Prescriptions: New prednisone 10 mg Tablet See Rx Instructions .ROUTE .COMPLEX Qty: 12 0RF Rx Instructions: 10 mg orally 3 times a day for 2 days, then 10 mg twice a day for 2 days, then 10 mg once a day for 2 days, then stop Continued (DME) lancets Misc See Rx Instructions .Route Qty: 100 5RF Rx Instructions: As directed (DME) pen needle, diabetic [Lite Touch Insulin Pen Noble] 31 gauge x 5/16" needle See Rx Instructions .Route Qty: 100 6RF Rx Instructions: As directed nortriptyline [Pamelor] 50 mg capsule 100 mg PO HS Qty: 180 2RF cetirizine [Zyrtec] 10 mg tablet 10 mg PO QPM Qty: 90 1RF insulin glargine [Lantus Solostar U-100 Insulin] 100 unit/mL (3 mL) insulin pen 46 unit subcut BID Qty: 45 2RF insulin aspart U-100 [Novolog FlexPen U-100 Insulin] 100 unit/mL (3 mL) insulin pen 28 unit subcut TID Qty: 15 1RF Rx Instructions: E11.9 Trulicity 1.5 mg/0.5 mL pen injector 1.5 mg SUBCUT Q7D Qty: 2 0RF Rx Instructions: TAKES ON Saturdays. E11.9 montelukast [Singulair] 10 mg tablet 10 mg PO HS Qty: 90 1RF benzonatate 200 mg capsule 200 mg PO TID PRN (Reason: cough) Qty: 30 0RF Trelegy Ellipta 200-62.5-25 mcg blister with device 1 inh inhalation QAM Qty: 28 1RF tizanidine [Zanaflex] 4 mg tablet 4 mg PO TID PRN (Reason: muscle spasticity) Qty: 90 0RF (DME) Dexcom G6 Ediphone Operator Misc See Rx Instructions .Route Qty: 1 0RF Rx Instructions: As directed (DME) Dexcom G6 Sensor Device See Rx Instructions .Route Qty: 3 3RF Rx Instructions: As directed (DME) Dexcom G6 Transmitter Device See Rx Instructions .Route Qty: 1 1RF Rx Instructions: As directed oxycodone [OxyContin] 20 mg tablet,oral only,ext.rel.12 hr 20 mg PO Q8H 14 Days Qty: 42 0RF oxycodone 10 mg tablet 10 mg PO Q4H PRN (Reason: very severe vulvar cancer [place]) Qty: 120 0RF glucose 4 gram tablet,chewable 4 g PO Q15M PRN (Reason: hypoglycemia) Qty: 30 1RF Rx Instructions: until symptoms of low blood sugar are controlled cyanocobalamin (vitamin B-12) [Vitamin B-12] 1,000 mcg Tablet 1,000 mcg PO DAILY aspirin 81 mg Tablet,Delayed Release (Dr/Ec) 81 mg PO QPM epinephrine [EpiPen] 0.3 mg/0.3 mL Auto-Injector 0.3 mg IM UD PRN (Reason: Allergic Reaction) albuterol sulfate [Ventolin HFA] 90 mcg/actuation HFA aerosol inhaler 2 puff INHALATION Q6H PRN (Reason: Wheezing) lansoprazole [Prevacid] 30 mg Capsule,Delayed Release(Dr/Ec) 30 mg PO QPM Discharge Orders: Discharge Order (Routine); Ordered 09/11/23 Ordered By: Ben Ross/Other Patient Handouts: Managing Type 2 Diabetes Admission Data Admit Date/Time: 09/09/23 06:36 Attending Provider: Ben Muñoz Admit Provider: Modesto Martin Primary Care Provider: Jean Pierre Dumas Other Providers: Modesto Martin Coding Level of Care Code 28463 INP/OBS DISCH >30 MIN Diagnoses Acute on chronic respiratory failure with hypoxia J96.21 Secondary bacterial pneumonia J15.9 Acute exacerbation of chronic obstructive pulmonary disease (COPD) J44.1 Type 2 diabetes mellitus E11.9 Fatigue R53.83 Cancer related pain G89.3 GERD without esophagitis K21.9 Squamous cell carcinoma of vulva C51.9
[2023-09-11 14:48] VITALS: RESP 17; O2SAT 94
[2023-09-11 15:07] VITALS: PULSE 98
== END 2023-09-11 15:18 | disposition home or self-care (01) | DRG 189 ==
LOC: SUATTDRO → ED 03:59 → EDINP 06:36 → SUATTDRO 06:36 → 2S 08:49

== ENCOUNTER 2024-10-03 12:34 | Inpatient (IN) ==
--- OUTSIDE RECORDS SUMMARY | 2024-10-03 12:40 | External Medical Summary | Summary of Care ---
Author Name Unknown Organization [facility] Address [address] [place] [address] Phone [phone] Care Team Providers Care Hop Picker Name Role Phone Pratima Tobin MD Primary Care Pr ovider Reason for Visit * Reason Comments Acute Encounter Details Date Type Department Care Team (Late st Contact Info) Description 09/20/2024 1:40 PM EST Office Visit Family Medicine [address] [place] [phone] Bobby Talley MD [address] [place] [address] [place] [phone] COPD exacerbation (HCC)*; Fatigue, unspecified type; Chills (without fever) Allergies Active Allergy Reactions Criticality Noted Date Comments Erythromycin Hives 10/02/2023 Sumatriptan Hives 10/02/2023 Breathing issues Iodine Hives 10/02/2023 Breathing issues Meloxicam 10/02/2023 Stomach issues Metformin Diarrhea 10/02/2023 Stomach cramps Penicillins Hives 10/02/2023 Breathing issues Shellfish Allergy High 10/29/2022 Other Reaction(s): Shortness of breath Tetracycline Unknown 10/02/2023 Topiramate 10/02/2023 Depression, suicidal thoughts Insulin Degludec Unknown 10/02/2023 Liraglutide Unknown 10/02/2023 Rofecoxib Hives 10/02/2023 documented as of this encounter (statuses as of 09/20/2024) Medications Montelukast Sodium 10 MG Oral Tablet (Singulair) Take 1 Tablet by mouth at bedtime. Active Cetirizine HCl 10 MG Oral Tablet Chewable (ZyrTEC) Take 1 Tablet by mouth in the morning. Active Aspirin 81 MG Oral Tablet Delayed Release Take 1 Tablet by mouth in the morning. Active Nortriptyline HCl 50 MG Oral Capsule (Pamelor) Take 2 Capsules by mouth at bedtime. Active Simvastatin 20 MG Oral Tablet (Zocor) Take 1 Tablet by mouth every evening. Active Lansoprazole 30 MG Oral Capsule Delayed Release (Prevacid) Take 1 Capsule by mouth in the morning. Active Insulin Lispro 100 UNIT/ML Injection Solution (Admelog) Inject 32 Units under the skin in the morning and 32 Units at noon and 32 Units before bedtime. Active Insulin Degludec FlexTouch 100 UNIT/ML Subcutaneous Solution Pen-injector Inject 44 Units under the skin. Active Vitamin B-12 1000 MCG Oral Tablet (Cyanocobalamin) Take 1 Tablet by mouth in the morning. Active Baqsimi One Pack 3 MG/DOSE Nasal Powder (Glucagon) Administer into nostril. Active Fluticasone-Umecl idin-Vilant 200-62.5-25 MCG/ACT Aerosol Powder Breath Activated (Trelegy Ellipta) Inhale 1 Puff by mouth. Active oxygen IN GAS Use 2 L/min(Oxygen) as directed. Active oxyCODONE HCl 10 MG Oral Tablet (Roxicodone) Take 1.5 Tablets by mouth every 4 hours as needed. 15 mg Active oxyCODONE HCl ER 15 MG Oral Tablet ER 12 Hour Abuse-Deterrent (oxyCONTIN) Take 2 Tablets by mouth every 8 hours as needed. 30 mg Active Albuterol Sulfate (2.5 MG/3ML) 0.083% Inhalation Nebulization Solution (Proventil)Indica tions:COPD exacerbation (HCC) Inhale 1 Vial via nebulizer every 6 hours as needed for Wheezing or Shortness of Breath. 90 mL 1 4 Active Trulicity 0.75 MG/0.5ML Subcutaneous Solution Pen-injector (Dulaglutide) Inject 0.75 mg under the skin once a week. 4 Active Ezetimibe 10 MG Oral Tablet (Zetia)Indication s:Hyperlipidemia with target LDL less than 100 Take 1 Tablet by mouth in the morning. 90 Tablet 1 4 Active Mometasone Furoate 50 MCG/ACT Nasal Suspension (Nasonex 24HR)Indications: Non-seasonal allergic rhinitis due to other allergic trigger Administer 2 Sprays into nostril in the morning. 18 g 12 4 Active tiZANidine HCl 4 MG Oral Tablet (Zanaflex)Indicat ions:Back spasm Take 1 Tablet by mouth every 8 hours as needed for Muscle spasms. 90 Tablet 5 4 Active Ventolin HFA 108 (90 Base) MCG/ACT Inhalation Aerosol SolutionIndicatio ns:Acute cough Inhale 2 Puffs by mouth every 6 hours as needed for Wheezing or Shortness of Breath. 18 g 1 5 Active Pseudoephedrine HCl 30 MG Oral Tablet (Sudafed) Take 1 Tablet by mouth every 6 hours as needed for Congestion. 30 Tablet 5 Active Ondansetron HCl 8 MG Oral Tablet (Zofran) Take 1 Tablet by mouth every 8 hours as needed for Nausea or Vomiting. 25 Tablet 5 Active predniSONE 10 MG Oral Tablet (Deltasone)Indica tions:COPD exacerbation (HCC) Take 5 tabs for 2 days, 4 tabs for 2 days, 3 tabs for 2 days, 2 tabs for 2 days 1 tab for 2 days 30 Tablet 5 Active documented as of this encounter (statuses as of 09/20/2024) Active Problems Problem Noted Date Diagnosed Date COPD exacerbation 08/16/2024 Migraine headache 06/15/2024 Mass of vulva 06/15/2024 COPD, group C, by GOLD 2017 classification 11/09 Overview: Per COPD GOLD Classification Paroxysmal atrial fibrillation 10/02/2023 Type 2 diabetes mellitus treated with insulin COPD with asthma 10/02/2023 Fatty liver 10/02/2023 Gastroesophageal reflux disease without esophagi tis 10/02/2023 Vulvar cancer 10/02/2023 Other hyperlipidemia 10/02/2023 Rebound headache 10/02/2023 Primary osteoarthritis involving multiple joints 10/02/2023 Malignant neoplasm of vulva 10/02/2023 documented as of this encounter (statuses as of 09/20/2024) Immunizations Name Administration Dates Next Due Seasonal Influenza, High Dos e, Trivalent, PF, IM (Fluzone HD) 06/15/2024 documented as of this encounter Social History Tobacco Use Types Packs/Day Years Used Date Smoking Tobacco: Never Smokeless Tobacco: Never Alcohol Use Standard Drinks/Week Comments Never 0 (1 standard drink = 0.6 oz pur e alcohol) Hunger Vital Sign Answer Date Recorded Within the past 12 months, y ou worried that your food would run out before you got the money to buy more. Never true 08/29/19 24 Within the past 12 months, t he food you bought just didn't last and you didn't have money to get more. Never true 08/29/2023 Childcare Answer Date Recorded Do you feel overwhelmed with taking care of a child, family member or friend? No 08/29/2023 Does your family need help f inding childcare? (Household - for ages 0-17 years) Not on file 08/29/2023 Clothing Answer Date Recorded Have you been unable to get clothing when it was really needed? No 08/29/2023 Is your family able to get c lothes or diapers when needed? (Household - for ages 0-17 years) Not on file 08/29/2023 Personal Safety Answer Date Recorded Do you feel unsafe or have concerns for your saf ety? No 08/29/2023 Do you have concerns for you r family's safety? (Household - for ages 0-17 years) Not on file 08/29/2023 Utilities Answer Date Recorded Do you have trouble paying y our heating, water, or electric bill? No 08/29/2023 Is your family able to pay t he heat, water, or electric bill? (Household - for ages 0-17 years) Not on file 08/29/2023 Does your family have access to good internet? (Household - for ages 0-17 years) Not on file 08/29/2023 Employment Status Answer Date Recorded Are you unemployed or without regular income? No 08/29/2023 Does the household have a re gular source of income? (Household - for ages 0-17 years) Not on file 08/29/2023 Social Connections Answer Date Recorded How often do you feel lonely or isolated from th ose around you? Never 08/29/2023 Financial Resource Strain Answer Date R ecorded Do you have any trouble payi ng for your medications, or do you think you might in the future? No 08/29/2023 Does your family have troubl e paying for medicine? (Household - for ages 0-17 years) Not on file 08/29/2023 Transportation Needs Answer Date Record ed READ ONLY Do you have troubl e getting a ride to medical visits or work? Sometimes True 08/29/2023 Does your family have a hard time getting a ride to doctors visits? (Household - for ages 0-17 years) Not on file 08/29/2023 Has lack of transportation k ept you from medical appointments, meetings, work, or from getting things needed for daily living? Check all that apply. (Adult - for ages 18 years and over) Not on file 08/29/2023 Do you (or your family) have trouble finding or paying for a ride (transportation)? (Household - for ages 0-17 years) Not on file 08/29/2023 Housing Stability Answer Date Recorded Do you currently live in a s helter or have no steady place to sleep at night? No 08/29/2023 READ ONLY Do you think you a re at risk of becoming homeless? No 08/29/2023 Does your family worry about paying for your home or becoming homeless? (Household - for ages 0-17 years) Not on file 0 08/29/2023 Are you homeless or worried that you might be in the future? (Adult - for ages 18 years and over) Not on file Are you (or your family) abiodun eless or worried that you might be in the future? (Household - for ages 0-17 years) Not on file Food Insecurity Answer Date Recorded Do you need food for this week? No 08/29/2023 Are you able to get enough f ood for your family? (Household - for ages 0-17 years) Not on file 08/29/2023 Does your family need food t his week? (Household - for ages 0-17 years) Not on file 08/29/2023 Do you always have enough fo od for your family? (Household - for ages 0-17 years) Not on file 08/29/2023 Comments Unknown Sex and Gender Information Value Date Recorded Sex Assigned at Female 08/29/2023 1:12 PM EST Legal Sex Female 11:44 AM EST Gender Identity Female 08/29/2023 1:12 PM EST Sexual Orientation Straight 08/29/2023 1: 12 PM EST documented as of this encounter Last Filed Vital Signs Vital Sign Reading Time Taken Comments Blood Pressure 116/50 09/20/2024 1:44 PM EST Pulse 80 09/20/2024 1:44 PM EST Temperature 36.9 C (98.4 F) 09/20/2024 1:44 PM ES T Respiratory Rate - - Oxygen Saturation 87% 09/20/2024 1:44 PM EST Inhaled Oxygen Concentration - - Weight 88.6 kg (195 lb 6.4 oz) 09/20/2024 1:44 P M EST Height - - Body Mass Index 35.17 08/16/2024 11:08 AM EST documented in this encounter Progress Notes * Bobby Talley MD - 09/20/2024 1:32 PM EST Subjective: HPI: Melissa De Los Santos is a 68 year old female with hx of DMII, COPD with asthma, Afib, GERD, fatty liver seen for For 3 days - cough, wheezing, SOB, myalgia, feverish - not taking anything + exposure to viral infection (unknown) Patient Active Problem List Diagnosis Paroxysmal atrial fibrillation (HCC) Type 2 diabetes mellitus treated with insulin (HCC) COPD with asthma (HCC) Fatty liver Gastroesophageal reflux disease without esophagitis Vulvar cancer (HCC) Other hyperlipidemia Rebound headache 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 Cetirizine HCl 10 MG Oral Tablet Chewable (ZyrTEC) Take 1 Tablet by mouth in the morning. Aspirin 81 MG Oral Tablet Delayed Release Take 1 Tablet by mouth in the morning. Nortriptyline HCl 50 MG Oral Capsule (Pamelor) Take 2 Capsules by mouth at bedtime. Simvastatin 20 MG Oral Tablet (Zocor) Take 1 Tablet by mouth every evening. Lansoprazole 30 MG Oral Capsule Delayed Release (Prevacid) Take 1 Capsule by mouth in the morning. Insulin Lispro 100 UNIT/ML Injection Solution (Admelog) Inject 32 Units under the skin in the morning and 32 Units at noon and 32 Units before bedtime. Insulin Degludec FlexTouch 100 UNIT/ML Subcutaneous Solution Pen-injector Inject 44 Units under theskin. Vitamin B-12 1000 MCG Oral Tablet (Cyanocobalamin) Take 1 Tablet by mouth in the morning. Baqsimi One Pack 3 MG/DOSE Nasal Powder (Glucagon) Administer into nostril. Lutxeyosmqw-Xruuqgmup-Twmrxu 200-62.5-25 MCG/ACT Aerosol Powder Breath Activated (Trelegy Ellipta) Inhale 1 Puff by mouth. oxygen IN GAS Use 2 L/min(Oxygen) as directed. oxyCODONE HCl 10 MG Oral Tablet (Roxicodone) Take 1.5 Tablets by mouth every 4 hours as needed. 15 mg oxyCODONE HCl ER 15 MG Oral Tablet ER 12 Hour Abuse-Deterrent (oxyCONTIN) Take 2 Tablets by mouth every 8 hours as needed. 30 mg Albuterol Sulfate (2.5 MG/3ML) 0.083% Inhalation Nebulization Solution (Proventil) Inhale 1 Vial via nebulizer every 6 hours as needed for Wheezing or Shortness of Breath. 90 mL 1 Trulicity 0.75 MG/0.5ML Subcutaneous Solution Pen-injector (Dulaglutide) Inject 0.75 mg under the skin once a week. Ezetimibe 10 MG Oral Tablet (Zetia) Take 1 Tablet by mouth in the morning. 90 Tablet 1 Mometasone Furoate 50 MCG/ACT Nasal Suspension (Nasonex 24HR) Administer 2 Sprays into nostril in the morning. 18 g 12 tiZANidine HCl 4 MG Oral Tablet (Zanaflex) Take 1 Tablet by mouth every 8 hours as needed for Muscle spasms. 90 Tablet 5 Ventolin HFA 108 (90 Base) MCG/ACT Inhalation Aerosol Solution Inhale 2 Puffs by mouth every 6 hours as needed for Wheezing or Shortness of Breath. 18 g 1 Pseudoephedrine HCl 30 MG Oral Tablet (Sudafed) Take 1 Tablet by mouth every 6 hours as needed for Congestion. 30 Tablet 0 Ondansetron HCl 8 MG Oral Tablet (Zofran) Take 1 Tablet by mouth every 8 hours as needed for Nauseaor Vomiting. 25 Tablet 0 predniSONE 10 MG Oral Tablet (Deltasone) Take 5 tabs for 2 days, 4 tabs for 2 days, 3 tabs for 2 days, 2 tabs for 2 days 1 tab for 2 days 30 Tablet 0 No current facility-administered medications for this visit. No past medical history on file. Past Surgical History: Procedure Laterality Date [place] DELIVERY ONLY x3 Review of patient's allergies indicates: Allergen Reactions Shellfish Allergy Other Reaction(s): Shortness of breath Erythromycin Hives Imitrex [Sumatriptan] Hives Breathing issues Iodine Hives Breathing issues Meloxicam Stomach issues Metformin Diarrhea Stomach cramps Penicillins Hives Breathing issues Tetracycline Unknown Topamax [Topiramate] Depression, suicidal thoughts Tresiba [Insulin Degludec] Unknown Victoza [Liraglutide] Unknown Vioxx [Rofecoxib] Hives No family history on file. Social History Tobacco Use Smoking status: Never Smokeless tobacco: Never Substance Use Topics Alcohol use: Never Vaping/E-Cigarette Use Vaping/E-Cigarette Substances Vaping/E-Cigarette Devices ROS: -Per HPI OBJECTIVE: BP 116/50 | Pulse 80 | Temp 98.4 F (36.9 C) | Wt 195 lb 6.4 oz (88.6 kg) | SpO2 87% | BMI 35.17kg/m | BSA 1.98 m PHYSICAL EXAM: Vitals are reviewed General:. NAD, well developed HEENT:. Normal Conjunctiva, EOMI Lungs:.b/l inspiratory wheezing but fair air movement b/l Psych:. AAOx3, normal affect ASSESSMENT/PLAN: Pt is okay with antiviral med COPD exacerbation (HCC) (Primary) - predniSONE 10 MG Oral Tablet (Deltasone); Take 5 tabs for 2 days, 4 tabs for 2 days, 3 tabs for 2days, 2 tabs for 2 days 1 tab for 2 days Fatigue, unspecified type - INFLUENZA A/B RSV SARS-COV2,PCR Chills (without fever) - INFLUENZA A/B RSV SARS-COV2,PCR Bobby Talley MD Family medicine[address] [address] documented in this encounter Nursing Notes * Faina Morrison CMA - 09/20/2024 1:38 PM EST She started with symptoms 3 days ago. SOB, body aches, fatigue. She is even having trouble with heroxygen on. She is supposed to go on Fasenra but hasn't yet. documented in this encounter Plan of Treatment Upcoming Encounters Date Type Department Care Team (Late st Contact Info) Description 09/28/2024 12:00 PM EST Appointment PET [facility] [address] [facility] [address] 11/16/2024 11:00 AM EDT Office Visit [address] [phone] Pratima Tobin MD [address] [place] [address] [place] [phone] Pending Results Name Type Priority Associated Diagnoses Date /Time INFLUENZA A/B RSV SARS-COV2,PCR Lab Routine Fatigue, unspecified type Chills (without fever) 09/20/2024 2:02 PM EST Scheduled Procedures Name Priority Associated Diagnoses Date/Ti me COLONOSCOPY FLEXIBLE PROXIMA L DIAGNOSTIC Recall Special screening for malignant neoplasms, colon Health Maintenance Due Date Last Done Comments Depression Screening 1967 Albumin/Creatinine Ratio 12/25/1973 Alpha-1 Antitrypsin 12/25/1973 Diabetic Eye Exam 12/25/1973 Diabetic Foot Exam 12/25/1973 Hepatitis C Screening 12/25/1973 DTap/Tdap Vaccines (1 - Tdap) 12/25/1974 Pneumococcal Vaccine: 50+ Years (1 of 2 - PCV) 12/25/1974 Mammogram 1995 Cologuard 12/25/2000 Colonoscopy 12/25/2000 Colorectal Cancer Screening 12/25/2000 Fecal Occult Blood Test 12/25/2000 Sigmoidoscopy 12/25/2000 Zoster Vaccines (1 of 2) 12/25/2005 DXA Scan 12/25/2020 Adult Wellness Visit 12/25/2021 *COPD SEVERITY VERIFIED BY PFT 10/04/2023 *CXR OR CT FOR COPD EVER 10/04/2023 *SPIROMETRY ONCE FOR ASTHMA-ADULT 10/04/2023 COVID-19 Vaccine (1 - 2023-2 5 season) 2024 HbA1c 04/09/2024 10/08/2023 GFR 10/07/2024 10/08/2023 O2 ASSESSMENT COMPLETED IN PAST YEAR FOR COPD 09/20/2025 09/20/2024 Lipid Panel 10/07/2028 10/08/2023 Influenza Vaccine (FLU shot) Completed 07/2024, 04/04/2022 HPV (Gardasil) Vaccine Aged Out No lo nger eligible based on patient's age to complete this topic Hepatitis B Vaccine Aged Out No longe r eligible based on patient's age to complete this topic MENINGOCOCCAL (MENACTRA/MENVEO) Aged Out No longer eligible b ased on patient's age to complete this topic Meningitis B Vaccine (Bexsero/Trumemba) Aged Out No longer eligible b ased on patient's age to complete this topic documented as of this encounter Medical Devices Not on filedocumented as of this encounter Visit Diagnoses Diagnosis COPD exacerbation (HCC)- Primary Obstructive chronic bronchitis with exacerbation Fatigue, unspecified type Chills (without fever) documented in this encounter Care Teams Hop Picker Relationship Specialty Start Date End Date Pratima Tobin MD [address] [place] [address] [place] [phone] PCP - General Family Medicine 08/25/24 documented as of this encounter"
--- OUTSIDE RECORDS SUMMARY | 2024-10-03 12:40 | External Medical Summary ---
Author Name Unknown Address Unknown Organization [id number]:[facility] - [address] [facility] [address] Laboratory Report Ordering Provider Test Date Status AMY RICHARD 09/20/2024 14:02:00 Jessica l Observation Date Value Abnormality Reference (Units ) Status SARS Coronavirus 2 09/20/2024 14:02:00 Negative N egative Final No SARS-CoV2 Coronavirus RNA detected by PCR (amplified probe).
This automated test was developed and its performance characteristics determined by [facility]. It has not been cleared or approved by the U.S. Food and Drug Administration (FDA). FDA does not require this test to go thru premarket FDA review. This test is used for clinical purposes. It should not be regarded as investigational or for research. This laboratory is certified under the Clinical Laboratory Improvement Amendments (CLIA) as qualified to perform high complexity clinical laboratory testing.

This test is a nucleic acid amplification test (NAAT), a reverse transcriptase polymerase chain reaction (RT-PCR) test, or a Centers for Disease Control-acceptable equivalent. The test is performed in a high complexity Clinical Laboratory Improvement Amendments-(CLIA) certified laboratory. The test is acceptable for SARS-CoV-2 diagnosis, surveillance, and travel within the [place] and to most countries. Please check with local testing authorities about requirements before travel.

The validation of bronchial specimens, tracheal aspirates, and sputum for this assay was developed and performance characteristics determined by [facility]. The validation of alternate specimen types has not been cleared or approved by the U.S. Food and Drug Administration (FDA). It has been determined that such clearance or approval is not necessary. Influenza virus A RNA [Prese nce] in Specimen by [facility] with probe detection 09/20/2024 14:02:00 Negative Negative Final No Influenza A RNA detected by PCR (amplified probe) Influenza virus B RNA [Prese nce] in Specimen by NOLVIA with probe detection 09/20/2024 14:02:00 Negative Negative Final No Influenza B RNA detected by PCR (amplified probe) Respiratory syncytial virus RNA [Identifier] in Specimen by NOVLIA with probe detection 09/20/2024 14:02:00 Negative Negative Final No Respiratory Syncytial Vir us RNA detected by PCR (amplified probe) Performing Location LABORATORY [address] [place] Ramon Brody. [facility] [address]
--- NOTE | 2024-10-03 12:55 | Emergency Department Note ---
Impression & Plan Hypoxia, Shortness of breath, Leukocytosis ED Provider Note NAME: MORE CÁRDENAS AGE: 68 SEX: F : 1955 ARRIVES VIA: Walk-In INFORMANT: Patient ED PROVIDER(S): Barry Santoyo DO CHIEF COMPLAINT: Shortness of breath HPI: Patient is a 68-year-old female with a past medical history of multiple pulmonary nodules, CAD, diabetes, COPD/asthma who presents to the ER for shortness of breath. Symptoms started about 2 and half weeks ago. They improved while she was placed on steroids and antibiotics. She just finished up the steroids yesterday. Symptoms have worsened. She has been using her nebs and inhalers with limited improvement. She admits to a runny nose. No belly pain, nausea, vomiting or diarrhea. No dysuria, urgency or frequency. No other exacerbating or remitting factors. ADDITIONAL HISTORY OBTAINED: Son is present at bedside and provides additional history and notes that patient normally wears 2.5 L as needed but now has been requiring oxygen for the past 2 weeks and has been moved up to 4 L Chronic Medical/Social Conditions Affecting Care: Per HPI PAST MEDICAL HISTORY:See Below PAST SURGICAL HISTORY:See Below FAMILY HISTORY:See Below SOCIAL HISTORY:See Below HOME MEDICATIONS:See Below ALLERGIES:See Below VITALS:See Below PHYSICAL EXAMINATION: GENERAL: Sitting up in bed, alert, obese, dyspneic with conversation, on 4 L nasal cannula EYE EXAM: normal conjunctiva. PERRL and EOM's grossly intact. OROPHARYNX: no exudate, no erythema, lips, buccal mucosa, and tongue normal and mucous membranes are moist NECK: supple, no nuchal rigidity, no adenopathy, non-tender LUNGS: Poor air movement with limited wheezing. Normal chest wall mechanics HEART: no murmurs, S1 normal and S2 normal ABDOMEN: abdomen soft, non-tender, normo-active bowel sounds, no masses, no rebound or guarding. BACK: Back is symmetrical on inspection and there is no deformity, no midline tenderness, no CVA tenderness. SKIN: no rashes and no bruising UPPER EXTREMITIES: upper extremities are grossly normal. LOWER EXTREMITIES: Mild pitting edema. Calves are equal bilaterally NEURO EXAM: Normal sensorium, cranial nerves II-XII grossly intact, normal speech, no gross weakness of arms, no gross weakness of legs. MEDICAL DECISION MAKING: Patient is a 68-year-old female who presents ER for the above-stated complaint. IV was established and blood work was obtained. Labs show leukocytosis 17,000. Mild anemia 11.9. BMP with LFTs bilirubin is unremarkable. proBNP mildly elevated at 390. Pro-Constantine was normal. Viral panel was negative. Patient remained on 4 L nasal cannula throughout her stay in the ER. She was given steroids and neb treatments. She was given a dose of Lasix as her chest x-ray was concerning for infectious versus pulmonary edema. She does have some mild pitting edema. She is updated bedside. Discussed case with the hospitalist for further evaluation management treatment. Consults/Care Managements Discussions: Per [facility] Triage Nursing notes reviewed. Limited review of prior medical records performed Vital Signs: reviewed and remarkable for hypertensive, tachypneic and hypoxic Differential diagnosis: Differential diagnoses includes but is not limited to pneumonia, bronchitis, COPD/Asthma exacerbation, pneumothorax, pulmonary embolism, congestive heart failure, acute coronary syndrome ER treatment provided: See below Diagnostics interpreted by me include EKG and cardiac monitoring as listed below: -Cardiac Monitoring: An order was placed for continuous cardiac monitoring. The monitor shows a rate of 90 with sinus rhythm. -ECG: Sinus rhythm rate of 95 Normal axis No PVCs QTc 475 -Laboratory studies:Interpreted by me as stated above in MDM and shown below. Imaging studies: Xrays: As interpreted by me: Portable AP upright 1 view of the chest showed cephalization and patchy infiltrates bilaterally CTs show: none Procedures:none Critical Care: I have personally spent 35 minutes of critical care time in the direct management of this patient. This includes bedside care, interpretation of diagnostic studies, and testing, discussion with consultants, patient, and family members, and other required patient management activities. This 35 minutes is in excess of all separately billable procedures. 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) History- s/p radical vulvectomy and bilateral LN dissection on 12/25/22- planning for future chemo Type 2 diabetes mellitus Elevated troponin (Acute) Hypoxia (Acute) Acute exacerbation of chronic obstructive pulmonary disease (Acute) Fatigue Daytime somnolence Snoring Palliative care by specialist Dysuria Streptococcal septicemia COVID-19 (Acute) Elevated IgE level Ex-smoker Abnormal PFTs (pulmonary function tests) Allergic rhinitis with postnasal drip Obesity Port-A-Cath in place (02/14/23) Insertion Access Port with Fluoroscopy(Left) - Desean Robertson DO Cirrhosis COPD (chronic obstructive pulmonary disease) daily and prn inh admitted for COPD exacerbation 01/15/23-01/16/23 at [facility] - treated with abx and steroid- breathing improved per 01/20/23 PCP note Asthma daily and prn inhaler Migraine headache without aura hx Hyperlipidemia Chronic back pain NAFLD (nonalcoholic fatty liver disease) Insomnia Medical History (Updated 10/03/24 @ 18:12 by Barry Santoyo DO) Status post chemotherapy completed 06/2023 SOB (shortness of breath) on exertion Leg pain, right Family history of anesthesia complication sister "her blood pressure went very and she had a lot trouble breathing, had to stop her surgery; she was told it was from her inhaler mixed with anesthesia" History of COVID-19 x3, most recent Aug 2022, admitted to [facility]; pneumonia>resolved. Seasonal allergies Recurrent UTI (urinary tract infection) Last UTI November 2022 Arthritis GERD without esophagitis Surgical History History of removal of Port-a-Cath (08/18/23) Access Port Removal - Desean Robertson DO History of esophagogastroduodenoscopy (EGD) Hx of colonoscopy History of genitourinary surgical procedure Radical vulvectomy with bilateral groin lymph node dissection; 12/25/22 (Dr. Hicks, [facility]) History of biopsy Vulvar mass 09/16/22 (Dr. Delia Arriola) S/P tubal ligation S/P total abdominal hysterectomy NELIDA-USO H/O: x3 Family History Mother Myocardial infarction Diabetes Kidney disease Heart disease Stroke Sister Myocardial infarction Diabetes Brother Throat cancer, Onset Age: 45 Father Liver cancer, Onset Age: 45 Cancer Sister Hypertension Diabetes Sister Heart disease Diabetes Ovarian cancer Sister Diabetes Brother Cancer Denies family history of Prostate cancer Breast cancer Colorectal cancer Uterine cancer Social History (Updated 08/17/24 @ 09:29 by Theresa Moody LPN) Smoking Status: Former smoker Tobacco Type: Cigarettes Age Started Using Tobacco: 16; Age Quit Using Tobacco: 44; packs per day: 0.5; Second Hand Exposure: Yes; Do You Dip or Chew Tobacco: No; Hx Alcohol Use: No Hx Substance Use: No Preferred Language: Mohawk Communication Ability: Effective Visual Impairment: No Limitations Hearing Ability: Normal 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 Beliefs That Will Affect Care: None marital status: / Current Living Situation: Family Current Living Situation Comment: lives with two adult sons current occupational status: disabled How many Children do You have: 3 Feels Safe at Home: Yes Diet: regular Diet Comment: regular caffeine: Yes during the past year weight has: decreased > 10 lbs Dental Care, Regularly: No Physical Activity Frequency: Other Physical Activity Frequency Comment: limited to physical condition Seatbelt Use: always Sunscreen Use: No Assistive Devices: Scooter/Electric Scooter Allergies Allergies Allergy/AdvReac Type Severity Reaction Status Date / Time iodine Allergy Severe SOB/HIVES Verified 04/28/24 15:07 Penicillins Allergy Severe SHORT OF Verified 04/28/24 15:07 BREATH/HIVES shellfish derived Allergy Severe SHORT OF Verified 04/28/24 15:07 BREATH/EYES SWELL/ITCHY sumatriptan [From Imitrex] Allergy Severe SHORT OF Verified 04/28/24 15:07 BREATH/HIVES erythromycin base Allergy Intermediate ITCHY HIVES Verified 04/28/24 15:07 liraglutide [From Victoza] Allergy Intermediate RASH/STOMACH Verified 04/28/24 15:07 PAIN rofecoxib [From Vioxx] Allergy Intermediate ITCHY HIVES Verified 04/28/24 15:07 Tetracyclines Allergy Intermediate ITCHY HIVES Verified 04/28/24 15:07 topiramate [From Topamax] AdvReac Severe SUICIDAL Verified 04/28/24 15:07 THOUGHTS/DEPRESSION meloxicam AdvReac Intermediate GI Verified 04/28/24 15:07 UPSET/DIARRHEA metformin AdvReac Intermediate STOMACH Verified 04/28/24 15:07 PAIN/DIARRHEA Home Meds Home Medications Medication Instructions Recorded Confirmed aspirin 81 mg tablet,delayed 81 mg PO QPM 08/10/22 10/03/24 release epinephrine 0.3 mg/0.3 mL 0.3 mg IM UD PRN Allergic Reaction 08/10/22 10/03/24 injection, auto-injector (EpiPen) lansoprazole 30 mg capsule,delayed 30 mg PO QPM 02/06/23 10/03/24 release (Prevacid) Alcohol Swabs 10/03/24 10/03/24 cyanocobalamin (vitamin B-12) 1,000 mcg IM DIRECTED 10/03/24 10/03/24 1,000 mcg/mL injection kit insulin glargine 100 unit/mL (3 0 unit subcut UD 10/03/24 10/03/24 mL) subcutaneous pen (Basaglar KwikPen U-100 Insulin) Previous Rx's Medication Instructions Recorded glucose 4 gram chewable tablet 4 g PO Q15M PRN hypoglycemia #30 08/27/22 tabs lancets #100 ea 11/04/22 blood-glucose meter,continuous #1 ea 12/05/22 (Dexcom G6 Medical Massage Therapist) blood-glucose sensor (Dexcom G6 #3 ea 12/05/22 Sensor device) blood-glucose transmitter (Dexcom #1 ea 12/05/22 G6 Transmitter device) glucagon 1 mg/0.2 mL subcutaneous 1 mg (0.2 mL) subcut ONCE PRN 10/13/23 auto-injector (Gvoke HypoPen hypoglycemia #0.4 mL 2-Pack) pen needle, diabetic 31 gauge x #100 ea 11/17/23 5/16" Humalog KwikPen Insulin 100 See Rx Instructions subcut 01/13/24 unit/mL subcutaneous (insulin USEASDIRECTD #15 mL lispro) nortriptyline 50 mg capsule 100 mg (2 x 50 mg) PO HS #180 caps 02/23/24 (Pamelor) tizanidine 4 mg tablet (Zanaflex) 4 mg PO TID PRN muscle spasticity 04/13/24 #90 tabs oxycodone 40 mg tablet,crush 40 mg PO Q8H severe pain 1 month 04/26/24 resistant,extended release 12 hr #90 tabs oxycodone 30 mg tablet 30 mg PO Q4H PRN cancer 06/25/24 breakthrough pain 1 month #180 tabs montelukast 10 mg tablet 10 mg PO HS #90 tabs 07/22/24 (Singulair) albuterol sulfate 90 mcg/actuation 2 puff inhalation Q6H PRN Wheezing 08/20/24 aerosol inhaler (Ventolin HFA) #8.5 grams fluticasone fur. 200 mcg-umeclid 1 inh inhalation QAM #60 ea 08/20/24 62.5 mcg-vilant 25 mcg inhalat.powder (Trelegy Ellipta) cetirizine 10 mg tablet (Zyrtec) 10 mg PO QPM #90 tabs 08/23/24 insulin glargine 100 unit/mL (3 46 unit (0.46 mL) subcut BID #45 mL 08/23/24 mL) subcutaneous pen (Lantus Solostar U-100 Insulin) dulaglutide 0.75 mg/0.5 mL 0.75 mg (0.5 mL) subcut .q7 days 09/14/24 subcutaneous pen injector #2 mL benzonatate 200 mg capsule 200 mg PO TID PRN cough #30 caps 09/16/24 Results & Data (ED) Vital Signs Vital Signs - 24 hr 10/03/24 12:35 10/03/24 12:39 10/03/24 14:35 Temperature 36.8 C 36.8 C Temperature Source Temporal Artery Scan Temporal Artery Scan Pulse Rate 94 H Pulse Rate [Right Radial] 99 H Pulse Strength Normal Respiratory Rate 26 H 26 H Respiratory Pattern Regular Regular Blood Pressure 194/71 H Blood Pressure Mean 112 Blood Pressure Position Sitting Pulse Oximetry 86 L 86 L 96 Oxygen Delivery Method Room Air Room Air Nasal Cannula Oxygen Flow Rate 4 Sepsis Recent Fever Within 48 Hours No Sepsis New/Unexplained Change in Mental Status No Sepsis Action Taken by Nursing No Action Required Oxygen Flow Rate - Titration 3 Pulse Oximetry Post Tiitration 92 Laboratory Data 10/03/24 13:20 10/03/24 13:20 Lab Results 10/03/24 10/03/24 10/03/24 Range/Units 13:20 13:30 14:26 WBC 17.08 H (4.8-10.8) K/ul RBC 3.92 L (4.20-5.40) M/uL Hgb 11.9 L (12.0-16.0) g/dl Hct 37.8 (37.0-47.0) % MCV 96.4 (80.0-100.0) fL MCH 30.4 (25.0-34.0) pg MCHC 31.5 L (32.0-36.0) g/dL RDW Std Deviation 44.4 (36.4-46.3) fL RDW Coeff of Brandon 12.6 (11.5-14.5) % Plt Count 246 (130-400) K/uL MPV 9.8 (9.4-12.4) fL Immature Gran % (Auto) 0.3 % Neut % (Auto) 89.8 % Lymph % (Auto) 4.7 % [facility] % (Auto) 4.4 % Eos % (Auto) 0.6 % Baso % (Auto) 0.2 % Neut # (Auto) 15.33 H (1.40-6.50) K/uL Lymph # (Auto) 0.80 L (1.20-3.40) K/uL [facility] # (Auto) 0.76 H (0.11-0.59) K/uL Eos # (Auto) 0.10 (0.00-0.50) K/uL Baso # (Auto) 0.04 (0.00-0.20) K/uL Immature Gran # (Auto) 0.05 (0.01-0.20) K/uL Sodium 138 (136-145) mmol/L Potassium 3.7 (3.5-5.1) mmol/L Chloride 102 (98-107) mmol/L Carbon Dioxide 31 (21-32) mmol/L Anion Gap 5 (3-11) BUN 16 (6-23) mg/dl Creatinine 0.91 (0.6-1.2) mg/dl Est Cr Clr Drug Dosing Not Reportable eGFR 68.72 BUN/Creatinine Ratio 17.6 (10-20) Glucose 204 H (70-99(Fasting)) mg/dl Calcium 9.0 (8.6-10.3) mg/dl Total Bilirubin 0.5 (0.2-1.0) mg/dl AST 16 (13-39) U/L ALT 13 (7-52) U/L Alkaline Phosphatase 147 H (34-104) U/L Troponin I High Sens 4.0 (0-14) pg/ml B-Natriuretic Peptide 390 H (0-100) pg/ml Total Protein 7.2 (6.0-8.3) gm/dl Albumin 3.7 (3.4-5.0) gm/dl Globulin 3.5 (2.5-4.0) gm/dl Albumin/Globulin Ratio 1.1 (0.9-2) Lipase 4 L (11-82) U/L Procalcitonin < 0.02 (0-0.5) ng/ml Adenovirus (PCR) Not Detected (NotDetected) B. pertussis DNA (PCR) Not Detected (NotDetected) B.parapertussis DNA PCR Not Detected (NotDetected) C. pneumoniae DNA (PCR) Not Detected (NotDetected) Coronavirus OC43 (PCR) Not Detected (NotDetected) Coronavirus HKU1 (PCR) Not Detected (NotDetected) Coronavirus 229E (PCR) Not Detected (NotDetected) SARS-CoV-2 (PCR) Not Detected (NotDetected) Coronavirus NL63 (PCR) Not Detected (NotDetected) Human Metapneumovir PCR Not Detected (NotDetected) Influenza Type A (PCR) Not Detected (NotDetected) Influenza Type B (PCR) Not Detected (NotDetected) M. pneumoniae (PCR) Not Detected (NotDetected) Parainfluenza 1 (PCR) Not Detected (NotDetected) Parainfluenza 2 (PCR) Not Detected (NotDetected) Parainfluenza 3 (PCR) Not Detected (NotDetected) Parainfluenza 4 (PCR) Not Detected (NotDetected) RSV (PCR) Not Detected (NotDetected) Entero/Rhino (PCR) Not Detected (NotDetected) Administered Medications Oxycodone HCl (Oxycodone Hcl 20 Mg Tabcr (Oxycontin)) 40 mg PO Q8H [facility] Stop: 10/17/24 17:29 Last Admin: 10/03/24 17:36 Dose: 40 mg Documented By: MHN Discontinued Medications Albuterol (Albut/Ipratrop 3mg/0.5mg Neb 3 Ml Vial) 9 ml NEB NOW STA; Protocol Stop: 10/03/24 12:56 Last Admin: 10/03/24 13:33 Dose: 9 ml Documented By: MIRANDA Furosemide (Furosemide 40 Mg/4 Ml Vial) 40 mg IV NOW STA Stop: 10/03/24 14:14 Last Admin: 10/03/24 14:19 Dose: 40 mg Documented By: MICHAEL Cefepime HCl (Maxipime 2000mg) 2,000 mg in 20 mls @ 5 mls/min IV NOW STA; Protocol Stop: 10/03/24 14:14 Last Admin: 10/03/24 14:19 Dose: 5 mls/min Documented By: MICHAEL Methylprednisolone (Methylprednisolone 125 Mg/2 Ml Vial) 60 mg IV NOW STA Stop: 10/03/24 12:56 Last Admin: 10/03/24 13:33 Dose: 60 mg Documented By: MIRANDA Imaging Data Radiologist's Impression: Chest X-Ray 10/03/24 12:42 XR chest 1V portable HISTORY: 68 years-old Female Chest pain, nonspecific COMPARISON: 06/29/2024 TECHNIQUE: AP view the chest FINDINGS: Cardiac silhouette is enlarged. Vascular congestion. Bilateral mixed interstitial and alveolar opacities. No pneumothorax. Probable trace pleural effusions. Bones appear grossly intact. IMPRESSION: 1. Cardiomegaly with mixed interstitial and alveolar opacities suggestive of multifocal pneumonia versus pulmonary edema. 2. Trace pleural effusions. ACT 112: Negative or not required by law. The above report was generated using voice recognition software. It may contain grammatical, syntax or spelling errors. Electronically signed by: Richardson Gray M.D. 10/03/2024 1:10 PM Discharge Plan Visit Data Chief Complaint: Shortness of Breath/Dyspnea Stated Complaint: DIFFICULTY BREATHING ED Provider: Barry Santoyo Discharge Problem: Hypoxia, Shortness of breath, Leukocytosis Patient Disposition: Admitted As Inpatient Discharge Instructions Interventions: ED Discharge Assessment Last Done: 10/03/24 17:01 Discharge Problem: Leukocytosis Qualifiers: Leukocytosis type: unspecified Qualified Code(s): D72.829 - Elevated white blood cell count, unspecified
--- NOTE | 2024-10-03 13:11 | XRay Report ---
XR chest 1V portable HISTORY: 68 years-old Female Chest pain, nonspecific COMPARISON: 06/29/2024 TECHNIQUE: AP view the chest FINDINGS: Cardiac silhouette is enlarged. Vascular congestion. Bilateral mixed interstitial and alveolar opacit ies. No pneumothorax. Probable trace pleural effusions. Bones appear grossly intact. IMPRESSION: 1. Cardiomegaly with mixed interstitial and alveolar opacities suggestive of multifocal pneumonia marlee sincere pulmonary edema. 2. Trace pleural effusions. ACT 112: Negative or not required by law. The above report was generated using voice recognition software. It may contain grammatical, syntax o r spelling errors. Electronically signed by: Richardson Gray M.D. 10/03/2024 1:10 PM
[2024-10-03] MEDS: methylPREDNISolone 125 MG/2 ML VIAL IV STA (13:33)
[2024-10-03] MEDS: ALBUT/IPRATROP 3MG/0.5MG NEB 3 ML VIAL NEB STA (13:33)
[2024-10-03 13:35] LABS: Basophils # (auto) 0.04 K/uL (0.00-0.20); Basophils % (auto) 0.2 %; Eosinophils % (auto) 0.6 %; Hematocrit (blood only) 37.8 % (37.0-47.0); Hemoglobin 11.9 g/dl (12.0-16.0); Immature Granulocytes # (auto) 0.05 K/uL (0.01-0.20); Immature Granulocytes % (auto) 0.3 %; Lymphocytes % (auto) 4.7 %; Mean Corpuscular Hemoglobin 30.4 pg (25.0-34.0); Mean Corpuscular Hgb Conc 31.5 g/dL (32.0-36.0); Mean Corpuscular Volume 96.4 fL (80.0-100.0); Mean Platelet Volume 9.8 fL (9.4-12.4); Monocytes # (auto) 0.76 K/uL (0.11-0.59); Monocytes % (auto) 4.4 %; Neutrophils # (auto) 15.33 K/uL (1.40-6.50); Neutrophils % (auto) 89.8 %; Platelet Count 246 K/uL (130-400); RDW Coefficient of Variation 12.6 % (11.5-14.5); RDW Standard Deviation 44.4 fL (36.4-46.3); Red Blood Count 3.92 M/uL (4.20-5.40); White Blood Count 17.08 K/ul (4.8-10.8)
[2024-10-03 13:58] LABS: Alanine Aminotransferase 13 U/L (7-52); Albumin Globulin Ratio 1.1 (0.9-2); Albumin Level 3.7 gm/dl (3.4-5.0); Alkaline Phosphatase 147 U/L (34-104); Anion Gap 5 (3-11); Aspartate Aminotransferase 16 U/L (13-39); BUN Creatinine Ratio 17.6 (10-20); Bilirubin,Total 0.5 mg/dl (0.2-1.0); Blood Urea Nitrogen 16 mg/dl (6-23); Carbon Dioxide 31 mmol/L (21-32); Chloride 102 mmol/L (98-107); Globulin 3.5 gm/dl (2.5-4.0); Glucose 204 mg/dl (70-99(Fasting)); Lipase 4 U/L (11-82); Potassium 3.7 mmol/L (3.5-5.1); Sodium 138 mmol/L (136-145); Total Protein 7.2 gm/dl (6.0-8.3)
[2024-10-03] MEDS: FUROSEMIDE 40 MG/4 ML VIAL IV STA (14:19)
[2024-10-03] MEDS: CEFEPIME 2000MG 2,000 MG/20 ML SYR IV STA (14:19)
[2024-10-03 14:23] LABS: Adenovirus PCR Not Detected (NotDetected); Bordetella parapertussis PCR Not Detected (NotDetected); Bordetella pertussis PCR Not Detected (NotDetected); Chlamydia pneumoniae PCR Not Detected (NotDetected); Coronavirus 229E PCR Not Detected (NotDetected); Coronavirus CoV-2 (COVID19)PCR Not Detected (NotDetected); Coronavirus HKU1 PCR Not Detected (NotDetected); Coronavirus NL63 PCR Not Detected (NotDetected); Coronavirus OC43PCR Not Detected (NotDetected); Human Metapneumovirus PCR Not Detected (NotDetected); Influenza A PCR Not Detected (NotDetected); Influenza B PCR Not Detected (NotDetected); Mycoplasma pneumoniae PCR Not Detected (NotDetected); Parainfluenza Virus 1 PCR Not Detected (NotDetected); Parainfluenza Virus 2 PCR Not Detected (NotDetected); Parainfluenza Virus 3 PCR Not Detected (NotDetected); Parainfluenza Virus 4 PCR Not Detected (NotDetected); Respiratory Syncytial VirusPCR Not Detected (NotDetected); Rhinovirus/Enterovirus PCR Not Detected (NotDetected)
[2024-10-03] MEDS ORDERED: ACETAMINOPHEN 325 MG TAB PO PRN (16:09)
--- NOTE | 2024-10-03 16:25 | History & Physical Report ---
Date of Service October 03, 2024 Assessment & Plan (1) Acute exacerbation of chronic obstructive pulmonary disease: Plan #Acute on chronic SOB likely 2/2 COPD/asthma exacerbation vs. multifocal CAP vs. newly diagnosed HF #Sepsis, leukocytosis -O2 saturation seems to have significantly improved, will start oral steroids -scheduled duonebs -broad spectrum abx -diuresis -echo -O2 prn #Htn -PRN, discharge on schedule anti-hypertensive #IDDM -home insulin regimen -ISS when weight is entered into EMR #CAD #pulmonary nodules #GERD, MDD #SCC vulva -home meds No IVF, DM diet DVT ppx History of Present Illness Primary Care Provider: ALFONSO Altman 68F [facility] pulmonary nodules, CAD, IDDM, COPD, allergic asthma, GERD, MDD, SCC vulva who presents with SOB. Patient states for the last 2.5 weeks she has been having worsening SOB, which resembles a COPD exacerbation to her, but slightly different. Worsened to the point that she presented today. Was previously given oral steroids and abx by her PCP which helped, but did not resolve her symptoms. Also used her nebulizer and inhaler without resolution of symptoms. Patient on my evaluation is significantly improved, though she still states that she is SOB. Chronically on 2.5L O2 at home, on that and satting >92% on my evaluation. No fever, chills, cp, other symptoms. Allergies Allergy/AdvReac Type Severity Reaction Status Date / Time iodine Allergy Severe SOB/HIVES Verified 04/28/24 15:07 Penicillins Allergy Severe SHORT OF Verified 04/28/24 15:07 BREATH/HIVES shellfish derived Allergy Severe SHORT OF Verified 04/28/24 15:07 BREATH/EYES SWELL/ITCHY sumatriptan [From Imitrex] Allergy Severe SHORT OF Verified 04/28/24 15:07 BREATH/HIVES erythromycin base Allergy Intermediate ITCHY HIVES Verified 04/28/24 15:07 liraglutide [From Victoza] Allergy Intermediate RASH/STOMACH Verified 04/28/24 15:07 PAIN rofecoxib [From Vioxx] Allergy Intermediate ITCHY HIVES Verified 04/28/24 15:07 Tetracyclines Allergy Intermediate ITCHY HIVES Verified 04/28/24 15:07 topiramate [From Topamax] AdvReac Severe SUICIDAL Verified 04/28/24 15:07 THOUGHTS/DEPRESSION meloxicam AdvReac Intermediate GI Verified 04/28/24 15:07 UPSET/DIARRHEA metformin AdvReac Intermediate STOMACH Verified 04/28/24 15:07 PAIN/DIARRHEA Home Medications Medication Instructions Recorded Confirmed Type aspirin 81 mg tablet,delayed 81 mg PO QPM 08/10/22 10/03/24 History release epinephrine 0.3 mg/0.3 mL 0.3 mg IM UD PRN Allergic Reaction 08/10/22 10/03/24 History injection, auto-injector (EpiPen) glucose 4 gram chewable tablet 4 g PO Q15M PRN hypoglycemia #30 08/27/22 10/03/24 Rx tabs lancets #100 ea 11/04/22 04/28/24 Rx blood-glucose meter,continuous #1 ea 12/05/22 04/28/24 Rx (Dexcom G6 Truck Caterer) blood-glucose sensor (Dexcom G6 #3 ea 12/05/22 04/28/24 Rx Sensor device) blood-glucose transmitter (Dexcom #1 ea 12/05/22 04/28/24 Rx G6 Transmitter device) lansoprazole 30 mg capsule,delayed 30 mg PO QPM 02/06/23 10/03/24 History release (Prevacid) glucagon 1 mg/0.2 mL subcutaneous 1 mg (0.2 mL) subcut ONCE PRN 10/13/23 10/03/24 Rx auto-injector (Gvoke HypoPen hypoglycemia #0.4 mL 2-Pack) pen needle, diabetic 31 gauge x #100 ea 11/17/23 04/28/24 Rx 5/16" Humalog KwikPen Insulin 100 See Rx Instructions subcut 01/13/24 10/03/24 Rx unit/mL subcutaneous (insulin USEASDIRECTD #15 mL lispro) nortriptyline 50 mg capsule 100 mg (2 x 50 mg) PO HS #180 caps 02/23/24 10/03/24 Rx (Pamelor) tizanidine 4 mg tablet (Zanaflex) 4 mg PO TID PRN muscle spasticity 04/13/24 10/03/24 Rx #90 tabs oxycodone 40 mg tablet,crush 40 mg PO Q8H severe pain 1 month 04/26/24 10/03/24 Rx resistant,extended release 12 hr #90 tabs oxycodone 30 mg tablet 30 mg PO Q4H PRN cancer 06/25/24 10/03/24 Rx breakthrough pain 1 month #180 tabs montelukast 10 mg tablet 10 mg PO HS #90 tabs 07/22/24 10/03/24 Rx (Singulair) albuterol sulfate 90 mcg/actuation 2 puff inhalation Q6H PRN Wheezing 08/20/24 10/03/24 Rx aerosol inhaler (Ventolin HFA) #8.5 grams fluticasone fur. 200 mcg-umeclid 1 inh inhalation QAM #60 ea 08/20/24 10/03/24 Rx 62.5 mcg-vilant 25 mcg inhalat.powder (Trelegy Ellipta) cetirizine 10 mg tablet (Zyrtec) 10 mg PO QPM #90 tabs 08/23/24 10/03/24 Rx insulin glargine 100 unit/mL (3 46 unit (0.46 mL) subcut BID #45 mL 08/23/24 10/03/24 Rx mL) subcutaneous pen (Lantus Solostar U-100 Insulin) dulaglutide 0.75 mg/0.5 mL 0.75 mg (0.5 mL) subcut .q7 days 09/14/24 10/03/24 Rx subcutaneous pen injector #2 mL benzonatate 200 mg capsule 200 mg PO TID PRN cough #30 caps 09/16/24 10/03/24 Rx Alcohol Swabs 10/03/24 10/03/24 History cyanocobalamin (vitamin B-12) 1,000 mcg IM DIRECTED 10/03/24 10/03/24 History 1,000 mcg/mL injection kit insulin glargine 100 unit/mL (3 0 unit subcut UD 10/03/24 10/03/24 History mL) subcutaneous pen (Basaglar KwikPen U-100 Insulin) Past Med/Surg History Problem List (Updated 08/20/24 @ 15:10 by Chad Meas MD, [facility]) Multiple pulmonary nodules Knee pain Coronary artery disease without angina pectoris Urinary tract infection Acute right hip pain Hypoglycemia associated with diabetes Back pain of lumbosacral region with sciatica Weakness of right lower extremity Cancer related pain 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) History- s/p radical vulvectomy and bilateral LN dissection on 12/25/22- planning for future chemo Type 2 diabetes mellitus Elevated troponin (Acute) Hypoxia (Acute) Acute exacerbation of chronic obstructive pulmonary disease (Acute) Fatigue Daytime somnolence Snoring Palliative care by specialist Dysuria Streptococcal septicemia COVID-19 (Acute) Elevated IgE level Ex-smoker Abnormal PFTs (pulmonary function tests) Allergic rhinitis with postnasal drip Obesity Port-A-Cath in place (02/14/23) Insertion Access Port with Fluoroscopy(Left) - Desean Robertson DO Cirrhosis COPD (chronic obstructive pulmonary disease) daily and prn inh admitted for COPD exacerbation 01/15/23-01/16/23 at [facility] - treated with abx and steroid- breathing improved per 01/20/23 PCP note Asthma daily and prn inhaler Migraine headache without aura hx Hyperlipidemia Chronic back pain NAFLD (nonalcoholic fatty liver disease) Insomnia Medical History (Updated 08/20/24 @ 15:10 by Chad Mesa MD, [facility]) Status post chemotherapy completed 06/2023 SOB (shortness of breath) on exertion Leg pain, right Family history of anesthesia complication sister "her blood pressure went very and she had a lot trouble breathing, had to stop her surgery; she was told it was from her inhaler mixed with anesthesia" History of COVID-19 x3, most recent Aug 2022, admitted to [facility]; pneumonia>resolved. Seasonal allergies Recurrent UTI (urinary tract infection) Last UTI October/November 2022 Arthritis GERD without esophagitis Surgical History History of removal of Port-a-Cath (08/18/23) Access Port Removal - Desean Robertson, DO History of esophagogastroduodenoscopy (EGD) Hx of colonoscopy History of genitourinary surgical procedure Radical vulvectomy with bilateral groin lymph node dissection; 12/25/22 (Dr. Hicks, [facility]) History of biopsy Vulvar mass 09/16/22 (Dr. Delia Arriola) S/P tubal ligation S/P total abdominal hysterectomy NELIDA-USO H/O: x3 Family History Mother Myocardial infarction Diabetes Kidney disease Heart disease Stroke Sister Myocardial infarction Diabetes Brother Throat cancer, Onset Age: 45 Father Liver cancer, Onset Age: 45 Cancer Sister Hypertension Diabetes Sister Heart disease Diabetes Ovarian cancer Sister Diabetes Brother Cancer Denies family history of Prostate cancer Breast cancer Colorectal cancer Uterine cancer Social History (Updated 08/17/24 @ 09:29 by Theresa Moody LPN) Smoking Status: Former smoker Tobacco Type: Cigarettes Age Started Using Tobacco: 16; Age Quit Using Tobacco: 44; packs per day: 0.5; Second Hand Exposure: Yes; Do You Dip or Chew Tobacco: No; Hx Alcohol Use: No Hx Substance Use: No Preferred Language: Faroese Communication Ability: Effective Visual Impairment: No Limitations Hearing Ability: Normal Internal Auditor Required: No Beliefs That Will Affect Care: None marital status: / Current Living Situation: Family Current Living Situation Comment: lives with two adult sons current occupational status: disabled How many Children do You have: 3 Feels Safe at Home: Yes Diet: regular Diet Comment: regular caffeine: Yes during the past year weight has: decreased > 10 lbs Dental Care, Regularly: No Physical Activity Frequency: Other Physical Activity Frequency Comment: limited to physical condition Seatbelt Use: always Sunscreen Use: No Assistive Devices: Scooter/Electric Scooter Review of Systems Constitutional: + fever; no chills and no fatigue Respiratory: + dyspnea Cardiovascular: no chest pain Physical Exam Constitutional: WD/WN, vitals as above Respiratory: Auscultation: + wheezes Cardiovascular: distant heart sounds Results & Data Results & Data Vital Signs (Past 12 Hours) Vital Signs Temp Pulse Pulse Resp BP Pulse Ox O2 Del Method 10/03/24 14:35 36.8 C 99 H 26 H 96 Nasal Cannula 10/03/24 12:39 86 L Room Air 10/03/24 12:35 36.8 C 94 H 26 H 194/71 H 86 L Room Air O2 Flow Rate 10/03/24 14:35 4 10/03/24 12:39 10/03/24 12:35 Laboratory Results Abnormal lab results 10/03/24 10/03/24 Range/Units 13:20 14:26 WBC 17.08 H (4.8-10.8) K/ul RBC 3.92 L (4.20-5.40) M/uL Hgb 11.9 L (12.0-16.0) g/dl MCHC 31.5 L (32.0-36.0) g/dL Neut # (Auto) 15.33 H (1.40-6.50) K/uL Lymph # (Auto) 0.80 L (1.20-3.40) K/uL [place] # (Auto) 0.76 H (0.11-0.59) K/uL Glucose 204 H (70-99(Fasting)) mg/dl Alkaline Phosphatase 147 H (34-104) U/L B-Natriuretic Peptide 390 H (0-100) pg/ml Lipase 4 L (11-82) U/L Diagnostic Findings Chest X-Ray 10/03/24 12:42 XR chest 1V portable HISTORY: 68 years-old Female Chest pain, nonspecific COMPARISON: 06/29/2024 TECHNIQUE: AP view the chest FINDINGS: Cardiac silhouette is enlarged. Vascular congestion. Bilateral mixed interstitial and alveolar opacities. No pneumothorax. Probable trace pleural effusions. Bones appear grossly intact. IMPRESSION: 1. Cardiomegaly with mixed interstitial and alveolar opacities suggestive of multifocal pneumonia versus pulmonary edema. 2. Trace pleural effusions. ACT 112: Negative or not required by law. The above report was generated using voice recognition software. It may contain grammatical, syntax or spelling errors. Electronically signed by: Richardson Gray M.D. 10/03/2024 1:10 PM
[2024-10-03] MEDS ORDERED: PHARMACY GLYCEMIC MGMT CONSULT PRN (16:32)
[2024-10-03] MEDS ORDERED: CARBOHYDRATES FOR HYPOGLYCEMIA PO PRN (16:32)
[2024-10-03] MEDS ORDERED: GLUCOSE 10 TAB/TUBE PO PRN ×3 (16:32→17:30)
[2024-10-03] MEDS ORDERED: DEXTROSE 50% 50 ML SYRINGE IV PRN (16:32)
[2024-10-03] MEDS ORDERED: hydrALAZINE HCL 20 MG/ML VIAL IV PRN (16:32)
[2024-10-03] MEDS ORDERED: GLUCAGON FOR INJ 1 MG VIAL SQ PRN (16:32)
[2024-10-03] MEDS ORDERED: GLUCOSE 40% GEL 15 GM TUBE PO PRN (16:32)
[2024-10-03] MEDS ORDERED: AUTO INJECTOR SQ PRN (17:00)
[2024-10-03] MEDS ORDERED: NON-FORMULARY MEDICATION (Insulin Lispro [Humalog Kwikpen Insulin] 100 unit/mL insulin pen SQ SCH (17:00)
[2024-10-03] MEDS ORDERED: ALBUTEROL HFA 8 GM INHALER INH PRN (17:00)
[2024-10-03] MEDS ORDERED: GLUCAGON 1 MG/0.2 ML SQ PRN (17:00)
[2024-10-03] MEDS ORDERED: oxyCODONE HCL IR 30 MG TAB (IMMEDIATE RELEASE) PO PRN (17:00)
[2024-10-03] MEDS ORDERED: BENZONATATE 100 MG CAPSULE PO PRN (17:00)
[2024-10-03] MEDS ORDERED: EPINEPHrine INJ 1 MG/ML AMP IM PRN (17:26)
[2024-10-03] MEDS: oxyCODONE HCL 20 MG TABCR (OxyCONTIN) PO SCH (17:36)
[2024-10-03] MEDS ORDERED: CYANOCOBALAMIN 1000 MCG/ML VIAL IM SCH (17:53)
[2024-10-03] MEDS: INSULIN ASPART PER UNIT CHARGE SC SCH (18:27)
[2024-10-03] MEDS: LANTUS PER UNIT CHARGE SC STA (18:39)
[2024-10-03] MEDS: Patient's WEIGHT Needed STA (18:46)
[2024-10-03] MEDS: ALBUT/IPRATROP 3MG/0.5MG NEB 3 ML VIAL NEB SCH (19:36)
[2024-10-03] MEDS: ENOXAPARIN INJ 40 MG/0.4 ML SYR SQ SCH (19:38)
[2024-10-03] MEDS ORDERED: NON-FORMULARY MEDICATION (Insulin Glargine [Lantus Solostar U-100 Insulin] 100 unit/mL (3 SQ SCH (21:00)
[2024-10-03] MEDS: PANTOprazole 40 MG TAB PO SCH (21:43)
[2024-10-03] MEDS: ASPIRIN 81 MG ECTAB PO SCH (21:43)
[2024-10-03] MEDS: NORTRIPTYLINE HCL 25 MG CAP PO SCH (21:44)
[2024-10-03] MEDS: MONTELUKAST SODIUM 10 MG TABLET PO SCH (21:44)
[2024-10-03] MEDS: CETIRIZINE HCL 10 MG TABLET PO SCH (21:44)
[2024-10-03] MEDS: INSULIN HUMAN REGULAR PER UNIT 8 UNITS in SYRINGE 7.92 ML IV ONE (22:37)
[2024-10-03] MEDS: tiZANidine HCL 4 MG TABLET PO PRN (22:40)
[2024-10-04] MEDS: INSULIN ASPART PER UNIT CHARGE SC SCH (02:37)
[2024-10-04] MEDS: CEFEPIME 2000MG 2,000 MG/20 ML SYR IV SCH (02:40)
[2024-10-04] MEDS: oxyCODONE HCL 20 MG TABCR (OxyCONTIN) PO SCH (06:46)
[2024-10-04 06:48] LABS: Basophils # (auto) 0.01 K/uL (0.00-0.20); Basophils % (auto) 0.1 %; Hematocrit (blood only) 38.2 % (37.0-47.0); Hemoglobin 12.4 g/dl (12.0-16.0); Immature Granulocytes # (auto) 0.08 K/uL (0.01-0.20); Immature Granulocytes % (auto) 0.5 %; Lymphocytes # (auto) 0.99 K/uL (1.20-3.40); Lymphocytes % (auto) 6.7 %; Mean Corpuscular Hemoglobin 30.5 pg (25.0-34.0); Mean Corpuscular Hgb Conc 32.5 g/dL (32.0-36.0); Mean Corpuscular Volume 93.9 fL (80.0-100.0); Mean Platelet Volume 9.9 fL (9.4-12.4); Monocytes % (auto) 6.1 %; Neutrophils # (auto) 12.69 K/uL (1.40-6.50); Neutrophils % (auto) 86.6 %; Platelet Count 280 K/uL (130-400); RDW Coefficient of Variation 12.3 % (11.5-14.5); RDW Standard Deviation 42.6 fL (36.4-46.3); Red Blood Count 4.07 M/uL (4.20-5.40); White Blood Count 14.67 K/ul (4.8-10.8)
[2024-10-04 07:15] LABS: Albumin Level 3.7 gm/dl (3.4-5.0); BUN Creatinine Ratio 23.2 (10-20); Bilirubin,Total 0.5 mg/dl (0.2-1.0); Calcium 9.5 mg/dl (8.6-10.3); Creatinine Clr Calc Pharmacy 57.3 ml/min; Globulin 3.8 gm/dl (2.5-4.0); Potassium 3.6 mmol/L (3.5-5.1); Total Protein 7.5 gm/dl (6.0-8.3)
[2024-10-04] MEDS: FLUTICASONE FUROATE 200MCG 14 PUFFS/INHALER INH SCH (08:33)
[2024-10-04] MEDS: FUROSEMIDE 40 MG TAB PO SCH (08:36)
[2024-10-04] MEDS: predniSONE 50 MG TAB PO SCH (08:36)
[2024-10-04] MEDS: UMECLIDINIUM/VILANTEROL 62.5/25MCG 7 PUFFS/INHALER INH SCH (08:37)
[2024-10-04] MEDS ORDERED: NON-FORMULARY MEDICATION (Fluticasone-Umeclidin-Vilanter [Trelegy Ellipta] 200-62.5-25 mcg INH SCH (09:00)
[2024-10-04 09:33] LABS: Estimated Average Glucose 223 mg/dl; Hemoglobin A1C 9.4 % (4.5-5.6)
--- NOTE | 2024-10-04 10:16 | CT Scan Report ---
CT chest diagnostic wo con CT DOSE: 908.37 mGy.cm CLINICAL HISTORY: multifocal pneumonia. TECHNIQUE: Multiaxial CT images of the chest were performed without contrast. A dose lowering techni que was utilized adhering to the principles of ALARA. COMPARISON STUDY: 03/18/2023 CT and chest x-ray of 10/03/2024 FINDINGS: There is mild cardiomegaly. There is a trace right pleural effusion. There is mild atelecta sis in the lung bases. There are mild scattered patchy bilateral groundglass pulmonary opacities with peripheral sparing. No pneumothorax. No enlarged adenopathy. There are mild coronary artery calcific ations. No pericardial effusion. There are mild thoracic spine degenerative changes. IMPRESSION: 1. Mild CHF with trace right pleural effusion. 2. Patchy groundglass pulmonary opacities with peripheral sparing. Differential diagnosis includes pu lmonary edema and early pneumonia. ACT 112: Negative or not required by law. Electronically signed by: Aron Garcia M.D. 10/04/2024 10:14 AM
[2024-10-04] MEDS: LANTUS PER UNIT CHARGE SC SCH (10:35)
--- NOTE | 2024-10-04 10:35 | Pulmonary Consultation ---
Date of Consultation October 04, 2024 Assessment & Plan (1) Multiple pulmonary nodules: (2) Shortness of breath: (3) Restrictive lung disease secondary to obesity: Plan Impression: 68-year-old female with outpatient history of asthma and restrictive lung disease due to body habitus admitted with shortness of breath. She has an elevated white blood cell count and CT scan does show some patchy multifocal opacities possibly consistent with atypical pneumonia. Her oxygen requirement is back to baseline. Recommendations: 1. Potential multifocal pneumonia: Agree with antibiotics. Cefepime is not required and this will be discontinued and the patient will be transitioned down to Ceftin and azithromycin for atypical coverage. Patient notes an allergy to penicillin however she has tolerated Ceftin so I think cephalosporins are appropriate. She also reports allergies to erythromycin however I think azithromycin is appropriate in a monitored setting. 2. Hypoxemic respiratory failure: Acute on chronic. Continue oxygen. Her bicarb was elevated. Will obtain ABG to evaluate for hypercarbia. An outpatient sleep study has been ordered by the patient's outpatient scrap charger which is appropriate. If her bicarb is elevated, this may be a further indication for assessment for noninvasive positive pressure ventilation at night. Elevated CO2 level certainly could contribute to some shortness of breath. 3. Potential asthma: The patient is not bronchospastic currently. Decrease prednisone down to 20 mg a day and complete 5-day course. Continue Flovent and Anoro 4. Out of bed to chair and ambulate as tolerated. Would assess ambulatory pulse oximetry readings to ensure appropriate oxygen prescription. 5. Pulmonary nodules: Most recent CT scan demonstrates that the previously concerning nodules appear to have resolved. There are some patchy parenchymal o pacities which will require radiographic surveillance in the outpatient setting. Patient likely can be dismissed from the hospital if she can ambulate and feels at her baseline. She has follow-up scheduled with her outpatient scrap charger within the next several weeks. Pulmonary will sign off at this point in time. Feel free to contact us with questions or concerns History of Present Illness Attending Physician: Ghassan Land MD History of Present Illness Asked by hospitalist to assist in evaluation management this patient with shortness of breath and an abnormal chest x-ray/CT scan. History is obtained from discussion with the patient as well as review the electronic medical record. Patient is a 68-year-old female who is followed by Dr. Mesa in the outpatient pulmonary setting. She was just seen last month. She has a history of vulvar cancer status post chemotherapy currently in remission and being followed with serial PET scans. He saw her for pulmonary nodule and she was to have a follow- up CT scan to demonstrate whether or not the nodules progressed. She has restrictive lung disease likely secondary to body habitus. She presented to the emergency room yesterday with complaints of shortness of breath. She been treated with steroids in the outpatient setting and uses a nebulizer however the nebulizer not been particularly beneficial. She does not report significant wheezing or chest tightness. No fevers chills or night sweats. She is on oxygen at home. She was treated with oral steroids in the emergency room and antibiotics and pulmonary was consulted for additional management. Of note her BNP was elevated. She did not receive diuretics. She does have a history of asthma and Biologics in the form of Fasenra are apparently being arranged in the outpatient setting. Allergies Allergy/AdvReac Type Severity Reaction Status Date / Time iodine Allergy Severe SOB/HIVES Verified 04/28/24 15:07 Penicillins Allergy Severe SHORT OF Verified 04/28/24 15:07 BREATH/HIVES shellfish derived Allergy Severe SHORT OF Verified 04/28/24 15:07 BREATH/EYES SWELL/ITCHY sumatriptan [From Imitrex] Allergy Severe SHORT OF Verified 04/28/24 15:07 BREATH/HIVES erythromycin base Allergy Intermediate ITCHY HIVES Verified 04/28/24 15:07 liraglutide [From Victoza] Allergy Intermediate RASH/STOMACH Verified 04/28/24 15:07 PAIN rofecoxib [From Vioxx] Allergy Intermediate ITCHY HIVES Verified 04/28/24 15:07 Tetracyclines Allergy Intermediate ITCHY HIVES Verified 04/28/24 15:07 topiramate [From Topamax] AdvReac Severe SUICIDAL Verified 04/28/24 15:07 THOUGHTS/DEPRESSION meloxicam AdvReac Intermediate GI Verified 04/28/24 15:07 UPSET/DIARRHEA metformin AdvReac Intermediate STOMACH Verified 04/28/24 15:07 PAIN/DIARRHEA Home Medications Medication Instructions Recorded Confirmed Type aspirin 81 mg tablet,delayed 81 mg PO QPM 08/10/22 10/03/24 History release epinephrine 0.3 mg/0.3 mL 0.3 mg IM UD PRN Allergic Reaction 08/10/22 10/03/24 History injection, auto-injector (EpiPen) glucose 4 gram chewable tablet 4 g PO Q15M PRN hypoglycemia #30 08/27/22 10/03/24 Rx tabs lancets #100 ea 11/04/22 10/03/24 Rx blood-glucose meter,continuous #1 ea 12/05/22 10/03/24 Rx (Dexcom G6 Contracting Engineer) blood-glucose sensor (Dexcom G6 #3 ea 12/05/22 10/03/24 Rx Sensor device) blood-glucose transmitter (Dexcom #1 ea 12/05/22 10/03/24 Rx G6 Transmitter device) lansoprazole 30 mg capsule,delayed 30 mg PO QPM 02/06/23 10/03/24 History release (Prevacid) glucagon 1 mg/0.2 mL subcutaneous 1 mg (0.2 mL) subcut ONCE PRN 10/13/23 10/03/24 Rx auto-injector (Gvoke HypoPen hypoglycemia #0.4 mL 2-Pack) pen needle, diabetic 31 gauge x #100 ea 11/17/23 10/03/24 Rx 5/16" Humalog KwikPen Insulin 100 See Rx Instructions subcut 01/13/24 10/03/24 Rx unit/mL subcutaneous (insulin USEASDIRECTD #15 mL lispro) nortriptyline 50 mg capsule 100 mg (2 x 50 mg) PO HS #180 caps 02/23/24 10/03/24 Rx (Pamelor) tizanidine 4 mg tablet (Zanaflex) 4 mg PO TID PRN muscle spasticity 04/13/24 10/03/24 Rx #90 tabs oxycodone 40 mg tablet,crush 40 mg PO Q8H severe pain 1 month 04/26/24 10/03/24 Rx resistant,extended release 12 hr #90 tabs oxycodone 30 mg tablet 30 mg PO Q4H PRN cancer 06/25/24 10/03/24 Rx breakthrough pain 1 month #180 tabs montelukast 10 mg tablet 10 mg PO HS #90 tabs 07/22/24 10/03/24 Rx (Singulair) albuterol sulfate 90 mcg/actuation 2 puff inhalation Q6H PRN Wheezing 08/20/24 10/03/24 Rx aerosol inhaler (Ventolin HFA) #8.5 grams fluticasone fur. 200 mcg-umeclid 1 inh inhalation QAM #60 ea 08/20/24 10/03/24 Rx 62.5 mcg-vilant 25 mcg inhalat.powder (Trelegy Ellipta) cetirizine 10 mg tablet (Zyrtec) 10 mg PO QPM #90 tabs 08/23/24 10/03/24 Rx insulin glargine 100 unit/mL (3 46 unit (0.46 mL) subcut BID #45 mL 08/23/24 10/03/24 Rx mL) subcutaneous pen (Lantus Solostar U-100 Insulin) dulaglutide 0.75 mg/0.5 mL 0.75 mg (0.5 mL) subcut .q7 days 09/14/24 10/03/24 Rx subcutaneous pen injector #2 mL Alcohol Swabs 10/03/24 10/03/24 History cyanocobalamin (vitamin B-12) 1,000 mcg IM DIRECTED 10/03/24 10/03/24 History 1,000 mcg/mL injection kit insulin glargine 100 unit/mL (3 0 unit subcut UD 10/03/24 10/03/24 History mL) subcutaneous pen (Basaglar KwikPen U-100 Insulin) benzonatate 200 mg capsule 200 mg PO TID PRN cough #30 caps 10/04/24 Rx Patient History Medical History (Updated 10/04/24 @ 10:29 by Trae Long MD) Status post chemotherapy completed 06/2023 SOB (shortness of breath) on exertion Leg pain, right Family history of anesthesia complication sister "her blood pressure went very and she had a lot trouble breathing, had to stop her surgery; she was told it was from her inhaler mixed with anesthesia" History of COVID-19 x3, most recent Aug 2022, admitted to [facility]; pneumonia>resolved. Seasonal allergies Recurrent UTI (urinary tract infection) Last UTI November 2022 Arthritis GERD without esophagitis Surgical History History of removal of Port-a-Cath (08/18/23) Access Port Removal - Desean Robertson DO History of esophagogastroduodenoscopy (EGD) Hx of colonoscopy History of genitourinary surgical procedure Radical vulvectomy with bilateral groin lymph node dissection; 12/25/22 (Dr. Hicks, [facility]) History of biopsy Vulvar mass 09/16/22 (Dr. Delia Arriola) S/P tubal ligation S/P total abdominal hysterectomy NELIDA-USO H/O: x3 Family History Mother Myocardial infarction Diabetes Kidney disease Heart disease Stroke Sister Myocardial infarction Diabetes Brother Throat cancer, Onset Age: 45 Father Liver cancer, Onset Age: 45 Cancer Sister Hypertension Diabetes Sister Heart disease Diabetes Ovarian cancer Sister Diabetes Brother Cancer Denies family history of Prostate cancer Breast cancer Colorectal cancer Uterine cancer Social History (Updated 08/17/24 @ 09:29 by Theresa Moody LPN) Smoking Status: Never smoker Tobacco Type: Cigarettes Age Started Using Tobacco: 16; Age Quit Using Tobacco: 44; packs per day: 0.5; Second Hand Exposure: Yes; Do You Dip or Chew Tobacco: No; Hx Alcohol Use: No Hx Substance Use: No Preferred Language: Bulgarian Communication Ability: Effective Visual Impairment: No Limitations Hearing Ability: Normal Cabin Cleaner Required: No Beliefs That Will Affect Care: None marital status: / Current Living Situation: Family Current Living Situation Comment: lives with sins current occupational status: disabled How many Children do You have: 3 Feels Safe at Home: Yes Safety Concerns: Feels Safe At This Time Diet: regular Diet Comment: regular caffeine: Yes during the past year weight has: decreased > 10 lbs Dental Care, Regularly: No Physical Activity Frequency: Other Physical Activity Frequency Comment: limited to physical condition Seatbelt Use: always Sunscreen Use: No Assistive Devices: Glasses, Oxygen - Continuous, Scooter/Electric Scooter and Walker Review of Systems Review of Systems: Please refer to admission H&P. No additions or deletions Physical Exam Constitutional: well developed and comfortable; not in distress Neck: trachea midline, no thyromegaly Respiratory: no respiratory distress Cardiovascular: RRR, no murmur, no edema Gastrointestinal (Abdomen): normal bowel sounds, soft, nontender, no hepatosplenomegaly Neurologic: Speech / Cognition: normal speech Gait: not gait assisted Psychiatric: Orientation: alert Results & Data Results & Data Vital Signs (Past 12 Hours) Vital Signs Temp Pulse Pulse Resp BP BP Pulse Ox 10/04/24 07:19 80 16 99 10/04/24 07:00 36.5 C 93 H 20 115/60 91 10/04/24 03:47 36.3 C L 75 16 126/57 L 94 10/04/24 01:04 86 10/04/24 00:54 81 17 95 10/04/24 00:30 10/04/24 00:23 36.3 C L 89 14 165/81 H 98 10/03/24 23:24 86 14 167/85 H 97 10/03/24 22:41 86 18 176/81 H 98 O2 Del Method O2 Flow Rate 10/04/24 07:19 Nasal Cannula 1 10/04/24 07:00 Room Air 1 10/04/24 03:47 Nasal Cannula 2.0 10/04/24 01:04 10/04/24 00:54 Nasal Cannula 2 10/04/24 00:30 Nasal Cannula 2.5 10/04/24 00:23 Nasal Cannula 2 10/03/24 23:24 Room Air 10/03/24 22:41 Nasal Cannula 2.5 Diagnostic Findings Patient's last echocardiogram from November 2022 showed normal systolic function with an EF of 65-70 and mild MR. Concentric LVH was noted. Grade 1 diastolic dysfunction was present Critical Care Results & Data Vital Signs (Past 12 Hours) Vital Signs Temp Pulse Pulse Resp BP BP Pulse Ox 10/04/24 10:25 36.5 C 89 20 138/67 94 10/04/24 07:19 80 16 99 10/04/24 07:00 36.5 C 93 H 20 115/60 91 10/04/24 03:47 36.3 C L 75 16 126/57 L 94 10/04/24 01:04 86 10/04/24 00:54 81 17 95 10/04/24 00:30 10/04/24 00:23 36.3 C L 89 14 165/81 H 98 10/03/24 23:24 86 14 167/85 H 97 10/03/24 22:41 86 18 176/81 H 98 O2 Del Method O2 Flow Rate 10/04/24 10:25 Room Air 10/04/24 07:19 Nasal Cannula 1 10/04/24 07:00 Room Air 1 10/04/24 03:47 Nasal Cannula 2.0 10/04/24 01:04 10/04/24 00:54 Nasal Cannula 2 10/04/24 00:30 Nasal Cannula 2.5 10/04/24 00:23 Nasal Cannula 2 10/03/24 23:24 Room Air 10/03/24 22:41 Nasal Cannula 2.5 Lab & Micro Results (Past 24 Hours) RBC 4.07 M/uL (4.20-5.40) L 10/04/24 WBC 14.67 K/ul (4.8-10.8) H 10/04/24 Hgb 12.4 g/dl (12.0-16.0) 10/04/24 Hct 38.2 % (37.0-47.0) 10/04/24 MCV 93.9 fL (80.0-100.0) 10/04/24 MCH 30.5 pg (25.0-34.0) 10/04/24 MCHC 32.5 g/dL (32.0-36.0) 10/04/24 RDW Standard Deviation 42.6 fL (36.4-46.3) 10/04/24 RDW Coefficient of Variation 12.3 % (11.5-14.5) 10/04/24 Plt Count 280 K/uL (130-400) 10/04/24 MPV 9.9 fL (9.4-12.4) 10/04/24 Neutrophils (%) (Auto) 86.6 % 10/04/24 Lymphocytes (%) (Auto) 6.7 % 10/04/24 Monocytes # (Auto) 0.90 K/uL (0.11-0.59) H 10/04/24 Eosinophils # (Auto) 0.00 K/uL (0.00-0.50) 10/04/24 Immature Granulocyte % (Auto) 0.5 % 10/04/24 Neutrophils # (Auto) 12.69 K/uL (1.40-6.50) H 10/04/24 Lymphocytes # (Auto) 0.99 K/uL (1.20-3.40) L 10/04/24 Monocytes # (Auto) 0.90 K/uL (0.11-0.59) H 10/04/24 Eosinophils # (Auto) 0.00 K/uL (0.00-0.50) 10/04/24 Basophils # (Auto) 0.01 K/uL (0.00-0.20) 10/04/24 Immature Granulocyte # (Auto) 0.08 K/uL (0.01-0.20) 5 Na 140 mmol/L (136-145) 10/04/24 K 3.6 mmol/L (3.5-5.1) 10/04/24 Cl 99 mmol/L (98-107) 10/04/24 CO2 34 mmol/L (21-32) H 10/04/24 Anion Gap 7 (3-11) 10/04/24 BUN 22 mg/dl (6-23) 10/04/24 Creatinine 0.95 mg/dl (0.6-1.2) 10/04/24 BUN/Creatinine Ratio 23.2 (10-20) H 10/04/24 Glu 141 mg/dl (70-99(Fasting)) H 10/04/24 Ca 9.5 mg/dl (8.6-10.3) 10/04/24 Total Bilirubin 0.5 mg/dl (0.2-1.0) 10/04/24 AST 15 U/L (13-39) 10/04/24 ALT 13 U/L (7-52) 10/04/24 Alkaline Phosphatase 120 U/L (34-104) H 10/04/24 TP 7.5 gm/dl (6.0-8.3) 10/04/24 Albumin 3.7 gm/dl (3.4-5.0) 10/04/24 Globulin 3.8 gm/dl (2.5-4.0) 10/04/24 Albumin/Globulin Ratio 1.0 (0.9-2) 10/04/24 Calcium Level 9.5 mg/dl (8.6-10.3) 10/04/24 06:12 Diagnostic Findings (Past 24 Hours) Chest X-Ray 10/03/24 12:42 XR chest 1V portable HISTORY: 68 years-old Female Chest pain, nonspecific COMPARISON: 06/29/2024 TECHNIQUE: AP view the chest FINDINGS: Cardiac silhouette is enlarged. Vascular congestion. Bilateral mixed interstitial and alveolar opacities. No pneumothorax. Probable trace pleural effusions. Bones appear grossly intact. IMPRESSION: 1. Cardiomegaly with mixed interstitial and alveolar opacities suggestive of multifocal pneumonia versus pulmonary edema. 2. Trace pleural effusions. ACT 112: Negative or not required by law. The above report was generated using voice recognition software. It may contain grammatical, syntax or spelling errors. Electronically signed by: Richardson Gray M.D. 10/03/2024 1:[address] 10/04/24 07:33 CT chest diagnostic wo con CT DOSE: 908.37 mGy.cm CLINICAL HISTORY: multifocal pneumonia. TECHNIQUE: Multiaxial CT images of the chest were performed without contrast. A dose lowering technique was utilized adhering to the principles of ALARA. COMPARISON STUDY: 03/18/2023 CT and chest x-ray of 10/03/2024 FINDINGS: There is mild cardiomegaly. There is a trace right pleural effusion. There is mild atelectasis in the lung bases. There are mild scattered patchy bilateral groundglass pulmonary opacities with peripheral sparing. No pneumothorax. No enlarged adenopathy. There are mild coronary artery calcifications. No pericardial effusion. There are mild thoracic spine degenerative changes. IMPRESSION: 1. Mild CHF with trace right pleural effusion. 2. Patchy groundglass pulmonary opacities with peripheral sparing. Differential diagnosis includes pulmonary edema and early pneumonia. ACT 112: Negative or not required by law. Electronically signed by: Aron Garcia M.D. 10/04/2024 10:14 AM I & O Totals 24 Hours 10/03/24 10/04/24 10/05/24 06:59 06:59 06:59 Intake Total 200 / 200 Balance 200 / 200 Cumulative 10/03/24 12:34 thru 10/04/24 06:32 Intake Total 200 Balance 200 RT Ventilator Mngmt (Last Documented) Ventilator Ordered Settings Respiratory Rate 20 10/04/24 10:25 Ventilator - PT Measurements Respiratory Rate 20 PG Care Time/CCT Total # of Minutes Spent Total Time Spent with Patient: Total time spent is greater than 50% in coordination of care (as documented) at patient's floor/unit and/or counseling patient: Coding Level of Care Code 47664 INT INP/OBS CARE 2/55MIN Diagnoses Multiple pulmonary nodules R91.8 Shortness of breath R06.02 Restrictive lung disease secondary to obesity J98.4; E66.9
--- NOTE | 2024-10-04 10:35 | Pharmacy Report ---
Pharmacy Glycemic Short Note 2 - Date of Service October 04, 2024 - Glycemic Short BSG Results (Last 24 hours): 10/03/24 10/03/24 10/03/24 13:20 18:22 18:23 Glucose 204 H POC Glucose 355 H* 363 H* 10/03/24 10/03/24 10/03/24 20:49 21:30 22:33 Glucose POC Glucose 403 H* 384 H* 441 H* 10/03/24 10/04/24 10/04/24 23:14 00:57 01:45 Glucose POC Glucose 349 H* 299 H 318 H* 10/04/24 10/04/24 05:46 06:12 Glucose 141 H POC Glucose 155 H OUTPATIENT ANTIDIABETIC REGIMEN: * dulaglutide 0.75mg SQ weekly * Humalog 5 units + SS TIDM * Lantus 46 units SQ BID HbA1C: 9.4% ASSESSMENT: * Pt is a 68 year old female admitted with COPD exacerbation. History of DM2 on insulin therapy at home. Pharmacy consulted to assist with inpatient glycemic management. * Lantus 30 units X 1 dose last evening + 8 units IV insulin and SQ bolus of 32 units yesterday. * Received IV methylpred 60mg X 1 dose yesterday. Transitioned to PO prednisone 50mg daily today. Receiving IV antibiotics. Tolerating diet. * Will continue Lantus 30 units SQ daily in AM + HS scale depending on BSG. Novolog ACHS 15/6 for now. PLAN FOR INPATIENT GLYCEMIC CONTROL: * Hold outpatient oral diabetes medications * Basal insulin * Lantus 30 units SQ qAM + 20-30units HS depending on BSG * Bolus insulin * NovoLog per scale ACHS or Q6hrs while NPO * Goal Range: Low 110 mg/dL - High 150 mg/dL * Correction Factor: 15 mg/dL/unit * Nutritional / Prandial insulin per carb ratio of 1 unit per 6 grams CHO consumed
[2024-10-04] MEDS: AZITHROMYCIN 250 MG TAB PO ONE (11:09)
[2024-10-04] MEDS: cefUROXime axetil 500 MG TAB PO SCH (11:10)
[2024-10-04 11:22] LABS: iSTAT Arterial Blood Gas HCO3 30 meg/L (19-24); iSTAT Arterial Blood Gas pCO2 42 mmHg (35-46); iSTAT Arterial Blood Gas pH 7.46 (7.35-7.45); iSTAT Arterial Blood Gas pO2 74 mmHg (80-95); iSTAT Carbon Dioxide 31 mmol/L (24-31); iSTAT Hematocrit 35 % (37-47); iSTAT Hemoglobin 11.9 g/dl (12.0-16.0); iSTAT Potassium 3.5 mmol/L (3.3-5.0); iSTAT Sodium 137 mmol/L (135-144)
[2024-10-04 13:34] VITALS: O2SAT 93
--- NOTE | 2024-10-04 14:48 | Discharge Summary ---
Date of Service October 04, 2024 Admission HPI Per Admitting Provider 68F pmh pulmonary nodules, CAD, IDDM, COPD, allergic asthma, GERD, MDD, SCC vulva who presents with SOB. Patient states for the last 2.5 weeks she has been having worsening SOB, which resembles a COPD exacerbation to her, but slightly different. Worsened to the point that she presented today. Was previously given oral steroids and abx by her PCP which helped, but did not resolve her symptoms. Also used her nebulizer and inhaler without resolution of symptoms. Patient on my evaluation is significantly improved, though she still states that she is SOB. Chronically on 2.5L O2 at home, on that and satting >92% on my evaluation. No fever, chills, cp, other symptoms. Admission Exam Per Admitting Provider Constitutional: WD/WN, vitals as above Respiratory: Auscultation: + wheezes Cardiovascular: distant heart sounds Principal Diagnosis Multifocal pneumonia Discharge Exam Constitutional: Alert oriented x 3; not in distress. Respiratory: Bilateral vesicular breath sound. Cardiovascular: RRR, no murmur, no edema Vessels: no JVD or carotid bruit Chest: normal inspection of chest Abdomen: normal bowel sounds, soft, nontender, no hepatosplenomegaly Musculoskeletal: no cyanosis or clubbing, extremities motor strength 5/5 Skin: no rashes, warm and dry normal turgor Neurologic: PERRL, EOMI, accommodation nl, no face palsy, no dysarthria CN's II- XI intact bilaterally and moves all extremities Psychiatric: A+Ox3, euthymic affect Discharge Data Allergies Allergy/AdvReac Type Severity Reaction Status Date / Time iodine Allergy Severe SOB/HIVES Verified 04/28/24 15:07 Penicillins Allergy Severe SHORT OF Verified 04/28/24 15:07 BREATH/HIVES shellfish derived Allergy Severe SHORT OF Verified 04/28/24 15:07 BREATH/EYES SWELL/ITCHY sumatriptan [From Imitrex] Allergy Severe SHORT OF Verified 04/28/24 15:07 BREATH/HIVES erythromycin base Allergy Intermediate ITCHY HIVES Verified 04/28/24 15:07 liraglutide [From Victoza] Allergy Intermediate RASH/STOMACH Verified 04/28/24 15:07 PAIN rofecoxib [From Vioxx] Allergy Intermediate ITCHY HIVES Verified 04/28/24 15:07 Tetracyclines Allergy Intermediate ITCHY HIVES Verified 04/28/24 15:07 topiramate [From Topamax] AdvReac Severe SUICIDAL Verified 04/28/24 15:07 THOUGHTS/DEPRESSION meloxicam AdvReac Intermediate GI Verified 04/28/24 15:07 UPSET/DIARRHEA metformin AdvReac Intermediate STOMACH Verified 04/28/24 15:07 PAIN/DIARRHEA Consultations 10/03/24 14:14 ED Decision to Admit Stat 10/04/24 10:23 Consult Pulmonology Routine Ordered Studies 10/04/24 07:33 CT chest diagnostic wo con Routine Hospital Course (1) Multifocal pneumonia: Plan Patient is a 68-year-old female with past medical history of asthma who presented to the hospital with shortness of breath. Lab work on admission showed leukocytosis. CT chest showed patchy multifocal opacities consistent with atypical pneumonia. She was started on antibiotic with improvement in her shortness of breath. Her BNP was found to be elevated for which she underwent echocardiogram which showed EF of 60 to 65% with grade 1 diastolic dysfunction. Pulmonology was consulted; recommended oral antibiotic to complete the course at discharge. Patient was also started on trial of Lasix 20 mg every other day for concern of acute on chronic CHF. Plan is to follow-up with primary care doctor and obtain follow-up BMP to check on her kidney function and electrolytes. Please note the above document was generated using voice recognition software. It may contain grammatical, syntax or spelling errors. Any formal questions or concerns about the content, text or information contained within the body of this dictation should be directly addressed to the provider for clarification Total Time Total Time Spent Total Time Spent (In Minutes): 45 Total Time Includes: Examination of the Patient, Discharge Planning, Medication Reconciliation, Communication With Other Providers and Other Discharge Plan Discharge Items Patient Disposition: Home - Self-Care Reason For Visit: SOB Discharge Diagnosis: Multifocal pneumonia Activity: Resume your previous activity Non-emergency contact: Primary Care Provider Call non-emergency contact if: you have any medication questions and your symptoms worsen Follow-up/Referrals: Will Tabares CRNP [Primary Care Provider] - (Date & Time 10/11/2024 9:00 AM Provider: Pratima Tobin MD Family Medicine [facility] ) Diet: Regular Addtl Attending Provider Instructions: You were admitted to the hospital with pneumonia. You are seen by pulmonology during hospitalization. You are prescribed following medication Ceftin 500 mg twice a day for 5 days Azithromycin 5 mg once a day for 2 days Prednisone 20 mg once a day for 5 days Lasix 20 mg every other day. This is a diuretic to help decrease the lung congestion. If you experience dizziness, muscle cramps or low blood pressure; it should be stopped immediately. Please follow-up with your primary care doctor. An appointment will be set up for you.You will need lab work to check your electrolyte and kidney function during her follow-up. Pending Studies at Discharge: No Stand-Alone Forms: My [facility], Smoking Cessation Medications and DC Order Prescriptions: New prednisone 20 mg Tablet 20 mg PO DAILY 5 Days Qty: 5 0RF cefuroxime axetil 500 mg Tablet 500 mg PO BID 5 Days Qty: 10 0RF azithromycin 500 mg tablet 500 mg PO DAILY 2 Days Qty: 2 0RF furosemide [Lasix] 20 mg tablet 20 mg PO Q OTHER DAY Qty: 30 0RF Continued (DME) lancets Misc See Rx Instructions .Route Qty: 100 5RF Rx Instructions: As directed (DME) pen needle, diabetic 31 gauge x 5/16" needle See Rx Instructions .Route Qty: 100 6RF Rx Instructions: As directed insulin lispro [Humalog KwikPen Insulin] 100 unit/mL insulin pen See Rx Instructions subcut USEASDIRECTD MDD 30 units Qty: 15 2RF Rx Instructions: Inject 5 units base dose + SS with meals, TDD 30 units. nortriptyline [Pamelor] 50 mg capsule 100 mg PO HS Qty: 180 2RF tizanidine [Zanaflex] 4 mg tablet 4 mg PO TID PRN (Reason: muscle spasticity) Qty: 90 0RF oxycodone 40 mg tablet,oral only,ext.rel.12 hr 40 mg PO Q8H 30 Days Qty: 90 0RF oxycodone 30 mg tablet 30 mg PO Q4H PRN (Reason: cancer breakthrough pain) 30 Days Qty: 180 0RF montelukast [Singulair] 10 mg tablet 10 mg PO HS Qty: 90 1RF cetirizine [Zyrtec] 10 mg tablet 10 mg PO QPM Qty: 90 1RF insulin glargine [Lantus Solostar U-100 Insulin] 100 unit/mL (3 mL) insulin pen 46 unit subcut BID Qty: 45 2RF dulaglutide 0.75 mg/0.5 mL pen injector 0.75 mg subcut .q7 days Qty: 2 2RF benzonatate 200 mg capsule 200 mg PO TID PRN (Reason: cough) Qty: 30 0RF (DME) Dexcom G6 Radiology Physician Misc See Rx Instructions .Route Qty: 1 0RF Rx Instructions: As directed (DME) Dexcom G6 Sensor Device See Rx Instructions .Route Qty: 3 3RF Rx Instructions: As directed (DME) Dexcom G6 Transmitter Device See Rx Instructions .Route Qty: 1 1RF Rx Instructions: As directed glucose 4 gram tablet,chewable 4 g PO Q15M PRN (Reason: hypoglycemia) Qty: 30 1RF Rx Instructions: until symptoms of low blood sugar are controlled albuterol sulfate [Ventolin HFA] 90 mcg/actuation HFA aerosol inhaler 2 puff INHALATION Q6H PRN (Reason: Wheezing) Qty: 8.5 3RF Trelegy Ellipta 200-62.5-25 mcg blister with device 1 inh inhalation QAM Qty: 60 2RF Gvoke HypoPen 2-Pack 1 mg/0.2 mL auto-injector 1 mg subcut ONCE PRN (Reason: hypoglycemia) Qty: 0.4 2RF aspirin 81 mg Tablet,Delayed Release (Dr/Ec) 81 mg PO QPM epinephrine [EpiPen] 0.3 mg/0.3 mL Auto-Injector 0.3 mg IM UD PRN (Reason: Allergic Reaction) lansoprazole [Prevacid] 30 mg Capsule,Delayed Release(Dr/Ec) 30 mg PO QPM (DME) Alcohol Swabs insulin glargine [Basaglar KwikPen U-100 Insulin] 100 unit/mL (3 mL) insulin pen 0 unit SUBCUT UD Rx Instructions: pt mentioned taking basaglar but didnt say how many units she uses cyanocobalamin (vitamin B-12) 1,000 mcg/mL Kit 1,000 mcg IM DIRECTED Discharge Orders: Discharge Order (Routine); Ordered 10/04/24 Ordered By: Ghassan Land Admission Data Admit Date/Time: 10/03/24 16:11 Attending Provider: Ghassan Land Admit Provider: Katie Saini Primary Care Provider: Will Tabares Other Providers: Franco Cordon; Trae Long
[2024-10-04 15:07] VITALS: RESP 20; TEMP 97.9
[2024-10-04 18:11] VITALS: BP 182/76; PULSE 91
[2024-10-04] MEDS ORDERED: LANTUS PER UNIT CHARGE SC SCH (21:00)
[2024-10-05] MEDS ORDERED: predniSONE 20 MG TAB PO SCH (09:00)
[2024-10-05] MEDS ORDERED: LANTUS PER UNIT CHARGE SC SCH (09:00)
--- NOTE | 2024-10-05 18:39 | Coding Query ---
CONGESTIVE HEART FAILURE To Promote full compliance with coding requirements relating to patient care, physician participation is requested in all cases of cooker tender uncertainty. Please assist us with the following questions. A diagnosis of Congestive Heart Failure is documented in the patient's medical record. To accurately code this diagnosis and to compare patient severity, we ask that you specify the type of heart failure by placing an X within the parenthesis (x). Pt's BNP was found to be elevated for which she underwent echocardiogram which showed EF of 60 to 65% with grade 1 diastolic dysfunction. Pulmonology was consulted; recommended oral antibiotic to complete the course at discharge. Patient was also started on trial of Lasix 20 mg every other day for concern of acute on chronic CHF. SYSTOLIC HEART FAILURE ( ) Acute ( ) Chronic ( ) Acute on Chronic ( ) Rheumatic ( ) Unknown DIASTOLIC HEART FAILURE ( ) Acute ( ) Chronic (X ) Acute on Chronic ( ) Rheumatic ( ) Unknown COMBINED SYSTOLIC AND DIASTOLIC HEART FAILURE ( ) Acute ( ) Chronic ( ) Acute on Chronic ( ) Rheumatic ( ) Unknown Was the CHF Present On Admission? Please check the appropriate box: (X ) Present on Admission ( ) Not Present On Admission ( ) Clinically undetermined Thank you Madalyn FLORES
--- NOTE | 2024-10-06 16:45 | Electrocardiogram Report ---
Test Reason : Blood Pressure : */* mmHG Vent. Rate : 95 BPM Atrial Rate : 95 BPM P-R Int : 142 ms QRS Dur : 88 ms QT Int : 378 ms P-R-T Axes : 43 34 68 degrees QTcB Int : 475 ms Normal sinus rhythm Cannot rule out Anterior infarct (cited on or before 01-Jul-2023) Abnormal ECG When compared with ECG of 09-Sep-2023 04:15, No significant change was found Confirmed by Laz Vaz ([id number]) on 10/06/2024 4:45:21 PM Referred By: REFERRED SELF Confirmed By: Laz Vaz
== END 2024-10-04 19:38 | disposition home or self-care (01) | DRG 193 ==
LOC: ED 12:34 → EDINP 16:11 → INTOOBSV 16:11 → SUATTDRO 16:11 → OBSVTOIN 16:11 → 2E 23:24

== ENCOUNTER 2024-12-07 14:01 | Observation (INO) ==
--- NOTE | 2024-12-07 14:30 | Emergency Department Note ---
ED DC CONDITION Conditon at Discharge Condition at Discharge: Fair Impression & Plan Acute exacerbation of chronic obstructive pulmonary disease, Multifocal pneumonia, Pulmonary edema ED Provider Note Provider: Timothy Le MD CHIEF COMPLAINT: Shortness of breath HISTORY OF PRESENT ILLNESS: Patient is a 68-year-old female extensive past medical history including admission in October for pneumonia, type 2 diabetes, COPD, fatty liver, chronic back pain presenting here today reporting since yesterday developed worsening shortness of breath. Denies any significant fevers or runny nose or sore throat. Somewhat of a cough today. She states feels like she is "vomiting "up phlegm. Denies actually vomiting or having abdominal pain. No falls or syncope. No leg swelling reported. Denies significant abdominal swelling. But chronic back pain reported. She reports she is on her home oxygen at home and using every 4 hours for nebulizers without much improvement of her symptoms. Called her doctor and sent here for further evaluation. Patient states compliance with her home Lasix. Patient states she does feel quite winded with ambulation. PAST MEDICAL HISTORY: As noted above MEDICATIONS: Reviewed home medications and includes home oxygen SOCIAL HISTORY: Former smoker PHYSICAL EXAM: GENERAL: alert and oriented in no acute distress on stretcher on nasal cannula oxygen Head: normocephalic and atraumatic EYES: No injection, discharge or icterus. NECK: Trachea midline. Supple. ENT: Mucous membranes pink and moist. LUNGS: Airway patent. No retractions. Breath sounds diminished with faint upper lung field wheezing HEART: Regular rate and rhythm. No chest wall tenderness ABDOMEN: Soft and non-tender, without guarding or rebound. SKIN: Acyanotic, warm, dry, without rashes EXTREMITIES: Without swelling, tenderness or deformity NEUROLOGICAL: No focal deficits. No aphasia. No facial droop or slurred speech. Normal strength and tone in the extremities. Sensation to gross touch normal. EK bpm normal sinus rhythm. No PVC or PAC. No acute ST segment elevation or depression with a QTc of 454. CONTINUOUS CARDIAC MONITORING: was ordered and showed a heart rate of 90s bpm in normal sinus rhythm to 110s sinus tach Patient's laboratory studies and imaging reviewed. Differential includes Reactive airway disease, pneumonia, pneumothorax, COPD, CHF, infections, cardiac ischemia, pulmonary embolism, musculoskeletal, gastrointestinal, as well as other pathologies. IMPRESSION/MEDICAL DECISION MAKING: Patient with longstanding medical comorbidities and respiratory issues admitted in October for atypical pneumonia as well as fluid overload. Denies significant weight gain or new swelling and states compliance with home Lasix. Denies fever or significant sore throat or sinus congestion. Bit of cough today reported by her but benign abdomen. No significant chest pain at this time. Using home nebulizer with minimal improvement. She is somewhat diminished and wheezing here given a nebulizer and some IV Solu-Medrol steroid. Will send laboratory studies will obtain a chest x-ray and BNP to try to differentiate possible COPD issue versus pneumonia versus fluid overload. EKG obtained troponin sent but lower suspicion for ACS. Patient does not seem encephalopathic. Blood work here without anemia with stable mild leukocytosis of 14. Chest x-ray per radiology stable and as such further differentiate we will obtain a chest CT which showed atypical pneumonia last admission. Patient is known to be hypertensive here. States she did take her blood pressure medicine. This may be contributing somewhat to her breathing issues with history of diastolic dysfunction on recent echo in the outpatient setting. CT scan of the chest per radiology question bilateral pneumonia and some fluid overload. Given some Lasix as well as some cefepime given recent hospitalization for antibiotic coverage for possible pneumonia. Patient requested home pain medication and declined fentanyl here. Given some oxycodone. Is chronically on this at home. She is agreeable to plan to stay for further care given the mixed picture of COPD, pneumonia, and fluid overload. Slight improved breathing after breathing treatment here. Discussed with hospitalist team this plan and they are in agreement. DIAGNOSIS: Acute COPD aspiration, pneumonia, fluid overload DISPOSITION: Hospitalist will evaluate Patient was agreeable with this plan. Past Med/Surg History Problem List (Updated 12/07/24 @ 18:16 by ALFONSO Dooley) Hypertensive urgency Chronic pain Chronic hypoxic respiratory failure Bilateral pneumonia Acute on chronic heart failure with preserved ejection fraction (HFpEF) Pulmonary edema (Acute) Multifocal pneumonia (Acute) Leukocytosis (Acute) Shortness of breath (Acute) Hypoxia (Acute) Multiple pulmonary nodules Knee pain Coronary artery disease without angina pectoris Urinary tract infection Acute right hip pain Hypoglycemia associated with diabetes Back pain of lumbosacral region with sciatica Weakness of right lower extremity Cancer related pain 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) History- s/p radical vulvectomy and bilateral LN dissection on 12/25/22- planning for future chemo Type 2 diabetes mellitus Elevated troponin (Acute) Hypoxia (Acute) Acute exacerbation of chronic obstructive pulmonary disease (Acute) Fatigue Daytime somnolence Snoring Palliative care by specialist Dysuria Streptococcal septicemia COVID-19 (Acute) Elevated IgE level Ex-smoker Abnormal PFTs (pulmonary function tests) Allergic rhinitis with postnasal drip Obesity Port-A-Cath in place (02/14/23) Insertion Access Port with Fluoroscopy(Left) - Desean Robertson DO Cirrhosis COPD (chronic obstructive pulmonary disease) daily and prn inh admitted for COPD exacerbation 01/15/23-01/16/23 at [facility] - treated with abx and steroid- breathing improved per 01/20/23 PCP note Asthma daily and prn inhaler Migraine headache without aura hx Hyperlipidemia Chronic back pain NAFLD (nonalcoholic fatty liver disease) Insomnia Medical History (Updated 12/07/24 @ 18:16 by ALFONSO Dooley) Restrictive lung disease secondary to obesity Status post chemotherapy completed 06/2023 SOB (shortness of breath) on exertion Leg pain, right Family history of anesthesia complication sister "her blood pressure went very and she had a lot trouble breathing, had to stop her surgery; she was told it was from her inhaler mixed with anesthesia" History of COVID-19 x3, most recent Aug 2022, admitted to [facility]; pneumonia>resolved. Seasonal allergies Recurrent UTI (urinary tract infection) Last UTI October/November 2022 Arthritis GERD without esophagitis Surgical History (Updated 10/11/24 @ 00:07 by Cha aTm) History of removal of Port-a-Cath (08/18/23) Access Port Removal - Desean Robertson DO History of esophagogastroduodenoscopy (EGD) Hx of colonoscopy History of genitourinary surgical procedure Radical vulvectomy with bilateral groin lymph node dissection; 12/25/22 (Dr. Hicks, [facility]) History of biopsy Vulvar mass 09/16/22 (Dr. Delia Arriola) S/P tubal ligation S/P total abdominal hysterectomy NELIDA-USO H/O: x3 Family History Mother Myocardial infarction Diabetes Kidney disease Heart disease Stroke Sister Myocardial infarction Diabetes Brother Throat cancer, Onset Age: 45 Father Liver cancer, Onset Age: 45 Cancer Sister Hypertension Diabetes Sister Heart disease Diabetes Ovarian cancer Sister Diabetes Brother Cancer Denies family history of Prostate cancer Breast cancer Colorectal cancer Uterine cancer Social History (Updated 11/18/24 @ 11:15 by Theresa Moody LPN) Smoking Status: Former smoker Tobacco Type: Cigarettes Age Started Using Tobacco: 16; Age Quit Using Tobacco: 44; packs per day: 0.5; Second Hand Exposure: Yes; Do You Dip or Chew Tobacco: No; Hx Alcohol Use: No Hx Substance Use: No Preferred Language: Spanish Communication Ability: Effective Visual Impairment: No Limitations Hearing Ability: Normal Application Systems Administrator Required: No Beliefs That Will Affect Care: None marital status: / Current Living Situation: Family Current Living Situation Comment: lives with sins current occupational status: disabled How many Children do You have: 3 Feels Safe at Home: Yes Diet: regular Diet Comment: regular caffeine: Yes during the past year weight has: decreased > 10 lbs Dental Care, Regularly: No Physical Activity Frequency: Other Physical Activity Frequency Comment: limited to physical condition Seatbelt Use: always Sunscreen Use: No Assistive Devices: Oxygen - Continuous, Scooter/Electric Scooter, Stair Lift and Walker Allergies Allergies Allergy/AdvReac Type Severity Reaction Status Date / Time iodine Allergy Severe SOB/HIVES Verified 12/07/24 16:13 Penicillins Allergy Severe SHORT OF Verified 12/07/24 16:13 BREATH/HIVES shellfish derived Allergy Severe SHORT OF Verified 12/07/24 16:13 BREATH/EYES SWELL/ITCHY sumatriptan [From Imitrex] Allergy Severe SHORT OF Verified 12/07/24 16:13 BREATH/HIVES erythromycin base Allergy Intermediate ITCHY HIVES Verified 12/07/24 18:28 liraglutide [From Victoza] Allergy Intermediate RASH/STOMACH Verified 12/07/24 16:13 PAIN rofecoxib [From Vioxx] Allergy Intermediate ITCHY HIVES Verified 12/07/24 16:13 Tetracyclines Allergy Intermediate ITCHY HIVES Verified 12/07/24 16:13 topiramate [From Topamax] AdvReac Severe SUICIDAL Verified 12/07/24 16:13 THOUGHTS/DEPRESSION meloxicam AdvReac Intermediate GI Verified 12/07/24 16:13 UPSET/DIARRHEA metformin AdvReac Intermediate STOMACH Verified 12/07/24 16:13 PAIN/DIARRHEA Home Meds Home Medications Medication Instructions Recorded Confirmed aspirin 81 mg tablet,delayed 81 mg PO QPM 08/10/22 12/07/24 release epinephrine 0.3 mg/0.3 mL 0.3 mg IM UD PRN Allergic Reaction 08/10/22 12/07/24 injection, auto-injector (EpiPen) lansoprazole 30 mg capsule,delayed 30 mg PO QPM 02/06/23 12/07/24 release (Prevacid) Alcohol Swabs 10/03/24 10/03/24 benralizumab 10 mg/0.5 mL 0 mg subcut DIRECTED 10/20/24 12/07/24 subcutaneous syringe (Fasenra) albuterol sulfate 2.5 mg/3 mL 2.5 mg inhalation Q6H PRN 12/07/24 12/07/24 (0.083 %) solution for nebulization Shortness Of Breath Or Wheezing atorvastatin 40 mg tablet 40 mg PO DAILY 12/07/24 12/07/24 benzonatate 100 mg capsule 100 mg PO TID PRN Cough 12/07/24 12/07/24 cyanocobalamin (vitamin B-12) 1,000 mcg PO HS 12/07/24 12/07/24 1,000 mcg tablet (Vitamin B-12) dulaglutide 0.75 mg/0.5 mL 0.75 mg subcut WK 12/07/24 12/07/24 subcutaneous pen injector ezetimibe 10 mg tablet 10 mg PO DAILY 12/07/24 12/07/24 fexofenadine 180 mg tablet 180 mg PO DAILY 12/07/24 12/07/24 fluticasone propionate 50 1 spray intranasal BID 12/07/24 12/07/24 mcg/actuation nasal spray,suspension glucagon 3 mg/actuation nasal 3 mg intranasal DIRECTED PRN 12/07/24 12/07/24 spray (Baqsimi) Hypoglycemia insulin degludec 100 unit/mL (3 44 unit subcut DAILY 12/07/24 12/07/24 mL) subcutaneous pen insulin lispro 100 unit/mL See Rx Instructions .Route .COMPLEX 12/07/24 12/07/24 subcutaneous solution (Admelog U-) mometasone 50 mcg/actuation nasal 2 spray intranasal DAILY 12/07/24 12/07/24 spray ondansetron HCl 8 mg tablet 8 mg PO Q8H PRN NAUSEA/VOMITING 12/07/24 12/07/24 oxycodone 30 mg tablet 30 mg PO Q6H PRN cancer 12/07/24 12/07/24 breakthrough pain oxycodone 40 mg tablet,crush 40 mg PO Q8H 12/07/24 12/07/24 resistant,extended release 12 hr (OxyContin) promethazine 25 mg tablet 25 mg PO Q6H PRN NAUSEA/VOMITING 12/07/24 12/07/24 pseudoephedrine HCl 30 mg tablet 30 mg PO Q6H PRN Congestion 12/07/24 12/07/24 (Sudafed) tizanidine 4 mg tablet (Zanaflex) 4 mg PO Q8H PRN muscle spasticity 12/07/24 12/07/24 Previous Rx's Medication Instructions Recorded lancets #100 ea 11/04/22 pen needle, diabetic 31 gauge x #100 ea 11/17/2312/17" nortriptyline 50 mg capsule 100 mg (2 x 50 mg) PO HS #180 caps 02/23/24 (Pamelor) montelukast 10 mg tablet 10 mg PO HS #90 tabs 07/22/24 (Singulair) albuterol sulfate 90 mcg/actuation 2 puff inhalation Q6H PRN Wheezing 08/20/24 aerosol inhaler (Ventolin HFA) #8.5 grams cetirizine 10 mg tablet (Zyrtec) 10 mg PO QPM #90 tabs 08/23/24 furosemide 20 mg tablet (Lasix) 20 mg PO Q OTHER DAY #30 tabs 10/04/24 insulin pump cart,auto,BT,G6/7 #15 ea 10/26/24 (Omnipod 5 G6-G7 Pods (Gen 5) subcutaneous cartridge) insulin pump cartridge,auto #1 ea 10/26/24 dose,BT,G6/G7 with controller subcutaneous (Omnipod 5 G6-G7 Intro Kit(Gen 5) subcutaneous cartridge and controller) fluticasone fur. 200 mcg-umeclid 1 inh inhalation QAM #60 ea 11/16/24 62.5 mcg-vilant 25 mcg inhalat.powder (Trelegy Ellipta) Results & Data (ED) Vital Signs Vital Signs - 24 hr 12/07/24 14:06 12/07/24 14:39 12/07/24 14:39 Temperature 36.0 C L Temperature Source Temporal Artery Scan Pulse Rate 92 H Pulse Rate [Apical] Pulse Rhythm Pulse Rhythm [Apical] Pulse Strength [Apical] Respiratory Rate 24 Respiratory Effort / Characteristics Spontaneous Spontaneous Short of Breath Respiratory Depth Normal Deep Respiratory Pattern Regular Regular Blood Pressure 190/77 H Blood Pressure [Left Arm] Blood Pressure Mean 114 Blood Pressure Mean [Left Arm] Blood Pressure Position Sitting Blood Pressure Position [Left Arm] Pulse Oximetry 93 Oxygen Delivery Method Nasal Cannula Nasal Cannula Nasal Cannula Oxygen Flow Rate 2 2 2 Sepsis Recent Fever Within 48 Hours No Sepsis New/Unexplained Change in Mental Status No Sepsis Action Taken by Nursing No Action Required 12/07/24 14:39 12/07/24 14:39 12/07/24 15:08 Temperature Temperature Source Pulse Rate 97 H 92 H Pulse Rate [Apical] 96 H Pulse Rhythm Regular Pulse Rhythm [Apical] Regular Pulse Strength [Apical] Normal Respiratory Rate 14 19 Respiratory Effort / Characteristics Non-Labored Spontaneous Respiratory Depth Normal Respiratory Pattern Regular Blood Pressure Blood Pressure [Left Arm] Blood Pressure Mean Blood Pressure Mean [Left Arm] Blood Pressure Position Blood Pressure Position [Left Arm] Pulse Oximetry 95 95 Oxygen Delivery Method Nasal Cannula Nasal Cannula Oxygen Flow Rate 2 2 Sepsis Recent Fever Within 48 Hours Sepsis New/Unexplained Change in Mental Status Sepsis Action Taken by Nursing 12/07/24 15:19 12/07/24 15:23 12/07/24 16:41 Temperature Temperature Source Pulse Rate Pulse Rate [Apical] 114 H Pulse Rhythm Pulse Rhythm [Apical] Pulse Strength [Apical] Respiratory Rate 17 Respiratory Effort / Characteristics Non-Labored Spontaneous Respiratory Depth Normal Respiratory Pattern Regular Blood Pressure Blood Pressure [Left Arm] 204/126 H 209/94 H 211/90 H Blood Pressure Mean Blood Pressure Mean [Left Arm] 152 132 130 Blood Pressure Position Blood Pressure Position [Left Arm] Semi-fowlers Semi-fowlers Semi-fowlers Pulse Oximetry 97 Oxygen Delivery Method Nasal Cannula Oxygen Flow Rate 2 Sepsis Recent Fever Within 48 Hours Sepsis New/Unexplained Change in Mental Status Sepsis Action Taken by Nursing 12/07/24 18:25 12/07/24 19:00 12/07/24 19:04 Temperature Temperature Source Pulse Rate 93 H Pulse Rate [Apical] 106 H 98 H Pulse Rhythm Pulse Rhythm [Apical] Pulse Strength [Apical] Respiratory Rate 21 20 Respiratory Effort / Characteristics Non-Labored Spontaneous Non-Labored Spontaneous Respiratory Depth Normal Normal Respiratory Pattern Regular Regular Blood Pressure Blood Pressure [Left Arm] 179/46 H 132/60 Blood Pressure Mean Blood Pressure Mean [Left Arm] 90 84 Blood Pressure Position Blood Pressure Position [Left Arm] Right Lateral Lying Pulse Oximetry 97 97 Oxygen Delivery Method Nasal Cannula Nasal Cannula Oxygen Flow Rate 2 2 Sepsis Recent Fever Within 48 Hours Sepsis New/Unexplained Change in Mental Status Sepsis Action Taken by Nursing Laboratory Data 12/07/24 14:29 12/07/24 14:29 Lab Results 12/07/24 12/07/24 12/07/24 Range/Units 14:29 14:37 15:45 WBC 14.70 H (4.8-10.8) K/ul RBC 4.29 (4.20-5.40) M/uL Hgb 12.9 (12.0-16.0) g/dl Hct 39.9 (37.0-47.0) % MCV 93.0 (80.0-100.0) fL MCH 30.1 (25.0-34.0) pg MCHC 32.3 (32.0-36.0) g/dL RDW Std Deviation 43.6 (36.4-46.3) fL RDW Coeff of [place] 12.7 (11.5-14.5) % Plt Count 329 (130-400) K/uL MPV 9.2 L (9.4-12.4) fL Immature Gran % (Auto) 0.4 % Neut % (Auto) 94.6 % Lymph % (Auto) 2.7 % [place] % (Auto) 2.2 % Eos % (Auto) 0.0 % Baso % (Auto) 0.1 % Neut # (Auto) 13.90 H (1.40-6.50) K/uL Lymph # (Auto) 0.40 L (1.20-3.40) K/uL [place] # (Auto) 0.33 (0.11-0.59) K/uL Eos # (Auto) 0.00 (0.00-0.50) K/uL Baso # (Auto) 0.01 (0.00-0.20) K/uL Immature Gran # (Auto) 0.06 (0.01-0.20) K/uL Polychromasia 1+ PT 10.1 (9.0-12.0) Seconds INR 0.9 (0.9-1.1) APTT 25 (21-31) Seconds PTT Ratio 0.9 D-Dimer Cancelled Sodium 140 (136-145) mmol/L Potassium 3.6 (3.5-5.1) mmol/L Chloride 102 (98-107) mmol/L Carbon Dioxide 33 H (21-32) mmol/L Anion Gap 5 (3-11) BUN 12 (6-23) mg/dl Creatinine 0.81 (0.6-1.2) mg/dl Est Cr Clr Drug Dosing Not Reportable eGFR 79.02 BUN/Creatinine Ratio 14.8 (10-20) Glucose 179 H (70-99(Fasting)) mg/dl POC Glucose 187 H (70-99) mg/dl Calcium 9.1 (8.6-10.3) mg/dl Magnesium 1.9 (1.7-2.4) mg/dl Total Bilirubin 0.8 (0.2-1.0) mg/dl AST 23 (13-39) U/L ALT 13 (7-52) U/L Alkaline Phosphatase 140 H (34-104) U/L Troponin I High Sens 4.0 (0-14) pg/ml B-Natriuretic Peptide 243 H (0-100) pg/ml Total Protein 7.8 (6.0-8.3) gm/dl Albumin 4.0 (3.4-5.0) gm/dl Globulin 3.8 (2.5-4.0) gm/dl Albumin/Globulin Ratio 1.1 (0.9-2) Procalcitonin < 0.02 (0-0.5) ng/ml Urine Color Yellow Urine Appearance Clear (Clear) Urine pH 8.0 H (4.5-7.5) Ur Specific [place] 1.011 (1.000-1.030) Urine Protein Trace H (Negative) Urine Glucose (UA) Trace H (Negative) Urine Ketones 1+ H (Negative) Urine Blood Negative (Negative) Urine Nitrite Negative (Negative) Urine Bilirubin Negative (Negative) Urine Urobilinogen Negative (Negative) Ur Leukocyte Esterase 1+ H (Negative) Urine WBC (Auto) 6-10 H (0-5) /hpf Urine RBC (Auto) 0-2 (0-2) /hpf U Hyaline Cast (Auto) 0-2 (0-2) /lpf U Epithel Cells (Auto) 0-2 (0-2) /hpf Urine Bacteria (Auto) None Seen (None Seen) Adenovirus (PCR) Not Detected (NotDetected) B. pertussis DNA (PCR) Not Detected (NotDetected) B.parapertussis DNA PCR Not Detected (NotDetected) C. pneumoniae DNA (PCR) Not Detected (NotDetected) Coronavirus OC43 (PCR) Not Detected (NotDetected) Coronavirus HKU1 (PCR) Not Detected (NotDetected) Coronavirus 229E (PCR) Not Detected (NotDetected) SARS-CoV-2 (PCR) Not Detected (NotDetected) Coronavirus NL63 (PCR) Not Detected (NotDetected) Human Metapneumovir PCR Not Detected (NotDetected) Influenza Type A (PCR) Not Detected (NotDetected) Influenza Type B (PCR) Not Detected (NotDetected) M. pneumoniae (PCR) Not Detected (NotDetected) Parainfluenza 1 (PCR) Not Detected (NotDetected) Parainfluenza 2 (PCR) Not Detected (NotDetected) Parainfluenza 3 (PCR) Not Detected (NotDetected) Parainfluenza 4 (PCR) Not Detected (NotDetected) RSV (PCR) Not Detected (NotDetected) Entero/Rhino (PCR) Not Detected (NotDetected) Administered Medications Azithromycin (Zithromax) 500 mg in 255 mls @ 127.5 mls/hr IV NOW STA Stop: 12/07/24 20:28 Last Admin: 12/07/24 18:59 Dose: 127.5 mls/hr Documented By: JMARANDA Discontinued Medications Albuterol (Albut/Ipratrop 3mg/0.5mg Neb 3 Ml Vial) 12 ml INH ONE STA Stop: 12/07/24 14:20 Last Admin: 12/07/24 14:53 Dose: 12 ml Documented By: MPSkyler Fentanyl Citrate (Fentanyl Citrate Pf 100 Mcg/2 Ml Vial) 100 mcg IV NOW STA Stop: 12/07/24 16:34 Last Admin: 12/07/24 16:38 Dose: Not Given Documented By: ASHLEY Furosemide (Furosemide Inj 20 Mg/2 Ml Vial) 20 mg IV ONE ONE Stop: 12/07/24 16:51 Last Admin: 12/07/24 17:02 Dose: 20 mg Documented By: SILVIA Cefepime HCl (Maxipime 2000mg) 2,000 mg in 20 mls @ 5 mls/min IV NOW STA; Protocol Stop: 12/07/24 16:53 Last Admin: 12/07/24 17:02 Dose: 5 mls/min Documented By: SILVIA Methylprednisolone (Methylprednisolone 125 Mg/2 Ml Vial) 60 mg IV NOW STA Stop: 12/07/24 14:20 Last Admin: 12/07/24 14:49 Dose: 60 mg Documented By: RIKKI Morphine Sulfate (Morphine Sulfate 4 Mg/Ml 1 Ml Carp\\Vial) 3 mg IV NOW STA Stop: 12/07/24 17:35 Last Admin: 12/07/24 18:22 Dose: 3 mg Documented By: ASHLEY Ondansetron HCl (Ondansetron Inj 2 Mg/Ml 2 Ml Vial) 4 mg IV NOW STA Stop: 12/07/24 15:49 Last Admin: 12/07/24 15:51 Dose: 4 mg Documented By: ASHLEY Oxycodone HCl (Oxycodone Hcl Ir 5 Mg Tab (Immediate Release)) 30 mg PO NOW STA Stop: 12/07/24 16:50 Last Admin: 12/07/24 17:01 Dose: 30 mg Documented By: SILVIA Imaging Data Radiologist's Impression: Chest X-Ray 12/07/24 14:19 XR chest 1V portable CLINICAL HISTORY: Dyspnea COMPARISON STUDY: 10/21/2024 FINDINGS: Stable cardiomegaly with mild pulmonary vascular congestion. Stable diffuse interstitial and faint patchy pulmonary opacities. No new consolidation or pleural effusion. No pneumothorax. IMPRESSION: Stable exam. ACT 112: Negative or not required by law. Electronically signed by: Aron Garcia M.D. 12/07/2024 2:[address] 12/07/24 14:57 Clinical history: Shortness of breath Technique: Axial computed tomography images were obtained of the chest without intravenous contrast Comparison is made to the prior examination dated 10/04/2024 Findings: There are multifocal groundglass and nodular alveolar opacities throughout both lungs, concerning for pneumonia. There is also suspected pulmonary edema. There is a small right pleural effusion and there is a minimal left pleural effusion. There is no pneumothorax. There are multiple small and mildly enlarged mediastinal lymph nodes, measuring up to 1.3 cm in size. The thoracic aorta is of normal caliber. There is no pericardial effusion No fracture is seen. No focal osseous lesion is evident Impression: 1. Suspected combination of pulmonary edema and bilateral pneumonia. As concurrent neoplastic nodules are difficult to exclude, a follow-up chest CT is recommended in 3 months to ensure resolution 2. Small bilateral pleural effusions, right larger than left 3. Mild mediastinal adenopathy ACT 112: Positive. There are findings on this exam that require communication between the perorming entity and the patient following Patient Test Result Information Act ([place] ACT 112) guidelines. Electronically signed by Manolo Rodrigues 12-07-2024 4:35 PM Abdomen/Pelvis CT 12/07/24 15:48 Clinical History: Flank pain Technique: Axial computed tomography images were obtained of the abdomen and pelvis without intravenous contrast. Comparison is made to the prior CT dated 06/29/2024 Findings: The liver is overall of normal size, attenuation, and contour with no sign of cirrhosis or significant fatty infiltration. No definite liver mass lesion is seen on this noncontrast study. The gallbladder appears unremarkable. No bile duct dilatation is noted. The spleen is of normal size. No focal splenic lesion is evident. The pancreas appears normal with no sign of acute or chronic pancreatitis and no mass lesion noted. The pancreatic duct is of normal caliber. There is a 1.6 cm low-attenuation right adrenal nodule, likely benign adenoma. The left adrenal gland appears normal No renal or proximal ureteral calculi are seen. There is no hydronephrosis or perinephric stranding. No definite renal mass lesion is identified. The aorta is of normal caliber. No abdominal adenopathy is seen. The stomach appears normal. There is no sign of small bowel obstruction. There is diverticulosis without evidence of diverticulitis. No free intraperitoneal fluid or air is identified. No distal ureteral or bladder calculi are seen. No obvious bladder mass lesion is evident. The iliac arteries are of normal caliber. No pelvic adenopathy is noted. The uterus has been removed There is a small right pleural effusion and there is a minimal left pleural effusion. Lumbar scoliosis and degenerative disc disease is seen. No fracture is identified. No focal osseous lesion is seen. There is bilateral hip osteoarthritis Impression: 1. Small right adrenal adenoma 2. Diverticulosis without evidence of diverticulitis 3. No apparent nephrolithiasis 4. Small right pleural effusion and minimal left pleural effusion ACT 112: Positive. There are findings on this exam that require communication between the perorming entity and the patient following Patient Test Result Information Act ([place] ACT 112) guidelines. Electronically signed by Manolo Rodrigues 12-07-2024 4:33 PM Discharge Plan Visit Data Chief Complaint: Shortness of Breath/Dyspnea Stated Complaint: DIFFICULTY BREATHING ED Provider: Timothy Le Discharge Problem: Acute exacerbation of chronic obstructive pulmonary disease, Multifocal pneumonia, Pulmonary edema Patient Disposition: Being Evaluated by Hospitalist Condition: Fair Forms Stand Alone Forms: [facility] [place] [employer] Prescriptions Prescriptions: No Action (DME) lancets Misc See Rx Instructions .Route Qty: 100 5RF Rx Instructions: As directed (DME) pen needle, diabetic 31 gauge x 5/16" needle See Rx Instructions .Route Qty: 100 6RF Rx Instructions: As directed nortriptyline [Pamelor] 50 mg capsule 100 mg PO HS Qty: 180 2RF montelukast [Singulair] 10 mg tablet 10 mg PO HS Qty: 90 1RF cetirizine [Zyrtec] 10 mg tablet 10 mg PO QPM Qty: 90 1RF Trelegy Ellipta 200-62.5-25 mcg blister with device 1 inh inhalation QAM Qty: 60 2RF albuterol sulfate [Ventolin HFA] 90 mcg/actuation HFA aerosol inhaler 2 puff INHALATION Q6H PRN (Reason: Wheezing) Qty: 8.5 3RF Fasenra 10 mg/0.5 mL syringe 0 mg subcut DIRECTED Rx Instructions: PER BASIL "INJECT UNDER SKIN". (DME) Omnipod 5 G6-G7 Intro Kt(Gen5) Cartridge See Rx Instructions .Route Qty: 1 0RF Rx Instructions: To be used with the Dexcom G 7 (DME) Omnipod 5 G6-G7 Pods (Gen 5) Cartridge See Rx Instructions .Route Qty: 15 11RF Rx Instructions: To be changed every 2 day given high TDD of insulin aspirin 81 mg Tablet,Delayed Release (Dr/Ec) 81 mg PO QPM epinephrine [EpiPen] 0.3 mg/0.3 mL Auto-Injector 0.3 mg IM UD PRN (Reason: Allergic Reaction) lansoprazole [Prevacid] 30 mg Capsule,Delayed Release(Dr/Ec) 30 mg PO QPM (DME) Alcohol Swabs furosemide [Lasix] 20 mg tablet 20 mg PO Q OTHER DAY Qty: 30 0RF Baqsimi 3 mg/actuation Peridot,Non-Aerosol 3 mg INTRANASAL DIRECTED PRN (Reason: Hypoglycemia) oxycodone 30 mg tablet 30 mg PO Q6H PRN (Reason: cancer breakthrough pain) dulaglutide 0.75 mg/0.5 mL pen injector 0.75 mg subcut WK Rx Instructions: SATURDAYS atorvastatin 40 mg tablet 40 mg PO DAILY albuterol sulfate 2.5 mg /3 mL (0.083 %) Solution For Nebulization 2.5 mg INHALATION Q6H PRN (Reason: Shortness Of Breath Or Wheezing) ondansetron HCl [Zofran] 8 mg Tablet 8 mg PO Q8H PRN (Reason: NAUSEA/VOMITING) cyanocobalamin (vitamin B-12) [Vitamin B-12] 1,000 mcg Tablet 1,000 mcg PO HS fexofenadine [Aiyana] 180 mg Tablet 180 mg PO DAILY benzonatate 100 mg capsule 100 mg PO TID PRN (Reason: Cough) promethazine 25 mg tablet 25 mg PO Q6H PRN (Reason: NAUSEA/VOMITING) mometasone [Nasonex] 50 mcg/actuation Peridot,Non-Aerosol 2 spray INTRANASAL DAILY Rx Instructions: administer into each nostril pseudoephedrine HCl [Sudafed] 30 mg Tablet 30 mg PO Q6H PRN (Reason: Congestion) insulin lispro [Admelog U-100 Insulin lispro] 100 unit/mL Solution See Rx Instructions .ROUTE .COMPLEX Rx Instructions: sliding scale fluticasone propionate [Flonase] 50 mcg/actuation Peridot,Suspension 1 spray INTRANASAL BID Rx Instructions: administer into each nostril ezetimibe 10 mg tablet 10 mg PO DAILY insulin degludec 100 unit/mL (3 mL) Insulin Pen 44 unit SUBCUT DAILY tizanidine [Zanaflex] 4 mg tablet 4 mg PO Q8H PRN (Reason: muscle spasticity) oxycodone [OxyContin] 40 mg tablet,oral only,ext.rel.12 hr 40 mg PO Q8H Referrals Referrals: Will Tabares CRNP [Outside Practitioners] -
[2024-12-07 14:46] LABS: Hematocrit (blood only) 39.9 % (37.0-47.0); Hemoglobin 12.9 g/dl (12.0-16.0); Mean Corpuscular Hemoglobin 30.1 pg (25.0-34.0); Mean Corpuscular Hgb Conc 32.3 g/dL (32.0-36.0); Mean Platelet Volume 9.2 fL (9.4-12.4); Platelet Count 329 K/uL (130-400); RDW Coefficient of Variation 12.7 % (11.5-14.5); RDW Standard Deviation 43.6 fL (36.4-46.3); Red Blood Count 4.29 M/uL (4.20-5.40)
[2024-12-07] MEDS: methylPREDNISolone 125 MG/2 ML VIAL IV STA (14:49)
--- NOTE | 2024-12-07 14:52 | XRay Report ---
XR chest 1V portable CLINICAL HISTORY: Dyspnea COMPARISON STUDY: 10/21/2024 FINDINGS: Stable cardiomegaly with mild pulmonary vascular congestion. Stable diffuse interstitial an d faint patchy pulmonary opacities. No new consolidation or pleural effusion. No pneumothorax. IMPRESSION: Stable exam. ACT 112: Negative or not required by law. Electronically signed by: Aron Garcia M.D. 12/07/2024 2:51 PM
[2024-12-07] MEDS: ALBUT/IPRATROP 3MG/0.5MG NEB 3 ML VIAL INH STA (14:53)
[2024-12-07 15:03] LABS: Alanine Aminotransferase 13 U/L (7-52); Albumin Globulin Ratio 1.1 (0.9-2); Alkaline Phosphatase 140 U/L (34-104); Anion Gap 5 (3-11); Aspartate Aminotransferase 23 U/L (13-39); BUN Creatinine Ratio 14.8 (10-20); Bilirubin,Total 0.8 mg/dl (0.2-1.0); Blood Urea Nitrogen 12 mg/dl (6-23); Calcium 9.1 mg/dl (8.6-10.3); Carbon Dioxide 33 mmol/L (21-32); Chloride 102 mmol/L (98-107); Globulin 3.8 gm/dl (2.5-4.0); Glucose 179 mg/dl (70-99(Fasting)); Magnesium 1.9 mg/dl (1.7-2.4); Potassium 3.6 mmol/L (3.5-5.1); Sodium 140 mmol/L (136-145); Total Protein 7.8 gm/dl (6.0-8.3)
[2024-12-07 15:15] LABS: Appearance Urine Clear (Clear); Bacteria Urine Automated None Seen (None Seen); Bilirubin Urine Negative (Negative); Blood Urine Negative (Negative); Cast Urine Automated 0-2 /lpf (0-2); Color Urine Yellow; Epithelial Cell Urine Auto 0-2 /hpf (0-2); Glucose Urine UA Trace (Negative); Ketones Urine 1+ (Negative); Leukocyte Esterase Urine 1+ (Negative); Nitrite Urine Negative (Negative); Protein Urine Trace (Negative); RBC Urine Automated 0-2 /hpf (0-2); Specific Gravity Urine 1.011 (1.000-1.030); Urobilinogen Urine Negative (Negative)
[2024-12-07 15:17] LABS: Basophils # (auto) 0.01 K/uL (0.00-0.20); Basophils % (auto) 0.1 %; Immature Granulocytes # (auto) 0.06 K/uL (0.01-0.20); Immature Granulocytes % (auto) 0.4 %; Lymphocytes % (auto) 2.7 %; Monocytes # (auto) 0.33 K/uL (0.11-0.59); Monocytes % (auto) 2.2 %; Neutrophils % (auto) 94.6 %; Polychromasia 1+
[2024-12-07 15:25] LABS: INR 0.9 (0.9-1.1); Partial Thromboplastin Ratio 0.9; Partial Thromboplastin Time 25 Seconds (21-31); Prothrombin Time 10.1 Seconds (9.0-12.0)
[2024-12-07 15:36] LABS: Adenovirus PCR Not Detected (NotDetected); Bordetella parapertussis PCR Not Detected (NotDetected); Bordetella pertussis PCR Not Detected (NotDetected); Chlamydia pneumoniae PCR Not Detected (NotDetected); Coronavirus 229E PCR Not Detected (NotDetected); Coronavirus CoV-2 (COVID19)PCR Not Detected (NotDetected); Coronavirus HKU1 PCR Not Detected (NotDetected); Coronavirus NL63 PCR Not Detected (NotDetected); Coronavirus OC43PCR Not Detected (NotDetected); Human Metapneumovirus PCR Not Detected (NotDetected); Influenza A PCR Not Detected (NotDetected); Influenza B PCR Not Detected (NotDetected); Mycoplasma pneumoniae PCR Not Detected (NotDetected); Parainfluenza Virus 1 PCR Not Detected (NotDetected); Parainfluenza Virus 2 PCR Not Detected (NotDetected); Parainfluenza Virus 3 PCR Not Detected (NotDetected); Parainfluenza Virus 4 PCR Not Detected (NotDetected); Respiratory Syncytial VirusPCR Not Detected (NotDetected); Rhinovirus/Enterovirus PCR Not Detected (NotDetected)
[2024-12-07] MEDS: ONDANSETRON INJ 2 MG/ML 2 ML VIAL IV STA (15:51)
--- NOTE | 2024-12-07 16:33 | CT Scan Report ---
Clinical History: Flank pain Technique: Axial computed tomography images were obtained of the abdomen and pelvis without intravenous contrast. Comparison is made to the prior CT dated 06/29/2024 Findings: The liver is overall of normal size, attenuation, and contour with no sign of cirrhosis or significant fatty infiltration. No definite liver mass lesion is seen on this noncontrast study. The gallbladder appears unremarkable. No bile duct dilatation is noted. The spleen is of normal size. No focal splenic lesion is evident. The pancreas appears normal with no sign of acute or chronic pancreatitis and no mass lesion noted. The pancreatic duct is of normal caliber. There is a 1.6 cm low-attenuation right adrenal nodule, likely benign adenoma. The left adrenal gland appears normal No renal or proximal ureteral calculi are seen. There is no hydronephrosis or perinephric stranding. No definite renal mass lesion is identified. The aorta is of normal caliber. No abdominal adenopathy is seen. The stomach appears normal. There is no sign of small bowel obstruction. There is diverticulosis without evidence of diverticulitis. No free intraperitoneal fluid or air is identified. No distal ureteral or bladder calculi are seen. No obvious bladder mass lesion is evident. The iliac arteries are of normal caliber. No pelvic adenopathy is noted. The uterus has been removed There is a small right pleural effusion and there is a minimal left pleural effusion. Lumbar scoliosis and degenerative disc disease is seen. No fracture is identified. No focal osseous lesion is seen. There is bilateral hip osteoarthritis Impression: 1. Small right adrenal adenoma 2. Diverticulosis without evidence of diverticulitis 3. No apparent nephrolithiasis 4. Small right pleural effusion and minimal left pleural effusion ACT 112: Positive. There are findings on this exam that require communication between the perorming entity and the patient following Patient Test Result Information Act ([place] ACT 112) guidelines. Electronically signed by Manolo Rodrigues 12-07-2024 4:33 PM
--- NOTE | 2024-12-07 16:35 | CT Scan Report ---
Clinical history: Shortness of breath Technique: Axial computed tomography images were obtained of the chest without intravenous contrast Comparison is made to the prior examination dated 10/04/2024 Findings: There are multifocal groundglass and nodular alveolar opacities throughout both lungs, concerning for pneumonia. There is also suspected pulmonary edema. There is a small right pleural effusion and there is a minimal left pleural effusion. There is no pneumothorax. There are multiple small and mildly enlarged mediastinal lymph nodes, measuring up to 1.3 cm in size. The thoracic aorta is of normal caliber. There is no pericardial effusion No fracture is seen. No focal osseous lesion is evident Impression: 1. Suspected combination of pulmonary edema and bilateral pneumonia. As concurrent neoplastic nodules are difficult to exclude, a follow-up chest CT is recommended in 3 months to ensure resolution 2. Small bilateral pleural effusions, right larger than left 3. Mild mediastinal adenopathy ACT 112: Positive. There are findings on this exam that require communication between the perorming entity and the patient following Patient Test Result Information Act ([place] ACT 112) guidelines. Electronically signed by Manolo Rodrigues 12-07-2024 4:35 PM
[2024-12-07] MEDS: fentaNYL citrate PF 100 MCG/2 ML VIAL IV STA (16:38)
[2024-12-07] MEDS: oxyCODONE HCL IR 5 MG TAB (IMMEDIATE RELEASE) PO STA (17:01)
[2024-12-07] MEDS: CEFEPIME 2000MG 2,000 MG/20 ML SYR IV STA (17:02)
[2024-12-07] MEDS: FUROSEMIDE INJ 20 MG/2 ML VIAL IV ONE (17:02)
[2024-12-07] MEDS: MoRPHine SULFATE 4 MG/ML 1 ML CARP\\VIAL IV STA (18:22)
--- NOTE | 2024-12-07 18:26 | History & Physical Report ---
Date of Service December 07, 2024 Assessment & Plan (1) Acute on chronic heart failure with preserved ejection fraction (HFpEF): (2) Bilateral pneumonia: (3) Acute exacerbation of chronic obstructive pulmonary disease: (4) Chronic hypoxic respiratory failure: Plan: Admit to telemetry Patient presenting from home for evaluation of shortness of breath. Patient recently admitted to [facility] 10/03 through 10/04 for pneumonia and new onset diastolic CHF. In the ED, patient is saturating well on her chronic 2 L of oxygen. She is significantly hypertensive and tachycardic in the 110's. Labs show WBC 14K. Chest CT shows pulmonary edema and bilateral pneumonia. Biofire negative. Saturating well on chronic 2 L of oxygen. Check D. Dimer S/p cefepime in the ED. Will continue with given recent hospitalization, also will add azithromycin. Check MRSA nasal swab and procalcitonin. S/p IV Solu-Medrol 60 mg in the ED, will continue with prednisone 40 mg daily Pulmonary toilet with nebs, Mucinex, flutter valve, incentive spirometer Will need follow-up chest CT in 3 months to further evaluate for possible underlying neoplastic nodules S/p IV Lasix 20 mg in the ED, will give additional 20 mg IV now and continue with IV Lasix 20 mg daily from tomorrow Echo 10/2024-EF 60 to 65%, grade 1 diastolic dysfunction, mild MR, mild TR. will obtain repeat limited echo (5) Hypertensive urgency: Plan: Likely due to acute illness/pain Provide pain control, diuresis, as needed labetalol, reevaluate for ongoing antihypertensive need (6) Type 2 diabetes mellitus: Plan: HgbA1c 9.4 10/2024 Home regimen: Tresiba 44u daily + sliding scale TID, Trulicitly weekly Start with Lantus 30u daily and Novolog per protocol (7) Chronic pain: Plan: Continue home regimen of OxyContin 40 mg q8h and oxycodone 30 mg q6h PRN for breakthrough pain DVT PROPHYLAXIS SQ Lovenox Patient seen in collaboration with Dr. Day. I spent a total of 75 minutes coordinating, documenting, and providing care for this patient excluding time spent in the performance of separately billed services. This included personally reviewing all current laboratories and imaging studies, medication reconciliation, outpatient chart review, and d iscussion with specialists. History of Present Illness Chief Complaint: shortness of breath Primary Care Provider: Pratima Holguin MD 68-year-old female with PMH DM type II, COPD with chronic hypoxic respiratory failure on 2 L of oxygen, chronic HFpEF, GERD, vulvar cancer, chronic pain on chronic narcotics, migraines, and other problems listed below who presents to the ED for evaluation of shortness of breath. Patient recently admitted to [facility] 10/03 through 10/04 for pneumonia and new onset diastolic CHF. History is somewhat limited from the patient as she is currently experiencing significant back pain. Patient reports increasing shortness of breath over the past 2 days. She has had a productive cough. She reports orthopnea. Denies lower extremity edema. She has some chest tightness and palpitations. She also reports nausea and vomiting. Denies abdominal pain. No fevers or chills. Denies urinary symptoms. In the ED, patient is saturating well on her chronic 2 L of oxygen. She is significantly hypertensive and tachycardic in the 110's. Labs show WBC 14K. Chest CT shows pulmonary edema and bilateral pneumonia. Patient was given IV cefepime, IV Lasix 20 mg, IV Solu-Medrol 60 mg, IV Zofran, oxycodone 30 mg. Allergies Allergy/AdvReac Type Severity Reaction Status Date / Time iodine Allergy Severe SOB/HIVES Verified 12/07/24 16:13 Penicillins Allergy Severe SHORT OF Verified 12/07/24 16:13 BREATH/HIVES shellfish derived Allergy Severe SHORT OF Verified 12/07/24 16:13 BREATH/EYES SWELL/ITCHY sumatriptan [From Imitrex] Allergy Severe SHORT OF Verified 12/07/24 16:13 BREATH/HIVES erythromycin base Allergy Intermediate ITCHY HIVES Verified 12/07/24 18:28 liraglutide [From Victoza] Allergy Intermediate RASH/STOMACH Verified 12/07/24 16:13 PAIN rofecoxib [From Vioxx] Allergy Intermediate ITCHY HIVES Verified 12/07/24 16:13 Tetracyclines Allergy Intermediate ITCHY HIVES Verified 12/07/24 16:13 topiramate [From Topamax] AdvReac Severe SUICIDAL Verified 12/07/24 16:13 THOUGHTS/DEPRESSION meloxicam AdvReac Intermediate GI Verified 12/07/24 16:13 UPSET/DIARRHEA metformin AdvReac Intermediate STOMACH Verified 12/07/24 16:13 PAIN/DIARRHEA Home Medications Medication Instructions Recorded Confirmed Type aspirin 81 mg tablet,delayed 81 mg PO QPM 08/10/22 12/07/24 History release epinephrine 0.3 mg/0.3 mL 0.3 mg IM UD PRN Allergic Reaction 08/10/22 12/07/24 History injection, auto-injector (EpiPen) lancets #100 ea 11/04/22 10/03/24 Rx lansoprazole 30 mg capsule,delayed 30 mg PO QPM 02/06/23 12/07/24 History release (Prevacid) pen needle, diabetic 31 gauge x #100 ea 11/17/23 10/03/24 Rx 5/16" nortriptyline 50 mg capsule 100 mg (2 x 50 mg) PO HS #180 caps 02/23/24 12/07/24 Rx (Pamelor) montelukast 10 mg tablet 10 mg PO HS #90 tabs 07/22/24 12/07/24 Rx (Singulair) albuterol sulfate 90 mcg/actuation 2 puff inhalation Q6H PRN Wheezing 08/20/24 12/07/24 Rx aerosol inhaler (Ventolin HFA) #8.5 grams cetirizine 10 mg tablet (Zyrtec) 10 mg PO QPM #90 tabs 08/23/24 12/07/24 Rx Alcohol Swabs 10/03/24 10/03/24 History furosemide 20 mg tablet (Lasix) 20 mg PO Q OTHER DAY #30 tabs 10/04/24 12/07/24 Rx benralizumab 10 mg/0.5 mL 0 mg subcut DIRECTED 10/20/24 12/07/24 History subcutaneous syringe (Fasenra) insulin pump cart,auto,BT,G6/7 #15 ea 10/26/24 10/26/24 Rx (Omnipod 5 G6-G7 Pods (Gen 5) subcutaneous cartridge) insulin pump cartridge,auto #1 ea 10/26/24 10/26/24 Rx dose,BT,G6/G7 with controller subcutaneous (Omnipod 5 G6-G7 Intro Kit(Gen 5) subcutaneous cartridge and controller) fluticasone fur. 200 mcg-umeclid 1 inh inhalation QAM #60 ea 11/16/24 12/07/24 Rx 62.5 mcg-vilant 25 mcg inhalat.powder (Trelegy Ellipta) albuterol sulfate 2.5 mg/3 mL 2.5 mg inhalation Q6H PRN 12/07/24 12/07/24 History (0.083 %) solution for nebulization Shortness Of Breath Or Wheezing atorvastatin 40 mg tablet 40 mg PO DAILY 12/07/24 12/07/24 History benzonatate 100 mg capsule 100 mg PO TID PRN Cough 12/07/24 12/07/24 History cyanocobalamin (vitamin B-12) 1,000 mcg PO HS 12/07/24 12/07/24 History 1,000 mcg tablet (Vitamin B-12) dulaglutide 0.75 mg/0.5 mL 0.75 mg subcut WK 12/07/24 12/07/24 History subcutaneous pen injector ezetimibe 10 mg tablet 10 mg PO DAILY 12/07/24 12/07/24 History fexofenadine 180 mg tablet 180 mg PO DAILY 12/07/24 12/07/24 History fluticasone propionate 50 1 spray intranasal BID 12/07/24 12/07/24 History mcg/actuation nasal spray,suspension glucagon 3 mg/actuation nasal 3 mg intranasal DIRECTED PRN 12/07/24 12/07/24 History spray (Baqsimi) Hypoglycemia insulin degludec 100 unit/mL (3 44 unit subcut DAILY 12/07/24 12/07/24 History mL) subcutaneous pen insulin lispro 100 unit/mL See Rx Instructions .Route .COMPLEX 12/07/24 12/07/24 History subcutaneous solution (Admelog U-) mometasone 50 mcg/actuation nasal 2 spray intranasal DAILY 12/07/24 12/07/24 History spray ondansetron HCl 8 mg tablet 8 mg PO Q8H PRN NAUSEA/VOMITING 12/07/24 12/07/24 History oxycodone 30 mg tablet 30 mg PO Q6H PRN cancer 12/07/24 12/07/24 History breakthrough pain oxycodone 40 mg tablet,crush 40 mg PO Q8H 12/07/24 12/07/24 History resistant,extended release 12 hr (OxyContin) promethazine 25 mg tablet 25 mg PO Q6H PRN NAUSEA/VOMITING 12/07/24 12/07/24 History pseudoephedrine HCl 30 mg tablet 30 mg PO Q6H PRN Congestion 12/07/24 12/07/24 History (Sudafed) tizanidine 4 mg tablet (Zanaflex) 4 mg PO Q8H PRN muscle spasticity 12/07/24 12/07/24 History Past Med/Surg History Problem List (Updated 12/07/24 @ 18:16 by ALFONSO Dooley) Hypertensive urgency Chronic pain Chronic hypoxic respiratory failure Bilateral pneumonia Acute on chronic heart failure with preserved ejection fraction (HFpEF) Pulmonary edema (Acute) Multifocal pneumonia (Acute) Leukocytosis (Acute) Shortness of breath (Acute) Hypoxia (Acute) Multiple pulmonary nodules Knee pain Coronary artery disease without angina pectoris Urinary tract infection Acute right hip pain Hypoglycemia associated with diabetes Back pain of lumbosacral region with sciatica Weakness of right lower extremity Cancer related pain 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) History- s/p radical vulvectomy and bilateral LN dissection on 12/25/22- planning for future chemo Type 2 diabetes mellitus Elevated troponin (Acute) Hypoxia (Acute) Acute exacerbation of chronic obstructive pulmonary disease (Acute) Fatigue Daytime somnolence Snoring Palliative care by specialist Dysuria Streptococcal septicemia COVID-19 (Acute) Elevated IgE level Ex-smoker Abnormal PFTs (pulmonary function tests) Allergic rhinitis with postnasal drip Obesity Port-A-Cath in place (02/14/23) Insertion Access Port with Fluoroscopy(Left) - Desean Robertson, Cirrhosis COPD (chronic obstructive pulmonary disease) daily and prn inh admitted for COPD exacerbation 01/15/23-01/16/23 at [facility] - treated with abx and steroid- breathing improved per 01/20/23 PCP note Asthma daily and prn inhaler Migraine headache without aura hx Hyperlipidemia Chronic back pain NAFLD (nonalcoholic fatty liver disease) Insomnia Medical History (Updated 12/07/24 @ 18:16 by ALFONSO Dooley) Restrictive lung disease secondary to obesity Status post chemotherapy completed 06/2023 SOB (shortness of breath) on exertion Leg pain, right Family history of anesthesia complication sister "her blood pressure went very and she had a lot trouble breathing, had to stop her surgery; she was told it was from her inhaler mixed with anesthesia" History of COVID-19 x3, most recent Aug 2022, admitted to [facility]; pneumonia>resolved. Seasonal allergies Recurrent UTI (urinary tract infection) Last UTI November 2022 Arthritis GERD without esophagitis Surgical History (Updated 10/11/24 @ 00:07 by Cha Tam) History of removal of Port-a-Cath (08/18/23) Access Port Removal - Desean Robertson, History of esophagogastroduodenoscopy (EGD) Hx of colonoscopy History of genitourinary surgical procedure Radical vulvectomy with bilateral groin lymph node dissection; 12/25/22 (Dr. Hicks, [facility]) History of biopsy Vulvar mass 09/16/22 (Dr. Delia Arriola) S/P tubal ligation S/P total abdominal hysterectomy NELIDA-USO H/O: x3 Family History Mother Myocardial infarction Diabetes Kidney disease Heart disease Stroke Sister Myocardial infarction Diabetes Brother Throat cancer, Onset Age: 45 Father Liver cancer, Onset Age: 45 Cancer Sister Hypertension Diabetes Sister Heart disease Diabetes Ovarian cancer Sister Diabetes Brother Cancer Denies family history of Prostate cancer Breast cancer Colorectal cancer Uterine cancer Social History (Updated 11/18/24 @ 11:15 by Theresa Moody LPN) Smoking Status: Former smoker Tobacco Type: Cigarettes Age Started Using Tobacco: 16; Age Quit Using Tobacco: 44; packs per day: 0.5; Second Hand Exposure: Yes; Do You Dip or Chew Tobacco: No; Hx Alcohol Use: No Hx Substance Use: No Preferred Language: Estonian Communication Ability: Effective Visual Impairment: No Limitations Hearing Ability: Normal [employer] Lead Teacher Required: No Beliefs That Will Affect Care: None marital status: / Current Living Situation: Family Current Living Situation Comment: lives with sins current occupational status: disabled How many Children do You have: 3 Feels Safe at Home: Yes Diet: regular Diet Comment: regular caffeine: Yes during the past year weight has: decreased > 10 lbs Dental Care, Regularly: No Physical Activity Frequency: Other Physical Activity Frequency Comment: limited to physical condition Seatbelt Use: always Sunscreen Use: No Assistive Devices: Oxygen - Continuous, Scooter/Electric Scooter, Stair Lift and Walker Physical Exam Physical Exam: please refer to Dr. Day's addendum for physical exam Results & Data Results & Data Vital Signs (Past 12 Hours) Vital Signs Temp Pulse Pulse Resp BP BP Pulse Ox 12/07/24 16:41 114 H 17 211/90 H 97 12/07/24 15:23 209/94 H 12/07/24 15:19 204/126 H 12/07/24 15:08 92 H 12/07/24 14:39 97 H 19 95 12/07/24 14:39 96 H 14 95 12/07/24 14:39 12/07/24 14:39 12/07/24 14:06 36.0 C L 92 H 24 190/77 H 93 O2 Del Method O2 Flow Rate 12/07/24 16:41 Nasal Cannula 2 12/07/24 15:23 12/07/24 15:19 12/07/24 15:08 12/07/24 14:39 Nasal Cannula 2 12/07/24 14:39 Nasal Cannula 2 12/07/24 14:39 Nasal Cannula 2 12/07/24 14:39 Nasal Cannula 2 12/07/24 14:06 Nasal Cannula 2 Laboratory Results Short CBC 12/07/24 Range/Units 14:29 WBC 14.70 H (4.8-10.8) K/ul Hgb 12.9 (12.0-16.0) g/dl Hct 39.9 (37.0-47.0) % Plt Count 329 (130-400) K/uL BMP 12/07/24 14:29 Sodium 140 Potassium 3.6 Chloride 102 Carbon Dioxide 33 H BUN 12 Creatinine 0.81 Glucose 179 H Calcium 9.1 Liver Function 12/07/24 Range/Units 14:29 Total Bilirubin 0.8 (0.2-1.0) mg/dl AST 23 (13-39) U/L ALT 13 (7-52) U/L Alkaline Phosphatase 140 H (34-104) U/L Albumin 4.0 (3.4-5.0) gm/dl Urine 12/07/24 Range/Units 14:37 Urine Color Yellow Urine Appearance Clear (Clear) Urine pH 8.0 H (4.5-7.5) Ur Specific [place] 1.011 (1.000-1.030) Urine Protein Trace H (Negative) Urine Glucose (UA) Trace H (Negative) Diagnostic Findings Chest X-Ray 12/07/24 14:19 XR chest 1V portable CLINICAL HISTORY: Dyspnea COMPARISON STUDY: 10/21/2024 FINDINGS: Stable cardiomegaly with mild pulmonary vascular congestion. Stable diffuse interstitial and faint patchy pulmonary opacities. No new consolidation or pleural effusion. No pneumothorax. IMPRESSION: Stable exam. ACT 112: Negative or not required by law. Electronically signed by: Aron Garcia M.D. 12/07/2024 2:[address] 12/07/24 14:57 Clinical history: Shortness of breath Technique: Axial computed tomography images were obtained of the chest without intravenous contrast Comparison is made to the prior examination dated 10/04/2024 Findings: There are multifocal groundglass and nodular alveolar opacities throughout both lungs, concerning for pneumonia. There is also suspected pulmonary edema. There is a small right pleural effusion and there is a minimal left pleural effusion. There is no pneumothorax. There are multiple small and mildly enlarged mediastinal lymph nodes, measuring up to 1.3 cm in size. The thoracic aorta is of normal caliber. There is no pericardial effusion No fracture is seen. No focal osseous lesion is evident Impression: 1. Suspected combination of pulmonary edema and bilateral pneumonia. As concurrent neoplastic nodules are difficult to exclude, a follow-up chest CT is recommended in 3 months to ensure resolution 2. Small bilateral pleural effusions, right larger than left 3. Mild mediastinal adenopathy ACT 112: Positive. There are findings on this exam that require communication between the perorming entity and the patient following Patient Test Result Information Act ([place] ACT 112) guidelines. Electronically signed by Manolo Rodrigues 12-07-2024 4:35 PM Abdomen/Pelvis CT 12/07/24 15:48 Clinical History: Flank pain Technique: Axial computed tomography images were obtained of the abdomen and pelvis without intravenous contrast. Comparison is made to the prior CT dated 06/29/2024 Findings: The liver is overall of normal size, attenuation, and contour with no sign of cirrhosis or significant fatty infiltration. No definite liver mass lesion is seen on this noncontrast study. The gallbladder appears unremarkable. No bile duct dilatation is noted. The spleen is of normal size. No focal splenic lesion is evident. The pancreas appears normal with no sign of acute or chronic pancreatitis and no mass lesion noted. The pancreatic duct is of normal caliber. There is a 1.6 cm low-attenuation right adrenal nodule, likely benign adenoma. The left adrenal gland appears normal No renal or proximal ureteral calculi are seen. There is no hydronephrosis or perinephric stranding. No definite renal mass lesion is identified. The aorta is of normal caliber. No abdominal adenopathy is seen. The stomach appears normal. There is no sign of small bowel obstruction. There is diverticulosis without evidence of diverticulitis. No free intraperitoneal fluid or air is identified. No distal ureteral or bladder calculi are seen. No obvious bladder mass lesion is evident. The iliac arteries are of normal caliber. No pelvic adenopathy is noted. The uterus has been removed There is a small right pleural effusion and there is a minimal left pleural effusion. Lumbar scoliosis and degenerative disc disease is seen. No fracture is identified. No focal osseous lesion is seen. There is bilateral hip osteoarthritis Impression: 1. Small right adrenal adenoma 2. Diverticulosis without evidence of diverticulitis 3. No apparent nephrolithiasis 4. Small right pleural effusion and minimal left pleural effusion ACT 112: Positive. There are findings on this exam that require communication between the perorming entity and the patient following Patient Test Result Information Act ([place] ACT 112) guidelines. Electronically signed by Manolo Rodrigues 12-07-2024 4:33 PM Code Status & VTE Plan VTE Prophylaxis Plan VTE Prophylaxis will be ordered: Yes Supervising Physician Co-Signing Physician Notes Patient is a 68-year-old female with history of COPD on chronic oxygen dependency, diastolic CHF, vulvar cancer in remission, chronic lower back pain on opioids and other medical problems presents with history of worsening shortness of breath associated with wheezing, chest tightness, intermittent co ugh with some expectoration but no hemoptysis. She was recently hospitalized in October and was diagnosed to have pneumonia and new onset diastolic CHF. Patient currently in distress secondary to lower back pain and most of the history is obtained from patient's son at bedside. She admits to have some nausea associated with vomiting. Please review HPI for complete details of presentation. I personally reviewed blood work and imaging studies. Noted white blood cell count elevation 14.7 K, glucose 187, BNP 243. Urinalysis abnormal. Patient denies any dysuria, hematuria. BioFire negative. MRSA, D-dimer pending. Chest CT showed findings suggestive of pulmonary edema, bilateral pneumonia and pulmonary nodules concerning for neoplasm. Also noted bilateral pleural effusion with mediastinal lymphadenopathy. CT abdomen showed right adrenal adenoma and diverticulosis without diverticulitis. Physical Exam: Vitals signs as noted above General Appearance:Obese, no apparent distress Head: normocephalic, Atraumatic Eyes: normal inspection, EOMI Neck: supple, Trachea midline Respiratory/Chest: Normal breath sounds, CTA, No accessory muscle use Cardiovascular: S1, S2, No murmur, tachycardia Abdomen/GI:Soft, Non tender, Bowel sounds present Extremities/Musculoskeletal:normal inspection, no edema Neurologic/Psych:AAOX3, grossly no focal neurological deficits Skin: normal color, warm Acute on chronic respiratory failure with hypoxia Multifactorial secondary to bilateral pneumonia, CHF and COPD exacerbation Sepsis secondary to pneumonia Hypertensive urgency situational Chronic lower back pain on opioids Atypical chest pain Incidental finding of pulmonary nodules, right adrenal adenoma Agree with broad-spectrum IV antibiotics, nebs, prednisone Obtain D-dimer, consider CT for PE if D-dimer is elevated IV labetalol for now Will need repeat CT chest in 3 months to ensure resolution and further evaluation of pulmonary nodules Continue IV Lasix, monitor I's and O's, daily weight Trend troponins, check resting echo I personally interviewed and examined the patient at bedside. I have reviewed the advanced practitioner's documentation on the date of service referred in note and agree with plan. Patient's care is coordinated with Zina Nassar ICU REGISTERED NURSE. Please refer to the documentation above for details of patient's presentation and for discussion of other issues. I spent a total [id number] coordinating, documenting, and providing care for this patient excluding time spent in the performance of separately billed services or time spent by another provider/QHP.
[2024-12-07] MEDS: AZITHROMYCIN 500 MG/255 ML D5W BAG IV STA (18:59)
[2024-12-07 20:00] LABS: D Dimer 5760 ug/L FEU (0-500)
[2024-12-07] MEDS ORDERED: CARBOHYDRATES FOR HYPOGLYCEMIA PO PRN (21:29)
[2024-12-07] MEDS ORDERED: LABETALOL HCL IV 5 MG/ML 20ML IV PRN (21:29)
[2024-12-07] MEDS ORDERED: DEXTROSE 50% 50 ML SYRINGE IV PRN (21:29)
[2024-12-07] MEDS ORDERED: GLUCOSE 10 TAB/TUBE PO PRN (21:29)
[2024-12-07] MEDS ORDERED: GLUCAGON FOR INJ 1 MG VIAL SQ PRN (21:29)
[2024-12-07] MEDS ORDERED: GLUCOSE 40% GEL 15 GM TUBE PO PRN (21:29)
[2024-12-07] MEDS ORDERED: ACETAMINOPHEN 325 MG TAB PO PRN (21:29)
[2024-12-07] MEDS ORDERED: tiZANidine HCL 4 MG TABLET PO PRN (21:29)
[2024-12-07] MEDS ORDERED: ALBUT/IPRATROP 3MG/0.5MG NEB 3 ML VIAL NEB PRN (21:38)
--- NOTE | 2024-12-07 22:28 | Communication Note ---
Date of Service: December 07, 2024 Notified of abnormal D-dimer result. PE workup as per admitting provider recommendations. Patient cannot have IV dye as per discussion due to bad side effects in the past despite preparation. AP SOB Abnormal dimer Rule out PE VQ scan, LE Dopplers for PE workup given IV dye contrast allergy IV heparin until PE ruled out Patient agreeable to plan of care.
[2024-12-07] MEDS ORDERED: Heparin IV Adult Wt-Based Standard *NO* INITIAL Bolus Protocol IV SCH (22:35)
--- OUTSIDE RECORDS SUMMARY | 2024-12-07 23:20 | External Medical Summary | Summary of Care ---
Author Name Unknown Organization [facility] Address [address] [place] [address] Phone [phone] Care Team Providers Care Hockey Player Name Role Phone Pratima Tobin MD Primary Care Pr ovider Encounter Details Date Type Department Care Team (Late st Contact Info) Description 12/06/2024 Orders Only Outcomes Research Department [address] [place] [address] Carrie Santos CHRA MyCode Research Other*[id number] Allergies Active Allergy Reactions Criticality Noted Date [...] as of this encounter (statuses as of 12/06/2024) Medications Montelukast Sodium 10 MG Oral Tablet [...] 2 Capsules by mouth at bedtime. Active Lansoprazole 30 MG Oral Capsule Delayed [...] the skin once a week. 4 Active Mometasone Furoate 50 MCG/ACT Nasal Suspension (Nasonex 24HR)Indications: Non-seasonal allergic rhinitis due to other allergic trigger Administer 2 Sprays into nostril in the morning. 18 g 12 4 Active Ventolin HFA 108 (90 Base) [...] Nausea or Vomiting. 25 Tablet 5 Active Furosemide 20 MG Oral Tablet (Lasix) Take 1 Tablet by mouth every other day. 5 Active Fluticasone Propionate 50 MCG/ACT Nasal Suspension (Flonase) Active Fasenra 10 MG/0.5ML Subcutaneous Solution Prefilled Syringe (Benralizumab) Inject under the skin. Active EpiPen 2-Vignesh 0.3 MG/0.3ML Injection Solution Auto-injector For a severe reaction: Place orange end against the outer thigh, press firmly, hold in place for 10 seconds and go to the Emergency room. 2 Each 5 5 Active Benzonatate 100 MG Oral Capsule Take 1 Capsule by mouth 3 times a day as needed for Cough. 30 Capsule 1 5 Active Promethazine HCl 25 MG Oral Tablet (Phenergan) Take 1 Tablet by mouth every 6 hours as needed for Nausea. or vomiting 30 Tablet 3 5 Active Ezetimibe 10 MG Oral Tablet (Zetia)Indication s:Hyperlipidemia with target LDL less than 100 Take 1 Tablet by mouth in the morning. 90 Tablet 1 5 Active Atorvastatin Calcium 40 MG Oral Tablet (Lipitor) Take 1 Tablet by mouth in the morning. 90 Tablet 1 5 Active tiZANidine HCl 4 MG Oral Tablet (Zanaflex)Indicat ions:Back spasm Take 1 Tablet by mouth every 8 hours as needed for Muscle spasms. 90 Tablet 5 Active documented as of this encounter (statuses as of 12/06/2024) Active Problems Problem Noted Date Diagnosed Date Chronic heart failure with preserved ejection fr action 11/23/2024 Chronic hypoxemic respiratory failure 11/23/2024 COPD exacerbation 08/16/2024 Migraine headache 06/15/2024 Mass [...] as of this encounter (statuses as of 12/06/2024) Immunizations Name Administration Dates Next Due Seasonal Influenza, High Dos e, Trivalent, PF, IM (Fluzone HD) 06/15/2024 documented as of this encounter Social History Tobacco Use Types Packs/Day Years Used Date Smoking Tobacco: Never Smokeless Tobacco: Never Alcohol Use Standard Drinks/Week Comments Never 0 (1 standard drink = 0.6 oz pur e alcohol) PHQ-2 Answer Date Recorded PHQ Adult Total Score 0 11/23/2024 Hunger Vital Sign Answer Date Recorded Within [...] PM EST documented as of this encounter Plan of Treatment Upcoming Encounters Date Type Department Care Team (Late st Contact Info) Description 12/09/2024 9:30 AM EDT Hospital Encounter PET CT IMAGING, [facility] [address] [facility] [place] [address] 01/12/2025 10:30 AM EDT Office Visit Cardiology, [facility] [address] [place] [phone] Spencer Gomez PA-C [address] [place] [phone] 02/23/2025 4:00 PM EDT Office Visit Family Medicine [address] [place] [phone] Pratima Tobin MD [address] [place] [address] [place] [phone] Scheduled Orders Name Type Priority Associated Diagnoses Orde r Schedule MYCODE SUBSEQUENT ADULT Lab Routine MyCode Research Other*[id number] Every 6 Months for 2 Occurrences starting 12/06/2024 until 2025 Scheduled Procedures Name Priority Associated Diagnoses Date/Ti me COLONOSCOPY FLEXIBLE PROXIMA L DIAGNOSTIC Recall Special screening for malignant neoplasms, colon Health Maintenance Due Date Last Done Comments Albumin/Creatinine Ratio 12/25/1973 Diabetic Eye Exam 12/25/1973 DTap/Tdap Vaccines (1 - Tdap) 12/25/1974 [...] *SPIROMETRY ONCE FOR ASTHMA-ADULT 10/04/2023 COVID-19 Vaccine ( - 2023-2 5 season) 2024 HbA1c 06/01/2025 11/30/2024, 10/08/2023 Diabetic Foot Exam 10/20/2025 10/20/2024 Depression Screening 11/23/2025 11/23/2024 O2 ASSESSMENT COMPLETED IN PAST YEAR FOR COPD 11/23/2025 11/23/2024 GFR 11/30/2025 11/30/2024, 10/11/2024, 10/08/2023 Lipid Panel 11/30/2029 11/30/2024, 10/08/2023 Influenza Vaccine (FLU shot) Completed 07/2024, 04/04/2022 Alpha-1 Antitrypsin Completed 11/30/2024 HPV (Gardasil) Vaccine Aged Out No lo [...] as of this encounter Visit Diagnoses Diagnosis MyCode Research Other*[id number] documented in this encounter Care Teams Hockey Player Relationship Specialty Start Date End Date Cattoi Cookie, Pratima Valentina, MD [address] [place] [address] [place] [phone] PCP - General Family Medicine 08/25/24 documented as of this encounter
--- OUTSIDE RECORDS SUMMARY | 2024-12-07 23:20 | External Medical Summary | Summary of Care ---
Author Name Unknown Organization [facility] Address [address] [place] [address] Phone [phone] Care Team Providers Care Plumbing Foreman Name Role Phone Pratima Tobin MD Primary Care Pr ovider Reason for Referral * Evaluate & Treat - Unlimited Visits (Within 24 hrs (call dept; emergent)) - Authorized Specialty Diagnoses / Procedures Referred By Contac t Referred To Contact Neuro/Ortho Surgery - Spine. / Neurological Surgery Diagnoses Back pain DDD (degenerative disc disease), lumbar Lumbago-sciatica due to displacement of lumbar intervertebral disc Lumbar radiculopathy Sciatica Spinal stenosis of lumbar region Charlotte Nazario CRNP [address] [place] [address] Phone: tel: fax: Referral ID Status Reason Start Date Expiration Date Visits Requested Visits Authorized [id number] Authorized Specialty Services Required 12/07/[phone] Question Answer Referral Priority Within 24 hrs (call dept; emergent) Where should this appointment be scheduled? [facility] spine region: Back - Thoracic/Lumbar Do you have any recent complete loss of bladder or bowel function? No - Unknown Comments Back pain, DDD, herniated disc, lumbago-sciatica, lumbar radiculopathy, sciatica, spinal stenosis of lumbar region Encounter Details Date Type Department Care Team (Late st Contact Info) Description 12/07/2024 Orders Only Access Center, [place] [facility] [address] [place] [address] Ext *DO NOT REMOVE THIS DEPARTMENT* [place] [id number] Request, External Referral Back pain*; DDD (degenerative disc disease), lumbar; Lumbago-sciatica due to displacement of lumbar intervertebral disc; Lumbar radiculopathy; Sciatica; Spinal stenosis of lumbar region Allergies Active Allergy Reactions Criticality Noted Date [...] as of this encounter (statuses as of 12/07/2024) Medications Montelukast Sodium 10 MG Oral Tablet [...] as of this encounter (statuses as of 12/07/2024) Active Problems Problem Noted Date Diagnosed Date [...] as of this encounter (statuses as of 12/07/2024) Immunizations Name Administration Dates Next Due Seasonal [...] AM EDT Hospital Encounter PET CT IMAGING, [facility] [address] [facility] [place] [address] 01/12/2025 10:30 AM EDT Office Visit Cardiology, [facility] [address] [place] [phone] Spencer Gomez PA-C [address] [place] [phone] 02/23/2025 4:00 PM EDT Office Visit Family Medicine [address] [place] [phone] Pratima Tobin MD [address] [place] [address] [place] [phone] Scheduled Procedures Name Priority Associated Diagnoses Date/Ti me COLONOSCOPY FLEXIBLE PROXIMA L DIAGNOSTIC Recall Special screening for malignant neoplasms, colon Scheduled Referrals Name Type Priority Associated Diagnoses Orde r Schedule SPINE SURGERY REFERRAL OP Referral Within 24 hrs (call dept; emergent) Back pain DDD (degenerative disc disease), lumbar Lumbago-sciatica due to displacement of lumbar intervertebral disc Lumbar radiculopathy Sciatica Spinal stenosis of lumbar region Ordered: 12/07/2024 Health Maintenance Due Date Last Done Comments [...] ONCE FOR ASTHMA-ADULT 10/04/2023 COVID-19 Vaccine (1 2023-2 5 season) 2024 HbA1c 06/01/2025 11/30/2024, [...] as of this encounter Visit Diagnoses Diagnosis Back pain- Primary Backache, unspecified DDD (degenerative disc disease), lumbar Degeneration of lumbar or lumbosacral intervertebral disc Lumbago-sciatica due to displacement of lumbar intervertebral disc Displacement of lumbar intervertebral disc without myelopathy Lumbar radiculopathy Thoracic or lumbosacral neuritis or radiculitis, unspecified Sciatica Spinal stenosis of lumbar region Spinal stenosis, lumbar region, without neurogenic claudication documented in this encounter Care Teams Plumbing Foreman Relationship Specialty Start Date End Date Pratima Tobin MD [address] [place] [address] [place] [phone] PCP - General Family Medicine 08/25/24 documented as of this encounter
--- OUTSIDE RECORDS SUMMARY | 2024-12-07 23:20 | External Medical Summary | Summary of Care ---
Author Name Unknown Organization [facility] Address [address] [place] [address] Phone [phone] Care Team Providers Care Yeast Washer Name Role Phone Pratima Tobin MD Primary Care Pr ovider Reason for Visit * Reason Onset Date Comments Appointment 11/23/2024 Cardiology Encounter Details Date Type Department Care Team (Late st Contact Info) Description 11/23/2024 Telephone Family Medicine [address] [phone] Pratima Tobin MD [address] [place] [address] [place] [phone] Appointment (Cardiology ) Allergies Active Allergy Reactions Criticality Noted Date [...] as of this encounter (statuses as of 12/02/2024) Medications Montelukast Sodium 10 MG Oral Tablet [...] Active Vitamin B-12 1000 MCG Oral Tablet (Cyanocobalamin ) Take 1 Tablet by mouth in the morning. Active Baqsimi One Pack 3 MG/DOSE Nasal Powder (Glucagon) Administer into nostril. Active Fluticasone-Ume clidin-Vilant 200-62.5-25 MCG/ACT Aerosol Powder Breath Activated (Trelegy [...] Sulfate (2.5 MG/3ML) 0.083% Inhalation Nebulization Solution (Proventil)Leigh cations:COPD exacerbation (HCC) Inhale 1 Vial via nebulizer every 6 hours as needed for Wheezing or Shortness of Breath. 90 mL 1 06/01/20 24 Active Trulicity 0.75 MG/0.5ML Subcutaneous Solution Pen-injector (Dulaglutide) Inject 0.75 mg under the skin once a week. 04/28/20 24 Active Mometasone Furoate 50 MCG/ACT Nasal Suspension (Nasonex 24HR)Indication s:Non-seasonal allergic rhinitis due to other allergic trigger Administer 2 Sprays into nostril in the morning. 18 g 12 06/15/20 24 Active Ventolin HFA 108 (90 Base) MCG/ACT Inhalation Aerosol SolutionIndicat ions:Acute cough Inhale 2 Puffs by mouth every 6 hours as needed for Wheezing or Shortness of Breath. 18 g 1 08/09/19 25 Active Pseudoephedrine HCl 30 MG Oral Tablet (Sudafed) Take 1 Tablet by mouth every 6 hours as needed for Congestion. 30 Tablet 08/16/19 25 Active Ondansetron HCl 8 MG Oral Tablet (Zofran) Take 1 Tablet by mouth every 8 hours as needed for Nausea or Vomiting. 25 Tablet 08/25/19 25 Active Furosemide 20 MG Oral Tablet (Lasix) Take 1 Tablet by mouth every other day. 10/05/19 25 Active Fluticasone Propionate 50 MCG/ACT Nasal Suspension (Flonase) Active tiZANidine HCl 4 MG Oral Tablet (Zanaflex)Indic ations:Back spasm Take 1 Tablet by mouth every 8 hours as needed for Muscle spasms. 90 Tablet 5 11/24/19 25 Active Fasenra 10 MG/0.5ML Subcutaneous Solution Prefilled Syringe (Benralizumab) Inject under the skin. Active EpiPen 2-Vignesh 0.3 MG/0.3ML Injection Solution Auto-injector For a severe reaction: Place orange end against the outer thigh, press firmly, hold in place for 10 seconds and go to the Emergency room. 2 Each 5 11/24/19 25 Active Benzonatate 100 MG Oral Capsule Take 1 Capsule by mouth 3 times a day as needed for Cough. 30 Capsule 1 11/24/19 25 Active Promethazine HCl 25 MG Oral Tablet (Phenergan) Take 1 Tablet by mouth every 6 hours as needed for Nausea. or vomiting 30 Tablet 3 11/24/19 25 Active Simvastatin 20 MG Oral Tablet (Zocor) Take 1 Tablet by mouth every evening. 025 Discontinued(M edication/Dose Changed) Ezetimibe 10 MG Oral Tablet (Zetia)Indicati ons:Hyperlipide axel with target LDL less than 100 Take 1 Tablet by mouth in the morning. 90 Tablet 1 06/15/20 24 025 Discontinued documented as of this encounter (statuses as of 12/02/2024) Active Problems Problem Noted Date Diagnosed Date [...] as of this encounter (statuses as of 12/02/2024) Immunizations Name Administration Dates Next Due Seasonal [...] PM EST documented as of this encounter Miscellaneous Notes * Telephone Encounter - Lito Blanton OSA - 12/02/2024 10:20 AM EDT Patient has been called, and is aware of the appt on: Friday Arrive by 10:15 AMAppt at 10:30 AM (30 min) Spencer Gomez PA-C * Telephone Encounter - Mimi Koch CMA - 11/23/2024 4:39 PM EDT Scheduling requests do not need to be sent to nursing, thank you. * Telephone Encounter - Mili Birmingham OSA - 11/23/2024 4:35 PM EDT Can we please try to reschedule patient for Cardiology- was in the hospital for her recent cancelled visit? documented in this encounter Plan of Treatment Upcoming Encounters Date Type Department Care Team (Late st Contact Info) Description 12/09/2024 9:30 AM EDT [facility] PET [facility] [address] [facility] [address] 01/12/2025 10:30 AM EDT Office Visit Cardiology, [facility] [address] [place] [phone] Spencer Gomez PA-C [address] [place] [phone] 02/23/2025 4:00 PM EDT Office [address] [place] [address] [phone] Pratima Tobin MD [address] [place] [address] [place] [phone] Scheduled Procedures Name Priority Associated Diagnoses Date/Ti me COLONOSCOPY FLEXIBLE PROXIMA L DIAGNOSTIC Recall Special screening for malignant neoplasms, colon Health Maintenance Due Date Last Done Comments Albumin/Creatinine Ratio 12/25/1973 Alpha-1 Antitrypsin 12/25/1973 Diabetic Eye Exam 12/25/1973 DTap/Tdap Vaccines [...] (1 - 2023-2 5 season) 2024 HbA1c 06/01/2025 11/30/2024, 10/08/2023 Diabetic Foot Exam 10/20/2025 10/20/2024 Depression Screening 11/23/2025 11/23/2024 O2 ASSESSMENT COMPLETED IN PAST YEAR FOR COPD 11/23/2025 11/23/2024 GFR 11/30/2025 11/30/2024, 10/11/2024, 10/08/2023 Lipid Panel 11/30/2029 11/30/2024, 10/08/2023 Influenza Vaccine (FLU shot) Completed 07/2024, 04/04/2022 Hepatitis C Screening Completed 11/30/2024 , 11/30/2024, 11/30/2024 HPV (Gardasil) Vaccine Aged Out No [...] Not on filedocumented as of this encounter Care Teams Yeast Washer Relationship Specialty Start Date End Date Pratima Tobin MD [address] [place] [address] [place] [phone] PCP - General Family Medicine 08/25/24 documented as of this encounter
--- OUTSIDE RECORDS SUMMARY | 2024-12-07 23:20 | External Medical Summary | Summary of Care ---
Author Name Unknown Organization [facility] Address [address] [place] [address] Phone [phone] Care Team Providers Care Hydraulic Auto Jack Mechanic Name Role Phone Elieser Tobin MD Primary Care Pr ovider Reason for Visit * Reason Comments eRx-Medication Refill Encounter Details Date Type Department Care Team (Late st Contact Info) Description 12/02/2024 Refill Family Medicine [address] [phone] Will Tabares [address] [place] [address] Back spasm Allergies Active Allergy Reactions Criticality Noted Date [...] as of this encounter (statuses as of 12/03/2024) Medications Montelukast Sodium 10 MG Oral Tablet [...] Nasal Powder (Glucagon) Administer into nostril. Active Fluticasone-Umec lidin-Vilant 200-62.5-25 MCG/ACT Aerosol Powder Breath Activated (Trelegy [...] Sulfate (2.5 MG/3ML) 0.083% Inhalation Nebulization Solution (Proventil)Indic ations:COPD exacerbation (HCC) Inhale 1 Vial via nebulizer every 6 hours as needed for Wheezing or Shortness of Breath. 90 mL 1 06/01/20 24 Active Trulicity 0.75 MG/0.5ML Subcutaneous Solution Pen-injector (Dulaglutide) Inject 0.75 mg under the skin once a week. 04/28/20 24 Active Mometasone Furoate 50 MCG/ACT Nasal Suspension (Nasonex 24HR)Indications :Non-seasonal allergic rhinitis due to other allergic trigger Administer 2 Sprays into nostril in the morning. 18 g 12 06/15/20 24 Active Ventolin HFA 108 (90 Base) MCG/ACT Inhalation Aerosol SolutionIndicati ons:Acute cough Inhale 2 Puffs by mouth every [...] day as needed for Cough. 30 Capsule 11/24/19 25 Active Promethazine HCl 25 MG Oral Tablet (Phenergan) Take 1 Tablet by mouth every 6 hours as needed for Nausea. or vomiting 30 Tablet 3 11/24/19 25 Active Ezetimibe 10 MG Oral Tablet (Zetia)Indicatio ns:Hyperlipidemi a with target LDL less than 100 Take 1 Tablet by mouth in the morning. 90 Tablet 1 12/02/19 25 Active Atorvastatin Calcium 40 MG Oral Tablet (Lipitor) Take 1 Tablet by mouth in the morning. 90 Tablet 1 12/02/19 25 Active tiZANidine HCl 4 MG Oral Tablet (Zanaflex)Indica tions:Back spasm Take 1 Tablet by mouth every 8 hours as needed for Muscle spasms. 90 Tablet 12/04/19 25 Active tiZANidine HCl 4 MG Oral Tablet (Zanaflex)Indica tions:Back spasm Take 1 Tablet by mouth every 8 hours as needed for Muscle spasms. 90 Tablet 5 11/24/19 25 025 Discontinued documented as of this encounter (statuses as of 12/03/2024) Active Problems Problem Noted Date Diagnosed Date [...] as of this encounter (statuses as of 12/03/2024) Immunizations Name Administration Dates Next Due Seasonal [...] No 08/29/2023 Does the household have a gular source of income? (Household - for [...] encounter Miscellaneous Notes * Telephone Encounter - Elieser Tobin MD - 12/03/2024 3:06 PM EDTSigned Prescriptions: Disp Refills tiZANidine HCl 4 MG Oral Tablet (Zanaflex) 90 Tab*0 Sig: Take 1 Tablet by mouth every 8 hours as needed for Muscle spasms. Authorizing Provider: ELIESER TOBIN * Telephone Encounter - Faina Morrison CMA - 12/03/2024 1:45 PM EDTPending Prescriptions: Disp Refills tiZANidine HCl 4 MG Oral Tablet [Pharmacy *90 Tab*0 Sig: Take 1 Tablet by mouth every 8 hours as needed for Muscle spasms. * Telephone Encounter - Faina Morrison CMA - 12/03/2024 1:44 PM EDT Pending Prescriptions: Disp Refills tiZANidine HCl 4 MG Oral Tablet (Zanaflex*90 Tab*0 Sig: Take 1 Tablet by mouth every 8 hours as needed for Muscle spasms. Last Visit: 11/23/2024 (in office), Visit date not found (telemedicine) Next Visit: 02/23/2025 Last date the medication was ordered: 11/23/2024 Patient Active Problem List Diagnosis Paroxysmal atrial fibrillation (HCC) Type 2 diabetes mellitus treated with insulin (HCC) COPD with asthma (HCC) Fatty liver Gastroesophageal reflux disease without esophagitis Vulvar cancer (HCC) Other hyperlipidemia Rebound headache Primary osteoarthritis involving multiple joints Malignant neoplasm of vulva (HCC) COPD, group C, by GOLD 2017 classification (HCC) Migraine headache Mass of vulva COPD exacerbation (HCC) Chronic heart failure with preserved ejection fraction (HCC) Chronic hypoxemic respiratory failure (HCC) Labs: Lab Results Component Value Date/Time CREATININE - [facility] 1.0 11/30/2024 12:04 PM Lab Results Component Value Date/Time POTASSIUM - [facility] 4.0 11/30/2024 12:04 PM No results found for: "TSH" Lab Results Component Value Date/Time LDL CHOLESTEROL (CALCULATED) - [facility] 141 (H) 11/30/2024 12:04 PM LDL CHOLESTEROL (CALCULATED) - [facility] 158 (H) 10/08/2023 10:59 AM Lab Results Component Value Date/Time ALT - [facility] 18 11/30/2024 12:04 PM Hemoglobin AIC Results: Lab Results Component Value Date/Time HEMOGLOBIN A1C - [facility] 8.6 (H) 11/30/2024 12:04 PM HEMOGLOBIN A1C - [facility] 7.9 (H) 10/08/2023 10:59 AM * Telephone Encounter - Emil Eric - 12/02/2024 7:23 PM EDTPending Prescriptions: Disp Refills tiZANidine HCl 4 MG Oral Tablet [Pharmacy *90 Tab*0 Sig: Take 1Tablet by mouth every 8 hours as needed for Muscle spasms. documented in this encounter Plan of Treatment Upcoming Encounters Date Type Department Care Team (Late st Contact Info) Description 12/09/2024 9:30 AM EDT Appoint[facility] PET [facility], [facility] [address] [facility] [place] [address] 01/12/2025 10:30 AM EDT Office Visit Cardiology, [facility] [address] [place] [phone] Spencer Gomez PA-C [address] [place] [phone] 02/23/2025 4:00 PM EDT Office Visit Family Medicine [address] [place] [phone] Eliseer Tobin MD [address] [place] [address] [place] [phone] Scheduled Procedures Name Priority [...] of this encounter Visit Diagnoses Diagnosis Back spasm Other symptoms referable to back documented in this encounter Care Teams Hydraulic Auto Jack Mechanic Relationship Specialty Start Date End Date Elieser Tobin MD [address] [place] [address] [place] [phone] PCP - General Family Medicine 08/25/24 documented as of this encounter
--- OUTSIDE RECORDS SUMMARY | 2024-12-07 23:21 | External Medical Summary | Summary of Care ---
Author Name Unknown Organization [facility] Address [address] [place] [address] Phone [phone] Care Team Providers Care Linux Kernel Engineer Name Role Phone Pratima Tobin MD Primary Care Pr ovid Reason for Visit * Reason Comments Outpatient Testing Encounter Details Date Type Department Care Team (Late st Contact Info) Description 11/30/2024 12:00 PM EDT Laboratory Laboratory [address] [place] [phone] [place] [address] [place] [employer] Other*[id number]; Type 2 diabetes mellitus treated with insulin (HCC); Malignant neoplasm of vulva (HCC); Paroxysmal atrial fibrillation (HCC); COPD exacerbation (HCC); Need for hepatitis C screening test Allergies Active Allergy Reactions Criticality Noted Date [...] as of this encounter (statuses as of 11/30/2024) Medications Montelukast Sodium 10 MG Oral Tablet [...] or Shortness of Breath. 90 mL 1 Active Trulicity 0.75 MG/0.5ML Subcutaneous Solution Pen-injector [...] needed for Muscle spasms. 90 Tablet 5 5 Active Fasenra 10 MG/0.5ML Subcutaneous Solution Prefilled [...] or vomiting 30 Tablet 3 5 Active documented as of this encounter (statuses as of 11/30/2024) Active Problems Problem Noted Date Diagnosed Date [...] as of this encounter (statuses as of 11/30/2024) Immunizations Name Administration Dates Next Due Seasonal [...] No 08/29/2023 Does the household have a [facility] source of income? (Household - for ages [...] 9:30 AM EDT Appointment PET CT IMAGING, [address] [address] 02/23/2025 4:00 PM EDT Office Visit Family Medicine [address] [place] [phone] Pratima Tobin MD [address] [place] [address] [place] [phone] Pending Results Name Type Priority Associated Diagnoses Date /Time MYCODE INITIAL ADULT Lab Routine MyCode [employer] Other*[id number] 11/30/2024 12:04 PM EDT HEMOGLOBIN A1C Lab Routine Type 2 diabetes mellitus treated with insulin (HCC) 11/30/2024 12:04 PM EDT COMPREHENSIVE METABOLIC PANEL Lab Routine Type 2 diabetes mellitus treated with insulin (HCC) 11/30/2024 12:04 PM EDT CBC WITH WBC DIFFERENTIAL Lab Routine Malignant neoplasm of vulva (HCC) Paroxysmal atrial fibrillation (HCC) 11/30/2024 12:04 PM EDT [id number], QN Lab Routine COPD exacerbation (HCC) 11/30/2024 12:04 PM EDT HEPATITIS C ANTIBODY SCREEN WITH PROGRESSION TO HEPATITIS C RNA QUANTITATIVE Lab Routine Need for hepatitis C screening test 11/30/2024 12:04 PM EDT MYCODE INITIAL ADULT-PINK Lab Routine [employer] Other*[id number] 11/30/2024 12:04 PM EDT MYCODE SST1 Lab Routine [employer] Other*[id number] 11/30/2024 12:04 PM EDT MYCODE SST2 Lab Routine [employer] Other*[id number] 11/30/2024 12:04 PM EDT CBC Lab Routine Malignant neoplasm of vulva (HCC) Paroxysmal atrial fibrillation (HCC) 11/30/2024 12:04 PM EDT DIFFERENTIAL, AUTOMATED Lab Routine Malignant neoplasm of vulva (HCC) Paroxysmal atrial fibrillation (HCC) 11/30/2024 12:04 PM EDT HEPATITIS C ANTIBODY Lab Routine Need for hepatitis C screening test 11/30/2024 12:04 PM EDT HEPATITIS C RNA QUANTITATION REFLEX COLLECTION Lab Routine Need for hepatitis C screening test 11/30/2024 12:04 PM EDT Scheduled Procedures Name Priority Associated Diagnoses Date/Ti me COLONOSCOPY FLEXIBLE PROXIMA L DIAGNOSTIC Recall Special screening for malignant neoplasms, colon Health Maintenance Due Date Last Done Comments Albumin/Creatinine Ratio 12/25/1973 Alpha-1 Antitrypsin 12/25/1973 Diabetic Eye Exam 12/25/1973 Hepatitis C Screening 12/25/1973 DTap/Tdap [...] 5 season) 2024 HbA1c 04/09/2024 10/08/2023 GFR 10/11/2025 10/11/2024, 10/08/2023 Diabetic Foot Exam 10/20/2025 10/20/2024 Depression Screening 11/23/2025 11/23/2024 O2 ASSESSMENT COMPLETED IN PAST YEAR FOR COPD 11/23/2025 11/23/2024 Lipid Panel 10/07/2028 10/08/2023 Influenza Vaccine (FLU [...] this encounter Visit Diagnoses Diagnosis MyCode [employer] Other*[id number] Type 2 diabetes mellitus treated with insulin (HCC) Type II or unspecified type diabetes mellitus without mention of complication, not stated as uncontrolled Malignant neoplasm of vulva (HCC) Malignant neoplasm of vulva, unspecified site Paroxysmal atrial fibrillation (HCC) Atrial fibrillation COPD exacerbation (HCC) Obstructive chronic bronchitis with exacerbation Need for hepatitis C screening test Special screening examination for other specified viral diseases documented in this encounter Care Teams Linux Kernel Engineer Relationship Specialty Start Date End Date Pratima Tobin MD [address] [place] [address] [place] [phone] PCP - General Family Medicine 08/25/24 documented as of this encounter
--- OUTSIDE RECORDS SUMMARY | 2024-12-07 23:21 | External Medical Summary ---
Author Name Unknown Address Unknown Organization K01:LABORATORY [facility] - [address] [facility] [address] Laboratory Report Ordering Provider Test Date Status EMILY 11/30/2024 12:04:53 Final Observation Date Value Abnormality Reference (Units ) Status SYNC LEUKOCYTES IN BLOOD BY AUTOMATED COUNT 11/30/2024 12:04:53 7.67 4.00-10.80 (K/uL) Final Segs 11/30/2024 12:04:53 76.3 Above high normal 40.0-75.0 (%) Final Lymphs % 11/30/2024 12:04:53 14.0 Below low normal 18.0-42.0 (%) Final Monos 11/30/2024 12:04:53 9.3 1.0-11.0 (%) Final Eosinophils 11/30/2024 12:04:53 0.0 0.0-6.0 (%) Final Basos 11/30/2024 12:04:53 0.1 0.0-2.0 (%) Final Immature Granulocyte, Percent 11/30/2024 12:04:53 0.3 0.0-2.0 (%) Final Absolute Segs 11/30/2024 12:04:53 5.86 1.80-7.70 (K/uL) Final Lymphs, absolute 11/30/2024 12:04:53 1.07 1.00-4.80 (K/ul) Final Monos, Abs 11/30/2024 12:04:53 0.71 0.00-1.10 (K/uL) Final Eos, Abs 11/30/2024 12:04:53 0.00 0.00-0.70 (K/uL) Final Basos, Abs 11/30/2024 12:04:53 0.01 0.00-0.20 (K/uL) Final Immature Granulocytes, Number 11/30/2024 12:04:53 0.02 0.00-0.20 (K/uL) Final Performing Location LABORATORY [facility] - [facility] [place] [address]
--- OUTSIDE RECORDS SUMMARY | 2024-12-07 23:21 | External Medical Summary | Summary of Care ---
Author Name Unknown Organization [facility] Address [address] [place] [address] Phone [phone] Care Team Providers Care Sewer And Inspector Name Role Phone Pratima Tobin MD Primary Care Pr ovider Reason for Referral * Precert (Within 10 days (routine)) - Authorized Specialty Diagnoses / Procedures Referred By Contac t Referred To Contact Radiology Diagnoses Cancer-related breakthrough pain Malignant neoplasm of overlapping sites of vulva (HCC) Procedures PET CT SKULL BASE TO MID-THIGH FDG PET CT IMAGING, [facility] [address] [place] [address] Phone: tel: Referral ID Status Reason Start Date Expiration Date V isits Requested Visits Authorized [id number] Authorized 11/24/2024 999 [id number] Encounter Details Date Type Department Care Team (Late st Contact Info) Description 11/23/[address] IMAGING, [facility] [address] [place] [address] Requisition, External Radiology [address] [place] [address] Cancer-related breakthrough pain*; Primary malignant neoplasm of vulva (HCC); Malignant neoplasm of overlapping sites of vulva (HCC) Allergies Active Allergy Reactions Criticality Noted Date [...] as of this encounter (statuses as of 11/23/2024) Medications Montelukast Sodium 10 MG Oral Tablet [...] by mouth every other day. 5 Active documented as of this encounter (statuses as of 11/23/2024) Active Problems Problem Noted Date Diagnosed Date [...] as of this encounter (statuses as of 11/23/2024) Immunizations Name Administration Dates Next Due Seasonal [...] Team (Late st Contact Info) Description 11/23/2024 4:00 PM EDT Office Visit Family Medicine [address] [phone] Pratima Tobin MD [address] [place] [address] [place] [phone] 12/09/2024 9:30 AM EDT Appointment PET CT IMAGING, [address] [address] Scheduled Orders Name Type Priority Associated Diagnoses Orde r Schedule PET CT SKULL BASE TO MID-THIGH FDG Medical Imaging Routine Cancer-related breakthrough pain Malignant neoplasm of overlapping sites of vulva (HCC) Expected: 11/24/2024, Expires: 12/23/2025 Scheduled Procedures Name Priority Associated Diagnoses Date/Ti [...] HbA1c 04/09/2024 10/08/2023 GFR 10/11/2025 10/11/2024, 10/08/2023 O2 ASSESSMENT COMPLETED IN PAST YEAR FOR COPD 10/11/2025 10/11/2024 Lipid Panel 10/07/2028 10/08/2023 Influenza Vaccine (FLU [...] as of this encounter Visit Diagnoses Diagnosis Cancer-related breakthrough pain- Primary Primary malignant neoplasm of vulva (HCC) Malignant neoplasm of vulva, unspecified site Malignant neoplasm of overlapping sites of vulva (HCC) Malignant neoplasm of other specified sites of female genital organs documented in this encounter Care Teams Sewer And Inspector Relationship Specialty Start Date End Date Pratima Tobin MD [address] [place] [address] [place] [phone] PCP - General Family Medicine 08/25/24 documented as of this encounter
--- OUTSIDE RECORDS SUMMARY | 2024-12-07 23:21 | External Medical Summary | Summary of Care ---
Author Name Unknown Organization [facility] Address [address] [place] [address] Phone [phone] Care Team Providers Care Senior Data Modeler Name Role Phone Pratima Tobin MD Primary Care Pr ovider Reason for Visit * Reason Onset Date Comments Order Request 11/24/2024 scooter Encounter Details Date Type Department Care Team (Late st Contact Info) Description 11/24/2024 Telephone Family Medicine [address] [phone] Pratima Tobin MD [address] [place], [place] [address] [phone] Order Request (scooter) Allergies Active Allergy Reactions Criticality Noted Date [...] as of this encounter (statuses as of 11/24/2024) Medications Montelukast Sodium 10 MG Oral Tablet [...] as of this encounter (statuses as of 11/24/2024) Active Problems Problem Noted Date Diagnosed Date [...] as of this encounter (statuses as of 11/24/2024) Immunizations Name Administration Dates Next Due Seasonal [...] encounter Miscellaneous Notes * Telephone Encounter - Amina Puckett CMA - 11/24/2024 1:43 PM EDT Your order is being processed Hi Amina Puckett, Order [id number] for Melissa De Los Santos (1955) is being fulfilled by [facility]. If you need assistance with this order, please call . We will send one more email notification once the order has been delivered. * Telephone Encounter - Amina Puckett CMA - 11/24/2024 8:49 AM EDT Submitted scooter order to Pricing Assistant [facility] documented in this encounter Plan of Treatment Upcoming Encounters Date Type Department Care Team (Late st Contact Info) Description 12/09/2024 9:30 AM EDT Appointment PET CT IMAGING, [facility] [address] [place], [place] [id number] 02/23/2025 4:00 PM EDT Office Visit Family Medicine [address] [place] [phone] Pratima Tobin MD [address] [place] [address] [place] [phone] Scheduled Procedures Name Priority [...] filedocumented as of this encounter Care Teams Senior Data Modeler Relationship Specialty Start Date End Date Pratima Tobin MD [address] [place] [address] [place] [phone] PCP - General Family Medicine 08/25/24 documented as of this encounter
--- OUTSIDE RECORDS SUMMARY | 2024-12-07 23:21 | External Medical Summary ---
Author Name Unknown Address Unknown Organization K01:LABORATORY [facility] - [facility] [address] [facility] [address] Laboratory Report Ordering Provider Test Date Status EMILY 11/30/2024 12:04:53 Final Observation Date Value Abnormality Reference (Units ) Status WBC, Total 11/30/2024 12:04:53 7.67 4.00-10.80 (K/uL) Final RBC 11/30/2024 12:04:53 3.84 3.85-5.15 (M/uL) Final Hemoglobin 11/30/2024 12:04:53 11.6 Below low normal 12.0-15.3 (g/dL) Final HCT 11/30/2024 12:04:53 37.1 36.0-45.2 (%) Final MCV 11/30/2024 12:04:53 96.6 81.5-97.5 (fL) Final MCH 11/30/2024 12:04:53 30.2 27.0-34.0 (pg) Final MCHC 11/30/2024 12:04:53 31.3 32.0-36.0 (g/dL) Final RDW 11/30/2024 12:04:53 12.6 11.5-15.5 (%) Final Platelets 11/30/2024 12:04:53 293 140-400 (K/uL) Final MPV 11/30/2024 12:04:53 9.9 6.6-11.1 (fL) Final Nucleated erythrocytes/100 leukocytes [Ratio] in Blood by Automated count 11/30/2024 12:04:53 0 <=0 (/100 WBCs) Final Performing Location LAB[facility]ATORY [facility] - [address] [place] [address]
--- OUTSIDE RECORDS SUMMARY | 2024-12-07 23:21 | External Medical Summary ---
Author Name Unknown Address Unknown Organization : Laboratory Report Ordering Provider Test Date Status EMILY MON SEIFERT 11/30/2024 12:04:53 Final Observation Date Value Abnormality Reference (Units ) Status Alpha-1 antitrypsin 11/30/2024 12:04:53 147 83-199 (mg/dL) Final Test Performed at:
[facility]
[address] [facility]
[place] [address]
Lito Whittaker M.D., Ph.D.,Director of Laboratories Performing Location
--- OUTSIDE RECORDS SUMMARY | 2024-12-07 23:21 | External Medical Summary | Summary of Care ---
Author Name Unknown Organization [facility] Address [address] [place] [address] Phone [phone] Care Team Providers Care Boilers Inspector Name Role Phone Pratima Tobin MD Primary Care Pr ovider Reason for Referral * Evaluate & Treat - Unlimited Visits (Within 30 days (routine)) - Authorized Specialty Diagnoses / Procedures Referred By Sarah Beth rosas Referred To Contact Ophthalmology Diagnoses Type 2 diabetes mellitus treated with insulin (HCC) Pratima Tobin MD [address] [place] [address] [place] [address] Phone: tel: fax: Referral ID Status Reason Start Date Expiration Date Visits Requested Visits Authorized [id number] Authorized Specialty Services Required 11/23/2024 [id number] Question Answer Referral Priority Within 30 days (routine) Where should this appointment be scheduled? [facility] Referring for: Ophthalmology Conditions Ophthalmology Conditions Other Ophthalmology (comment) - DM eye exam * Evaluate & Treat - Unlimited Visits (Within 30 days (routine)) - Authorized Specialty Diagnoses / Procedures Referred By Sarah Beth rosas Referred To Contact Podiatry Diagnoses Type 2 diabetes mellitus treated with insulin (HCC) Pratima Tobin MD [address] [place] [address] [place] [address] Phone: tel: fax: Referral ID Status Reason Start Date Expiration Date Visits Requested Visits Authorized [id number] Authorized Specialty Services Required 11/23/2024 999 [id number] Question Answer Referral Priority Within 30 days (routine) Where should this appointment be scheduled? [facility] Which condition are you referring this patient for? Diabetic foot care/pain Specific condition? Diabetic Foot care Medicare Patient? Yes Can Patient perform routine footcare without assistance? No Does patient have a chronic condition? Yes Has patient been seen in the past 6 months? Yes Date last seen for chronic condition: 11/23/2024 Who saw patient for chronic condition? [facility] Reason for Visit * Reason Comments NEW PATIENT Encounter Details Date Type Department Care Team (Late st Contact Info) Description 11/23/2024 4:00 PM EDT Office Visit Family Medicine [address] [place] [address] Pratima Tobin MD [address] [place] [address] [place] [address] Chronic hypoxemic respiratory failure (HCC)*; Chronic heart failure with preserved ejection fraction (HCC); Type 2 diabetes mellitus treated with insulin (HCC); Hyperlipidemia with target LDL less than 100; Paroxysmal atrial fibrillation (HCC); Malignant neoplasm of vulva (HCC); Chronic cough; Back spasm; Need for hepatitis C screening test; Ambulatory dysfunction Allergies Active Allergy Reactions Criticality Noted Date [...] skin once a week. 04/28/20 24 Active Ezetimibe 10 MG Oral Tablet (Zetia)Indicati ons:Hyperlipide axel with target LDL less than 100 Take 1 Tablet by mouth in the morning. 90 Tablet 1 06/15/20 24 Active Mometasone Furoate 50 MCG/ACT Nasal [...] vomiting 30 Tablet 3 11/24/19 25 Active tiZANidine HCl 4 MG Oral Tablet (Zanaflex)Indic ations:Back spasm Take 1 Tablet by mouth every 8 hours as needed for Muscle spasms. 90 Tablet 5 06/15/20 24 025 Discontinued(R efill) EPINEPHrine 0.15 MG/0.3ML Injection Solution Auto-injector (Epipen JR) Inject 0.15 mg into a large muscle. 025 Discontinued documented as of this encounter [...] money to buy more. Never true 08/29/19 Within the past 12 months, t he [...] No 08/29/2023 Does the household have a [facility] source of income? (Household - for ages [...] Sign Reading Time Taken Comments Blood Pressure 140/60 11/23/2024 3:56 PM EDT Pulse 89 11/23/2024 3:56 PM EDT Temperature - - Respiratory Rate - - Oxygen Saturation 92% 11/23/2024 3:56 PM EDT Inhaled Oxygen Concentration - - Weight 88.5 kg (195 lb) 11/23/2024 3:56 PM EDT Height 158.8 cm (5' 2.5") 11/23/2024 3:56 PM EDT Body Mass Index 35.1 11/23/2024 3:56 PM EDT documented in this encounter Progress Notes * Wan Gary, Pratima Montgomery MD - 11/23/2024 4:04 PM EDT Images from the original note were not included. History of Present Illness Melissa De Los Santos is a 68 year old female that presents for NEW PATIENT History of Present Illness Melissa De Los Santos is a 68-year-old female who presents for a routine check-up and medication refills. She has mobility issues due to a broken scooter, which she relies on for navigating [place] terrain. This has led to frequent tripping and balance difficulties, necessitating a prescription for a new scooter. Was using it to leave the house and does use it around the house as well. Now has difficultywith ambulating due to balance and strength and breathing when she ambulates. She experiences increased difficulty breathing, now requiring continuous oxygen at 2 liters She sometimes uses oxygen at night depending on her chest condition. She has a history of pneumonia and a recent hospitalization, which has delayed her follow-up appointments. She uses a nebulizer every fourhours for wheezing, which is more pronounced at night. She has diabetes with fluctuating blood sugar levels, sometimes becoming too low or high, which sheattributes to prednisone use. She is considering a CGM to monitor her levels. Adrienne Ochoa Had her foot exam done there. 10/20 She experiences nausea and vomiting secondary to her cancer treatment, particularly in the mornings, and takes ondansetron for relief, though it is not effective. She is seeking alternative medication for nausea. She uses Tessalon Perles for cough, which she experiences more frequently with weather changes. Shereports a recent episode of excessive coughing. She has a history of a port placement, which remains tender and painful, causing her concern about undergoing a mammogram due to the potential discomfort. She is allergic to bee and wasp stings and carries an EpiPen for emergencies. She fears going outside due to the presence of wasps. PHQ Adult 11/23/2024 16:06 Depression Screening (PHQ2_9)-Adult (Pt Reported) Little interest or pleasure in doing things Not at all [0] Feeling down, depressed or hopeless Not at all [0] PHQ Adult Total Score 0 PHQ Adult Score Description No Depression Depression Screening (PHQ2) - Adult Little interest or pleasure in doing things Not at all [0] Feeling down, depressed or hopeless Not at all [0] Details Proxy-reported Physical Exam BP 140/60 | Pulse 89 | Ht 5' 2.5" (1.588 m) | Wt 195 lb (88.5 kg) | SpO2 92% | BMI 35.10 kg/m² | BSA 1.98 m² O2 sat 82% with ambulation Physical Exam Vitals and nursing note reviewed. Constitutional: General: She is not in acute distress. Appearance: She is obese. HENT: Head: Normocephalic and atraumatic. Mouth/Throat: Mouth: Mucous membranes are moist. Eyes: Extraocular Movements: Extraocular movements intact. Neck: Thyroid: No thyromegaly. Cardiovascular: Rate and Rhythm: Normal rate and regular rhythm. Pulmonary: Breath sounds: Wheezing (throughout) present. No rhonchi. Abdominal: General: Bowel sounds are normal. There is no distension. Palpations: Abdomen is soft. Tenderness: There is no abdominal tenderness. Musculoskeletal: General: Normal range of motion. Cervical back: Normal range of motion and neck supple. Right lower leg: No edema. Left lower leg: No edema. Lymphadenopathy: Cervical: No cervical adenopathy. Upper Body: Right upper body: No supraclavicular adenopathy. Left upper body: No supraclavicular adenopathy. Skin: General: Skin is warm and dry. Findings: No lesion or rash. Neurological: General: No focal deficit present. Mental Status: She is alert and oriented to person, place, and time. Psychiatric: Mood and Affect: Mood normal. Behavior: Behavior normal. Assessment and Plan Assessment & Plan Type 2 diabetes mellitus with hypoglycemia Blood glucose levels are fluctuating, possibly due to prednisone use. Consideration is being given to an insulin pump for stabilization. Order diabetes labs and coordinate with an adult literacy teacher regarding the insulin pump. Chronic respiratory failure with hypoxia There is increased reliance on continuous oxygen therapy during ambulation, and wheezing is present. Continue oxygen therapy at 2 liters and nebulizer treatments every four hours. Nausea and vomiting secondary to vulvar cancer and treatment Persistent nausea and vomiting continue, with ondansetron proving ineffective. Prescribe a new antiemetic medication. Mobility issues due to broken scooter A broken scooter limits mobility and increases fall risk. Order a prescription for scooter replacement and coordinate with a renal social worker for insurance approval. Vision and foot care needs She requires an eye exam and new glasses, as well as a podiatry referral for toenail evaluation. Refer to an general maintenance helper for the eye exam and glasses, and to a innovations paraprofessional for foot evaluation. Allergy to insect venom Severe allergic reactions to bee and wasp stings cause anxiety. Ensure the availability of an EpiPen for emergency use. Chronic hypoxemic respiratory failure (HCC) - DURABLE MEDICAL EQUIPMENT Chronic heart failure with preserved ejection fraction (HCC) On ASA, statin. Re-establish with Cardiology for chronic managment Type 2 diabetes mellitus treated with insulin (HCC) - PODIATRY REFERRAL OP - ADULT/PEDS OPHTHALMOLOGY/OPTOMETRY REFERRAL OP Hyperlipidemia with target LDL less than 100 On statin, check labs Paroxysmal atrial fibrillation (HCC) On ASA, rate controlled Malignant neoplasm of vulva (HCC) Chronic cough Refilled tessalon to use PRN Back spasm Refilled zanaflex to use PRN - tiZANidine HCl 4 MG Oral Tablet (Zanaflex); Take 1 Tablet by mouth every 8 hours as needed for Muscle spasms. Need for hepatitis C screening test - HEPATITIS C ANTIBODY SCREEN WITH PROGRESSION TO HEPATITIS C RNA QUANTITATIVE; Future Ambulatory dysfunction - DURABLE MEDICAL EQUIPMENT Declines mammo right now due to pain at prior port site Wrap-Up Follow Up: Return in about 3 months (around 02/22/2025) for Return with Physician. | For: Return with Physician | Check-out note: Can we please try to reschedule patient for Cardiology- was in the hospital for her recent cancelled visit? Time: I spent a total of 30-39 minutes (exact time 34 mins) on the date of service in preparation, delivery, and documentation of the care provided to Melissa De Los Santos excluding any time spent in the performance of separately billed services. Text in this note was generated using an ambient documentation service. I discussed the use of a device to record and summarize our discussion today. All persons present during the encounter consented to its use. documented in this encounter Nursing Notes * Amina Puckett CMA - 11/23/2024 3:56 PM EDT Establish care Pt need scooter got one 15 years ago and needs new one. Needs refills one tessalon pearjaya and epipen documented in this encounter Plan of Treatment Upcoming Encounters Date Type Department Care Team (Late st Contact Info) Description 12/09/2024 9:30 AM EDT Appointment PET CT [facility], [facility] [address] [facility] [address] 02/23/2025 4:00 PM EDT Office Visit [address] [place] [address] Pratima Tobin MD [address] [place] [address] [place] [address] Scheduled Orders Name Type Priority Associated Diagnoses Orde r Schedule HEPATITIS C ANTIBODY SCREEN WITH PROGRESSION TO HEPATITIS C RNA QUANTITATIVE Lab Routine Need for hepatitis C screening test Expected: 11/23/2024 (Approximate), Expires: 12/23/2025 Scheduled Procedures Name Priority Associated Diagnoses Date/Ti me COLONOSCOPY FLEXIBLE PROXIMA L DIAGNOSTIC Recall Special screening for malignant neoplasms, colon Scheduled Referrals Name Type Priority Associated Diagnoses Orde r Schedule PODIATRY REFERRAL OP Referral Within 30 days (routine) Type 2 diabetes mellitus treated with insulin (HCC) Ordered: 11/23/2024 ADULT/PEDS OPHTHALMOLOGY/OPTOM ETRY REFERRAL OP Referral Within 30 days (routine) Type 2 diabetes mellitus treated with insulin (HCC) Ordered: 11/23/2024 Health Maintenance Due Date Last Done Comments [...] *SPIROMETRY ONCE FOR ASTHMA-ADULT 10/04/2023 COVID-19 Vaccine (2023-2 5 season) 2024 HbA1c 04/09/2024 10/08/2023 GFR [...] as of this encounter Visit Diagnoses Diagnosis Chronic hypoxemic respiratory failure (HCC)- Primary Chronic respiratory failure Chronic heart failure with preserved ejection fraction (HCC) Type 2 diabetes mellitus treated with insulin (HCC) Type II or unspecified type diabetes mellitus without mention of complication, not stated as uncontrolled Hyperlipidemia with target LDL less than 100 Other and unspecified hyperlipidemia Paroxysmal atrial fibrillation (HCC) Atrial fibrillation Malignant neoplasm of vulva (HCC) Malignant neoplasm of vulva, unspecified site Chronic cough Cough Back spasm Other symptoms referable to back Need for hepatitis C screening test Special screening examination for other specified viral diseases Ambulatory dysfunction documented in this encounter Care Teams Boilers Inspector Relationship Specialty Start Date End Date Pratima Tobin MD [address] [place] [address] [place] [phone] PCP - General Family Medicine 08/25/24 documented as of this encounter
--- OUTSIDE RECORDS SUMMARY | 2024-12-07 23:21 | External Medical Summary ---
Author Name Unknown Address Unknown Organization K01:LABORATORY [facility] - [address] [place] [id number] Laboratory Report Ordering Provider Test Date Status KEIRY SANTOS 11/30/2024 12:04:53 Final Observation Date Value Abnormality Reference (Units ) Status MYCODE SPECIMEN-SST 11/30/2024 12:04:53 Freezing of extracted DNA, whole blood and/or serum. Final Performing Location LAB[facility]ATORY [facility] - [address] [place] [address]
--- OUTSIDE RECORDS SUMMARY | 2024-12-07 23:21 | External Medical Summary | Summary of Care ---
Author Name Unknown Organization [facility] Address [address] [place] [address] Phone [phone] Care Team Providers Care Frog Or Oyster Farmworker Name Role Phone Elieser Tobin MD Primary Care Pr ovider Reason for Visit * Reason Comments eRx-Medication Refill Encounter Details Date Type Department Care Team (Late st Contact Info) Description 11/29/2024 Refill Family Medicine [address] [address] [address]ares [address] [id number] Encounter for long-term (current) use of medications*; Hyperlipidemia with target LDL less than 100 Allergies Active Allergy Reactions Criticality Noted Date [...] as of this encounter (statuses as of 12/01/2024) Medications Montelukast Sodium 10 MG Oral Tablet [...] 25 Active Ezetimibe 10 MG Oral Tablet (Zetia)Indicati ons:Hyperlipide axel with target LDL less than 100 Take 1 Tablet by mouth in the morning. 90 Tablet 1 12/02/19 25 Active Atorvastatin Calcium 40 MG Oral Tablet (Lipitor) Take 1 Tablet by mouth in the morning. 90 Tablet 1 12/02/19 25 Active Simvastatin 20 MG Oral Tablet (Zocor) Take 1 Tablet by mouth every evening. 025 Discontinued(M edication/Dose Changed) Ezetimibe 10 MG Oral Tablet (Zetia)Indicati ons:Hyperlipide axel with target LDL less than 100 Take 1 Tablet by mouth in the morning. 90 Tablet 1 06/15/20 24 025 Discontinued documented as of this encounter (statuses as of 12/01/2024) Active Problems Problem Noted Date Diagnosed Date [...] as of this encounter (statuses as of 12/01/2024) Immunizations Name Administration Dates Next Due Seasonal [...] No 08/29/2023 Does the household have a [facility] source of income? (Household - for [...] encounter Miscellaneous Notes * Telephone Encounter - Lindsey Díaz, [facility] - 12/01/2024 1:07 PM EDT Unable to reach patient at this time. Left message on the answering machine requesting callback regarding switch from Simvastatin to Atorvastatin and to recheck labs. Advised patient to please call [phone]. Please transfer her back to myself. If I'm not available, transfer to next available [facility]. Thank you, Lindsey Díaz, PharmD Clinical Pharmacist [facility] ([facility]) 12/01/24 1:07 PM [phone] * Telephone Encounter - Jean-Pierre Harris MD - 12/01/2024 12:32 PM EDT Signed Prescriptions: Disp Refills Ezetimibe 10 MG Oral Tablet (Zetia) 90 Tab*1 Sig: Take 1 Tablet by mouth in the morning. Authorizing Provider: ELIESER TOBIN Ordering User: LINDSEY DÍAZ Atorvastatin Calcium 40 MG Oral Tablet (Li*90 Tab*1 Sig: Take 1 Tablet by mouth in the morning. Authorizing Provider: JEAN-PIERRE HARRIS * Telephone Encounter - Jean-Pierre Harris MD - 12/01/2024 12:32 PM EDT OK * Telephone Encounter - Lindsey Díaz [facility] - 12/01/2024 8:39 AM EDTPending Prescriptions: Disp Refills Atorvastatin Calcium 40 MG Oral Tablet (Li*90 Tab*1 Sig: Take 1 Tablet by mouth in the morning. Signed Prescriptions: Disp Refills Ezetimibe 10 MG Oral Tablet (Zetia) 90 Tab*1 Sig: Take 1 Tablet by mouth in the morning. Authorizing Provider: ELIESER TOBIN Ordering User: LINDSEY DÍAZ * Telephone Encounter - Lindsey Díaz RP - 12/01/2024 8:29 AM EDT In accordance with the 2018 ACC/AHA cholesterol guidelines:: Given patients age, history of diabetes, LDL > 70mg/dL, recommend change to high intensity statin. Patient is currently on Simvastatin 20 mg (moderate intensity). ASCVD - 18.5% Pending Prescriptions: Disp Refills Atorvastatin Calcium 40 MG Oral Tablet (L*90 Tab*1 Sig: Take 1 Tablet by mouth in the morning. Please approve if appropriate and route back to me so that patient may be notified. Results for orders placed or performed in visit on 11/30/24 LIPID PANEL WITH DIRECT LDL IF TG IS HIGH Result Value Ref Range Triglycerides 137 <=174 mg/dL Cholesterol 209 (H) <200 mg/dL HDL Cholesterol 41 (L) >49 mg/dL Non-HDL Cholesterol 168 (H) <=159 mg/dL LDL Cholesterol 141 (H) <=129 mg/dL ALT - [facility] Date/Time Value Ref Range Status 11/30/2024 12:04 PM 18 10 - 35 U/L Final 10/08/2023 10:59 AM 26 10 - 35 U/L Final AST - [facility] Date/Time Value Ref Range Status 11/30/2024 12:04 PM 22 10 - 35 U/L Final 10/08/2023 10:59 AM 25 10 - 35 U/L Final Thank you, Lindsey Díaz, PharmD Clinical Pharmacist [facility] ([facility]) 12/01/24 8:29 AM [phone] * Telephone Encounter - Lindsey Díaz RPh - 11/30/2024 5:58 PM EDTPending Prescriptions: Disp Refills Ezetimibe 10 MG Oral Tablet (Zetia) 90 Tab*0 Sig: Take 1 Tablet by mouth in the morning. * Telephone Encounter - Lindsey Díaz RPh - 11/30/2024 5:57 PM EDT Pending until lipid panel comes back documented in this encounter Plan of Treatment Upcoming Encounters Date Type Department Care Team (Late st Contact Info) Description 12/09/2024 9:30 AM EDT Appointment PET CT IMAGING, [address] [id number] 02/23/2025 4:00 PM EDT Office Visit [address] [phone] Elieser Tobin MD [address] [place] [address] [place] [address] Scheduled Orders Name Type Priority Associated Diagnoses Orde r Schedule LIPID PANEL WITH DIRECT LDL IF TG IS HIGH Lab Routine Hyperlipidemia with target LDL less than 100 Expected: 03/02/2025 (Approximate), Expires: 12/02/2025 ALT Lab Routine Hyperlipidemia with target LDL less than 100 Encounter for long-term (current) use of medications Expected: 03/02/2025 (Approximate), Expires: 12/02/2025 AST Lab Routine Hyperlipidemia with target LDL less than 100 Encounter for long-term (current) use of medications Expected: 03/02/2025 (Approximate), Expires: 12/02/2025 Scheduled Procedures Name Priority Associated Diagnoses Date/Ti [...] Not on filedocumented as of this encounter Results * (ABNORMAL) LIPID PANEL WITH DIRECT LDL IF TG IS HIGH (11/30/2024 12:04 PM EDT) Triglycerides 137 <=174 mg/dL 12/01/2024 4:14 AM EDT LABORATORY [facility] Comment: Triglyceride Reference Ranges (mg/dL): <150 Acceptable 150-174 Borderline high 175-499 High >=500 Very high Cholesterol 209(H) <200 mg/dL 12/01/2024 4:14 AM EDT [facility] Comment: Total Cholesterol Reference Ranges (mg/dL): <200 Desirable 200-239 Borderline high >=240 High HDL Cholesterol 41(L) >49 mg/dL 4:14 AM EDT [facility] Comment: HDL Cholesterol Reference Ranges (mg/dL): >=60 High (Desirable) <50 Low (Undesirable) For Females <40 Low (Undesirable) For Males Non-HDL Cholesterol 168(H) <=159 mg/dL 12/01/2024 4:14 AM EDT [facility] Comment: Non-HDL Cholesterol Reference Range (mg/dL): <100 Target level for high risk ASCVD patient <130 Optimal for general population 130-159 Near optimal for general population 160-189 Borderline High 190-219 High >=220 Very High LDL Cholesterol 141(H) <=129 mg/dL 12/01/2024 4:14 AM EDT [facility] Comment: LDL Cholesterol Reference Ranges (mg/dL): <70 Target level for high risk ASCVD patient <100 Optimal for general population 100-129 Near optimal for general population 130-159 Borderline high 160-189 High >=190 Very high Patient has high LDL cholesterol. Consider screening for Familial Hypercholesterolemia. Blood Venous blood specimen / Unknown Venipuncture / Unknown 11/30/2024 12:04 PM EDT 11/30/2024 12:04 PM EDT Lindsey Díaz [facility] LAB BLOOD ORDERABLES Final Result [facility] [address] [facility] [place] [address] documented in this encounter Visit Diagnoses Diagnosis Encounter for long-term (current) use of medications- Primary Encounter for long-term (current) use of other medications Hyperlipidemia with target LDL less than 100 Other and unspecified hyperlipidemia documented in this encounter Care Teams Frog Or Oyster Farmworker Relationship Specialty Start Date End Date Elieser Tobin MD [address] [place] [address] [place] [address] PCP - General Family Medicine 08/25/24 documented as of this encounter
--- OUTSIDE RECORDS SUMMARY | 2024-12-07 23:21 | External Medical Summary | Summary of Care ---
Author Name Unknown Organization [facility] Address [address] [place] [address] Phone [phone] Care Team Providers Care Correspondence Renew Clerk Name Role Phone Pratima Tobin MD Primary Care Pr ovider Encounter Details Date Type Department Care Team (Late st Contact Info) Description 11/26/2024 Orders Only PATIENT PORTAL DO NOT DELETE THIS DEPT USED BY [place] [id number] Allergies Active Allergy Reactions Criticality Noted Date [...] as of this encounter (statuses as of 11/26/2024) Medications Montelukast Sodium 10 MG Oral Tablet [...] nostril in the morning. 18 g 12 11/12/202 4 Active Ventolin HFA 108 (90 Base) [...] as of this encounter (statuses as of 11/26/2024) Active Problems Problem Noted Date Diagnosed Date [...] as of this encounter (statuses as of 11/26/2024) Immunizations Name Administration Dates Next Due Seasonal [...] 9:30 AM EDT Appointment PET CT IMAGING, [facility] [address] [place] [address] 02/23/2025 4:00 PM EDT Office Visit Family Medicine [address] [place] [address] Pratima Tobin MD [address] [place] [address] [place] [phone] Scheduled Procedures Name Priority Associated Diagnoses Date/Ti [...] filedocumented as of this encounter Care Teams Correspondence Renew Clerk Relationship Specialty Start Date End Date Pratima Tobin MD [address] [place] [address] [place] [phone] PCP - General Family Medicine 08/25/24 documented as of this encounter
--- OUTSIDE RECORDS SUMMARY | 2024-12-07 23:21 | External Medical Summary ---
Author Name Unknown Address Unknown Organization [id number]:LABORATORY [facility] [place] - [address] [facility] [address] Laboratory Report Ordering Provider Test Date Status JUANIS MELO 11/30/2024 12:04:53 Final Observation Date Value Abnormality Reference (Units ) Status Triglyceride 11/30/2024 12:04:53 137 <=174 ( mg/dL) Final Triglyceride Reference Range s (mg/dL):
<150 Acceptable
150-174 Borderline high
175-499 High
>=500 Very high Cholesterol 11/30/2024 12:04:53 209 Above high normal <200 (mg/dL) Final Total Cholesterol Reference Ranges (mg/dL):
<200 Desirable
200-239 Borderline high
>=240 High HDL 11/30/2024 12:04:53 41 Below low normal >49 (mg/dL) Final HDL Cholesterol Reference Ra nges (mg/dL):
>=60 High (Desirable)
<50 Low (Undesirable) For Females
<40 Low (Undesirable) For Males NON-HDL CHOLESTEROL 11/30/2024 12:04:53 168 Above high normal <=159 (mg/dL) Final Non-HDL Cholesterol Referenc e Range (mg/dL):
<100 Target level for high risk ASCVD patient
<130 Optimal for general population
130-159 Near optimal for general population
160-189 Borderline High
190-219 High
>=220 Very High LDL, (calculated) 11/30/2024 12:04:53 141 Above high n ormal <=129 (mg/dL) Final LDL Cholesterol Reference Ra nges (mg/dL):
<70 Target level for high risk ASCVD patient
<100 Optimal for general population
100-129 Near optimal for general population
130-159 Borderline high
160-189 High
>=190 Very high
Patient has high LDL cholesterol. Consider screening for Familial Hypercholesterolemia. Performing Location [facility]ATORY [facility] [place] - [address] [facility] [address]
--- OUTSIDE RECORDS SUMMARY | 2024-12-07 23:21 | External Medical Summary | Summary of Care ---
Author Name Unknown Organization [facility] Address [address] [place] [address] Phone [phone] Care Team Providers Care Insurance Case Manager Name Role Phone Pratima Tobin MD Primary Care Pr ovider Reason for Visit * Reason Onset Date Comments Appointment 11/23/2024 Cardiology Encounter Details Date Type Department Care Team (Late st Contact Info) Description 11/23/2024 Telephone Family Medicine [address] [phone] Pratima Tobin MD [address] [place] [address] [place] [phone] Appointment (Cardiology ) Allergies Active Allergy [...] encounter Miscellaneous Notes * Telephone Encounter - Mimi Koch CMA [...] 9:30 AM EDT Appointment PET CT IMAGING, [facility] [address] [place] [address] 02/23/2025 4:00 PM EDT Office Visit Family Medicine [address] [place] [phone] Pratima Tobin MD [address] [place] [address] [place] [phone] Scheduled Procedures Name Priority [...] ( - 2023-2 5 season) 2024 HbA1c 04/09/2024 [...] filedocumented as of this encounter Care Teams Insurance Case Manager Relationship Specialty Start Date End Date Pratima Tobin MD [address] [place] [address] [place] [phone] PCP - General Family Medicine 08/25/24 documented as of this encounter
--- OUTSIDE RECORDS SUMMARY | 2024-12-07 23:21 | External Medical Summary ---
Author Name Unknown Address Unknown Organization [id number]:[facility] [place] - [address] [place] [address] Laboratory Report Ordering Provider Test Date Status KEIRY SANTOS 11/30/2024 12:04:53 Final Observation Date Value Abnormality Reference (Units ) Status Xoopit SPECIMEN-LAV 11/30/2024 12:04:53 Freezing of extracted DNA, whole blood and/or serum. Final Performing Location LABORATORY C - [address] [place] [address]
--- OUTSIDE RECORDS SUMMARY | 2024-12-07 23:21 | External Medical Summary ---
Author Name Unknown Address Unknown Organization [id number][place] [place] [address] [facility] [address] Laboratory Report Ordering Provider Test Date Status ELIESEREMILY JOSAFAT 11/30/2024 12:04:53 Final Observation Date Value Abnormality Reference (Units ) Status HbA1C 11/30/2024 12:04:53 8.6 Above high normal 4. 0-5.6 (%) Final The use of HbA1c to monitor glycemic status is based on normal hemoglobin and HbA composition. This test should not be used in patients with abnormal hemoglobin that affects the half life of the red blood cell or the in vivo glycation rates. Glucose, estimated average 11/30/2024 12:04:53 200 Above high normal <126 (mg/dL) Ezequiel junior Performing Location [facility] [place] [address] [facility] [address]
--- OUTSIDE RECORDS SUMMARY | 2024-12-07 23:21 | External Medical Summary | Summary of Care ---
Author Name Unknown Organization [facility] Address [address] [place] [address] Phone [phone] Care Team Providers Care Director Of Market Intelligence Name Role Phone Pratima Tobin MD Primary Care Pr ovider Reason for Visit * Reason Onset Date Comments Appointment 11/23/2024 Cardiology Encounter Details Date Type Department Care Team (Late st Contact Info) Description 11/23/2024 Telephone Family Medicine [address] [phone] Pratima Tobin MD [address] [place] [address] [place] [phone] Appointment (Cardiology ) Allergies Active Allergy [...] 9:30 AM EDT Appointment PET CT IMAGING, [facility] [address] [place] [address] 02/23/2025 4:00 PM EDT Office Visit Family Medicine [address] [place] [phone] Pratima Tobin MD [address] [place] [address] [place] [phone] Scheduled Procedures Name Priority [...] filedocumented as of this encounter Care Teams Director Of Market Intelligence Relationship Specialty Start Date End Date Pratima Tobin MD [address] [place] [address] [place] [phone] PCP - General Family Medicine 08/25/24 documented as of this encounter
--- OUTSIDE RECORDS SUMMARY | 2024-12-07 23:21 | External Medical Summary ---
Author Name Unknown Address Unknown Organization [id number]:LABORATORY [facility] [place] - [address] [place] [address] Laboratory Report Ordering Provider Test Date Status KEIRY SANTOS 11/30/2024 12:04:53 Final Observation Date Value Abnormality Reference (Units ) Status MYCODE SPECIMEN-SST 11/30/2024 12:04:53 Freezing of extracted DNA, whole blood and/or serum. Final Performing Location LABORATORY [facility] [place] - [address] [place] [address]
[2024-12-07] MEDS: ASPIRIN 81 MG ECTAB PO SCH (23:47)
[2024-12-07] MEDS: MONTELUKAST SODIUM 10 MG TABLET PO SCH (23:47)
[2024-12-07] MEDS: guaiFENesin 600 MG TABCR PO SCH (23:47)
[2024-12-07] MEDS: CETIRIZINE HCL 10 MG TABLET PO SCH (23:47)
[2024-12-07] MEDS: ALBUT/IPRATROP 3MG/0.5MG NEB 3 ML VIAL NEB SCH (23:47)
[2024-12-07] MEDS: PANTOprazole 40 MG TAB PO SCH (23:48)
[2024-12-07] MEDS: oxyCODONE HCL IR 5 MG TAB (IMMEDIATE RELEASE) PO PRN (23:48)
[2024-12-07] MEDS: oxyCODONE HCL 20 MG TABCR (OxyCONTIN) PO SCH (23:53)
[2024-12-08] MEDS: NORTRIPTYLINE HCL 25 MG CAP PO SCH (00:06)
[2024-12-08] MEDS: HEPARIN 25000 UNIT/500 ML D5W 25,000 UNITS/500 ML BAG IV SCH (00:07)
[2024-12-08] MEDS: FUROSEMIDE INJ 20 MG/2 ML VIAL IV ONE (00:07)
[2024-12-08] MEDS: INSULIN ASPART PER UNIT CHARGE SC SCH (02:10)
--- NOTE | 2024-12-08 02:11 | Ultrasound Report ---
EXAM: US venous doppler LE BI CLINICAL HISTORY: ELEVATED D-DIMER. TECHNIQUE: Ultrasound examination of bilateral lower extremity veins was performed in real time and duplex. One or more of the following were performed- spectral analysis, resistive index, waveform analysis, and pulsed Doppler. COMPARISON: 01/16/2023. FINDINGS: Normal phasic, non-pulsatile, and spontaneous flow is noted in the bilateral common femoral, superficial femoral, popliteal and anterior, posterior tibial, and peroneal veins. Visualized veins of both lower extremities demonstrate normal compressibility. No sonographic evidence of acute deep vein thrombosis (DVT) is detected in the visualized veins of both lower extremities. Compression and Augmentation: All evaluated veins compress fully with applied transducer pressure. Augmentation of venous flow is noted with distal compression. Additional Findings: No evidence of intraluminal thrombus. IMPRESSION: 1. No sonographic evidence of acute DVT detected in the bilateral lower limbs at the time of examination. 2. No significant interval change appreciated when compared to the prior study. Disclaimer: DVT could be missed early in the disease when clot burden is minimal. For patients with moderate and high pretest probability of DVT and negative ultrasound, the [employer] [employer] clinical guidelines recommend testing with a D-dimer assay or repeat ultrasound in 5-7 days. If symptoms worsen, the Society of radiologists in ultrasound recommends repeating ultrasound even earlier. Electronically signed by Yannick Andrews 12-08-2024 02:11 AM
[2024-12-08] MEDS: CEFEPIME 2000MG 2,000 MG/20 ML SYR IV SCH (02:19)
[2024-12-08] MEDS: LANTUS PER UNIT CHARGE SQ STA (02:30)
[2024-12-08] MEDS ORDERED: ENOXAPARIN INJ 40 MG/0.4 ML SYR SQ SCH (06:00)
[2024-12-08 06:45] LABS: Hemoglobin 11.9 g/dl (12.0-16.0); Mean Corpuscular Hgb Conc 32.2 g/dL (32.0-36.0); Mean Corpuscular Volume 93.2 fL (80.0-100.0); Mean Platelet Volume 9.3 fL (9.4-12.4); Platelet Count 323 K/uL (130-400); RDW Coefficient of Variation 12.6 % (11.5-14.5); Red Blood Count 3.97 M/uL (4.20-5.40); White Blood Count 11.23 K/ul (4.8-10.8)
[2024-12-08 07:19] LABS: BUN Creatinine Ratio 16.8 (10-20); Calcium 9.1 mg/dl (8.6-10.3); Chol HDL Ratio 4.6 (0-5); Creatinine Clr Calc Pharmacy 55.3 ml/min; Potassium 3.5 mmol/L (3.5-5.1)
[2024-12-08] MEDS: FEXOFENADINE HCL 180 MG TAB PO SCH (08:00)
[2024-12-08] MEDS: predniSONE 20 MG TAB PO SCH (08:02)
[2024-12-08] MEDS: ATORVASTATIN 40 MG TAB PO SCH (08:02)
[2024-12-08] MEDS: EZETIMIBE 10 MG TAB PO SCH (08:02)
[2024-12-08] MEDS: UMECLIDINIUM/VILANTEROL 62.5/25MCG 7 PUFFS/INHALER INH SCH (08:03)
[2024-12-08] MEDS: FLUTICASONE FUROATE 200MCG 14 PUFFS/INHALER INH SCH (08:03)
[2024-12-08] MEDS: LANTUS PER UNIT CHARGE SQ SCH (08:07)
[2024-12-08] MEDS: FUROSEMIDE INJ 20 MG/2 ML VIAL IV SCH (08:12)
[2024-12-08] MEDS ORDERED: NON-FORMULARY MEDICATION (Fluticasone-Umeclidin-Vilanter [Trelegy Ellipta] 200-62.5-25 mcg INH SCH (09:00)
--- NOTE | 2024-12-08 09:13 | Nuclear Medicine Report ---
NUCLEAR MEDICINE PERFUSION STUDY CLINICAL HISTORY: Shortness of breath. COMPARISON STUDY: Nuclear medicine perfusion study January 16, [address] and chest radiograph M 2024. TECHNIQUE: 5.7 mCi of technetium 99m MAA was injected IV at 8:50 AM on December 08, 2024. Imaging of the ch est was performed in multiple projections following radiotracer injection. No ventilation imaging was performed given ventilation precautions. FINDINGS: No segmental perfusion defects are identified. Mild heterogeneous perfusion is noted. No ar eas of abnormal radiotracer uptake are identified. This study is considered low probability for pulmo nary embolus. IMPRESSION: Low probability for pulmonary embolus. ACT 112: Negative or not required by law. Electronically signed by: Kavon Hartman M.D. 12/08/2024 9:11 AM
[2024-12-08] MEDS ORDERED: oxyCODONE HCL IR 30 MG TAB (IMMEDIATE RELEASE) PO PRN (10:31)
--- NOTE | 2024-12-08 11:23 | Communication Note ---
By CMS guidelines, a determination that the admission or continued stay is not medically necessary has been made by a member of the UR committee and a physician for this hospital stay, therefore a Code 44 will be completed and the Inpatient admission will be changed to outpatient. Date of Service: December 08, 2024
[2024-12-08 11:36] VITALS: BP 122/74; TEMP 97.7
[2024-12-08 11:38] VITALS: PULSE 87; RESP 18; O2SAT 98
--- NOTE | 2024-12-08 13:07 | Discharge Summary ---
Discharge Summary Date of Service December 08, 2024 Principal Dx & Hospital Course #1 = Principal Diagnosis (1) Acute on chronic heart failure with preserved ejection fraction (HFpEF): (2) Bilateral pneumonia: (3) Acute exacerbation of chronic obstructive pulmonary disease: (4) Chronic hypoxic respiratory failure: Admit to telemetry Patient presenting from home for evaluation of shortness of breath. Patient recently admitted to [facility] 10/03 through 10/04 for pneumonia and new onset diastolic CHF. In the ED, patient is saturating well on her chronic 2 L of oxygen. She is significantly hypertensive and tachycardic in the 110's. Labs show WBC 14K. Chest CT shows pulmonary edema and bilateral pneumonia. Biofire negative. Saturating well on chronic 2 L of oxygen. Check D. Dimer S/p cefepime in the ED. Will continue with given recent hospitalization, also will add azithromycin. Check MRSA nasal swab and procalcitonin. S/p IV Solu-Medrol 60 mg in the ED, will continue with prednisone 40 mg daily Pulmonary toilet with nebs, Mucinex, flutter valve, incentive spirometer Will need follow-up chest CT in 3 months to further evaluate for possible underlying neoplastic nodules S/p IV Lasix 20 mg in the ED, will give additional 20 mg IV now and continue with IV Lasix 20 mg daily from tomorrow Echo 10/2024-EF 60 to 65%, grade 1 diastolic dysfunction, mild MR, mild TR. will obtain repeat limited echo (5) Hypertensive urgency: Likely due to acute illness/pain Provide pain control, diuresis, as needed labetalol, reevaluate for ongoing antihypertensive need (6) Type 2 diabetes mellitus: HgbA1c 9.4 10/2024 Home regimen: Tresiba 44u daily + sliding scale TID, Trulicitly weekly Start with Lantus 30u daily and Novolog per protocol (7) Chronic pain: Continue home regimen of OxyContin 40 mg q8h and oxycodone 30 mg q6h PRN for breakthrough pain DVT PROPHYLAXIS SQ Lovenox Patient seen in collaboration with Dr. Day. I spent a total of 75 minutes coordinating, documenting, and providing care for this patient excluding time spent in the performance of separately billed services. This included personally reviewing all current laboratories and imaging studies, medication reconciliation, outpatient chart review, and discussion with specialists. Notes For Next Care Provider 68-year-old female with PMH DM type II, COPD with chronic hypoxic respiratory failure on 2 L of oxygen, chronic HFpEF, GERD, vulvar cancer, chronic pain on chronic narcotics, migraines, and other problems listed below who presents to the ED for evaluation of shortness of breath. On medicine, extensive testing done to rule out etiologies of SOB, V/Q scan negatiev, CT chest with small bilateral pleural effusions, pulmonary edema, concern for CAP. Given diuresis and abx for CAP. On 12/08/2024 patient medically stable for discharge home. Medication Changes From Visit -see below Admission HPI Per Admitting Provider 68-year-old female with PMH DM type II, COPD with chronic hypoxic respiratory failure on 2 L of oxygen, chronic HFpEF, GERD, vulvar cancer, chronic pain on chronic narcotics, migraines, and other problems listed below who presents to the ED for evaluation of shortness of breath. Patient recently admitted to [facility] 10/03 through 10/04 for pneumonia and new onset diastolic CHF. History is somewhat limited from the patient as she is currently experiencing significant back pain. Patient reports increasing shortness of breath over the past 2 days. She has had a productive cough. She reports orthopnea. Denies lower extremity edema. She has some chest tightness and palpitations. She also reports nausea and vomiting. Denies abdominal pain. No fevers or chills. Denies urinary symptoms. In the ED, patient is saturating well on her chronic 2 L of oxygen. She is significantly hypertensive and tachycardic in the 110's. Labs show WBC 14K. Chest CT shows pulmonary edema and bilateral pneumonia. Patient was given IV cefepime, IV Lasix 20 mg, IV Solu-Medrol 60 mg, IV Zofran, oxycodone 30 mg. Discharge Exam Gen: A&O 3 NAD HEENT: NCAT, EOMI, not icteric. External ears normal. No rhinorrhea. Moist mucous membranes. Neck: Supple, full range of motion, no observable masses, No meningeal sign. Lungs: No Respiratory distress. CV: RRR, no edema. Abdomen: Soft, nondistended, No rebound tenderness. MSK: No joint swelling, no redness. Skin: No rashes, petechiae, lesions. Normal color per patient. Neuro: Normal Gait, Grossly intact. Psych: Appropriate for situation. Updated Medication List Medication Instructions Recorded Confirmed Type aspirin 81 mg tablet,delayed 81 mg PO QPM 08/10/22 12/07/24 History release epinephrine 0.3 mg/0.3 mL 0.3 mg IM UD PRN Allergic Reaction 08/10/22 12/07/24 History injection, auto-injector (EpiPen) lancets #100 ea 11/04/22 10/03/24 Rx lansoprazole 30 mg capsule,delayed 30 mg PO QPM 02/06/23 12/07/24 History release (Prevacid) pen needle, diabetic 31 gauge x #100 ea 11/17/23 10/03/24 Rx 5/16" nortriptyline 50 mg capsule 100 mg (2 x 50 mg) PO HS #180 caps 02/23/24 12/07/24 Rx (Pamelor) montelukast 10 mg tablet 10 mg PO HS #90 tabs 07/22/24 12/07/24 Rx (Singulair) albuterol sulfate 90 mcg/actuation 2 puff inhalation Q6H PRN Wheezing 08/20/24 12/07/24 Rx aerosol inhaler (Ventolin HFA) #8.5 grams cetirizine 10 mg tablet (Zyrtec) 10 mg PO QPM #90 tabs 08/23/24 12/07/24 Rx Alcohol Swabs 10/03/24 10/03/24 History benralizumab 10 mg/0.5 mL 0 mg subcut DIRECTED 10/20/24 12/07/24 History subcutaneous syringe (Fasenra) insulin pump cart,auto,BT,G6/7 #15 ea 10/26/24 10/26/24 Rx (Omnipod 5 G6-G7 Pods (Gen 5) subcutaneous cartridge) insulin pump cartridge,auto #1 ea 10/26/24 10/26/24 Rx dose,BT,G6/G7 with controller subcutaneous (Omnipod 5 G6-G7 Intro Kit(Gen 5) subcutaneous cartridge and controller) fluticasone fur. 200 mcg-umeclid 1 inh inhalation QAM #60 ea 11/16/24 12/07/24 Rx 62.5 mcg-vilant 25 mcg inhalat.powder (Trelegy Ellipta) albuterol sulfate 2.5 mg/3 mL 2.5 mg inhalation Q6H PRN 12/07/24 12/07/24 History (0.083 %) solution for nebulization Shortness Of Breath Or Wheezing atorvastatin 40 mg tablet 40 mg PO DAILY 12/07/24 12/07/24 History benzonatate 100 mg capsule 100 mg PO TID PRN Cough 12/07/24 12/07/24 History cyanocobalamin (vitamin B-12) 1,000 mcg PO HS 12/07/24 12/07/24 History 1,000 mcg tablet (Vitamin B-12) dulaglutide 0.75 mg/0.5 mL 0.75 mg subcut WK 12/07/24 12/07/24 History subcutaneous pen injector ezetimibe 10 mg tablet 10 mg PO DAILY 12/07/24 12/07/24 History fexofenadine 180 mg tablet 180 mg PO DAILY 12/07/24 12/07/24 History fluticasone propionate 50 1 spray intranasal BID 12/07/24 12/07/24 History mcg/actuation nasal spray,suspension glucagon 3 mg/actuation nasal 3 mg intranasal DIRECTED PRN 12/07/24 12/07/24 History spray (Baqsimi) Hypoglycemia insulin degludec 100 unit/mL (3 44 unit subcut DAILY 12/07/24 12/07/24 History mL) subcutaneous pen insulin lispro 100 unit/mL See Rx Instructions .Route .COMPLEX 12/07/24 12/07/24 History subcutaneous solution (Admelog U-) mometasone 50 mcg/actuation nasal 2 spray intranasal DAILY 12/07/24 12/07/24 History spray ondansetron HCl 8 mg tablet 8 mg PO Q8H PRN NAUSEA/VOMITING 12/07/24 12/07/24 History oxycodone 30 mg tablet 30 mg PO Q6H PRN cancer 12/07/24 12/07/24 History breakthrough pain oxycodone 40 mg tablet,crush 40 mg PO Q8H 12/07/24 12/07/24 History resistant,extended release 12 hr (OxyContin) tizanidine 4 mg tablet (Zanaflex) 4 mg PO Q8H PRN muscle spasticity 12/07/24 12/07/24 History furosemide 20 mg tablet 20 mg PO BID #60 tabs 12/08/24 Rx levofloxacin 750 mg tablet 750 mg PO DAILY 5 days #5 tabs 12/08/24 Rx prednisone 20 mg tablet 40 mg (2 x 20 mg) PO DAILY 5 days 12/08/24 Rx #10 tabs Hospital Stay Data Consultations 12/07/24 17:02 ED Decision to Admit Stat Diagnostic Imagining Performed 12/07/24 14:57 CT chest diagnostic wo con Stat 12/07/24 15:48 CT abd pelvis wo con Stat 12/07/24 22:28 US venous doppler LE BI Stat Pending Results Patient Have Any Pending Studies at Discharge: No Discharge Instructions Given to Patient (Per Discharging Provider) 1. Please take medications as prescribed, finishing abx course and lasix. 2. Get follow up with CT chest in 3 months for lung nodules. Total Time Total Time Spent Total Time Spent (In Minutes): I spent a total of 35 minutes in direct patient care, including [id number] time with the patient and/or family, reviewing medical records, ordering and reviewing diagnostic tests, and coordinating care with other healthcare providers. This time includes: history taking, physical examination, medical decision making, counseling, ECG interpretation, imaging interpretation, lab interpretation, orders, and education, excluding time spent in the performance of separately billed services.
[2024-12-08] MEDS ORDERED: CEFEPIME 2000MG 2,000 MG/20 ML SYR IV SCH (14:00)
[2024-12-08] MEDS ORDERED: AZITHROMYCIN 500 MG/255 ML BAG IV SCH (18:00)
--- NOTE | 2024-12-10 23:42 | Electrocardiogram Report ---
Test Reason : Blood Pressure : */* mmHG Vent. Rate : 96 BPM Atrial Rate : 96 BPM P-R Int : 154 ms QRS Dur : 86 ms QT Int : 360 ms P-R-T Axes : 44 27 50 degrees QTcB Int : 454 ms Normal sinus rhythm Possible Left atrial enlargement Cannot rule out Anterior infarct (cited on or before 01-Jul-2023) Possible Inferior infarct Abnormal ECG When compared with ECG of 03-Oct-2024 12:53, No significant change was found Confirmed by Devan Razo ([id number]) on 12/10/2024 11:42:48 PM Referred By: REFERRED SELF Confirmed By: Devan Razo
== END 2024-12-08 12:57 | disposition home or self-care (01) | DRG 291 ==
LOC: ED 14:01 → SUATTDRO 17:29 → INTOOBSV 17:29 → EDINP 17:29 → 2S 21:30